=== PATIENT | male | born 1950 | race Caucasian/White ===

== ENCOUNTER 2017-04-06 02:07 | Inpatient (IN) | payer MEDICARE, OTHER ==
[2017-04-06] VITALS (7 sets, daily range): BP systolic 95–104; BP diastolic 61–70; PULSE 51–57; RESP 17–20; TEMP 97.8
[~2017-04-06] VITALS: Ht 167.6 cm; Wt 90.5 kg
[~2017-04-06 02:07] MED LIST: CEFT1VIA14 IV; CHLO25TA14 PO; CLOT10TR6 MM; DOXY-17 PO; NAPR220C2 PO; OMEP20CA16 PO; TYL500 PO
[2017-04-06] MEDS ORDERED: PIPER-TAZO 3.375 GM IV (PMX) 100 ML IVPB STA (03:17)
[2017-04-06] MEDS ORDERED: SODIUM CHLORIDE 0.9% 1L BAG IV* STA (03:17)
[2017-04-06 03:29] LABS: ADD SCAN DIFF NO
[2017-04-06 03:33] LABS: ABNORMAL IP MESSAGE 1; HEMATOCRIT 26.7 % (42.0-52.0); MEAN CORPUSCULAR HEMOGLOBIN 28.7 pg (29.0-33.0); MEAN CORPUSCULAR HGB CONC 33.7 g/dl (32.0-37.0); RED BLOOD COUNT 3.14 10^6/ul (4.70-6.10); RED CELL DISTRIBUTION WIDTH 14.3 % (11.5-14.5); WHITE BLOOD COUNT 2.7 10^3/ul (4.8-10.8)
[2017-04-06 03:47] LABS: INR 1.11; PROTIME 14.3 Sec (12.2-14.2); PT RATIO 1.1
[2017-04-06 03:48] LABS: PARTIAL THROMBOPLASTIN TIME 34.7 Sec (25.0-35.0)
[2017-04-06 03:53] LABS: ALANINE AMINOTRANSFERASE 113 IU/L (13-69); ALBUMIN 3.8 g/dl (3.3-4.9); ALBUMIN/GLOBULIN RATIO 0.95; ALKALINE PHOSPHATASE 163 IU/L (42-121); ANION GAP 18 (8-16); ASPARTATE AMINO TRANSFERASE 118 IU/L (15-46); BILIRUBIN,INDIRECT 0.2 mg/dl (0-1.1); BILIRUBIN,TOTAL 0.2 mg/dl (0.2-1.3); BLOOD UREA NITROGEN 12 mg/dl (7-20); CALCIUM 8.3 mg/dl (8.4-10.2); CARBON DIOXIDE 24 mmol/L (21-31); CHLORIDE 95 mmol/L (97-110); CREATININE 1.02 mg/dl (0.61-1.24); GLUCOSE 141 mg/dl (70-220); POTASSIUM 4.9 mmol/L (3.5-5.1); SODIUM 132 mmol/L (135-144); TOTAL PROTEIN 7.8 g/dl (6.1-8.1)
--- NOTE | 2017-04-06 03:54 | ERA ---
ER Documentation Chief Complaint Date/Time DATE: 04/06/17 TIME: 03:54 Chief Complaint fever diarrhea, weakness hx uti, blood in urine for 1 week HPI 66-year-old male with a history of alcohol induced liver disease presenting to the ER for fever for 1 day with associated diarrhea for 3 days and hallucinations per his . He has also had some dysuria and hematuria for the past week. He denies any chest pain, shortness of breath, cough, headaches , neck stiffness or pain. He has not had any vomiting, hematemesis, melena or hematochezia. His diarrhea is nonbloody, about 2-3 times a day. He denies any associated abdominal pain. He does endorse hemorrhoids that occasionally bleed very little blood. He denies having any large amounts of bloody stools ROS All systems reviewed and are negative except as per history of present illness. Medications Home Meds Active Scripts Doxycycline* (Vibramycin*) 100 Mg Capsule, 100 MG PO DAILY, #30 EA Start on 06/22/16 after completion of 14 days course of ceftriaxone 1g IV daily. Prov:BRIGITTE BYRD MD 06/07/16 Reported Medications Cholecalciferol (Vitamin D3) 400 Unit Tab.chew, 400 UNIT PO DAILY, TAB.CHEW 04/06/17 Cyanocobalamin* (Vitamin B12*) 500 Mcg Tab, 1000 MCG PO DAILY, TAB 04/06/17 Ferrous Sulfate* (Ferrous Sulfate*) 325 Mg Tabec, 325 MG PO BID, TAB 04/06/17 Diphenoxylate Hcl-Atropine* (Lomotil*) 5 Ml Soln, 5 ML GTB Q6H Y for DIARRHEA, ML 04/06/17 Diphenoxylate Hcl-Atropine* (Lomotil*) 5 Ml Soln, 5 ML GTB Q6H Y for DIARRHEA, ML 04/06/17 Mirtazapine* (Mirtazapine*) 15 Mg Tablet, 15 MG PO HS, TAB 04/06/17 Sulfamethoxazole/Trimethoprim* (Bactrim Ds* Tablet) 1 Each Tablet, 1 TAB PO BID , TAB 04/06/17 Famotidine* (Famotidine*) 20 Mg Tablet, 20 MG PO BID, #60 TAB 04/06/17 Clotrimazole* (Clotrimazole*) 10 Mg Percy, 10 MG MM 5 TIMES DAILY, TAB 06/04/16 Omeprazole* (Omeprazole*) 20 Mg Capsule.dr, 20 MG PO DAILY, #30 CAP 06/04/16 Discontinued Reported Medications Naproxen* (Aleve*) 220 Mg Capsule, 440 MG PO BID WITH MEALS Y for PAIN LEVEL 1-5 , #60 CAP 06/04/16 Acetaminophen* (Tylenol*) 500 Mg Tab, 500 MG PO Q4H Y for MILD PAIN LEVEL 1-3, TAB 06/04/16 Chlorpromazine Hcl* (Chlorpromazine Hcl*) 25 Mg Tablet, 25 MG PO QID, TAB 06/04/16 Discontinued Scripts Ceftriaxone Sodium (Ceftriaxone) 1 G/Vial Vial.port, 1 G IV DAILY for 14 Days Prov:BRIGITTE BYRD MD 06/07/16 Allergies Allergies: Coded Allergies: No Known Allergy (Unverified , 07/17/15) PMhx/Soc History of Surgery: No Anesthesia Reaction: No Hx Neurological Disorder: No Hx Respiratory Disorders: No Hx Cardiac Disorders: No Hx Psychiatric Problems: No Hx Miscellaneous Medical Probl: Yes (RICKS, near syncope,GERD, migraine, liver disease) Hx Alcohol Use: No (heavy drinker until 2012; quit) Hx Substance Use: No Hx Tobacco Use: No Smoking Status: Unknown if ever smoked FmHx Family History: No diabetes Physical Exam Vitals Vital Signs Date Time Temp Pulse Resp B/P Pulse Ox O2 Delivery O2 Flow Rate FiO2 04/06/17 04:14 100.2 74 16 72/49 99 Room Air 04/06/17 04:08 100 2.0 28 04/06/17 03:52 87 19 98/79 100 Room Air 04/06/17 02:17 101.9 104 20 185/114 98 Physical Exam Const: Sickly appearing, pale, no apparent distress Head: Atraumatic Eyes: PERRLA, EOMI. Pale conjunctiva ENT: Oropharynx clear, dry oral mucosa Neck: Full range of motion..~ No meningismus. Resp: Clear to auscultation bilaterally Cardio: Regular rate and rhythm, no murmurs. 2+ distal pulses Abd: Soft, non tender, non distended. Normal bowel sounds Skin: No petechiae or rashes Back: No midline or flank tenderness Ext: No cyanosis, or edema Neur: Awake and alert, no facial asymmetry, strength and sensations intact in all 4 extremities Psych: Normal Mood and Affect Result Diagram: 04/06/17 0320 04/06/17 0320 Results 24 hrs Laboratory Tests Test 04/06/17 03:17 04/06/17 03:20 04/06/17 04:01 Urine Color YELLOW Urine Clarity CLEAR Urine pH 7.0 Urine Specific [place] <=1.005 Urine Ketones NEGATIVE Urine Nitrite NEGATIVE Urine Bilirubin NEGATIVE Urine Urobilinogen 0.2 E.U./dL Urine Leukocyte Esterase NEGATIVE Urine Hemoglobin NEGATIVE Urine Glucose NEGATIVE% Urine Total Protein NEGATIVE White Blood Count 2.710^3/ul Red Blood Count 3.1410^6/ul Hemoglobin 9.0g/dl Hematocrit 26.7% Mean Corpuscular Volume 85.0fl Mean Corpuscular Hemoglobin 28.7pg Mean Corpuscular Hemoglobin Concent 33.7g/dl Red Cell Distribution Width 14.3% Platelet Count 1610^3/UL Mean Platelet Volume fl Neutrophils % 67.0% Band Neutrophils % 8.0% Lymphocytes % 5.0% Monocytes % 17.0% Eosinophils % 3.0% Neutrophils # 1.810^3/ul Lymphocytes # 0.110^3/ul Monocytes # 0.510^3/ul Eosinophils # 0.110^3/ul Differential Comment MANUAL DIFF Platelet Estimate PLT APPEAR DECREASED Prothrombin Time 14.3Sec Prothrombin Time Ratio 1.1 INR International Normalized Ratio 1.11 Activated Partial Thromboplast Time 34.7Sec Sodium Level 132mmol/L Potassium Level 4.9mmol/L Chloride Level 95mmol/L Carbon Dioxide Level 24mmol/L Anion Gap 18 Blood Urea Nitrogen 12mg/dl Creatinine 1.02mg/dl Glucose Level 141mg/dl Lactic Acid Level 2.8mmol/L Calcium Level 8.3mg/dl Total Bilirubin 0.2mg/dl Direct Bilirubin 0.00mg/dl Indirect Bilirubin 0.2mg/dl Aspartate Amino Transf (AST/SGOT) 118IU/L Alanine Aminotransferase (ALT/SGPT) 113IU/L Alkaline Phosphatase 163IU/L Troponin I < 0.012ng/ml Total Protein 7.8g/dl Albumin 3.8g/dl Globulin 4.00g/dl Albumin/Globulin Ratio 0.95 Lipase 70U/L Bedside Glucose 188mg/dL Current Medications Medications (Trade) Dose Ordered Sig/Raiza Route PRN Reason Start Time Stop Time Status Last Admin Dose Admin Sodium Chloride 3100 ml 3,100 ml BOLUS OVER 2 HOURS STAT IV* 04/06/17 03:17 04/06/17 03:21 DC 04/06/17 03:48 Piperacillin Sod/ Tazobactam Sod 100 ml @ 200 mls/hr ONCE STAT IVPB 04/06/17 03:17 04/06/17 03:46 DC 04/06/17 03:48 Sodium Chloride 1,000 ml @ 500 mls/hr Q2H ONCE IV 04/06/17 05:22 04/06/17 07:21 Norepinephrine (Levophed) 250 ml @ 7.5 mls/hr ONCE STAT IV 04/06/17 05:57 04/07/17 15:16 Procedures/MDM Labs: CBC shows pancytopenia with platelets 16 CMP shows transaminitis Lactate is elevated at 2.8 Troponin within normal limits UA normal Imaging: Chest x-ray shows no evidence of pneumonia or pulmonary congestion MDM: Patient is presenting with fever and tachycardia with unknown source of infection. His labs were notable for pancytopenia. Given his recent hematuria and bleeding hemorrhoids, 1 unit of platelets was ordered. His hemoglobin is stable at this time and does not require transfusion. He was given broad- spectrum antibiotics. He received 30 cc/kg of IV fluids with no significant improvement of his blood pressure. Another additional 500 cc was given with mild improvement of his blood pressure. Norepinephrine was ordered to use as needed for hypotension. Patient's infectious symptoms have not stabilized and the patient is at risk of rapid decompensation. The patient will be admitted for careful hydration, antibiotic therapy, and infectious source control. Severe Sepsis Assessment: Infectious Source: Unknown source End organ damage indicated by: Lactate > 2.0 mmol/L Hypotension( SBP < 90 or >40 mmHG drop or MAP < 65) Severe Sepsis Managment: Blood Cultures X 2 before broad spectrum antibiotics initiated within 3 hours of recognition. 30 ml/kg NS bolus Completed Initial Lactate: 2.8 Repeat Lactate pending Critical Care: Time: 40 minutes Treatments/Evaluations: Emergent fluid management, while maintaining close respiratory support. Immediate broad spectrum antibiotic therapy. Simultaneous assessment for possible sources in order to direct therapy. Consideration for invasive and chemical support to prevent respiratory or cardiac collapse. Septic Shock Assessment (1 hour post 30 ml/kg fluid bolus at 0600): Hypotension (SBP < 90 or 40 mmHg drop, MAP < 65): Yes Lactic acid > 4.0 pending Hypotensive Treatment (not required for isolated lactic acid elevation): Comfort Care: No Central LIne: not indicated Vasopressor started: norepinephrine I considered further perfusion assessment with CVP measurement, SCVO2, bedside ultrasound volume assessment, passive leg raise, trial of further fluid bolus. And proceded with a trial of further fluid bolus Accepting Care Team: Current data and ongoing care discussed. Time: Time of admission Primary Provider: Barrett Consulting: none Outstanding Data: cultures Departure Diagnosis: Primary Impression: Sepsis Qualified Code: A41.9 - Sepsis, due to unspecified organism Additional Impressions: Pancytopenia Transaminitis Condition: Critical EKJARED FRANCISCO MD Apr 06, 2017 03:54
[2017-04-06 04:05] LABS: TROPONIN-I < 0.012 ng/ml (0.00-0.12)
--- NOTE | 2017-04-06 04:07 | RADRPT ---
PROCEDURE: CHEST - 1 VIEW CLINICAL INDICATION: 66-year-old male with shortness of breath and sepsis. TECHNIQUE: A single frontal AP portable view of the chest was performed. The images were reviewed on a PACS workstation. COMPARISON: Chest x-ray June 08, 2016. FINDINGS: There is a shallow inspiration accentuating the heart size. Accounting for this, the cardiomediasti nal silhouette is within normal limits without significant interval change. There is mild bibasilar subsegmental atelectasis. There is no evidence for an infiltrate. There is no evidence for conges tive heart failure. There is no evidence for pneumothorax. The osseous structures are intact. IMPRESSION: Shallow inspiration with mild bibasilar subsegmental atelectasis. .Randall Escalera MD, Date Time Electronically viewed and signed by .Randall Escalera MD, on 04/06/2017 04:07 .Jarod/
[2017-04-06 04:09] LABS: EOSINOPHILS # 0.1 10^3/ul (0.0-0.5); LYMPHOCYTES # 0.1 10^3/ul (0.8-2.9); MONOCYTE # 0.5 10^3/ul (0.3-0.9); NEUTROPHIL # 1.8 10^3/ul (1.6-7.5); PLATELET ESTIMATE PLT APPEAR DECREASED
[2017-04-06] MEDS ORDERED: UDLOM GTB (04:11)
[2017-04-06] MEDS ORDERED: CHOL400T3 PO (04:11)
[2017-04-06] MEDS ORDERED: FAMO20TA18 PO (04:11)
[2017-04-06] MEDS ORDERED: CYAN500T46 PO (04:11)
[2017-04-06] MEDS ORDERED: MIRT15TA5 PO (04:11)
[2017-04-06] MEDS ORDERED: FER325 PO (04:11)
[2017-04-06] MEDS ORDERED: SULF1TAB31 PO (04:11)
[2017-04-06 04:12] LABS: PLATELET COUNT 16 10^3/UL (140-415)
[2017-04-06] MEDS ORDERED: SOD CHLORIDE 0.9% 1,000 ML IV ONE (05:22)
[2017-04-06 05:47] LABS: ADD UMIC NO; UR BILIRUBIN (Dip) NEGATIVE (NEGATIVE); UR BLOOD (Dip) NEGATIVE (NEGATIVE); UR CLARITY CLEAR (CLEAR); UR COLOR YELLOW (YELLOW); UR GLUCOSE (Dip) NEGATIVE (NEGATIVE); UR KETONES (Dip) NEGATIVE (NEGATIVE); UR LEUKOCYTE ESTERASE (Dip) NEGATIVE (NEGATIVE); UR NITRITE (Dip) NEGATIVE (NEGATIVE); UR TOTAL PROTEIN (Dip) NEGATIVE (NEGATIVE); UR UROBILINOGEN (Dip) 0.2 E.U./dL (0.1-1.0)
[2017-04-06] MEDS ORDERED: NORepinephrine 8MG/250 ML (PMX 250 ML IV STA (05:57)
--- NOTE | 2017-04-06 13:33 | HP ---
Date/Time of Note Date/Time of Note DATE: 04/06/17 TIME: 13:31 Assessment/Plan VTE Prophylaxis VTE Prophylaxis Intervention: SCD's Assessment/Plan Assessment/Plan 66 yo M with pmhx cirrhosis of unclear etiology presented with altered mental status, severe hypotension requiring pressor support. Pt's elevated HR on arrival to the ED and low WBCs meet SIRS criteria. Pt with shock as evidence by need of pressor support. Suspect septic etiology, though source unclear. Pt with previous admission for bacteremia. Pt without known indwelling lines/ devices #Shock, presumed septic in origin -cont empiric zosyn -urine and blood cultures in process -Abd US to eval for ascities, though no distension on my physical exam -cont pressor support #cirrhosis: etiology unclear -check hepatitis serologies and liver US as above #Elevatedanion gap: etio unclear, ?starvation, ?EtOH check ABG and EtOH level #thrombocytopenia: suspect 2/2 chronic liver disease sp platelet transfusion in the ED given no evidence of active bleeding, defer additional transfusion for platelets >10k #?B12 def: cont home b12 #FEN: general diet #h/o BERNARDO: Cont home iron #h/o depression: cont home Remeron ?h/o GERD: Cont home stomach acid modifying agent HPI/ROS Admit Date/Time Admit Date/Time Hx of Present Illness Pt hx obtained with aid of the language line 66 yo M with pmhx cirrhosis of unk etio (per patient) presents with 2 weeks of feeling unwell---periumbical pain, dysuria. Since yesterday has been having visual hallucinations. No documented h/o HE or SBP. Denies chest pain, sob. Temp mildy elevated in the ED. Pt started on abx and unable to maintain MAPs and thus levophed was started. ROS 10p ROS neg except as per HPI PMH/Family/Social Past Medical History PMHx: cirrhosis, unclear etio (?EtOH?), BERNARDO -denies previous SBP. 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 ?depression PSHx: abdominal surgery home meds: as per EMR All: NKDA Soc Hx: lives with Fam Hx: noncontributory Past Surgical History Past Surgical Hx: no surgical history Social History Smoking Status: Unknown if ever smoked Exam/Review of Systems Vital Signs Vitals Vital Signs Date Time Temp Pulse Resp B/P Pulse Ox O2 Delivery O2 Flow Rate FiO2 04/06/17 12:30 73 17 125/76 100 Nasal Cannula 2.0 04/06/17 11:30 97.9 04/06/17 04:08 28 Exam Exam nad, laying in bed EOMI MMM rrr no mrg lungs clear abd soft, no fluid wave, mild ttp over periumbilical region, no tenderness or guarding no le edema no rashes or jaundice no asterixis responds to questions appropriately in [employer] [facility] Result Diagram: 04/06/17 0320 04/06/17 0320 Procedures Procedures UA pristine, CXR with atelectasis blood and urine cultures in process +transaminitis; bilis ok pl 14 ALVARO RODRIGES MD Apr 06, 2017 13:33
[2017-04-06] MEDS ORDERED: CEFTRIAXONE 2 GM/50 ML (PMX) 50 ML IVPB ONE (14:00)
--- NOTE | 2017-04-06 14:01 | RADRPT ---
PROCEDURE: US Abdomen complete. CLINICAL INDICATION: Sepsis and liver failure. There is a question of ascites. TECHNIQUE: Multiple real-time longitudinal and transverse images were acquired of the patient's ab domen and retroperitoneum utilizing a curved array transducer. COMPARISON: None available. FINDINGS: There is normal size and echogenicity of the liver without a focal mass identified. Normal hepatoped al flow is seen within the main portal vein. There is no gallbladder wall thickening, cholelithiasis , or pericholecystic fluid. There is no intra or extrahepatic biliary dilatation. The common bile d uct measures 3.2 mm in maximal dimension. The visualized portions of the pancreas are unremarkable. The spleen is normal in size and echogenicity. No free fluid is identified. The right kidney measures 11.5 cm in length. The left kidney measures 11.3 cm in length. Both kidn eys demonstrate normal echogenicity. There is no hydronephrosis, nephrolithiasis, or renal mass. The visualized portions of the aorta and IVC are unremarkable. IMPRESSION: 1. Unremarkable abdominal ultrasound. A source for the patient's symptoms is not identified. 2. No evidence of ascites, as questioned. RPTAT: GG .Delio Webb MD, Date Time Electronically viewed and signed by .Delio Webb MD, MD on 04/06/2017 14:00 .P/
[2017-04-06] MEDS ORDERED: MAGNESIUM HYDROXIDE 30ML CUP PO PRN (14:30)
[2017-04-06] MEDS ORDERED: NA PHOSPHATE/BIPHOS 133 ML ENEMA PR PRN (14:30)
[2017-04-06] MEDS ORDERED: NORepinephrine 8MG/250 ML (PMX 250 ML IV SCH (14:30)
[2017-04-06] MEDS ORDERED: DOCUSATE SODIUM 100 MG CAP PO PRN (14:30)
[2017-04-06] MEDS ORDERED: BISACODYL (EC) 5 MG TAB PO PRN (14:30)
[2017-04-06] MEDS ORDERED: BISACODYL 10 MG SUPP PR PRN (14:30)
[2017-04-06 14:49] LABS: AADO2 Arterial 14.7 mmHg (7.0-24.0); Allen Test ACCEPTAB; Arterial Base Excess -1.4 mmol/L (-3.0-3); Arterial COHb 0.8 % (0.0-3.0); Arterial Fraction of Oxyhgb 95.4 % (93.0-99.0); Arterial HCO3 22.8 mmol/L (22.0-26.0); Arterial MetHb 0.4 % (0.0-1.5); Arterial Total Hemglobin 6.8 g/dl (12.0-18.0); MODE ROOM AIR
[2017-04-06] MEDS: PIPER-TAZO 3.375 GM IV (PMX) 100 ML IVPB SCH ×2 (15:19→22:58)
[2017-04-06] MEDS ORDERED: ACETAMINOPHEN 500 MG TAB PO STA (16:53)
[2017-04-06] MEDS: SOD CHLORIDE 0.9% 1,000 ML IV SCH (17:02)
[2017-04-06] MEDS: MIRTAZAPINE 15 MG TAB PO SCH (22:58)
[2017-04-06] MEDS: FAMOTIDINE 20 MG TAB PO SCH (22:59)
[2017-04-06] MEDS: FERROUS SULFATE (EC) 325 MG TAB PO SCH (22:59)
[2017-04-07] VITALS (23 sets, daily range): BP systolic 91–123; BP diastolic 54–84; PULSE 46–95; RESP 14–26; Ht 167.6 cm; Wt 90.5 kg
[2017-04-07 05:08] LABS: ADD SCAN DIFF NO
[2017-04-07 05:14] LABS: ABNORMAL IP MESSAGE 1; HEMATOCRIT 22.6 % (42.0-52.0); HEMOGLOBIN 7.5 g/dl (14.0-18.0); MEAN CORPUSCULAR HEMOGLOBIN 28.5 pg (29.0-33.0); MEAN CORPUSCULAR HGB CONC 33.2 g/dl (32.0-37.0); MEAN CORPUSCULAR VOLUME 85.9 fl (82.0-101.0); MEAN PLATELET VOLUME 11.9 fl (7.4-10.4); PLATELET COUNT 31 10^3/UL (140-415); RED BLOOD COUNT 2.63 10^6/ul (4.70-6.10); RED CELL DISTRIBUTION WIDTH 14.7 % (11.5-14.5); WHITE BLOOD COUNT 1.9 10^3/ul (4.8-10.8)
[2017-04-07 05:36] LABS: ALBUMIN 2.9 g/dl (3.3-4.9); ALBUMIN/GLOBULIN RATIO 0.78; BILIRUBIN,INDIRECT 0.1 mg/dl (0-1.1); BILIRUBIN,TOTAL 0.1 mg/dl (0.2-1.3); CALCIUM 7.8 mg/dl (8.4-10.2); CREATININE 0.71 mg/dl (0.61-1.24); POTASSIUM 3.9 mmol/L (3.5-5.1); TOTAL PROTEIN 6.6 g/dl (6.1-8.1)
[2017-04-07] MEDS: PIPER-TAZO 3.375 GM IV (PMX) 100 ML IVPB SCH ×3 (05:51→22:33)
[2017-04-07] MEDS: PANTOPRAZOLE (EC) 40 MG TAB PO SCH (05:51)
[2017-04-07 06:22] LABS: HEPATITIS B CORE ANTIBODY NEGATIVE (NEGATIVE)
--- NOTE | 2017-04-07 08:26 | PN ---
Date/Time of Note Date/Time of Note DATE: 04/07/17 TIME: 08:25 Assessment/Plan VTE Prophylaxis VTE Prophylaxis Intervention: SCD's Lines/Catheters IV [facility] Peripheral IV Urinary Cath still in place: No Assessment/Plan Assessment/Plan 66 yo M with pmhx cirrhosis of unclear etiology presented with altered mental status, severe hypotension requiring pressor support. Pt's elevated HR on arrival to the ED and low WBCs meet SIRS criteria. Pt with shock as evidence by need of pressor support. Suspect septic etiology, though source unclear. Pt with previous admission for bacteremia. Pt without known indwelling lines/ devices #Shock, presumed septic in origin -cont empiric zosyn -urine and blood cultures in process -Abd US to eval for ascities, though no distension on my physical exam off pressors now #cirrhosis: etiology unclear -check hepatitis serologies and liver US as above #Elevatedanion gap: RESOLVED #thrombocytopenia: suspect 2/2 chronic liver disease sp platelet transfusion in the ED given no evidence of active bleeding, defer additional transfusion for platelets >10k #?B12 def: cont home b12 #FEN: general diet #h/o BERNARDO: Cont home iron #h/o depression: cont home Remeron ?h/o GERD: Cont home stomach acid modifying agent dispo: transfer to floor as off pressors x 7 hours Subjective 24 Hr Interval Summary Free Text/Dictation Pt feeling much better this morning. More awake and alert. Says breakfast was very good. Has been off levophed since 1 am Exam/Review of Systems Vital Signs Vitals Vital Signs Date Time Temp Pulse Resp B/P Pulse Ox O2 Delivery O2 Flow Rate FiO2 04/07/17 07:30 98.6 79 14 91/63 99 Room Air 04/07/17 04:00 2.0 04/06/17 04:08 28 Intake and Output 04/06/17 04/06/17 04/07/17 15:00 23:00 07:00 Intake Total 205 ml 109.375 ml 651.875 ml Output Total 2200 ml 250 ml 650 ml Balance -1995 ml -140.625 ml 1.875 ml Exam nad, pleasant, sitting up in chair no mrg lungs clear abd soft no le edema Results Result Diagram: 04/07/17 0445 04/07/17 0500 Results 24 hrs Laboratory Tests Test 04/06/17 14:30 04/06/17 15:23 04/06/17 16:30 04/06/17 21:30 Blood Gas Specimen Source Blood arterial Arterial Blood Date Drawn 04/06/2017 2:38:55 PM Arterial Blood pH (Temp corrected) 7.427 Arterial Blood pCO2 (Temp correct) 35.4 Arterial Blood pO2 (Temp corrected) 92.6 Arterial Blood HCO3 22.8 Arterial Blood Base Excess -1.4 Arterial Blood Oxygen Saturation 96.6 Charlie Test ACCEPTAB Arterial Blood Gas Puncture Site Left Radial Arterial Blood Carboxyhemoglobin 0.8 Arterial Blood Methemoglobin 0.4 Blood Gas A-a O2 Differential 14.7 Oxyhemoglobin Percent 95.4 Total Hemoglobin 6.8 L Blood Gas Temperature 37.0 Blood Gas Modality ROOM AIR FiO2 21.0 Blood Gas Notified Whom M.D. Blood Gas Notified Time 04/06/2017 2:48:52 PM Bedside Glucose 102 Ethyl Alcohol Level < 10.0 Ammonia < 9 L Test 04/07/17 04:45 04/07/17 04:45 04/07/17 05:00 White Blood Count 1.9 #L Red Blood Count 2.63 L Hemoglobin 7.5 L Hematocrit 22.6 L Mean Corpuscular Volume 85.9 Mean Corpuscular Hemoglobin 28.5 L Mean Corpuscular Hemoglobin Concent 33.2 Red Cell Distribution Width 14.7 H Platelet Count 31 #L Mean Platelet Volume 11.9 #H Lab Scanned Report BLOOD TRANSFUSION Sodium Level 137 Potassium Level 3.9 Chloride Level 107 # Carbon Dioxide Level 23 Anion Gap 11 # Blood Urea Nitrogen 7 Creatinine 0.71 Glucose Level 99 # Calcium Level 7.8 L Total Bilirubin 0.1 L Direct Bilirubin 0.00 Indirect Bilirubin 0.1 Aspartate Amino Transf (AST/SGOT) 58 #H Alanine Aminotransferase (ALT/SGPT) 76 H Alkaline Phosphatase 116 Total Protein 6.6 # Albumin 2.9 L Globulin 3.70 H Albumin/Globulin Ratio 0.78 Hepatitis A Antibody Total POSITIVE H Hepatitis B Surface Antigen NEGATIVE Hepatitis B Surface Antibody NEGATIVE Hepatitis B Core Total Antibody NEGATIVE Hepatitis C Antibody REACTIVE H Medications Medications Current Medications Cyanocobalamin (Vitamin B12) 1,000 mcg DAILY PO ; Start 04/07/17 at 09:00 Famotidine (Pepcid) 20 mg BID PO Last administered on 04/06/17t 22:59; Admin Dose 20 MG; Start 04/06/17 at 21:00 Ferrous Sulfate (Ferrous Sulfate (Ec)) 325 mg BID PO Last administered on 22:59; Admin Dose 325 MG; Start 04/06/17 at 21:00 Mirtazapine (Remeron) 15 mg HS PO Last administered on 04/06/17 22:58; Admin Dose 15 MG; Start 04/06/17 at 21:00 Pantoprazole (Protonix Tab) 40 mg DAILY@06 PO Last administered on 04/07/17 05: 51; Admin Dose 40 MG; Start 04/07/17 at 06:00 Cholecalciferol 400 units 400 units DAILY PO ; Start 04/07/17 at 09:00 Sodium Chloride 1,000 ml @ 10 mls/hr Q24H IV Last administered on 04/06/17 17: 02; Admin Dose 10 MLS/HR; Start 04/06/17 at 14:02 Piperacillin Sod/ Tazobactam Sod (Zosyn 3.375gm/ 100 ml (Pmx)) 100 ml @ 200 mls /hr Q8H IVPB Last administered on 04/07/17 05:51; Admin Dose 200 MLS/HR; Start 04/06/17 at 14:30 Docusate Sodium (Colace) 100 mg Q12H PRN PO CONSTIPATION; Start 04/06/17 at 14: 30 Magnesium Hydroxide (Milk Of Mag) 30 ml DAILY PRN PO CONSTIPATION; Start at 14:30 Bisacodyl (Dulcolax) 5 mg DAILY PRN PO CONSTIPATION; Start 04/06/17 at 14:30 Bisacodyl (Dulcolax Supp) 10 mg DAILY PRN CA CONSTIPATION; Start 04/06/17 at 14: 30 Sodium Biphosphate/ Sodium Phosphate (Fleet Enema) 133 ml DAILY PRN CA CONSTIPATION; Start 04/06/17 at 14:30 Procedures Procedures cultures in process. ALVARO RODRIGES MD Apr 07, 2017 08:26
[2017-04-07] MEDS: FERROUS SULFATE (EC) 325 MG TAB PO SCH ×2 (08:31→21:39)
[2017-04-07] MEDS: CHOLECALCIFEROL 400 UNITS TAB PO SCH (08:31)
[2017-04-07] MEDS: CYANOCOBALAMIN 500 MCG TAB PO SCH (08:31)
[2017-04-07] MEDS: FAMOTIDINE 20 MG TAB PO SCH ×2 (08:31→21:39)
[2017-04-07] MEDS ORDERED: NON-FORMULARY/PATIENT OWN MED (Omeprazole* 20 MG) PO SCH (09:00)
[2017-04-07] MEDS ORDERED: CHOLECALCIFEROL 400 UNIT PO SCH (09:00)
[2017-04-07 10:15] LABS: ANISOCYTOSIS 1+; LYMPHOCYTES # 0.1 10^3/ul (0.8-2.9); MONOCYTE # 0.3 10^3/ul (0.3-0.9); NEUTROPHIL # 1.1 10^3/ul (1.6-7.5)
[2017-04-07 10:16] LABS: OVALOCYTES FEW; PLATELET ESTIMATE PLT APPEAR DECREASED; POIKILOCYTOSIS 1+
[2017-04-07] MEDS: SOD CHLORIDE 0.9% 1,000 ML IV SCH (15:47)
[2017-04-07] MEDS ORDERED: ACETAMINOPHEN 325 MG TAB PO PRN (16:30)
[2017-04-07] MEDS: ACETAMINOPHEN 325 MG TAB PO PRN (16:37)
[2017-04-07] MEDS: MIRTAZAPINE 15 MG TAB PO SCH (21:50)
[2017-04-08] VITALS (13 sets, daily range): BP systolic 82–117; BP diastolic 47–68; PULSE 50–83; RESP 15–20
[2017-04-08] MEDS: PIPER-TAZO 3.375 GM IV (PMX) 100 ML IVPB SCH ×3 (05:54→22:31)
[2017-04-08] MEDS: PANTOPRAZOLE (EC) 40 MG TAB PO SCH (05:54)
[2017-04-08 07:42] LABS: ADD SCAN DIFF NO
[2017-04-08 07:46] LABS: ABNORMAL IP MESSAGE 1; HEMATOCRIT 21.8 % (42.0-52.0); HEMOGLOBIN 7.4 g/dl (14.0-18.0); MEAN CORPUSCULAR HEMOGLOBIN 29.4 pg (29.0-33.0); MEAN CORPUSCULAR HGB CONC 33.9 g/dl (32.0-37.0); MEAN CORPUSCULAR VOLUME 86.5 fl (82.0-101.0); MEAN PLATELET VOLUME 10.5 fl (7.4-10.4); RED BLOOD COUNT 2.52 10^6/ul (4.70-6.10); RED CELL DISTRIBUTION WIDTH 14.4 % (11.5-14.5); WHITE BLOOD COUNT 1.8 10^3/ul (4.8-10.8)
[2017-04-08 07:51] LABS: PLATELET COUNT 18 10^3/UL (140-415)
[2017-04-08 07:58] LABS: ALBUMIN/GLOBULIN RATIO 0.83; BILIRUBIN,INDIRECT 0.2 mg/dl (0-1.1); BILIRUBIN,TOTAL 0.2 mg/dl (0.2-1.3); CALCIUM 7.8 mg/dl (8.4-10.2); CREATININE 0.83 mg/dl (0.61-1.24); POTASSIUM 4.1 mmol/L (3.5-5.1); TOTAL PROTEIN 6.6 g/dl (6.1-8.1)
[2017-04-08] MEDS: CHOLECALCIFEROL 400 UNITS TAB PO SCH (08:52)
[2017-04-08] MEDS: FAMOTIDINE 20 MG TAB PO SCH ×2 (08:53→20:58)
[2017-04-08] MEDS: FERROUS SULFATE (EC) 325 MG TAB PO SCH ×2 (08:53→20:58)
[2017-04-08] MEDS: CYANOCOBALAMIN 500 MCG TAB PO SCH (08:57)
[2017-04-08 09:23] LABS: LYMPHOCYTES # 0.1 10^3/ul (0.8-2.9); MONOCYTE # 0.3 10^3/ul (0.3-0.9); NEUTROPHIL # 1.4 10^3/ul (1.6-7.5)
[2017-04-08 09:25] LABS: OVALOCYTES FEW; PLATELET ESTIMATE PLT APPEAR DECREASED; POLYCHROMASIA FEW; SCHISTOCYTES OCCASIONAL; SPHEROCYTES FEW
--- NOTE | 2017-04-08 10:01 | PN ---
Date/Time of Note Date/Time of Note DATE: 04/08/17 TIME: 09:57 Assessment/Plan VTE Prophylaxis VTE Prophylaxis Intervention: contraindicated Lines/Catheters [facility]from [facility]): Peripheral IV Urinary Cath still in place: No Assessment/Plan Problems: (1) Cirrhosis of liver Status: Chronic Comment: He has cirrhosis which we are presuming is doing due to chronic active hepatitis C. Formalized evaluation of this can be done as an outpatient by his primary care physician with referral to senior property accountant ultrasound based liver elasticity examination. He does not have ascites so this is not the source of the possibility of sepsis. Qualifiers: Hepatic cirrhosis type: other cirrhosis Qualified Code: K74.69 - Other cirrhosis of liver (2) Hepatitis C antibody positive in blood Status: Acute Comment: New diagnosis the RIBA is pending (3) Sepsis Status: Acute Comment: Urine is negative chest x-ray is negative abdominal ultrasound is negative skin exam is negative. Patient clinically is responded nicely. We will continue antibiotics for 1 more day and observation to make sure that nothing becomes obviously apparent. I do not believe that there is a biliary source for this based on the presentation. Qualifiers: Sepsis type: sepsis due to unspecified organism Qualified Code: A41.9 - Sepsis, due to unspecified organism (4) Pancytopenia Status: Acute Comment: Due to cirrhosis Subjective 24 Hr Interval Summary Free Text/Dictation Patient reports from his perspective he is feeling better although he is insecure about the long-term Constitutional: no complaints (Denies any fevers chills or sweats) Eyes: no complaints Respiratory: no complaints (No cough no shortness of breath) Cardiovascular: no complaints (No chest pain no palpitations no orthopnea no PND) Gastrointestinal: no complaints (No nausea or vomiting no pain no distention) Genitourinary: no complaints Exam/Review of Systems Vital Signs Vitals Vital Signs Date Time Temp Pulse Resp B/P Pulse Ox O2 Delivery O2 Flow Rate FiO2 04/08/17 09:09 66 100/65 04/08/17 08:08 98.0 17 99 04/07/17 09:00 Room Air 04/07/17 04:00 2.0 04/06/17 04:08 28 Intake and Output 04/07/17 04/07/17 04/08/17 15:00 23:00 07:00 Intake Total 240 ml 780 ml Output Total 1000 ml Balance 240 ml -220 ml Exam Constitutional: alert, oriented Respiratory: clear to auscultation, normal air movement, other (Noted spider angiomata on the anterior chest wall) Cardiovascular: nl pulses, regular rate and rhythm Gastrointestinal: non-tender, other (There is no fluid wave or shifting dullness), soft, splenomegaly (Spleen is enlarged) Results Result Diagram: 04/08/17 0720 04/08/17 0720 Results 24 hrs Laboratory Tests Test 04/08/17 07:20 White Blood Count 1.8 L Red Blood Count 2.52 L Hemoglobin 7.4 L Hematocrit 21.8 L Mean Corpuscular Volume 86.5 Mean Corpuscular Hemoglobin 29.4 Mean Corpuscular Hemoglobin Concent 33.9 Red Cell Distribution Width 14.4 Platelet Count 18 #*L Mean Platelet Volume 10.5 H Neutrophils % 80.0 H Lymphocytes % 4.0 L Monocytes % 14.0 H Metamyelocytes % 2.0 H Neutrophils # 1.4 L Lymphocytes # 0.1 L Monocytes # 0.3 Metamyelocytes # 0.0 Platelet Estimate PLT APPEAR DECREASED Polychromasia FEW Spherocytes FEW Ovalocytes FEW Schistocytes OCCASIONAL Sodium Level 134 L Potassium Level 4.1 Chloride Level 103 Carbon Dioxide Level 25 Anion Gap 10 Blood Urea Nitrogen 7 Creatinine 0.83 Glucose Level 91 Calcium Level 7.8 L Total Bilirubin 0.2 Direct Bilirubin 0.00 Indirect Bilirubin 0.2 Aspartate Amino Transf (AST/SGOT) 41 Alanine Aminotransferase (ALT/SGPT) 67 Alkaline Phosphatase 125 H Total Protein 6.6 Albumin 3.0 L Globulin 3.60 H Albumin/Globulin Ratio 0.83 Medications Medications Current Medications Cyanocobalamin (Vitamin B12) 1,000 mcg DAILY PO Last administered on 04/08/17 08:57; Admin Dose 1,000 MCG; Start 04/07/17 at 09:00 Famotidine (Pepcid) 20 mg BID PO Last administered on 04/08/17 08:53; Admin Dose 20 MG; Start 04/06/17 at 21:00 Ferrous Sulfate (Ferrous Sulfate (Ec)) 325 mg BID PO Last administered on 08:53; Admin Dose 325 MG; Start 04/06/17 at 21:00 Mirtazapine (Remeron) 15 mg HS PO Last administered on 04/07/17 21:50; Admin Dose 15 MG; Start 04/06/17 at 21:00 Pantoprazole (Protonix Tab) 40 mg DAILY@06 PO Last administered on 04/08/17 05: 54; Admin Dose 40 MG; Start 04/07/17 at 06:00 Cholecalciferol 400 units 400 units DAILY PO Last administered on 04/08/17 08: 52; Admin Dose 400 UNITS; Start 04/07/17 at 09:00 Sodium Chloride 1,000 ml @ 10 mls/hr Q24H IV Last administered on 04/07/17 15: 47; Admin Dose 10 MLS/HR; Start 04/06/17 at 14:02 Piperacillin Sod/ Tazobactam Sod (Zosyn 3.375gm/ 100 ml (Pmx)) 100 ml @ 200 mls /hr Q8H IVPB Last administered on 04/08/17 05:54; Admin Dose 200 MLS/HR; Start 04/06/17 at 14:30 Docusate Sodium (Colace) 100 mg Q12H PRN PO CONSTIPATION; Start 04/06/17 at 14: 30 Magnesium Hydroxide (Milk Of Mag) 30 ml DAILY PRN PO CONSTIPATION; Start at 14:30 Bisacodyl (Dulcolax) 5 mg DAILY PRN PO CONSTIPATION; Start 04/06/17 at 14:30 Bisacodyl (Dulcolax Supp) 10 mg DAILY PRN [place] CONSTIPATION; Start 04/06/17 at 14: 30 Sodium Biphosphate/ Sodium Phosphate (Fleet Enema) 133 ml DAILY PRN [place] CONSTIPATION; Start 04/06/17 at 14:30 Acetaminophen (Tylenol Tab) 650 mg Q4H PRN PO PAIN AND OR ELEVATED TEMP Last administered on 04/07/17 16:37; Admin Dose 650 MG; Start 04/07/17 at 16:30 ELDON HINES MD Apr 08, 2017 10:01
[2017-04-08] MEDS ORDERED: CYANOCOBALAMIN 500 MCG TAB PO SCH (11:00)
[2017-04-08] MEDS ORDERED: LACTATED RINGER'S 500 ML IV ONE (11:30)
[2017-04-08] MEDS: THIAMINE 100 MG TAB PO SCH (11:54)
[2017-04-08] MEDS ORDERED: TESTOSTERONE CYPIONATE 200 MG/ML INJ IM ONE (12:00)
[2017-04-08] MEDS: SOD CHLORIDE 0.9% 1,000 ML IV SCH (14:02)
[2017-04-08] MEDS: ACETAMINOPHEN 325 MG TAB PO PRN (16:26)
[2017-04-08] MEDS ORDERED: LACTATED RINGER'S 250 ML IV ONE (17:00)
[2017-04-08] MEDS: MIRTAZAPINE 15 MG TAB PO SCH (20:58)
[2017-04-09] VITALS (11 sets, daily range): BP systolic 92–107; BP diastolic 52–67; PULSE 51–71; RESP 18–20
[2017-04-09] MEDS: PANTOPRAZOLE (EC) 40 MG TAB PO SCH (05:54)
[2017-04-09] MEDS: PIPER-TAZO 3.375 GM IV (PMX) 100 ML IVPB SCH ×2 (05:54→13:42)
[2017-04-09] MEDS: CYANOCOBALAMIN 500 MCG TAB PO SCH (08:37)
[2017-04-09] MEDS: FERROUS SULFATE (EC) 325 MG TAB PO SCH ×2 (08:38→21:19)
[2017-04-09] MEDS: THIAMINE 100 MG TAB PO SCH (08:38)
[2017-04-09] MEDS: CHOLECALCIFEROL 400 UNITS TAB PO SCH (08:38)
[2017-04-09] MEDS: FAMOTIDINE 20 MG TAB PO SCH ×2 (08:38→21:19)
[2017-04-09] MEDS: SOD CHLORIDE 0.9% 1,000 ML IV SCH (13:36)
--- NOTE | 2017-04-09 15:17 | PN ---
Date/Time of Note Date/Time of Note DATE: 04/09/17 TIME: 15:09 Assessment/Plan VTE Prophylaxis VTE Prophylaxis Intervention: SCD's Lines/Catheters IV Catheter Type (from Nrsg): Peripheral IV Urinary Cath still in place: No Assessment/Plan Assessment/Plan 1. Hypotension, due to dehydration, improved, stop antibiotics 2. Hepatitis C, follow up with LFTs 3. Pancytopenia, likely hepatitis C related, follow up with CBC Subjective 24 Hr Interval Summary Free Text/Dictation better appetite and better oral intake. no nausea or vomiting Exam/Review of Systems Vital Signs Vitals Vital Signs Date Time Temp Pulse Resp B/P Pulse Ox O2 Delivery O2 Flow Rate FiO2 04/09/17 12:44 61 04/09/17 11:46 99.3 18 104/65 95 04/07/17 09:00 Room Air 04/07/17 04:00 2.0 04/06/17 04:08 28 Intake and Output 04/08/17 04/08/17 04/09/17 15:00 23:00 07:00 Intake Total 840 ml 400 ml Balance 840 ml 400 ml Exam Constitutional: alert, oriented, well developed Psych: nl mood/affect, no complaints Head: atraumatic, normocephalic Eyes: EOMI, PERRL, nl conjunctiva, nl lids ENMT: nl external ears & nose, nl lips & teeth, nl nasal mucosa & septum Neck: non-tender, supple Respiratory: clear to auscultation, normal air movement, No congested cough, No crackles/rales, No diminished breath sounds, No intercostal retraction, No labored breathing, No other, No respirations, No tactile fremitus, No wheezing Cardiovascular: nl pulses, regular rate and rhythm, No S3, No S4, No bruits, No diastolic murmur, No edema, No gallop, No irregular rhythm, No jugular venous distention (JVD), No murmurs/extra sounds, No other, No rub, No systolic murmur Gastrointestinal: nl liver, spleen, non-tender, soft, No ascites, No bowel sounds, No distended, No firm, No hepatomegaly, No mass , No other, No rebound or guarding, No splenomegaly, No surgical scars, No tender Musculoskeletal: nl extremities to inspection Extremities: normal pulses, No calf tenderness, No clubbing, No cyanosis, No edema, No other, No palpable cord, No pitting pedal edema, No tenderness Neurological: REHABILITATION COORDINATOR II-XII intact, nl mental status, nl speech, nl strength Skin: nl turgor, rash or lesions Lymph: nl lymph nodes Results Result Diagram: 04/08/17 0720 04/08/17 0720 Medications Medications Current Medications Cyanocobalamin (Vitamin B12) 1,000 mcg DAILY PO Last administered on 04/08/17 08:57; Admin Dose 1,000 MCG; Start 04/07/17 at 09:00 Famotidine (Pepcid) 20 mg BID PO Last administered on 04/09/17 08:38; Admin Dose 20 MG; Start 04/06/17 at 21:00 Ferrous Sulfate (Ferrous Sulfate (Ec)) 325 mg BID PO Last administered on 08:38; Admin Dose 325 MG; Start 04/06/17 at 21:00 Mirtazapine (Remeron) 15 mg HS PO Last administered on 04/08/17 20:58; Admin Dose 15 MG; Start 04/06/17 at 21:00 Pantoprazole (Protonix Tab) 40 mg DAILY@06 PO Last administered on 04/09/17 05: 54; Admin Dose 40 MG; Start 04/07/17 at 06:00 Cholecalciferol 400 units 400 units DAILY PO Last administered on 04/09/17 08: 38; Admin Dose 400 UNITS; Start 04/07/17 at 09:00 Sodium Chloride 1,000 ml @ 10 mls/hr Q24H IV Last administered on 04/07/17 15: 47; Admin Dose 10 MLS/HR; Start 04/06/17 at 14:02 Piperacillin Sod/ Tazobactam Sod (Zosyn 3.375gm/ 100 ml (Pmx)) 100 ml @ 200 mls /hr Q8H IVPB Last administered on 04/09/17 13:42; Admin Dose 200 MLS/HR; Start 04/06/17 at 14:30 Docusate Sodium (Colace) 100 mg Q12H PRN PO CONSTIPATION; Start 04/06/17 at 14: 30 Magnesium Hydroxide (Milk Of Mag) 30 ml DAILY PRN PO CONSTIPATION; Start at 14:30 Bisacodyl (Dulcolax) 5 mg DAILY PRN PO CONSTIPATION; Start 04/06/17 at 14:30 Bisacodyl (Dulcolax Supp) 10 mg DAILY PRN [place] CONSTIPATION; Start 04/06/17 at 14: 30 Sodium Biphosphate/ Sodium Phosphate (Fleet Enema) 133 ml DAILY PRN [place] CONSTIPATION; Start 04/06/17 at 14:30 Acetaminophen (Tylenol Tab) 650 mg Q4H PRN PO PAIN AND OR ELEVATED TEMP Last administered on 04/08/17 16:26; Admin Dose 650 MG; Start 04/07/17 at 16:30 Thiamine HCl (Vitamin B1) 100 mg DAILY PO Last administered on 04/09/17 08:38; Admin Dose 100 MG; Start 04/08/17 at 11:00; Stop 04/11/17 at 10:59 RENO WATSON MD Apr 09, 2017 15:17
[2017-04-09 15:26] LABS: ADD SCAN DIFF NO
[2017-04-09 15:29] LABS: ABNORMAL IP MESSAGE 1; HEMATOCRIT 22.5 % (42.0-52.0); HEMOGLOBIN 7.8 g/dl (14.0-18.0); MEAN CORPUSCULAR HEMOGLOBIN 29.5 pg (29.0-33.0); MEAN CORPUSCULAR HGB CONC 34.7 g/dl (32.0-37.0); MEAN CORPUSCULAR VOLUME 85.2 fl (82.0-101.0); MEAN PLATELET VOLUME 12.3 fl (7.4-10.4); RED BLOOD COUNT 2.64 10^6/ul (4.70-6.10); RED CELL DISTRIBUTION WIDTH 14.6 % (11.5-14.5); WHITE BLOOD COUNT 2.1 10^3/ul (4.8-10.8)
[2017-04-09 15:54] LABS: PLATELET COUNT 16 10^3/UL (140-415)
[2017-04-09 16:00] LABS: CALCIUM 7.9 mg/dl (8.4-10.2); CREATININE 0.81 mg/dl (0.61-1.24); POTASSIUM 4.1 mmol/L (3.5-5.1)
[2017-04-09 20:19] LABS: EOSINOPHILS # 0.1 10^3/ul (0.0-0.5); LYMPHOCYTES # 0.3 10^3/ul (0.8-2.9); MONOCYTE # 0.5 10^3/ul (0.3-0.9); PLATELET ESTIMATE PLT APPEAR DECREASED
[2017-04-09] MEDS: MIRTAZAPINE 15 MG TAB PO SCH (21:19)
[2017-04-10 00:24] VITALS: BP 98/62; RESP 20
[2017-04-10 04:27] VITALS: BP_SYST 109; BP_SYST 111; BP_DIAS 70; RESP 20
[2017-04-10] MEDS: PANTOPRAZOLE (EC) 40 MG TAB PO SCH (05:44)
[2017-04-10 07:29] VITALS: BP 98/53; RESP 18
[2017-04-10 07:45] LABS: ADD SCAN DIFF NO
[2017-04-10 07:50] LABS: ABNORMAL IP MESSAGE 1; BASOPHILS % 0.4 % (0.0-2.0); EOSINOPHILS # 0.1 10^3/ul (0.0-0.5); EOSINOPHILS % 3.4 % (0.0-7.0); HEMATOCRIT 23.3 % (42.0-52.0); HEMOGLOBIN 8.1 g/dl (14.0-18.0); LYMPHOCYTES # 0.4 10^3/ul (0.8-2.9); LYMPHOCYTES % 18.5 % (15.0-51.0); MEAN CORPUSCULAR HEMOGLOBIN 29.5 pg (29.0-33.0); MEAN CORPUSCULAR HGB CONC 34.8 g/dl (32.0-37.0); MEAN CORPUSCULAR VOLUME 84.7 fl (82.0-101.0); MONOCYTE # 0.3 10^3/ul (0.3-0.9); MONOCYTES % 12.6 % (0.0-11.0); NEUTROPHIL # 1.5 10^3/ul (1.6-7.5); NEUTROPHILS % 63.4 % (39.0-77.0); RED BLOOD COUNT 2.75 10^6/ul (4.70-6.10); RED CELL DISTRIBUTION WIDTH 14.5 % (11.5-14.5); WHITE BLOOD COUNT 2.4 10^3/ul (4.8-10.8)
[2017-04-10 08:08] LABS: PLATELET COUNT 10 10^3/UL (140-415)
[2017-04-10] MEDS: FAMOTIDINE 20 MG TAB PO SCH ×2 (08:53→21:20)
[2017-04-10] MEDS: FERROUS SULFATE (EC) 325 MG TAB PO SCH ×2 (08:53→21:20)
[2017-04-10] MEDS: ACETAMINOPHEN 325 MG TAB PO PRN ×2 (08:53→21:21)
[2017-04-10] MEDS: THIAMINE 100 MG TAB PO SCH (08:53)
[2017-04-10] MEDS: CHOLECALCIFEROL 400 UNITS TAB PO SCH (08:53)
[2017-04-10 09:49] LABS: ALBUMIN 3.1 g/dl (3.3-4.9); ALBUMIN/GLOBULIN RATIO 0.75; BILIRUBIN,INDIRECT 0.1 mg/dl (0-1.1); BILIRUBIN,TOTAL 0.1 mg/dl (0.2-1.3); CALCIUM 8.1 mg/dl (8.4-10.2); CREATININE 0.8 mg/dl (0.61-1.24); POTASSIUM 4.1 mmol/L (3.5-5.1); TOTAL PROTEIN 7.2 g/dl (6.1-8.1)
[2017-04-10 11:38] VITALS: BP 110/58; RESP 18
--- NOTE | 2017-04-10 13:55 | PN ---
Date/Time of Note Date/Time of Note DATE: 04/10/17 TIME: 13:52 Assessment/Plan VTE Prophylaxis VTE Prophylaxis Intervention: SCD's Lines/Catheters IV Catheter Type (from Nrs): Peripheral IV Urinary Cath still in place: No Assessment/Plan Assessment/Plan 1. Pancytopenia, likely hepatitis C/viral infection related, one unit PLT 2016, hematology consultation 2. Hypotension, due to dehydration, stable 3. Hepatitis C, follow up with LFTs Subjective 24 Hr Interval Summary Free Text/Dictation weak. no bleeding Exam/Review of Systems Vital Signs Vitals Vital Signs Date Time Temp Pulse Resp B/P Pulse Ox O2 Delivery O2 Flow Rate FiO2 04/10/17 11:38 98.0 78 18 110/58 97 04/07/17 09:00 Room Air 04/07/17 04:00 2.0 Intake and Output 04/09/17 04/09/17 04/10/17 15:00 23:00 07:00 Intake Total 100 ml 550 ml 570 ml Output Total 900 ml 800 ml Balance 100 ml -350 ml -230 ml Exam Constitutional: alert, oriented, well developed Psych: nl mood/affect, no complaints Head: atraumatic, normocephalic Eyes: EOMI, PERRL, nl conjunctiva, nl lids ENMT: nl external ears & nose, nl lips & teeth, nl nasal mucosa & septum Neck: non-tender, supple Respiratory: clear to auscultation, normal air movement, No congested cough, No crackles/rales, No diminished breath sounds, No intercostal retraction, No labored breathing, No other, No respirations, No tactile fremitus, No wheezing Cardiovascular: nl pulses, regular rate and rhythm, No S3, No S4, No bruits, No diastolic murmur, No edema, No gallop, No irregular rhythm, No jugular venous distention (JVD), No murmurs/extra sounds, No other, No rub, No systolic murmur Gastrointestinal: nl liver, spleen, non-tender, soft, No ascites, No bowel sounds, No distended, No firm, No hepatomegaly, No mass , No other, No rebound or guarding, No splenomegaly, No surgical scars, No tender Musculoskeletal: nl extremities to inspection Extremities: normal pulses, No calf tenderness, No clubbing, No cyanosis, No edema, No other, No palpable cord, No pitting pedal edema, No tenderness Neurological: HUMAN RESOURCES DEPARTMENT SUPERVISOR II-XII intact, nl mental status, nl speech, nl strength Skin: nl turgor Lymph: nl lymph nodes Results Result Diagram: 04/10/17 0631 04/10/17 0631 Results 24 hrs Laboratory Tests Test 04/09/17 14:40 04/10/17 06:31 White Blood Count 2.1 L 2.4 L Red Blood Count 2.64 L 2.75 L Hemoglobin 7.8 L 8.1 L Hematocrit 22.5 L 23.3 L Mean Corpuscular Volume 85.2 84.7 Mean Corpuscular Hemoglobin 29.5 29.5 Mean Corpuscular Hemoglobin Concent 34.7 34.8 Red Cell Distribution Width 14.6 H 14.5 Platelet Count 16 *L 10 #*L Mean Platelet Volume 12.3 H Neutrophils % 46.0 63.4 Band Neutrophils % 12.0 H Lymphocytes % 13.0 L 18.5 Monocytes % 24.0 H 12.6 H Eosinophils % 5.0 3.4 Neutrophils # 1.0 L 1.5 L Lymphocytes # 0.3 L 0.4 L Monocytes # 0.5 0.3 Eosinophils # 0.1 0.1 Platelet Estimate PLT APPEAR DECREASED Sodium Level 131 L 130 L Potassium Level 4.1 4.1 Chloride Level 99 101 Carbon Dioxide Level 24 23 Anion Gap 12 10 Blood Urea Nitrogen 9 9 Creatinine 0.81 0.80 Glucose Level 87 80 Calcium Level 7.9 L 8.1 L Basophils % 0.4 Nucleated Red Blood Cells % 0.0 Basophils # 0.0 Nucleated Red Blood Cells # 0.0 Total Bilirubin 0.1 L Direct Bilirubin 0.00 Indirect Bilirubin 0.1 Aspartate Amino Transf (AST/SGOT) 53 H Alanine Aminotransferase (ALT/SGPT) 63 Alkaline Phosphatase 172 H Total Protein 7.2 Albumin 3.1 L Globulin 4.10 H Albumin/Globulin Ratio 0.75 Medications Medications Current Medications Famotidine (Pepcid) 20 mg BID PO Last administered on 04/10/17 08:53; Admin Dose 20 MG; Start 04/06/17 at 21:00 Ferrous Sulfate (Ferrous Sulfate (Ec)) 325 mg BID PO Last administered on 08:53; Admin Dose 325 MG; Start 04/06/17 at 21:00 Mirtazapine (Remeron) 15 mg HS PO Last administered on 04/09/17 21:19; Admin Dose 15 MG; Start 04/06/17 at 21:00 Pantoprazole (Protonix Tab) 40 mg DAILY@06 PO Last administered on 04/10/17 05: 44; Admin Dose 40 MG; Start 04/07/17 at 06:00 Cholecalciferol 400 units 400 units DAILY PO Last administered on 04/10/17 08: 53; Admin Dose 400 UNITS; Start 04/07/17 at 09:00 Sodium Chloride (NS) 1,000 ml @ 10 mls/hr Q24H IV Last administered on 15:47; Admin Dose 10 MLS/HR; Start 04/06/17 at 14:02 Docusate Sodium (Colace) 100 mg Q12H PRN PO CONSTIPATION; Start 04/06/17 at 14: 30 Magnesium Hydroxide (Milk Of Mag) 30 ml DAILY PRN PO CONSTIPATION; Start at 14:30 Bisacodyl (Dulcolax) 5 mg DAILY PRN PO CONSTIPATION; Start 04/06/17 at 14:30 Bisacodyl (Dulcolax Supp) 10 mg DAILY PRN [place] CONSTIPATION; Start 04/06/17 at 14: 30 Sodium Biphosphate/ Sodium Phosphate (Fleet Enema) 133 ml DAILY PRN [place] CONSTIPATION; Start 04/06/17 at 14:30 Acetaminophen (Tylenol Tab) 650 mg Q4H PRN PO PAIN AND OR ELEVATED TEMP Last administered on 04/10/17 08:53; Admin Dose 650 MG; Start 04/07/17 at 16:30 Thiamine HCl (Vitamin B1) 100 mg DAILY PO Last administered on 04/10/17 08:53; Admin Dose 100 MG; Start 04/08/17 at 11:00; Stop 04/11/17 at 10:59 RENO WATSON MD Apr 10, 2017 13:55
[2017-04-10] MEDS: SOD CHLORIDE 0.9% 1,000 ML IV SCH (14:02)
[2017-04-10] MEDS ORDERED: BARIUM SULF 2% 450 ML BTL (BERRY SMOOTHIE) PO ONE (15:00)
[2017-04-10 15:50] VITALS: BP 124/73; RESP 18
[2017-04-10 15:55] LABS: ADD SCAN DIFF NO
[2017-04-10 15:57] LABS: ABNORMAL IP MESSAGE 1; HEMATOCRIT 23.8 % (42.0-52.0); HEMOGLOBIN 8.2 g/dl (14.0-18.0); MEAN CORPUSCULAR HGB CONC 34.5 g/dl (32.0-37.0); MEAN CORPUSCULAR VOLUME 87.2 fl (82.0-101.0); MEAN PLATELET VOLUME 10.1 fl (7.4-10.4); RED BLOOD COUNT 2.73 10^6/ul (4.70-6.10); RED CELL DISTRIBUTION WIDTH 14.8 % (11.5-14.5); WHITE BLOOD COUNT 2.4 10^3/ul (4.8-10.8)
[2017-04-10 15:58] LABS: RETICULOCYTE COUNT % 2.7 % (0.5-1.5)
[2017-04-10 16:05] LABS: PLATELET COUNT 29 10^3/UL (140-415)
[2017-04-10 16:06] LABS: PLATELET COUNT 29 10^3/UL (140-415)
[2017-04-10 16:21] LABS: INR 1.06; PROTIME 13.8 Sec (12.2-14.2); PT RATIO 1.1
--- NOTE | 2017-04-10 16:23 | CONS ---
Date/Time of Note Date/Time of Note DATE: 04/10/17 TIME: 16:11 Assessment/Plan Assessment/Plan Chief Complaint/Hosp Course 66 yo male with likely cirrhosis secondary to EtoH and Hep C who presents with severe pancytopenia. Although it is likely that this is from underlying liver disease, the last abdominal ultrasound does not demonstrate cirrhosis. Furthermore, with cirrhosis the platelet count is usually greater than 20K. Given it is 10K today, we need to rule out an underlying bone marrow disorder, ITP or microangiopathic hemolytic process. -will review peripheral smear -plan for Bone Marrow Bx tomorrow -CT Abd/Pelvis with contrast ordered to further evaluate for cirrhosis -if there is evidence of ITP as well, will plan to start IVIG and steroids -will check DIC panel -r/o TTP. will check LDH Approximately 40 min were spent at patient's bedside and in coordination of his care Problems: (1) Pancytopenia Status: Acute (2) Hepatitis C antibody positive in blood Status: Acute (3) Cirrhosis of liver Status: Chronic Qualifiers: Qualified Code: K74.69 - Other cirrhosis of liver Consultation Date/Type/Reason Admit Date/Time 04/06/17 Date of Consultation: Apr 10, 2017 Type of Consultation: Hematology Reason for Consultation pancytopenia Referring Provider: RENO WATSON MD Hx of Present Illness 66-year-old male with a history of alcohol induced liver disease as well as Hep C who presented to the ER 4 days ago with fever, diarrhea and dysuria. On labs patient is noted to be profoundly thrombocytopenic with a platelet count of < 20. Despite 1 unit of platelets the platelet count continues to drop. There is currently no evidence of bleed. Although the patient per history has cirrhosis the abdominal ultrasound does not indicate cirrhosis. Also the platelet count is noted to be extremely lower than what would be expected for cirrhosis, hence the reason for this consult.It is unclear if patient is actively drinking. Constitutional: no complaints (Denies any fevers chills or sweats) Eyes: no complaints Respiratory: no complaints (No cough no shortness of breath) Cardiovascular: no complaints (No chest pain no palpitations no orthopnea no PND) Gastrointestinal: no complaints (No nausea or vomiting no pain no distention) Genitourinary: no complaints Musculoskeletal: no complaints Psychological: nl mood/affect, no complaints Past Medical History cirrhosis pancytopenia GERD Past Surgical History Past Surgical Hx: no surgical history Family History Significant Family History: no pertinent family hx Social History Alcohol Use: none Smoking Status: Former smoker Exam/Review of Systems Vital Signs Vitals Vital Signs Date Time Temp Pulse Resp B/P Pulse Ox O2 Delivery O2 Flow Rate FiO2 04/10/17 15:50 98.6 75 18 124/73 97 04/07/17 09:00 Room Air 04/07/17 04:00 2.0 Intake and Output 04/09/17 04/09/17 04/10/17 15:00 23:00 07:00 Intake Total 100 ml 550 ml 570 ml Output Total 900 ml 800 ml Balance 100 ml -350 ml -230 ml Exam Constitutional: alert, oriented Psych: depression, no complaints Head: normocephalic Eyes: nl conjunctiva ENMT: nl external ears & nose Neck: non-tender, supple Respiratory: normal air movement Cardiovascular: nl pulses, regular rate and rhythm Gastrointestinal: soft Musculoskeletal: nl extremities to inspection Results Result Diagram: 04/10/17 1550 04/10/17 0631 Results 24 hrs Laboratory Tests Test 04/10/17 06:31 04/10/17 15:50 White Blood Count 2.4 L 2.4 L Red Blood Count 2.75 L 2.73 L Hemoglobin 8.1 L 8.2 L Hematocrit 23.3 L 23.8 L Mean Corpuscular Volume 84.7 87.2 Mean Corpuscular Hemoglobin 29.5 30.0 Mean Corpuscular Hemoglobin Concent 34.8 34.5 Red Cell Distribution Width 14.5 14.8 H Platelet Count 10 #*L 29 *L Mean Platelet Volume 10.1 Neutrophils % 63.4 Lymphocytes % 18.5 Monocytes % 12.6 H Eosinophils % 3.4 Basophils % 0.4 Nucleated Red Blood Cells % 0.0 Neutrophils # 1.5 L Lymphocytes # 0.4 L Monocytes # 0.3 Eosinophils # 0.1 Basophils # 0.0 Nucleated Red Blood Cells # 0.0 Sodium Level 130 L Potassium Level 4.1 Chloride Level 101 Carbon Dioxide Level 23 Anion Gap 10 Blood Urea Nitrogen 9 Creatinine 0.80 Glucose Level 80 Calcium Level 8.1 L Total Bilirubin 0.1 L Direct Bilirubin 0.00 Indirect Bilirubin 0.1 Aspartate Amino Transf (AST/SGOT) 53 H Alanine Aminotransferase (ALT/SGPT) 63 Alkaline Phosphatase 172 H Total Protein 7.2 Albumin 3.1 L Globulin 4.10 H Albumin/Globulin Ratio 0.75 Absolute Reticulocyte Count 0.076 Percent Reticulocyte Count 2.7 H Prothrombin Time Pending Prothrombin Time Ratio Pending INR International Normalized Ratio Pending Activated Partial Thromboplast Time Pending Thrombin Time Pending Fibrinogen Pending Plasma Fibrin Degradation Products Pending D-Dimer Pending Medications Medications Current Medications Famotidine (Pepcid) 20 mg BID PO Last administered on 04/10/17 08:53; Admin Dose 20 MG; Start 04/06/17 at 21:00 Ferrous Sulfate (Ferrous Sulfate (Ec)) 325 mg BID PO Last administered on 08:53; Admin Dose 325 MG; Start 04/06/17 at 21:00 Mirtazapine (Remeron) 15 mg HS PO Last administered on 04/09/17 21:19; Admin Dose 15 MG; Start 04/06/17 at 21:00 Pantoprazole (Protonix Tab) 40 mg DAILY@06 PO Last administered on 04/10/17 05: 44; Admin Dose 40 MG; Start 04/07/17 at 06:00 Cholecalciferol 400 units 400 units DAILY PO Last administered on 04/10/17 08: 53; Admin Dose 400 UNITS; Start 04/07/17 at 09:00 Sodium Chloride (NS) 1,000 ml @ 10 mls/hr Q24H IV Last administered on 15:47; Admin Dose 10 MLS/HR; Start 04/06/17 at 14:02 Docusate Sodium (Colace) 100 mg Q12H PRN PO CONSTIPATION; Start 04/06/17 at 14: 30 Magnesium Hydroxide (Milk Of Mag) 30 ml DAILY PRN PO CONSTIPATION; Start at 14:30 Bisacodyl (Dulcolax) 5 mg DAILY PRN PO CONSTIPATION; Start 04/06/17 at 14:30 Bisacodyl (Dulcolax Supp) 10 mg DAILY PRN [place] CONSTIPATION; Start 04/06/17 at 14: 30 Sodium Biphosphate/ Sodium Phosphate (Fleet Enema) 133 ml DAILY PRN [place] CONSTIPATION; Start 04/06/17 at 14:30 Acetaminophen (Tylenol Tab) 650 mg Q4H PRN PO PAIN AND OR ELEVATED TEMP Last administered on 04/10/17 08:53; Admin Dose 650 MG; Start 04/07/17 at 16:30 Thiamine HCl (Vitamin B1) 100 mg DAILY PO Last administered on 04/10/17 08:53; Admin Dose 100 MG; Start 04/08/17 at 11:00; Stop 04/11/17 at 10:59 AILYN OZUNA M.D. Apr 10, 2017 16:23
[2017-04-10 16:25] LABS: HEPATITIS B DELTA ANTIBODY NEGATIVE
[2017-04-10 16:25] LABS: D-DIMER 2157.34 ng/ml (<460)
[2017-04-10 17:08] LABS: EOSINOPHILS # 0.1 10^3/ul (0.0-0.5); LYMPHOCYTES # 0.4 10^3/ul (0.8-2.9); MONOCYTE # 0.3 10^3/ul (0.3-0.9); NEUTROPHIL # 1.7 10^3/ul (1.6-7.5)
[2017-04-10 17:09] LABS: PLATELET ESTIMATE PLT APPEAR DECREASED
[2017-04-10 18:12] LABS: FIBRIN SPLIT PRODUCT <10 ug/ml (<10)
[2017-04-10 20:00] VITALS: BP 98/59; RESP 16
[2017-04-10] MEDS: MIRTAZAPINE 15 MG TAB PO SCH (21:20)
[2017-04-11 00:09] VITALS: BP 94/63; RESP 16
[2017-04-11 04:03] VITALS: BP 101/69; RESP 16
[2017-04-11] MEDS: PANTOPRAZOLE (EC) 40 MG TAB PO SCH (05:15)
[2017-04-11 07:36] VITALS: BP 126/73; RESP 17
[2017-04-11 08:05] LABS: CALCIUM 8.8 mg/dl (8.4-10.2); CREATININE 0.8 mg/dl (0.61-1.24); POTASSIUM 4.4 mmol/L (3.5-5.1)
[2017-04-11] MEDS: THIAMINE 100 MG TAB PO SCH (09:15)
[2017-04-11] MEDS: CHOLECALCIFEROL 400 UNITS TAB PO SCH (09:15)
[2017-04-11] MEDS: FAMOTIDINE 20 MG TAB PO SCH ×2 (09:15→21:24)
[2017-04-11] MEDS: FERROUS SULFATE (EC) 325 MG TAB PO SCH ×2 (09:15→21:24)
[2017-04-11 11:43] VITALS: BP 76/47; RESP 16
--- NOTE | 2017-04-11 13:57 | CONS ---
Date/Time of Note Date/Time of Note DATE: 04/11/17 TIME: 13:52 Assessment/Plan Assessment/Plan Chief Complaint/Hosp Course 66 yo male with likely cirrhosis secondary to EtoH and Hep C who presents with severe pancytopenia. Although it is likely that this is from underlying liver disease, the last abdominal ultrasound does not demonstrate cirrhosis. Furthermore, with cirrhosis the platelet count is usually greater than 20K. Normal Haptoglobin makes hemolytic process or TTP unlikely. DIC panel demonstrates normal fibrinogen making DIC unlikely. -will review peripheral smear -plan for Bone Marrow Bx today. will follow up -CT Abd/Pelvis with contrast ordered to further evaluate for cirrhosis -if there is evidence of ITP as well, will plan to start IVIG and steroids Approximately 40 min were spent at patient's bedside and in coordination of his care Problems: (1) Cirrhosis of liver Status: Chronic Qualifiers: Hepatic cirrhosis type: other cirrhosis Qualified Code: K74.69 - Other cirrhosis of liver (2) Hepatitis C antibody positive in blood Status: Acute Consultation Date/Type/Reason Admit Date/Time Apr 06, 2017 at 08:33 Initial Consult Date 04/10/17 Type of Consultation: Hematology Reason for Consultation pancytopenia Referring Provider: RENO WATSON MD 24 HR Interval Summary Free Text/Dictation no acute overnight events. no bleeding Exam/Review of Systems Vital Signs Vitals Vital Signs Date Time Temp Pulse Resp B/P Pulse Ox O2 Delivery O2 Flow Rate FiO2 04/11/17 11:43 99.1 90 16 76/47 96 04/07/17 09:00 Room Air Intake and Output 04/10/17 04/10/17 04/11/17 15:00 23:00 07:00 Intake Total 600 ml 400 ml Output Total 800 ml 2000 ml Balance -200 ml -1600 ml Exam Constitutional: alert, oriented Psych: no complaints Head: atraumatic, normocephalic Eyes: nl conjunctiva ENMT: nl external ears & nose, nl lips & teeth Neck: non-tender, supple Respiratory: clear to auscultation, normal air movement Cardiovascular: nl pulses, regular rate and rhythm Gastrointestinal: soft Musculoskeletal: nl extremities to inspection, nl gait and stance Extremities: normal pulses Results Result Diagram: 04/10/17 1550 04/11/17 0650 Results 24 hrs Laboratory Tests Test 04/10/17 15:50 04/11/17 05:13 04/11/17 06:50 White Blood Count 2.4 L Red Blood Count 2.73 L Hemoglobin 8.2 L Hematocrit 23.8 L Mean Corpuscular Volume 87.2 Mean Corpuscular Hemoglobin 30.0 Mean Corpuscular Hemoglobin Concent 34.5 Red Cell Distribution Width 14.8 H Platelet Count 29 *L Mean Platelet Volume 10.1 Neutrophils % 69.0 Lymphocytes % 17.0 Monocytes % 11.0 Eosinophils % 3.0 Neutrophils # 1.7 Lymphocytes # 0.4 L Monocytes # 0.3 Eosinophils # 0.1 Platelet Estimate PLT APPEAR DECREASED Absolute Reticulocyte Count 0.076 Percent Reticulocyte Count 2.7 H Prothrombin Time 13.8 Prothrombin Time Ratio 1.1 INR International Normalized Ratio 1.06 Activated Partial Thromboplast Time 37.0 H Thrombin Time 16.0 Fibrinogen 474.0 H Plasma Fibrin Degradation Products <10 D-Dimer 2157.34 H D-Dimer Comment Lactate Dehydrogenase 437 Lab Scanned Report BLOOD TRANSFUSION Sodium Level 139 Potassium Level 4.4 Chloride Level 104 Carbon Dioxide Level 27 Anion Gap 12 Blood Urea Nitrogen 10 Creatinine 0.80 Glucose Level 81 Calcium Level 8.8 Medications Medications Current Medications Famotidine (Pepcid) 20 mg BID PO Last administered on 04/11/17 09:15; Admin Dose 20 MG; Start 04/06/17 at 21:00 Ferrous Sulfate (Ferrous Sulfate (Ec)) 325 mg BID PO Last administered on 09:15; Admin Dose 325 MG; Start 04/06/17 at 21:00 Mirtazapine (Remeron) 15 mg HS PO Last administered on 04/10/17 21:20; Admin Dose 15 MG; Start 04/06/17 at 21:00 Pantoprazole (Protonix Tab) 40 mg DAILY@06 PO Last administered on 04/11/17 05: 15; Admin Dose 40 MG; Start 04/07/17 at 06:00 Cholecalciferol 400 units 400 units DAILY PO Last administered on 04/11/17 09: 15; Admin Dose 400 UNITS; Start 04/07/17 at 09:00 Sodium Chloride (NS) 1,000 ml @ 10 mls/hr Q24H IV Last administered on 15:47; Admin Dose 10 MLS/HR; Start 04/06/17 at 14:02 Docusate Sodium (Colace) 100 mg Q12H PRN PO CONSTIPATION; Start 04/06/17 at 14: 30 Magnesium Hydroxide (Milk Of Mag) 30 ml DAILY PRN PO CONSTIPATION; Start at 14:30 Bisacodyl (Dulcolax) 5 mg DAILY PRN PO CONSTIPATION; Start 04/06/17 at 14:30 Bisacodyl (Dulcolax Supp) 10 mg DAILY PRN [place] CONSTIPATION; Start 04/06/17 at 14: 30 Sodium Biphosphate/ Sodium Phosphate (Fleet Enema) 133 ml DAILY PRN [place] CONSTIPATION; Start 04/06/17 at 14:30 Acetaminophen (Tylenol Tab) 650 mg Q4H PRN PO PAIN AND OR ELEVATED TEMP Last administered on 04/10/17t 21:21; Admin Dose 650 MG; Start 04/07/17 at 16:30 AILYN OZUNA M.D. Apr 11, 2017 13:57
[2017-04-11 14:13] LABS: ADD SCAN DIFF NO
[2017-04-11 14:17] LABS: ABNORMAL IP MESSAGE 1; EOSINOPHILS # 0.1 10^3/ul (0.0-0.5); EOSINOPHILS % 2.8 % (0.0-7.0); HEMATOCRIT 21.3 % (42.0-52.0); HEMOGLOBIN 7.3 g/dl (14.0-18.0); LYMPHOCYTES # 0.4 10^3/ul (0.8-2.9); LYMPHOCYTES % 14.7 % (15.0-51.0); MEAN CORPUSCULAR HEMOGLOBIN 29.7 pg (29.0-33.0); MEAN CORPUSCULAR HGB CONC 34.3 g/dl (32.0-37.0); MEAN CORPUSCULAR VOLUME 86.6 fl (82.0-101.0); MEAN PLATELET VOLUME 11.5 fl (7.4-10.4); MONOCYTE # 0.4 10^3/ul (0.3-0.9); MONOCYTES % 13.9 % (0.0-11.0); NEUTROPHIL # 1.7 10^3/ul (1.6-7.5); NEUTROPHILS % 67.4 % (39.0-77.0); RED BLOOD COUNT 2.46 10^6/ul (4.70-6.10); RED CELL DISTRIBUTION WIDTH 14.8 % (11.5-14.5); WHITE BLOOD COUNT 2.5 10^3/ul (4.8-10.8)
[2017-04-11 14:23] LABS: PLATELET COUNT 23 10^3/UL (140-415)
[2017-04-11] MEDS: SOD CHLORIDE 0.9% 1,000 ML IV SCH (14:41)
[2017-04-11] MEDS ORDERED: IOHEXOL 300MG/ML 150 ML BTL ONE (15:38)
[2017-04-11] MEDS ORDERED: SOD CHLORIDE 0.9% 100 ML ONE (15:38)
[2017-04-11 15:43] VITALS: BP 105/70; RESP 16
--- NOTE | 2017-04-11 16:30 | RADRPT ---
PROCEDURE: CT abdomen and pelvis with contrast. CLINICAL INDICATION: History of cirrhosis with periumbilical pain, dysuria and hematuria TECHNIQUE: CT scan of the abdomen and pelvis with contrast was performed. Coronal and sagittal im ages were also reformatted. 100 cc Omnipaque-300 intravenous contrast was administered without comp lication. Total exam CTDIvol = 96.82 mGy and DLP = 580.14 mGy-cm. COMPARISON: Abdominal ultrasound 04/06/2017 FINDINGS: Visualized lower thorax: Incidental calcified granuloma in the right lower lobe, no lower lobe infil trates are seen. There is no evidence for pleural effusion. Liver, gallbladder, pancreas and spleen: Normal hepatic contour, attenuation in size, in particular there is no nodularity to correlate with the clinical history of cirrhosis. Normal enhancement of the portal venous system is demonstrated. There is no evidence for liver mass or ductal dilatation. The gallbladder is unremarkable. No common bile duct dilatation is evident. The pancreas is norm al. Mild splenomegaly of approximately 15.4 cm is present. There is no evidence of splenic infarct or mass. Adrenal glands and genitourinary system: The adrenal glands are normal bilaterally. The kidneys ar e normal in size, contour and attenuation with no evidence for masses, calculi or hydronephrosis. Sy mmetric enhancement of the renal parenchyma is present without findings to suggest pyelonephritis. T he ureters are unremarkable. The urinary bladder is slightly contracted but shows no abnormality. The prostate gland is within normal limits for size. The visualized scrotum demonstrates small bila teral hydroceles slightly greater on the left. There are small bilateral fat containing inguinal he rnias. Gastrointestinal system: Start is globally caliber without wall thickening or adjacent fat strandin g to suggest gastritis There is no evidence of obstruction, ileus or inflammation. The appendix an d surrounding fat are normal. A normal amount of fecal debris is present within the colon and there is no wall thickening to suggest colitis. Peritoneum, retroperitoneum, vessels and lymph nodes: The abdominal aorta is normal in caliber. Th ere is trace distal aortic and common iliac atherosclerotic calcification. Inferior vena cava is no rmal in caliber. In the small bowel mesenteric there are prominent lymph nodes, mesenteric adenopat hy ranging up to 1.4 cm in short axis is present with some stranding of the mesenteric fat, findings concerning for adenitis or possibly panniculitis without a mass lesion (Series 601 images 52-55). A small amount of the dependent ascites in the pelvis is present to the right of the rectum (series 3 image 1 and 52). There is no evidence of pneumoperitoneum. Osseous structures and musculoskeletal system: There is no evidence for acute osseous abnormality o r muscular pathology. A levoscoliosis of the lumbar spine with degenerative spondylosis and disk di sease at the lower levels is noted. No subcutaneous abnormalities are present. RPTAT:HJJR IMPRESSION: 1. Enlarged mesenteric lymph nodes with stranding of the mesenteric fat concerning for adenitis and / or panniculitis. Lymphoma is a differential diagnostic possibility and follow-up is recommended. 2. Trace amount of nonspecific dependent pelvic ascites. 3. Splenomegaly estimated at 15.4 cm. 4. Normal hepatic contour without findings of cirrhosis to correlate to with the provided history a nd no evidence of portal venous abnormality. 5. Unremarkable genitourinary system without findings to explain the the patient's provided history of dysuria and hematuria. Physician Duc Date Time Electronically viewed and signed by Physician Duc on 04/11/2017 16:29 JR/
--- NOTE | 2017-04-11 17:03 | PN ---
Date/Time of Note Date/Time of Note DATE: 04/11/17 TIME: 16:59 Assessment/Plan VTE Prophylaxis VTE Prophylaxis Intervention: other Lines/Catheters [facility] Peripheral IV Urinary Cath still in place: No Assessment/Plan Assessment/Plan 1. Pancytopenia, unclear etiology, awaiting for bone marrow biopsy, transfuse as needed 2. Hypotension, one unit PRBC today 3. Hepatitis C, follow up with LFTs 4. Mesenteric lymphadenopathy 5. Splenomegaly with normal hepatic CT scan, dual US r/o portal vein thrombosis Subjective 24 Hr Interval Summary Free Text/Dictation no active bleeding Exam/Review of Systems Vital Signs Vitals Vital Signs Date Time Temp Pulse Resp B/P Pulse Ox O2 Delivery O2 Flow Rate FiO2 04/11/17 15:43 98.3 58 16 105/70 98 04/07/17 09:00 Room Air Intake and Output 04/10/17 04/10/17 04/11/17 15:00 23:00 07:00 Intake Total 600 ml 400 ml Output Total 800 ml 2000 ml Balance -200 ml -1600 ml Exam Constitutional: alert, oriented, well developed Psych: nl mood/affect, no complaints Head: atraumatic, normocephalic Eyes: EOMI, PERRL, nl conjunctiva, nl lids ENMT: nl external ears & nose, nl lips & teeth, nl nasal mucosa & septum Neck: non-tender, supple Respiratory: clear to auscultation, normal air movement, No congested cough, No crackles/rales, No diminished breath sounds, No intercostal retraction, No labored breathing, No other, No respirations, No tactile fremitus, No wheezing Cardiovascular: nl pulses, regular rate and rhythm, No S3, No S4, No bruits, No diastolic murmur, No edema, No gallop, No irregular rhythm, No jugular venous distention (JVD), No murmurs/extra sounds, No other, No rub, No systolic murmur Gastrointestinal: nl liver, spleen, non-tender, soft, No ascites, No bowel sounds, No distended, No firm, No hepatomegaly, No mass , No other, No rebound or guarding, No splenomegaly, No surgical scars, No tender Musculoskeletal: nl extremities to inspection Neurological: CHUTE LOADER II-XII intact, nl mental status, nl speech, nl strength Skin: nl turgor Results Result Diagram: 04/11/17 1405 04/11/17 0650 Results 24 hrs Laboratory Tests Test 04/11/17 05:13 04/11/17 06:50 04/11/17 14:05 Lab Scanned Report BLOOD TRANSFUSION Sodium Level 139 Potassium Level 4.4 Chloride Level 104 Carbon Dioxide Level 27 Anion Gap 12 Blood Urea Nitrogen 10 Creatinine 0.80 Glucose Level 81 Calcium Level 8.8 White Blood Count 2.5 L Red Blood Count 2.46 L Hemoglobin 7.3 L Hematocrit 21.3 L Mean Corpuscular Volume 86.6 Mean Corpuscular Hemoglobin 29.7 Mean Corpuscular Hemoglobin Concent 34.3 Red Cell Distribution Width 14.8 H Platelet Count 23 #*L Mean Platelet Volume 11.5 H Neutrophils % 67.4 Lymphocytes % 14.7 L Monocytes % 13.9 H Eosinophils % 2.8 Basophils % 0.0 Nucleated Red Blood Cells % 0.0 Neutrophils # 1.7 Lymphocytes # 0.4 L Monocytes # 0.4 Eosinophils # 0.1 Basophils # 0.0 Nucleated Red Blood Cells # 0.0 Medications Medications Current Medications Famotidine (Pepcid) 20 mg BID PO Last administered on 04/11/17 09:15; Admin Dose 20 MG; Start 04/06/17 at 21:00 Ferrous Sulfate (Ferrous Sulfate (Ec)) 325 mg BID PO Last administered on 09:15; Admin Dose 325 MG; Start 04/06/17 at 21:00 Mirtazapine (Remeron) 15 mg HS PO Last administered on 04/10/17 21:20; Admin Dose 15 MG; Start 04/06/17 at 21:00 Pantoprazole (Protonix Tab) 40 mg DAILY@06 PO Last administered on 04/11/17 05: 15; Admin Dose 40 MG; Start 04/07/17 at 06:00 Cholecalciferol 400 units 400 units DAILY PO Last administered on 04/11/17 09: 15; Admin Dose 400 UNITS; Start 04/07/17 at 09:00 Sodium Chloride (NS) 1,000 ml @ 10 mls/hr Q24H IV Last administered on 14:41; Admin Dose 10 MLS/HR; Start 04/06/17 at 14:02 Docusate Sodium (Colace) 100 mg Q12H PRN PO CONSTIPATION; Start 04/06/17 at 14: 30 Magnesium Hydroxide (Milk Of Mag) 30 ml DAILY PRN PO CONSTIPATION; Start at 14:30 Bisacodyl (Dulcolax) 5 mg DAILY PRN PO CONSTIPATION; Start 04/06/17 at 14:30 Bisacodyl (Dulcolax Supp) 10 mg DAILY PRN [place] CONSTIPATION; Start 04/06/17 at 14: 30 Sodium Biphosphate/ Sodium Phosphate (Fleet Enema) 133 ml DAILY PRN [place] CONSTIPATION; Start 04/06/17 at 14:30 Acetaminophen (Tylenol Tab) 650 mg Q4H PRN PO PAIN AND OR ELEVATED TEMP Last administered on 04/10/17t 21:21; Admin Dose 650 MG; Start 04/07/17 at 16:30 RENO WATSON MD Apr 11, 2017 17:03
[2017-04-11] MEDS: ACETAMINOPHEN 325 MG TAB PO PRN (19:58)
[2017-04-11 20:36] VITALS: BP 97/58; RESP 16
[2017-04-11] MEDS: MIRTAZAPINE 15 MG TAB PO SCH (21:24)
[2017-04-12] VITALS (19 sets, daily range): BP systolic 89–117; BP diastolic 52–94; PULSE 60–80; RESP 15–20
[2017-04-12] MEDS: LEVOFLOXACIN 500MG/D5W (PMX) 100 ML IVPB SCH ×2 (03:58→22:35)
[2017-04-12 04:29] LABS: ALBUMIN 3.5 g/dl (3.3-4.9); ALBUMIN/GLOBULIN RATIO 0.92; BILIRUBIN,INDIRECT 0.2 mg/dl (0-1.1); BILIRUBIN,TOTAL 0.2 mg/dl (0.2-1.3); CALCIUM 7.9 mg/dl (8.4-10.2); CREATININE 0.76 mg/dl (0.61-1.24); POTASSIUM 4.2 mmol/L (3.5-5.1); TOTAL PROTEIN 7.3 g/dl (6.1-8.1)
[2017-04-12 04:56] LABS: ADD SCAN DIFF NO
[2017-04-12 05:39] LABS: ABNORMAL IP MESSAGE 1; HEMOGLOBIN 8.8 g/dl (14.0-18.0); MEAN CORPUSCULAR HEMOGLOBIN 28.5 pg (29.0-33.0); MEAN CORPUSCULAR HGB CONC 32.6 g/dl (32.0-37.0); MEAN CORPUSCULAR VOLUME 87.4 fl (82.0-101.0); RED BLOOD COUNT 3.09 10^6/ul (4.70-6.10); RED CELL DISTRIBUTION WIDTH 14.8 % (11.5-14.5); WHITE BLOOD COUNT 2.3 10^3/ul (4.8-10.8)
[2017-04-12 05:47] LABS: PLATELET COUNT 12 10^3/UL (140-415)
[2017-04-12] MEDS: PANTOPRAZOLE (EC) 40 MG TAB PO SCH (06:05)
[2017-04-12] MEDS: ACETAMINOPHEN 325 MG TAB PO PRN (06:05)
[2017-04-12] MEDS: CHOLECALCIFEROL 400 UNITS TAB PO SCH (08:21)
[2017-04-12] MEDS: FERROUS SULFATE (EC) 325 MG TAB PO SCH ×2 (08:21→20:53)
[2017-04-12] MEDS: FAMOTIDINE 20 MG TAB PO SCH ×2 (08:21→20:53)
[2017-04-12 10:07] LABS: ANISOCYTOSIS 1+; LYMPHOCYTES # 0.3 10^3/ul (0.8-2.9); MICROCYTOSIS 1+; MONOCYTE # 0.3 10^3/ul (0.3-0.9); NEUTROPHIL # 1.7 10^3/ul (1.6-7.5); POIKILOCYTOSIS 3+; POLYCHROMASIA 2+
[2017-04-12 10:08] LABS: PLATELET ESTIMATE PLT APPEAR DECREASED
[2017-04-12] MEDS ORDERED: LIDOCAINE 1% (MDV) 20 ML INJ ONE (10:20)
[2017-04-12] MEDS ORDERED: MIDAZOLAM 1 MG/ML 2 ML INJ ONE (10:20)
[2017-04-12] MEDS ORDERED: FENTAnyl 50 MCG/ML VIAL ONE (10:20)
--- NOTE | 2017-04-12 12:29 | RADRPT ---
PROCEDURE: CT GUIDED PERCUTANEOUS BONE MARROW BIOPSY CLINICAL INDICATION: Thrombocytopenia TECHNIQUE: Informed consent was obtained from the patient following careful explanation of the risks and benefi ts of the procedure. Versed and Fentanyl were administered by the nurse who monitored the patient. DLP not available CTDIvol not available One or more of the following post reduction techniques were used: - Automated exposure control. - Adjustment of the mA and/or Kv according to patient's size. - Use of iterative reconstruction technique The patient was placed prone on the CT table. Multiple axial CT images through the abdomen were acqu ired without contrast. The iliac bone was localized. A site in the patient's back was selected and m arked. The area was prepped and draped in the usual sterile fashion. 1% lidocaine was utilized. Und er CT guidance a 11 gauge co-axial core biopsy needle was advanced into the left iliac bone, paralle l to the SI joint.. A bone marrow aspirate was obtained. Subsequently the needle was withdrawn and r eadvanced into the bone and a core bone biopsy was obtained. There were no immediate complications. COMPARISON: none FINDINGS: As above RPTAT: AA IMPRESSION: Uncomplicated CT-guided bone marrow biopsy and aspiration. .Amado Starkey MD, MD Date Time Electronically viewed and signed by .Amado Starkey MD, on 04/12/2017 12:28 .S/
[2017-04-12] MEDS: SOD CHLORIDE 0.9% 1,000 ML IV SCH (14:02)
--- NOTE | 2017-04-12 14:49 | CONS ---
Date/Time of Note Date/Time of Note DATE: 04/12/17 TIME: 14:37 Assessment/Plan Assessment/Plan Chief Complaint/Hosp Course 66 yo male with likely cirrhosis secondary to EtoH and Hep C who presents with severe pancytopenia. Although it is likely that this is from underlying liver disease, the last abdominal ultrasound and CT scan do not demonstrate cirrhosis. Furthermore, with cirrhosis the platelet count is usually greater than 20K. Normal Haptoglobin makes hemolytic process or TTP unlikely. DIC panel demonstrates normal fibrinogen making DIC unlikely. Of note, Ct A/P was done which raises concern for lymphoma -given my concern for ITP , will given 1 dose of IVIG evaluate platelet response - Bone Marrow Bx done today. will follow up Approximately 40 min were spent at patient's bedside and in coordination of his care Problems: Consultation Date/Type/Reason Admit Date/Time Apr 06, 2017 at 08:33 Initial Consult Date 04/10/17 Type of Consultation: Hematology Reason for Consultation pancytopenia Referring Provider: RENO WATSON MD 24 HR Interval Summary Free Text/Dictation pt has not yet had the bone marrow bx. needs platelet transfusion Exam/Review of Systems Vital Signs Vitals Vital Signs Date Time Temp Pulse Resp B/P Pulse Ox O2 Delivery O2 Flow Rate FiO2 04/12/17 12:48 98.2 59 18 103/67 99 04/12/17 12:05 Room Air Intake and Output 04/11/17 04/11/17 04/12/17 15:00 23:00 07:00 Intake Total 830 ml Output Total 700 ml 1100 ml Balance -700 ml -270 ml Exam Constitutional: alert, frail, oriented Psych: no complaints Head: normocephalic Eyes: nl conjunctiva ENMT: nl external ears & nose Neck: non-tender, supple Respiratory: clear to auscultation Cardiovascular: nl pulses, regular rate and rhythm Gastrointestinal: soft Musculoskeletal: nl extremities to inspection, nl gait and stance Extremities: normal pulses Results Result Diagram: 04/12/17 0345 04/12/17 0345 Results 24 hrs Laboratory Tests Test 04/12/17 03:45 04/12/17 05:11 White Blood Count 2.3 L Red Blood Count 3.09 #L Hemoglobin 8.8 #L Hematocrit 27.0 #L Mean Corpuscular Volume 87.4 Mean Corpuscular Hemoglobin 28.5 L Mean Corpuscular Hemoglobin Concent 32.6 Red Cell Distribution Width 14.8 H Platelet Count 12 #*L Mean Platelet Volume Neutrophils % 73.0 Lymphocytes % 14.0 L Monocytes % 11.0 Eosinophils % 2.0 Neutrophils # 1.7 Lymphocytes # 0.3 L Monocytes # 0.3 Eosinophils # 0.0 Platelet Estimate PLT APPEAR DECREASED Polychromasia 2+ Poikilocytosis 3+ Anisocytosis 1+ Microcytosis 1+ Sodium Level 138 Potassium Level 4.2 Chloride Level 106 Carbon Dioxide Level 26 Anion Gap 10 Blood Urea Nitrogen 10 Creatinine 0.76 Glucose Level 87 Calcium Level 7.9 L Total Bilirubin 0.2 Direct Bilirubin 0.00 Indirect Bilirubin 0.2 Aspartate Amino Transf (AST/SGOT) 48 H Alanine Aminotransferase (ALT/SGPT) 58 Alkaline Phosphatase 166 H Total Protein 7.3 Albumin 3.5 Globulin 3.80 H Albumin/Globulin Ratio 0.92 Lab Scanned Report BLOOD TRANSFUSION Medications Medications Current Medications Famotidine (Pepcid) 20 mg BID PO Last administered on 04/11/17 21:24; Admin Dose 20 MG; Start 04/06/17 at 21:00 Ferrous Sulfate (Ferrous Sulfate (Ec)) 325 mg BID PO Last administered on 21:24; Admin Dose 325 MG; Start 04/06/17 at 21:00 Mirtazapine (Remeron) 15 mg HS PO Last administered on 04/11/17 21:24; Admin Dose 15 MG; Start 04/06/17 at 21:00 Pantoprazole (Protonix Tab) 40 mg DAILY@06 PO Last administered on 04/12/17 06: 05; Admin Dose 40 MG; Start 04/07/17 at 06:00 Cholecalciferol 400 units 400 units DAILY PO Last administered on 04/11/17 09: 15; Admin Dose 400 UNITS; Start 04/07/17 at 09:00 Sodium Chloride (NS) 1,000 ml @ 10 mls/hr Q24H IV Last administered on 14:41; Admin Dose 10 MLS/HR; Start 04/06/17 at 14:02 Docusate Sodium (Colace) 100 mg Q12H PRN PO CONSTIPATION; Start 04/06/17 at 14: 30 Magnesium Hydroxide (Milk Of Mag) 30 ml DAILY PRN PO CONSTIPATION; Start at 14:30 Bisacodyl (Dulcolax) 5 mg DAILY PRN PO CONSTIPATION; Start 04/06/17 at 14:30 Bisacodyl (Dulcolax Supp) 10 mg DAILY PRN [place] CONSTIPATION; Start 04/06/17 at 14: 30 Sodium Biphosphate/ Sodium Phosphate (Fleet Enema) 133 ml DAILY PRN [place] CONSTIPATION; Start 04/06/17 at 14:30 Acetaminophen 650 mg 650 mg Q4H PRN PO PAIN AND OR ELEVATED TEMP Last administered on 04/12/17 06:05; Admin Dose 650 MG; Start 04/07/17 at 16:30 Levofloxacin/ Dextrose (Levaquin 500mg/ D5W 100 ml (Pmx)) 100 ml @ 100 mls/hr Q24H IVPB Last administered on 04/12/17 03:58; Admin Dose 100 MLS/HR; Start 04/11/17 at 23:00 AILYN OZUNA M.D. Apr 12, 2017 14:47
--- NOTE | 2017-04-12 14:59 | PN ---
Date/Time of Note Date/Time of Note DATE: 04/12/17 TIME: 14:56 Assessment/Plan VTE Prophylaxis VTE Prophylaxis Intervention: other Lines/Catheters IV C[facility] Type [facility] Peripheral IV Urinary Cath still in place: No Assessment/Plan Assessment/Plan 1. Pancytopenia, unclear etiology, follow up with bone marrow biopsy result, transfuse as needed 2. Hypotension, improved after transfusion with 1 unt PRBC 04/11/2017 3. Hepatitis C, follow up with LFTs 4. Mesenteric lymphadenopathy 5. Splenomegaly Subjective 24 Hr Interval Summary Free Text/Dictation s/p bone marrow biopsy today. afebrile Exam/Review of Systems Vital Signs Vitals Vital Signs Date Time Temp Pulse Resp B/P Pulse Ox O2 Delivery O2 Flow Rate FiO2 04/12/17 12:48 98.2 59 18 103/67 99 04/12/17 12:05 Room Air Intake and Output 04/11/17 04/11/17 04/12/17 14:59 22:59 06:59 Intake Total 830 ml Output Total 700 ml 1100 ml Balance -700 ml -270 ml Exam Constitutional: alert, oriented Psych: nl mood/affect, no complaints Head: atraumatic, normocephalic Eyes: EOMI, PERRL, nl conjunctiva ENMT: mucosa pink and moist, nl external ears & nose, nl lips & teeth, nl nasal mucosa & septum Neck: non-tender, supple Respiratory: clear to auscultation, normal air movement, No congested cough, No crackles/rales, No diminished breath sounds, No intercostal retraction, No labored breathing, No other, No respirations, No tactile fremitus, No wheezing Cardiovascular: nl pulses, regular rate and rhythm, No S3, No S4, No bruits, No diastolic murmur, No edema, No gallop, No irregular rhythm, No jugular venous distention (JVD), No murmurs/extra sounds, No other, No rub, No systolic murmur Gastrointestinal: nl liver, spleen, non-tender, soft, No ascites, No bowel sounds, No distended, No firm, No hepatomegaly, No mass , No other, No rebound or guarding, No splenomegaly, No surgical scars, No tender Musculoskeletal: nl extremities to inspection Extremities: normal pulses, No calf tenderness, No clubbing, No cyanosis, No edema, No other, No palpable cord, No pitting pedal edema, No tenderness Neurological: AMUSEMENT RIDE INSPECTOR II-XII intact, nl mental status, nl speech, nl strength Skin: nl turgor Lymph: nl lymph nodes Results Result Diagram: 04/12/17 0345 04/12/17 0345 Results 24 hrs Laboratory Tests Test 04/12/17 03:45 04/12/17 05:11 White Blood Count 2.3 L Red Blood Count 3.09 #L Hemoglobin 8.8 #L Hematocrit 27.0 #L Mean Corpuscular Volume 87.4 Mean Corpuscular Hemoglobin 28.5 L Mean Corpuscular Hemoglobin Concent 32.6 Red Cell Distribution Width 14.8 H Platelet Count 12 #*L Mean Platelet Volume Neutrophils % 73.0 Lymphocytes % 14.0 L Monocytes % 11.0 Eosinophils % 2.0 Neutrophils # 1.7 Lymphocytes # 0.3 L Monocytes # 0.3 Eosinophils # 0.0 Platelet Estimate PLT APPEAR DECREASED Polychromasia 2+ Poikilocytosis 3+ Anisocytosis 1+ Microcytosis 1+ Sodium Level 138 Potassium Level 4.2 Chloride Level 106 Carbon Dioxide Level 26 Anion Gap 10 Blood Urea Nitrogen 10 Creatinine 0.76 Glucose Level 87 Calcium Level 7.9 L Total Bilirubin 0.2 Direct Bilirubin 0.00 Indirect Bilirubin 0.2 Aspartate Amino Transf (AST/SGOT) 48 H Alanine Aminotransferase (ALT/SGPT) 58 Alkaline Phosphatase 166 H Total Protein 7.3 Albumin 3.5 Globulin 3.80 H Albumin/Globulin Ratio 0.92 Lab Scanned Report BLOOD TRANSFUSION Medications Medications Current Medications Famotidine (Pepcid) 20 mg BID PO Last administered on 04/11/17 21:24; Admin Dose 20 MG; Start 04/06/17 at 21:00 Ferrous Sulfate (Ferrous Sulfate (Ec)) 325 mg BID PO Last administered on 21:24; Admin Dose 325 MG; Start 04/06/17 at 21:00 Mirtazapine (Remeron) 15 mg HS PO Last administered on 04/11/17 21:24; Admin Dose 15 MG; Start 04/06/17 at 21:00 Pantoprazole (Protonix Tab) 40 mg DAILY@06 PO Last administered on 04/12/17 06: 05; Admin Dose 40 MG; Start 04/07/17 at 06:00 Cholecalciferol 400 units 400 units DAILY PO Last administered on 04/11/17 09: 15; Admin Dose 400 UNITS; Start 04/07/17 at 09:00 Sodium Chloride (NS) 1,000 ml @ 10 mls/hr Q24H IV Last administered on 14:41; Admin Dose 10 MLS/HR; Start 04/06/17 at 14:02 Docusate Sodium (Colace) 100 mg Q12H PRN PO CONSTIPATION; Start 04/06/17 at 14: 30 Magnesium Hydroxide (Milk Of Mag) 30 ml DAILY PRN PO CONSTIPATION; Start at 14:30 Bisacodyl (Dulcolax) 5 mg DAILY PRN PO CONSTIPATION; Start 04/06/17 at 14:30 Bisacodyl (Dulcolax Supp) 10 mg DAILY PRN [place] CONSTIPATION; Start 04/06/17 at 14: 30 Sodium Biphosphate/ Sodium Phosphate (Fleet Enema) 133 ml DAILY PRN [place] CONSTIPATION; Start 04/06/17 at 14:30 Acetaminophen 650 mg 650 mg Q4H PRN PO PAIN AND OR ELEVATED TEMP Last administered on 04/12/17 06:05; Admin Dose 650 MG; Start 04/07/17 at 16:30 Levofloxacin/ Dextrose (Levaquin 500mg/ D5W 100 ml (Pmx)) 100 ml @ 100 mls/hr Q24H IVPB Last administered on 04/12/17 03:58; Admin Dose 100 MLS/HR; Start 04/11/17 at 23:00 Immune Globulin (Carimune Nf) 48 gm ONCE IV ; Start 04/12/17 at 15:00; Status RENO LOZANO MD Apr 12, 2017 14:59
[2017-04-12] MEDS ORDERED: IMMUNE GLOBULIN (HUMAN) 6 GM INJ IV SCH (15:00)
[2017-04-12] MEDS ORDERED: IMMUNE GLOBULIN IV SCH (18:00)
[2017-04-12] MEDS ORDERED: WATER STERILE FOR IV SCH (18:00)
[2017-04-12] MEDS: MIRTAZAPINE 15 MG TAB PO SCH (20:53)
[2017-04-13 04:00] VITALS: BP 93/55; RESP 15
[2017-04-13] MEDS: PANTOPRAZOLE (EC) 40 MG TAB PO SCH (06:16)
[2017-04-13 07:41] VITALS: BP 98/60; RESP 18
[2017-04-13 08:02] LABS: ADD SCAN DIFF NO; HEMATOCRIT 23.5 % (42.0-52.0); HEMOGLOBIN 7.9 g/dl (14.0-18.0); MEAN CORPUSCULAR HEMOGLOBIN 28.8 pg (29.0-33.0); MEAN CORPUSCULAR HGB CONC 33.6 g/dl (32.0-37.0); MEAN CORPUSCULAR VOLUME 85.8 fl (82.0-101.0); MEAN PLATELET VOLUME 12.3 fl (7.4-10.4); PLATELET COUNT 37 10^3/UL (140-415); RED BLOOD COUNT 2.74 10^6/ul (4.70-6.10); RED CELL DISTRIBUTION WIDTH 14.9 % (11.5-14.5); WHITE BLOOD COUNT 4.3 10^3/ul (4.8-10.8)
[2017-04-13 08:03] LABS: ABNORMAL IP MESSAGE 1
[2017-04-13 08:41] LABS: CALCIUM 8.3 mg/dl (8.4-10.2); CREATININE 0.78 mg/dl (0.61-1.24); POTASSIUM 3.9 mmol/L (3.5-5.1)
[2017-04-13] MEDS: CHOLECALCIFEROL 400 UNITS TAB PO SCH (09:01)
[2017-04-13] MEDS: FERROUS SULFATE (EC) 325 MG TAB PO SCH ×2 (09:01→21:00)
[2017-04-13] MEDS: FAMOTIDINE 20 MG TAB PO SCH ×2 (09:01→21:00)
[2017-04-13 10:20] LABS: LYMPHOCYTES # 0.7 10^3/ul (0.8-2.9); MONOCYTE # 0.3 10^3/ul (0.3-0.9); NEUTROPHIL # 3.1 10^3/ul (1.6-7.5); PLATELET ESTIMATE PLT APPEAR DECREASED
[2017-04-13 11:33] VITALS: BP 86/58; RESP 18
[2017-04-13] MEDS: SOD CHLORIDE 0.9% 1,000 ML IV SCH (13:33)
--- NOTE | 2017-04-13 14:10 | PN ---
Date/Time of Note Date/Time of Note DATE: 04/13/17 TIME: 14:08 Assessment/Plan VTE Prophylaxis VTE Prophylaxis Intervention: other Lines/Catheters [facility] Saline Lock Urinary Cath still in place: No Assessment/Plan Assessment/Plan 1. Pancytopenia, unclear etiology, follow up with bone marrow biopsy result, transfuse as needed 2. Hypotension, 1 unt PRBC 04/11/2017 3. Hepatitis C 4. Mesenteric lymphadenopathy 5. Splenomegaly Subjective 24 Hr Interval Summary Free Text/Dictation weak, poor appetite Exam/Review of Systems Vital Signs Vitals Vital Signs Date Time Temp Pulse Resp B/P Pulse Ox O2 Delivery O2 Flow Rate FiO2 04/13/17 11:33 98.1 72 18 86/58 97 04/12/17 12:20 Nasal Cannula 2 Intake and Output 04/12/17 04/12/17 04/13/17 15:00 23:00 07:00 Intake Total 1100 ml 900 ml Output Total 1000 ml Balance 100 ml 900 ml Exam Constitutional: alert, oriented, well developed Psych: nl mood/affect, no complaints Head: atraumatic, normocephalic Eyes: EOMI, PERRL, nl conjunctiva, nl lids ENMT: nl external ears & nose, nl lips & teeth, nl nasal mucosa & septum Neck: non-tender, supple Respiratory: clear to auscultation, normal air movement, No congested cough, No crackles/rales, No diminished breath sounds, No intercostal retraction, No labored breathing, No other, No respirations, No tactile fremitus, No wheezing Cardiovascular: nl pulses, regular rate and rhythm, No S3, No S4, No bruits, No diastolic murmur, No edema, No gallop, No irregular rhythm, No jugular venous distention (JVD), No murmurs/extra sounds, No other, No rub, No systolic murmur Gastrointestinal: nl liver, spleen, non-tender, soft, No ascites, No bowel sounds, No distended, No firm, No hepatomegaly, No mass , No other, No rebound or guarding, No splenomegaly, No surgical scars, No tender Musculoskeletal: nl extremities to inspection Extremities: normal pulses, No calf tenderness, No clubbing, No cyanosis, No edema, No other, No palpable cord, No pitting pedal edema, No tenderness Neurological: GATE CUTTER II-XII intact, nl mental status, nl speech, nl strength Skin: nl turgor Lymph: nl lymph nodes Results Result Diagram: 04/13/1771704/13/1718 Results 24 hrs Laboratory Tests Test 04/13/17 06:20 04/13/17 07:18 Lab Scanned Report BLOOD TRANSFUSION White Blood Count 4.3 #L Red Blood Count 2.74 L Hemoglobin 7.9 L Hematocrit 23.5 L Mean Corpuscular Volume 85.8 Mean Corpuscular Hemoglobin 28.8 L Mean Corpuscular Hemoglobin Concent 33.6 Red Cell Distribution Width 14.9 H Platelet Count 37 #L Mean Platelet Volume 12.3 H Neutrophils % 72.0 Band Neutrophils % 4.0 Lymphocytes % 16.0 Monocytes % 8.0 Neutrophils # 3.1 Lymphocytes # 0.7 L Monocytes # 0.3 Platelet Estimate PLT APPEAR DECREASED Sodium Level 131 L Potassium Level 3.9 Chloride Level 100 Carbon Dioxide Level 23 Anion Gap 12 Blood Urea Nitrogen 8 Creatinine 0.78 Glucose Level 82 Calcium Level 8.3 L Medications Medications Current Medications Famotidine (Pepcid) 20 mg BID PO Last administered on 04/13/17 09:01; Admin Dose 20 MG; Start 04/06/17 at 21:00 Ferrous Sulfate (Ferrous Sulfate (Ec)) 325 mg BID PO Last administered on 09:01; Admin Dose 325 MG; Start 04/06/17 at 21:00 Mirtazapine (Remeron) 15 mg HS PO Last administered on 04/12/17 20:53; Admin Dose 15 MG; Start 04/06/17 at 21:00 Pantoprazole (Protonix Tab) 40 mg DAILY@06 PO Last administered on 04/13/17 06: 16; Admin Dose 40 MG; Start 04/07/17 at 06:00 Cholecalciferol 400 units 400 units DAILY PO Last administered on 04/13/17 09: 01; Admin Dose 400 UNITS; Start 04/07/17 at 09:00 Sodium Chloride (NS) 1,000 ml @ 10 mls/hr Q24H IV Last administered on 13:33; Admin Dose 10 MLS/HR; Start 04/06/17 at 14:02 Docusate Sodium (Colace) 100 mg Q12H PRN PO CONSTIPATION; Start 04/06/17 at 14: 30 Magnesium Hydroxide (Milk Of Mag) 30 ml DAILY PRN PO CONSTIPATION; Start at 14:30 Bisacodyl (Dulcolax) 5 mg DAILY PRN PO CONSTIPATION; Start 04/06/17 at 14:30 Bisacodyl (Dulcolax Supp) 10 mg DAILY PRN [place] CONSTIPATION; Start 04/06/17 at 14: 30 Sodium Biphosphate/ Sodium Phosphate (Fleet Enema) 133 ml DAILY PRN [place] CONSTIPATION; Start 04/06/17 at 14:30 Acetaminophen 650 mg 650 mg Q4H PRN PO PAIN AND OR ELEVATED TEMP Last administered on 04/12/17 06:05; Admin Dose 650 MG; Start 04/07/17 at 16:30 Levofloxacin/ Dextrose (Levaquin 500mg/ D5W 100 ml (Pmx)) 100 ml @ 100 mls/hr Q24H IVPB Last administered on 04/12/17 22:35; Admin Dose 100 MLS/HR; Start 04/11/17 at 23:00 RENO WATSON MD Apr 13, 2017 14:09
[2017-04-13 15:32] VITALS: BP 103/60; RESP 18
--- NOTE | 2017-04-13 16:28 | CONS ---
Date/Time of Note Date/Time of Note DATE: 04/13/17 TIME: 16:21 Assessment/Plan Assessment/Plan Chief Complaint/Hosp Course 66 yo male with likely cirrhosis secondary to EtoH and Hep C who presents with severe pancytopenia. Although it is likely that this is from underlying liver disease, the last abdominal ultrasound and CT scan do not demonstrate cirrhosis. Furthermore, with cirrhosis the platelet count is usually greater than 20K. Normal Haptoglobin makes hemolytic process or TTP unlikely. DIC panel demonstrates normal fibrinogen making DIC unlikely. Of note, Ct A/P was done which raises concern for lymphoma. Bone Marrow bx done does not reveal evidence of underlying bone marrow pathology -f/u cytogenetics and MDS fish panel on bone marrow bx -will order LN bx of a mesenteric lymph node given the concern for lymphoma -given my concern for ITP especially with increase in platelet count will given 1 more dose of IVIG , will given 1 dose of IVIG evaluate platelet response Approximately 40 min were spent at patient's bedside and in coordination of his care Problems: Consultation Date/Type/Reason Admit Date/Time Apr 06, 2017 at 08:33 Initial Consult Date 04/10/17 Type of Consultation: Hematology Reason for Consultation pancytopenia Referring Provider: RENO WATSON MD 24 HR Interval Summary Free Text/Dictation pt had bone marrow bx done. IVIG was given with appropriate response in her platelets count Exam/Review of Systems Vital Signs Vitals Vital Signs Date Time Temp Pulse Resp B/P Pulse Ox O2 Delivery O2 Flow Rate FiO2 04/13/17 15:32 97.8 74 18 103/60 98 04/12/17 12:20 Nasal Cannula 2 Intake and Output 04/12/17 04/12/17 04/13/17 15:00 23:00 07:00 Intake Total 1100 ml 900 ml Output Total 1000 ml Balance 100 ml 900 ml Exam Constitutional: alert, oriented Psych: no complaints Head: normocephalic Eyes: nl conjunctiva ENMT: nl external ears & nose Neck: non-tender, supple Respiratory: clear to auscultation Cardiovascular: nl pulses, regular rate and rhythm Gastrointestinal: soft Musculoskeletal: nl extremities to inspection, nl gait and stance Results Result Diagram: 04/13/17 0718 04/13/17 0718 Results 24 hrs Laboratory Tests Test 04/13/17 06:20 04/13/17 07:18 Lab Scanned Report BLOOD TRANSFUSION White Blood Count 4.3 #L Red Blood Count 2.74 L Hemoglobin 7.9 L Hematocrit 23.5 L Mean Corpuscular Volume 85.8 Mean Corpuscular Hemoglobin 28.8 L Mean Corpuscular Hemoglobin Concent 33.6 Red Cell Distribution Width 14.9 H Platelet Count 37 #L Mean Platelet Volume 12.3 H Neutrophils % 72.0 Band Neutrophils % 4.0 Lymphocytes % 16.0 Monocytes % 8.0 Neutrophils # 3.1 Lymphocytes # 0.7 L Monocytes # 0.3 Platelet Estimate PLT APPEAR DECREASED Sodium Level 131 L Potassium Level 3.9 Chloride Level 100 Carbon Dioxide Level 23 Anion Gap 12 Blood Urea Nitrogen 8 Creatinine 0.78 Glucose Level 82 Calcium Level 8.3 L Medications Medications Current Medications Famotidine (Pepcid) 20 mg BID PO Last administered on 04/13/17 09:01; Admin Dose 20 MG; Start 04/06/17 at 21:00 Ferrous Sulfate (Ferrous Sulfate (Ec)) 325 mg BID PO Last administered on 09:01; Admin Dose 325 MG; Start 04/06/17 at 21:00 Mirtazapine (Remeron) 15 mg HS PO Last administered on 04/12/17 20:53; Admin Dose 15 MG; Start 04/06/17 at 21:00 Pantoprazole (Protonix Tab) 40 mg DAILY@06 PO Last administered on 04/13/17 06: 16; Admin Dose 40 MG; Start 04/07/17 at 06:00 Cholecalciferol 400 units 400 units DAILY PO Last administered on 04/13/17 09: 01; Admin Dose 400 UNITS; Start 04/07/17 at 09:00 Sodium Chloride (NS) 1,000 ml @ 10 mls/hr Q24H IV Last administered on 13:33; Admin Dose 10 MLS/HR; Start 04/06/17 at 14:02 Docusate Sodium (Colace) 100 mg Q12H PRN PO CONSTIPATION; Start 04/06/17 at 14: 30 Magnesium Hydroxide (Milk Of Mag) 30 ml DAILY PRN PO CONSTIPATION; Start at 14:30 Bisacodyl (Dulcolax) 5 mg DAILY PRN PO CONSTIPATION; Start 04/06/17 at 14:30 Bisacodyl (Dulcolax Supp) 10 mg DAILY PRN [place] CONSTIPATION; Start 04/06/17 at 14: 30 Sodium Biphosphate/ Sodium Phosphate (Fleet Enema) 133 ml DAILY PRN [place] CONSTIPATION; Start 04/06/17 at 14:30 Acetaminophen 650 mg 650 mg Q4H PRN PO PAIN AND OR ELEVATED TEMP Last administered on 04/12/17 06:05; Admin Dose 650 MG; Start 04/07/17 at 16:30 Levofloxacin/ Dextrose (Levaquin 500mg/ D5W 100 ml (Pmx)) 100 ml @ 100 mls/hr Q24H IVPB Last administered on 04/12/17 22:35; Admin Dose 100 MLS/HR; Start 04/11/17 at 23:00 AILYN OZUNA M.D. Apr 13, 2017 16:28
[2017-04-13] MEDS ORDERED: IMMUNE GLOBULIN (HUMAN) 6 GM INJ IV SCH (16:30)
[2017-04-13] MEDS ORDERED: IMMUNE GLOBULIN IV SCH (18:30)
[2017-04-13] MEDS ORDERED: WATER STERILE FOR IV SCH (18:30)
[2017-04-13 19:44] VITALS: BP 100/57; RESP 15
[2017-04-13] MEDS: MIRTAZAPINE 15 MG TAB PO SCH (21:01)
[2017-04-13] MEDS: LEVOFLOXACIN 500MG/D5W (PMX) 100 ML IVPB SCH (23:05)
[2017-04-13] MEDS: ACETAMINOPHEN 325 MG TAB PO PRN (23:48)
[2017-04-14] VITALS (13 sets, daily range): BP systolic 81–129; BP diastolic 47–67; PULSE 59–83; RESP 15–22
[2017-04-14] MEDS: PANTOPRAZOLE (EC) 40 MG TAB PO SCH (06:09)
[2017-04-14 08:31] LABS: ADD SCAN DIFF NO
[2017-04-14 08:36] LABS: ABNORMAL IP MESSAGE 1; BASOPHILS % 0.2 % (0.0-2.0); EOSINOPHILS # 0.1 10^3/ul (0.0-0.5); EOSINOPHILS % 0.8 % (0.0-7.0); HEMATOCRIT 29.4 % (42.0-52.0); HEMOGLOBIN 9.6 g/dl (14.0-18.0); LYMPHOCYTES # 0.6 10^3/ul (0.8-2.9); LYMPHOCYTES % 9.1 % (15.0-51.0); MEAN CORPUSCULAR HEMOGLOBIN 28.7 pg (29.0-33.0); MEAN CORPUSCULAR HGB CONC 32.7 g/dl (32.0-37.0); MEAN CORPUSCULAR VOLUME 87.8 fl (82.0-101.0); MEAN PLATELET VOLUME 11.7 fl (7.4-10.4); MONOCYTE # 0.3 10^3/ul (0.3-0.9); MONOCYTES % 4.6 % (0.0-11.0); NEUTROPHIL # 5.5 10^3/ul (1.6-7.5); NEUTROPHILS % 84.2 % (39.0-77.0); RED BLOOD COUNT 3.35 10^6/ul (4.70-6.10); WHITE BLOOD COUNT 6.6 10^3/ul (4.8-10.8)
[2017-04-14 08:57] LABS: PLATELET COUNT 41 10^3/UL (140-415)
[2017-04-14 09:00] LABS: ALBUMIN 4.1 g/dl (3.3-4.9); ALBUMIN/GLOBULIN RATIO 0.78; BILIRUBIN,INDIRECT 0.1 mg/dl (0-1.1); BILIRUBIN,TOTAL 0.1 mg/dl (0.2-1.3); CALCIUM 8.9 mg/dl (8.4-10.2); CREATININE 0.97 mg/dl (0.61-1.24); TOTAL PROTEIN 9.3 g/dl (6.1-8.1)
[2017-04-14] MEDS: FAMOTIDINE 20 MG TAB PO SCH ×2 (09:11→20:43)
[2017-04-14] MEDS: CHOLECALCIFEROL 400 UNITS TAB PO SCH (09:11)
[2017-04-14] MEDS: FERROUS SULFATE (EC) 325 MG TAB PO SCH ×2 (09:12→20:43)
--- NOTE | 2017-04-14 12:21 | PN ---
Date/Time of Note Date/Time of Note DATE: 04/14/17 TIME: 12:18 Assessment/Plan VTE Prophylaxis VTE Prophylaxis Intervention: other Lines/Catheters [facility]from [facility] Saline Lock Urinary Cath still in place: No Assessment/Plan Problems: (1) Enterococcus UTI Status: Acute Comment: He is on a quinolone antibiotic IV for this. (2) Hepatitis C antibody positive in blood Status: Acute Comment: Noted. Viral load is negative. In addition the formal evaluation of the liver demonstrates that this is not consistent with cirrhosis. I.e. he has splenomegaly with lymphadenopathy (3) Transaminitis Status: Acute Comment: Noted. He may actually end up needing to have an ultrasound-guided percutaneous liver biopsy if the other biopsies do not demonstrate an answer. I have a suspicion that were dealing with a lymphoproliferative process such as a non-shot non-Hodgkin's lymphoma (4) Pancytopenia Status: Acute Comment: As above. Dr. Shaver is seeing the patient. I am concerned for lymph lymphoproliferative process such as a non-Hodgkin's lymphoma which may be somewhat difficult to diagnose. However given the lymphadenopathy splenomegaly pancytopenia diaphoresis it is an optional diagnosis Subjective 24 Hr Interval Summary Free Text/Dictation Patient reports that he still feels weak. Constitutional: diaphoresis (Drenching sweat last night) Respiratory: no complaints Cardiovascular: no complaints Gastrointestinal: no complaints Genitourinary: no complaints Exam/Review of Systems Vital Signs Vitals Vital Signs Date Time Temp Pulse Resp B/P Pulse Ox O2 Delivery O2 Flow Rate FiO2 04/14/17 12:09 83 04/14/17 11:49 98.2 17 84/51 97 04/14/17 00:00 Room Air 04/12/17 12:20 2 Intake and Output 04/13/17 04/13/17 04/14/17 15:00 23:00 07:00 Intake Total 720 ml 100 ml Balance 720 ml 100 ml Exam Constitutional: alert, oriented Neck: non-tender, supple Respiratory: clear to auscultation, normal air movement Cardiovascular: nl pulses, regular rate and rhythm Results Result Diagram: 04/14/17 0742 04/14/17 0742 Results 24 hrs Laboratory Tests Test 04/14/17 07:42 White Blood Count 6.6 # Red Blood Count 3.35 #L Hemoglobin 9.6 #L Hematocrit 29.4 #L Mean Corpuscular Volume 87.8 Mean Corpuscular Hemoglobin 28.7 L Mean Corpuscular Hemoglobin Concent 32.7 Red Cell Distribution Width 15.0 H Platelet Count 41 L Mean Platelet Volume 11.7 H Neutrophils % 84.2 H Lymphocytes % 9.1 L Monocytes % 4.6 Eosinophils % 0.8 Basophils % 0.2 Nucleated Red Blood Cells % 0.0 Neutrophils # 5.5 Lymphocytes # 0.6 L Monocytes # 0.3 Eosinophils # 0.1 Basophils # 0.0 Nucleated Red Blood Cells # 0.0 Sodium Level 137 Potassium Level 4.0 Chloride Level 103 Carbon Dioxide Level 26 Anion Gap 12 Blood Urea Nitrogen 7 Creatinine 0.97 Glucose Level 112 Calcium Level 8.9 Total Bilirubin 0.1 L Direct Bilirubin 0.00 Indirect Bilirubin 0.1 Aspartate Amino Transf (AST/SGOT) 67 H Alanine Aminotransferase (ALT/SGPT) 60 Alkaline Phosphatase 274 H Total Protein 9.3 H Albumin 4.1 Globulin 5.20 H Albumin/Globulin Ratio 0.78 Medications Medications Current Medications Famotidine (Pepcid) 20 mg BID PO Last administered on 04/14/17 09:11; Admin Dose 20 MG; Start 04/06/17 at 21:00 Ferrous Sulfate (Ferrous Sulfate (Ec)) 325 mg BID PO Last administered on 09:12; Admin Dose 325 MG; Start 04/06/17 at 21:00 Mirtazapine (Remeron) 15 mg HS PO Last administered on 04/13/17 21:01; Admin Dose 15 MG; Start 04/06/17 at 21:00 Pantoprazole (Protonix Tab) 40 mg DAILY@06 PO Last administered on 04/14/17 06 :09; Admin Dose 40 MG; Start 04/07/17 at 06:00 Cholecalciferol 400 units 400 units DAILY PO Last administered on 04/14/17 09: 11; Admin Dose 400 UNITS; Start 04/07/17 at 09:00 Sodium Chloride (NS) 1,000 ml @ 10 mls/hr Q24H IV Last administered on 13:33; Admin Dose 10 MLS/HR; Start 04/06/17 at 14:02 Docusate Sodium (Colace) 100 mg Q12H PRN PO CONSTIPATION; Start 6/2/17 at 14: 30 Magnesium Hydroxide (Milk Of Mag) 30 ml DAILY PRN PO CONSTIPATION; Start at 14:30 Bisacodyl (Dulcolax) 5 mg DAILY PRN PO CONSTIPATION; Start 04/06/17 at 14:30 Bisacodyl (Dulcolax Supp) 10 mg DAILY PRN [place] CONSTIPATION; Start 04/06/17 at 14: 30 Sodium Biphosphate/ Sodium Phosphate (Fleet Enema) 133 ml DAILY PRN [place] CONSTIPATION; Start 04/06/17 at 14:30 Acetaminophen 650 mg 650 mg Q4H PRN PO PAIN AND OR ELEVATED TEMP Last administered on 04/13/17 23:48; Admin Dose 650 MG; Start 04/07/17 at 16:30 Levofloxacin/ Dextrose (Levaquin 500mg/ D5W 100 ml (Pmx)) 100 ml @ 100 mls/hr Q24H IVPB Last administered on 04/13/17 23:05; Admin Dose 100 MLS/HR; Start 04/11/17 at 23:00 ELDON HINES MD Apr 14, 2017 12:21
[2017-04-14] MEDS: SOD CHLORIDE 0.9% 1,000 ML IV SCH (13:29)
[2017-04-14] MEDS: FOLIC ACID 1 MG TAB PO SCH (13:33)
[2017-04-14] MEDS: CYANOCOBALAMIN 500 MCG TAB PO SCH (13:33)
[2017-04-14 20:20] LABS: IRON 39 ug/dl (35-150)
[2017-04-14 20:29] LABS: TOTAL IRON BINDING CAPACITY 205 ug/dl (241-421)
[2017-04-14] MEDS: MIRTAZAPINE 15 MG TAB PO SCH (20:43)
[2017-04-14] MEDS: LEVOFLOXACIN 500MG/D5W (PMX) 100 ML IVPB SCH (20:46)
[2017-04-15] VITALS (13 sets, daily range): BP systolic 79–111; BP diastolic 50–67; PULSE 63–84; RESP 17–20
--- NOTE | 2017-04-15 04:08 | CONS ---
DATE OF ADMISSION: 04/06/2017 DATE OF CONSULTATION: 04/14/2017 HEMATOLOGY CONSULTATION HISTORY OF PRESENT ILLNESS: Mr. Johnson is a 66-year-old gentleman with a history of hepati tis C. He states he quit drinking alcohol about 30 years ago. He was found to have anemia and thro mbocytopenia; hence, hematology consultation was requested. The patient did not have any evidence o f cirrhosis on CT of the abdomen and ultrasound of the abdomen. The patient had a bone marrow, and the results are pending. PHYSICAL EXAMINATION: GENERAL: Shows a moderately built male in no distress. He says he has no appetite and he is losing weight. ENT: Normal. NECK: Supple without any abnormal masses or pulsations. CHEST: Symmetrical. LUNGS: Clear. HEART: Sounds normal. ABDOMEN: Soft, slightly distended, possibly 1+ ascites. EXTERNAL GENITALIA: Normal. EXTREMITIES: Showed trace edema. CENTRAL NERVOUS SYSTEM: No focal defects. LYMPH NODES: No peripheral lymphadenopathy. LABORATORY DATA: His CBC shows hemoglobin 9.6 with MCV 87 and WBC 6600 with 84% neutrophils and a l ow platelet count of 41,000. His PT/INR is 1.1, and DIC panel is unremarkable. His chemistry panel is also unremarkable except for elevated ALT and AST and alkaline phosphatase, but his albumin is 4 .1 and globulin is 5.2, consistent with liver disease possibly. His B12 level is normal. IMPRESSION: 1. Normochromic anemia with severe thrombocytopenia. Rule out secondary to hepatitis C or liver di sease. Rule out folate deficiency. No evidence of hemolysis. 2. Poor appetite with weight loss. 3. Mesenteric adenopathy on CAT scan. PLAN AND DISCUSSION: This patient with hepatitis C has quit drinking about 30 years ago. He does n ot have evidence of cirrhosis on the CAT scan and the ultrasound. Still, his liver function tests a re elevated, and hepatitis C certainly can cause thrombocytopenia. Regarding his anemia, we will ge t full anemia panel. He had a bone marrow, and we will check the results. He also might benefit fr om treatment for hepatitis C. A lymph node biopsy is being planned. Dictated By: NAA LONGO MD PC/NTS Conf#: [id number] DID#: [id number]
[2017-04-15] MEDS: PANTOPRAZOLE (EC) 40 MG TAB PO SCH (06:17)
[2017-04-15 07:55] LABS: ADD SCAN DIFF NO
[2017-04-15 07:59] LABS: ABNORMAL IP MESSAGE 1; HEMATOCRIT 25.2 % (42.0-52.0); HEMOGLOBIN 8.3 g/dl (14.0-18.0); MEAN CORPUSCULAR HEMOGLOBIN 28.5 pg (29.0-33.0); MEAN CORPUSCULAR HGB CONC 32.9 g/dl (32.0-37.0); MEAN CORPUSCULAR VOLUME 86.6 fl (82.0-101.0); MEAN PLATELET VOLUME 10.9 fl (7.4-10.4); RED BLOOD COUNT 2.91 10^6/ul (4.70-6.10); RED CELL DISTRIBUTION WIDTH 15.3 % (11.5-14.5); WHITE BLOOD COUNT 5.4 10^3/ul (4.8-10.8)
[2017-04-15 08:10] LABS: PLATELET COUNT 22 10^3/UL (140-415)
[2017-04-15 08:22] LABS: IRON 40 ug/dl (35-150)
[2017-04-15] MEDS ORDERED: SOD CHLORIDE 0.9% 250 ML IV ONE ×2 (08:30→10:30)
[2017-04-15 08:32] LABS: TOTAL IRON BINDING CAPACITY 206 ug/dl (241-421)
[2017-04-15] MEDS: FAMOTIDINE 20 MG TAB PO SCH ×2 (09:24→20:09)
[2017-04-15] MEDS: FOLIC ACID 1 MG TAB PO SCH (09:24)
[2017-04-15] MEDS: CHOLECALCIFEROL 400 UNITS TAB PO SCH (09:24)
[2017-04-15] MEDS: FERROUS SULFATE (EC) 325 MG TAB PO SCH ×2 (09:24→20:09)
[2017-04-15] MEDS: CYANOCOBALAMIN 500 MCG TAB PO SCH (09:24)
[2017-04-15 09:48] LABS: EOSINOPHILS # 0.1 10^3/ul (0.0-0.5); LYMPHOCYTES # 0.5 10^3/ul (0.8-2.9); MONOCYTE # 0.2 10^3/ul (0.3-0.9); NEUTROPHIL # 4.6 10^3/ul (1.6-7.5); PLATELET ESTIMATE PLT APPEAR DECREASED
--- NOTE | 2017-04-15 09:54 | PN ---
Date/Time of Note Date/Time of Note DATE: 04/15/17 TIME: 09:50 Assessment/Plan VTE Prophylaxis VTE Prophylaxis Intervention: contraindicated Lines/Catheters IV [facility] Type (from [facility]): Saline Lock Urinary Cath still in place: No Assessment/Plan Problems: (1) Splenomegaly Status: Chronic Comment: As noted before this is suggestive the possibility of a hematologic issue. I do not believe that this represents sarcoidosis. I do not believe this is directly related to any liver or portal hypertension issue. I am unclear if were going to need to do a biopsy of the spleen i.e. a splenectomy to make the diagnosis (2) Pancytopenia Status: Acute Comment: His platelet counts are down again hematology will be seeing the patient. (3) Enterococcus UTI Status: Acute Comment: IV antibiotics 5 days to resolve this (4) Hepatitis C antibody positive in blood Status: Acute Comment: Noted (5) History of hepatitis A Status: Resolved Comment: History of hepatitis A; resolved (6) Sepsis Status: Acute Comment: This appears to be relatively resolved. He is hypotensive now and I suspect this is a dehydrational issue. Qualifiers: Sepsis type: sepsis due to unspecified organism Qualified Code: A41.9 - Sepsis, due to unspecified organism Subjective 24 Hr Interval Summary Free Text/Dictation Fitz ayoub sitting in a chair reports he is feeling tired. He did have diarrhea this morning which she described as green and not jet black and pasty Constitutional: no complaints Respiratory: no complaints Cardiovascular: no complaints Gastrointestinal: diarrhea Genitourinary: no complaints Exam/Review of Systems Vital Signs Vitals Vital Signs Date Time Temp Pulse Resp B/P Pulse Ox O2 Delivery O2 Flow Rate FiO2 04/15/17 08:15 63 04/15/17 08:06 98.7 17 79/53 98 04/14/17 00:00 Room Air 04/12/17 12:20 2 Intake and Output 04/14/17 04/14/17 04/15/17 15:00 23:00 07:00 Intake Total 420 ml 800 ml Balance 420 ml 800 ml Exam Constitutional: alert, oriented Psych: nl mood/affect, no complaints Neck: non-tender, supple Respiratory: clear to auscultation, normal air movement Cardiovascular: nl pulses, regular rate and rhythm Gastrointestinal: non-tender, soft Results Result Diagram: 04/15/17 0602 04/14/17 0742 Results 24 hrs Laboratory Tests Test 04/14/17 19:05 04/15/17 06:02 04/15/17 06:08 Iron Level 39 40 Total Iron Binding Capacity 205 L 206 L Percent Iron Saturation 19 L 19 L White Blood Count 5.4 Red Blood Count 2.91 L Hemoglobin 8.3 L Hematocrit 25.2 L Mean Corpuscular Volume 86.6 Mean Corpuscular Hemoglobin 28.5 L Mean Corpuscular Hemoglobin Concent 32.9 Red Cell Distribution Width 15.3 H Platelet Count 22 #*L Mean Platelet Volume 10.9 H Neutrophils % 86.0 H Lymphocytes % 9.0 L Monocytes % 3.0 Eosinophils % 2.0 Neutrophils # 4.6 Lymphocytes # 0.5 L Monocytes # 0.2 L Eosinophils # 0.1 Platelet Estimate PLT APPEAR DECREASED Folate 9.8 Ferritin 612.0 H Medications Medications Current Medications Famotidine (Pepcid) 20 mg BID PO Last administered on 04/15/17 09:24; Admin Dose 20 MG; Start 04/06/17 at 21:00 Ferrous Sulfate (Ferrous Sulfate (Ec)) 325 mg BID PO Last administered on 09:24; Admin Dose 325 MG; Start 04/06/17 at 21:00 Mirtazapine (Remeron) 15 mg HS PO Last administered on 04/14/17 20:43; Admin Dose 15 MG; Start 04/06/17 at 21:00 Pantoprazole (Protonix Tab) 40 mg DAILY@06 PO Last administered on 04/15/17 06 :17; Admin Dose 40 MG; Start 04/07/17 at 06:00 Cholecalciferol 400 units 400 units DAILY PO Last administered on 04/15/17 09: 24; Admin Dose 400 UNITS; Start 04/07/17 at 09:00 Sodium Chloride (NS) 1,000 ml @ 10 mls/hr Q24H IV Last administered on 13:33; Admin Dose 10 MLS/HR; Start 04/06/17 at 14:02 Docusate Sodium (Colace) 100 mg Q12H PRN PO CONSTIPATION; Start 04/06/17 at 14: 30 Magnesium Hydroxide (Milk Of Mag) 30 ml DAILY PRN PO CONSTIPATION; Start at 14:30 Bisacodyl (Dulcolax) 5 mg DAILY PRN PO CONSTIPATION; Start 04/06/17 at 14:30 Bisacodyl (Dulcolax Supp) 10 mg DAILY PRN [place] CONSTIPATION; Start 04/06/17 at 14: 30 Sodium Biphosphate/ Sodium Phosphate (Fleet Enema) 133 ml DAILY PRN [place] CONSTIPATION; Start 04/06/17 at 14:30 Acetaminophen 650 mg 650 mg Q4H PRN PO PAIN AND OR ELEVATED TEMP Last administered on 04/13/17 23:48; Admin Dose 650 MG; Start 04/07/17 at 16:30 Levofloxacin/ Dextrose (Levaquin 500mg/ D5W 100 ml (Pmx)) 100 ml @ 100 mls/hr Q24H IVPB Last administered on 04/14/17 20:46; Admin Dose 100 MLS/HR; Start at 23:00 Folic Acid (Folic Acid) 1 mg DAILY PO Last administered on 04/15/17 09:24; Admin Dose 1 MG; Start 04/14/17 at 12:30 Cyanocobalamin (Vitamin B12) 1,000 mcg DAILY PO Last administered on 04/15/17 09:24; Admin Dose 1,000 MCG; Start 04/14/17 at 13:00 ELDON HINES MD Apr 15, 2017 09:54
[2017-04-15] MEDS: AMPICILLIN 1 GM/NS (PMX) 50 ML IVPB SCH ×2 (11:52→17:20)
[2017-04-15] MEDS: SOD CHLORIDE 0.9% 1,000 ML IV SCH (14:02)
--- NOTE | 2017-04-15 19:20 | HKNOTE ---
DATE OF SERVICE: 04/15/2017 HEMATOLOGY VISIT NOTE HISTORY OF PRESENT ILLNESS: Mr. Johnson is a 66-year-old gentleman with a history of hepati tis C and possibly cirrhosis. The patient was found to have anemia and thrombocytopenia and hence h ematology consultation was requested. He states that he quit drinking about 30 years ago. It shoul d be noted that there was no evidence of cirrhosis of the liver on CT of the abdomen and ultrasound of the liver. The patient had a bone marrow because of the anemia and thrombocytopenia, without cipriano dence of cirrhosis, and the results are pending. Today, patient states that today morning he had keshav jess diarrhea. His appetite is still poor. PHYSICAL EXAMINATION: GENERAL: Shows a moderately built male in no distress. ENT: Normal. HEART: Normal. LUNGS: Normal. ABDOMEN: Soft, slightly distended. There is questionable ascites. EXTERNAL GENITALIA: Normal. EXTREMITIES: Showed trace edema. LYMPH NODES: No peripheral lymphadenopathy. CENTRAL NERVOUS SYSTEM: Showed no focal defects. LABORATORY DATA: His hemoglobin today is down to 8.3 and was 9.6 yesterday. WBC is 5400 and a plat elet count dropped to 22,000 from 41,000 yesterday. His PT/INR was 1.1 x2 before. His anemia panel is unremarkable. IMPRESSION: 1. Normochromic anemia with severe thrombocytopenia. Rule out secondary to hepatitis C or liver di sease. Rule out bone marrow pathology, like dysplasia or infiltrate. 2. Poor appetite and weight loss. 3. Mild questionable mesenteric adenopathy on CAT scan. PLAN: This patient, who quit drinking 30 years ago, has hepatitis C, but there is no evidence of ci rrhosis. His anemia panel is unremarkable. The reason for the severe thrombocytopenia and anemia i s not clear. His bone marrow results are pending. His platelet count today is 22,000. Node biopsy apparently is being planned. Before the biopsy, he needs a plateletpheresis. Dictated By: NAA LONGO MD PC/NTS Conf#: [id number] DID#: [id number] CC: ALVARO RODRIGES MD;*EndCC*
[2017-04-15] MEDS: MIRTAZAPINE 15 MG TAB PO SCH (20:09)
[2017-04-15] MEDS: LEVOFLOXACIN 500MG/D5W (PMX) 100 ML IVPB SCH (20:09)
[2017-04-16] VITALS (9 sets, daily range): BP systolic 68–103; BP diastolic 53–67; PULSE 62–75; RESP 18–20
[2017-04-16] MEDS: AMPICILLIN 1 GM/NS (PMX) 50 ML IVPB SCH ×4 (00:39→17:47)
[2017-04-16] MEDS: PANTOPRAZOLE (EC) 40 MG TAB PO SCH (05:58)
[2017-04-16 07:35] LABS: ADD SCAN DIFF NO
[2017-04-16 07:42] LABS: ABNORMAL IP MESSAGE 1; EOSINOPHILS # 0.1 10^3/ul (0.0-0.5); HEMATOCRIT 25.6 % (42.0-52.0); HEMOGLOBIN 8.5 g/dl (14.0-18.0); MEAN CORPUSCULAR HEMOGLOBIN 28.7 pg (29.0-33.0); MEAN CORPUSCULAR HGB CONC 33.2 g/dl (32.0-37.0); MEAN CORPUSCULAR VOLUME 86.5 fl (82.0-101.0); NEUTROPHIL # 3.4 10^3/ul (1.6-7.5); RED BLOOD COUNT 2.96 10^6/ul (4.70-6.10); RED CELL DISTRIBUTION WIDTH 15.3 % (11.5-14.5); WHITE BLOOD COUNT 4.1 10^3/ul (4.8-10.8)
[2017-04-16 07:53] LABS: PLATELET COUNT 13 10^3/UL (140-415)
[2017-04-16 08:02] LABS: ALBUMIN 3.5 g/dl (3.3-4.9); ALBUMIN/GLOBULIN RATIO 0.76; BILIRUBIN,INDIRECT 0.1 mg/dl (0-1.1); BILIRUBIN,TOTAL 0.1 mg/dl (0.2-1.3); CALCIUM 8.5 mg/dl (8.4-10.2); CREATININE 0.75 mg/dl (0.61-1.24); POTASSIUM 3.8 mmol/L (3.5-5.1); TOTAL PROTEIN 8.1 g/dl (6.1-8.1)
[2017-04-16] MEDS: CYANOCOBALAMIN 500 MCG TAB PO SCH (08:40)
[2017-04-16] MEDS: FERROUS SULFATE (EC) 325 MG TAB PO SCH ×2 (08:40→22:43)
[2017-04-16] MEDS: FOLIC ACID 1 MG TAB PO SCH (08:40)
[2017-04-16] MEDS: CHOLECALCIFEROL 400 UNITS TAB PO SCH (08:40)
[2017-04-16] MEDS: FAMOTIDINE 20 MG TAB PO SCH (08:40)
[2017-04-16 10:03] LABS: LYMPHOCYTES # 0.4 10^3/ul (0.8-2.9); MONOCYTE # 0.1 10^3/ul (0.3-0.9)
[2017-04-16 10:04] LABS: PLATELET ESTIMATE PLT APPEAR DECREASED
[2017-04-16] MEDS: SOD CHLORIDE 0.9% 1,000 ML IV SCH (14:02)
[2017-04-16] MEDS ORDERED: IMMUNE GLOBULIN (HUMAN) 6 GM INJ IV ONE (15:30)
[2017-04-16] MEDS: ACETAMINOPHEN 325 MG TAB PO PRN (15:44)
--- NOTE | 2017-04-16 16:04 | CONS ---
Date/Time of Note Date/Time of Note DATE: 04/16/17 TIME: 16:01 Assessment/Plan Assessment/Plan Chief Complaint/Hosp Course 66 yo male with likely cirrhosis secondary to EtoH and Hep C who presents with severe pancytopenia. Although it is likely that this is from underlying liver disease, the last abdominal ultrasound and CT scan do not demonstrate cirrhosis. Furthermore, with cirrhosis the platelet count is usually greater than 20K. Normal Haptoglobin makes hemolytic process or TTP unlikely. DIC panel demonstrates normal fibrinogen making DIC unlikely. Of note, Ct A/P was done which raises concern for lymphoma. Bone Marrow bx done does not reveal evidence of underlying bone marrow pathology. LN bx could not be performed given the proximity to major vessels and small size of the lymph nodes. 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 -f/u cytogenetics and MDS fish panel on bone marrow bx -will order LN bx of a mesenteric lymph node given the concern for lymphoma -given my concern for ITP especially with increase in platelet count will given 1 more dose of IVIG today -will continue to treat patients ITP as an out patient Approximately 40 min were spent at patient's bedside and in coordination of his care Problems: Consultation Date/Type/Reason Admit Date/Time Apr 06, 2017 at 08:33 Initial Consult Date 04/10/17 Type of Consultation: Hematology Reason for Consultation pancytopenia Referring Provider: RENO WATSON MD 24 HR Interval Summary Free Text/Dictation no acute overnight events Exam/Review of Systems Vital Signs Vitals Vital Signs Date Time Temp Pulse Resp B/P Pulse Ox O2 Delivery O2 Flow Rate FiO2 04/16/17 16:01 99.8 73 20 103/66 98 04/14/17 00:00 Room Air 04/12/17 12:20 2 Intake and Output 04/15/17 04/15/17 04/16/17 15:00 23:00 07:00 Intake Total 1000 ml 600 ml Output Total 850 ml Balance 150 ml 600 ml Exam Constitutional: alert, oriented Psych: no complaints Head: normocephalic Eyes: nl conjunctiva ENMT: nl external ears & nose, nl lips & teeth Neck: non-tender, supple Respiratory: clear to auscultation, normal air movement Cardiovascular: nl pulses, regular rate and rhythm Gastrointestinal: soft Musculoskeletal: nl extremities to inspection Results Result Diagram: 04/16/1770404/16/17 07 Results 24 hrs Laboratory Tests Test 04/16/17 07:05 White Blood Count 4.1 #L Red Blood Count 2.96 L Hemoglobin 8.5 L Hematocrit 25.6 L Mean Corpuscular Volume 86.5 Mean Corpuscular Hemoglobin 28.7 L Mean Corpuscular Hemoglobin Concent 33.2 Red Cell Distribution Width 15.3 H Platelet Count 13 #*L Mean Platelet Volume 11.0 H Neutrophils % 82.0 H Lymphocytes % 9.0 L Monocytes % 3.0 Eosinophils % 2.0 Basophils % 0.0 Nucleated Red Blood Cells % 0.0 Neutrophils # 3.4 Lymphocytes # 0.4 L Monocytes # 0.1 L Eosinophils # 0.1 Basophils # 0.0 Nucleated Red Blood Cells # 0.0 Platelet Estimate PLT APPEAR DECREASED Erythrocyte Sedimentation Rate 140 H Sodium Level 133 L Potassium Level 3.8 Chloride Level 103 Carbon Dioxide Level 21 Anion Gap 13 Blood Urea Nitrogen 10 Creatinine 0.75 Glucose Level 82 Calcium Level 8.5 Total Bilirubin 0.1 L Direct Bilirubin 0.00 Indirect Bilirubin 0.1 Aspartate Amino Transf (AST/SGOT) 40 Alanine Aminotransferase (ALT/SGPT) 48 Alkaline Phosphatase 180 H Total Protein 8.1 Albumin 3.5 Globulin 4.60 H Albumin/Globulin Ratio 0.76 Medications Medications Current Medications Famotidine (Pepcid) 20 mg BID PO Last administered on 04/16/17 08:40; Admin Dose 20 MG; Start 04/06/17 at 21:00 Ferrous Sulfate (Ferrous Sulfate (Ec)) 325 mg BID PO Last administered on 08:40; Admin Dose 325 MG; Start 04/06/17 at 21:00 Mirtazapine (Remeron) 15 mg HS PO Last administered on 04/15/17 20:09; Admin Dose 15 MG; Start 04/06/17 at 21:00 Pantoprazole (Protonix Tab) 40 mg DAILY@06 PO Last administered on 04/16/17 05 :58; Admin Dose 40 MG; Start 04/07/17 at 06:00 Cholecalciferol 400 units 400 units DAILY PO Last administered on 04/16/17 08: 40; Admin Dose 400 UNITS; Start 04/07/17 at 09:00 Sodium Chloride (NS) 1,000 ml @ 10 mls/hr Q24H IV Last administered on 6/9/ 17at 13:33; Admin Dose 10 MLS/HR; Start 04/06/17 at 14:02 Docusate Sodium (Colace) 100 mg Q12H PRN PO CONSTIPATION; Start 04/06/17 at 14: 30 Magnesium Hydroxide (Milk Of Mag) 30 ml DAILY PRN PO CONSTIPATION; Start at 14:30 Bisacodyl (Dulcolax) 5 mg DAILY PRN PO CONSTIPATION; Start 04/06/17 at 14:30 Bisacodyl (Dulcolax Supp) 10 mg DAILY PRN [place] CONSTIPATION; Start 04/06/17 at 14: 30 Sodium Biphosphate/ Sodium Phosphate (Fleet Enema) 133 ml DAILY PRN [place] CONSTIPATION; Start 04/06/17 at 14:30 Acetaminophen 650 mg 650 mg Q4H PRN PO PAIN AND OR ELEVATED TEMP Last administered on 04/16/17 15:44; Admin Dose 650 MG; Start 04/07/17 at 16:30 Levofloxacin/ Dextrose (Levaquin 500mg/ D5W 100 ml (Pmx)) 100 ml @ 100 mls/hr Q24H IVPB Last administered on 04/15/17 20:09; Admin Dose 100 MLS/HR; Start at 23:00 Folic Acid (Folic Acid) 1 mg DAILY PO Last administered on 04/16/17 08:40; Admin Dose 1 MG; Start 04/14/17 at 12:30 Cyanocobalamin 1000 mcg 1,000 mcg DAILY PO Last administered on 04/16/17 08:40 ; Admin Dose 1,000 MCG; Start 04/14/17 at 13:00 Ampicillin 50 ml @ 100 mls/hr Q6 IVPB Last administered on 04/16/17 12:37; Admin Dose 100 MLS/HR; Start 04/15/17 at 12:00; Stop 04/20/17 at 11:59 Immune Globulin/ Sterile Water (Carimune Nf/ Water Sterile For Inj) 800 ml @ 0 mls/hr ONCE IV ; Start 04/16/17 at 18:00; Stop 04/16/17 at 23:00 AILYN OZUNA M.D. Apr 16, 2017 16:04
--- NOTE | 2017-04-16 17:56 | PN ---
DATE: 04/10/2017 Time of evaluation: 1400. SUBJECTIVE DATA: Denies any pain. Complains of poor appetite and poor oral intake. OBJECTIVE DATA: VITAL SIGNS: Temperature 100.0, pulse is 74, respiratory rate 20, blood pressure 103/67, oxygen saturation 99% on room air. GENERAL: This is a 66-year-old male patient lying in bed in no apparent distress. HEENT: Head normocephalic and atraumatic. Eyes: Anicteric sclerae. Conjunctivae clear. ENT: Nasal septum is midline. Oral mucosa is dry. NECK: Supple. No JVD noticed. RESPIRATORY: Bilaterally clear to auscultation. No adventitious breath sounds. No use of accessory muscles of respiration. CARDIAC: Regular rate and rhythm. No murmurs. ABDOMEN: Soft, nontender and nondistended. Bowel sounds positive in all 4 quadrants. GENITOURINARY: Deferred. EXTREMITIES: No cyanosis, no clubbing, no edema. Peripheral pulses are palpable. NEUROLOGIC: The patient is awake, alert, and oriented. Cranial nerves are grossly intact. LABORATORY AND DIAGNOSTIC DATA: WBC 4.1, hemoglobin 8.5, hematocrit 25.6, platelet count 13. Sodium 133, potassium 3.8, chloride 103, carbon dioxide 20, anion gap 13, BUN 10, creatinine 0.75, glucose 82, calcium 8.5, AST 40, ALT 48, alkaline phosphatase 180. ASSESSMENT AND PLAN 1. Pancytopenia. Status post bone marrow biopsy. The patient most probably has underlying ITP as per Hematology. Continue to replace blood products. Status post IVIG. 2. Sepsis secondary to underlying urinary tract infection. No evidence of septic shock. Continue antibiotics. 3. Fluid, electrolytes, and nutrition. Regular diet. 4. Deep venous thrombosis prophylaxis. Chemical DVT prophylaxis contraindicated because of underlying thrombocytopenia. 5. Gastrointestinal prophylaxis. Proton pump inhibitors. PLAN: Transfuse 1 unit of platelets today. The patient continues to have febrile episodes. Continue antibiotics. Obtain dietary consult. If the patient remains afebrile for over 24 hours, the patient will be discharged home to be followed up with outpatient hematology. The case was discussed with Dr. David. Case was discussed with hematology. HAYDEE DAVID MD, AM/ORLY Conf#: [id number] DID#: [id number] [facility]
[2017-04-16] MEDS ORDERED: IMMUNE GLOBULIN IV SCH (18:00)
[2017-04-16] MEDS ORDERED: WATER STERILE FOR IV SCH (18:00)
[2017-04-16] MEDS ORDERED: DIPHENHYDRAMINE 50 MG CAP PO ONE (21:00)
[2017-04-16] MEDS: MIRTAZAPINE 15 MG TAB PO SCH (22:43)
[2017-04-16] MEDS: LEVOFLOXACIN 500MG/D5W (PMX) 100 ML IVPB SCH (22:43)
[2017-04-17] MEDS: ACETAMINOPHEN 325 MG TAB PO PRN (00:01)
[2017-04-17] MEDS: AMPICILLIN 1 GM/NS (PMX) 50 ML IVPB SCH ×3 (00:01→12:53)
[2017-04-17 05:13] LABS: ADD SCAN DIFF NO
[2017-04-17 05:25] LABS: ABNORMAL IP MESSAGE 1; EOSINOPHILS # 0.1 10^3/ul (0.0-0.5); EOSINOPHILS % 2.4 % (0.0-7.0); HEMATOCRIT 25.1 % (42.0-52.0); HEMOGLOBIN 8.1 g/dl (14.0-18.0); LYMPHOCYTES # 0.2 10^3/ul (0.8-2.9); MEAN CORPUSCULAR HGB CONC 32.3 g/dl (32.0-37.0); MEAN CORPUSCULAR VOLUME 86.9 fl (82.0-101.0); MEAN PLATELET VOLUME 12.8 fl (7.4-10.4); MONOCYTE # 0.2 10^3/ul (0.3-0.9); MONOCYTES % 5.9 % (0.0-11.0); NEUTROPHIL # 2.9 10^3/ul (1.6-7.5); NEUTROPHILS % 85.5 % (39.0-77.0); RED BLOOD COUNT 2.89 10^6/ul (4.70-6.10); RED CELL DISTRIBUTION WIDTH 15.2 % (11.5-14.5); WHITE BLOOD COUNT 3.4 10^3/ul (4.8-10.8)
[2017-04-17] MEDS: PANTOPRAZOLE (EC) 40 MG TAB PO SCH (05:26)
[2017-04-17 05:58] LABS: PHOSPHORUS 4.2 mg/dl (2.5-4.9)
[2017-04-17 05:59] LABS: CALCIUM 8.5 mg/dl (8.4-10.2); CREATININE 0.86 mg/dl (0.61-1.24); POTASSIUM 3.8 mmol/L (3.5-5.1)
[2017-04-17 06:03] LABS: PLATELET COUNT 13 10^3/UL (140-415)
[2017-04-17 07:35] VITALS: BP 109/76; RESP 16
--- NOTE | 2017-04-17 08:45 | PN ---
Date/Time of Note Date/Time of Note DATE: 04/17/17 TIME: 08:40 Assessment/Plan VTE Prophylaxis VTE Prophylaxis Intervention: ambulation, SCD's VTE Contraindication Reason: thrombocytopenia Lines/Catheters [facility] Urinary Cath still in place: No Assessment/Plan Assessment/Plan 1. S/p Septic shock possibly secondary to urinary tract infection (enterococcus ). 2. Chronic alcohol induced cirrhosis 3. Pancytopenia with severe thrombocytopenia: Thought to be associated with cirrhosis but hematology also concerned for underlying ITP * Patient is status post bone marrow biopsy and subsequent IVIG. He has also received multiple platelet transfusions. 4. Chronic depression: Stable 5. Mild iron deficiency 6. Transaminitis: improved suggestive of hepatitis. 7. Chronic alcoholism PLAN: Encourage ambulation, continue antibiotics. If the patient remains afebrile till 4 pm today, the patient will be discharged home to be followed up with outpatient hematology. Subjective 24 Hr Interval Summary Free Text/Dictation Lethargy especially with walking. Exam/Review of Systems Vital Signs Vitals Vital Signs Date Time Temp Pulse Resp B/P Pulse Ox O2 Delivery O2 Flow Rate FiO2 04/17/17 07:35 98.5 56 16 109/76 99 04/14/17 00:00 Room Air Intake and Output 04/16/17 04/16/17 04/17/17 15:00 23:00 07:00 Intake Total 50 ml 1500 ml Output Total 1800 ml Balance 50 ml -300 ml Exam GENERAL: This is a 66-year-old male patient lying in bed in no apparent distress. HEENT: Head normocephalic and atraumatic. Eyes: Anicteric sclerae. Conjunctivae clear. ENT: Nasal septum is midline. Oral mucosa is dry. NECK: Supple. No JVD noticed. RESPIRATORY: Bilaterally clear to auscultation. No adventitious breath sounds. No use of accessory muscles of respiration. CARDIAC: Regular rate and rhythm. No murmurs. ABDOMEN: Soft, nontender and nondistended. Bowel sounds positive in all 4 quadrants. GENITOURINARY: Deferred. EXTREMITIES: No cyanosis, no clubbing, no edema. Peripheral pulses are palpable. NEUROLOGIC: The patient is awake, alert, and oriented. Cranial nerves are grossly intact. Results Result Diagram: 04/17/17 0451 04/17/17 0451 Results 24 hrs Laboratory Tests Test 04/17/17 04:51 White Blood Count 3.4 L Red Blood Count 2.89 L Hemoglobin 8.1 L Hematocrit 25.1 L Mean Corpuscular Volume 86.9 Mean Corpuscular Hemoglobin 28.0 L Mean Corpuscular Hemoglobin Concent 32.3 Red Cell Distribution Width 15.2 H Platelet Count 13 *L Mean Platelet Volume 12.8 H Neutrophils % 85.5 H Lymphocytes % 5.0 L Monocytes % 5.9 Eosinophils % 2.4 Basophils % 0.0 Nucleated Red Blood Cells % 0.0 Neutrophils # 2.9 Lymphocytes # 0.2 L Monocytes # 0.2 L Eosinophils # 0.1 Basophils # 0.0 Nucleated Red Blood Cells # 0.0 Sodium Level 134 L Potassium Level 3.8 Chloride Level 103 Carbon Dioxide Level 24 Anion Gap 11 Blood Urea Nitrogen 11 Creatinine 0.86 Glucose Level 94 Calcium Level 8.5 Phosphorus Level 4.2 Magnesium Level 2.0 Medications Medications Current Medications Ferrous Sulfate (Ferrous Sulfate (Ec)) 325 mg BID PO Last administered on 22:43; Admin Dose 325 MG; Start 04/06/17 at 21:00 Mirtazapine (Remeron) 15 mg HS PO Last administered on 04/16/17 22:43; Admin Dose 15 MG; Start 04/06/17 at 21:00 Pantoprazole (Protonix Tab) 40 mg DAILY@06 PO Last administered on 04/17/17 05 :26; Admin Dose 40 MG; Start 04/07/17 at 06:00 Cholecalciferol 400 units 400 units DAILY PO Last administered on 04/16/17 08: 40; Admin Dose 400 UNITS; Start 04/07/17 at 09:00 Sodium Chloride (NS) 1,000 ml @ 10 mls/hr Q24H IV Last administered on 14:02; Admin Dose 10 MLS/HR; Start 04/06/17 at 14:02 Docusate Sodium (Colace) 100 mg Q12H PRN PO CONSTIPATION; Start 04/06/17 at 14: 30 Magnesium Hydroxide (Milk Of Mag) 30 ml DAILY PRN PO CONSTIPATION; Start at 14:30 Bisacodyl (Dulcolax) 5 mg DAILY PRN PO CONSTIPATION; Start 04/06/17 at 14:30 Bisacodyl (Dulcolax Supp) 10 mg DAILY PRN [place] CONSTIPATION; Start 04/06/17 at 14: 30 Sodium Biphosphate/ Sodium Phosphate (Fleet Enema) 133 ml DAILY PRN [place] CONSTIPATION; Start 04/06/17 at 14:30 Acetaminophen 650 mg 650 mg Q4H PRN PO PAIN AND OR ELEVATED TEMP Last administered on 04/17/17 00:01; Admin Dose 650 MG; Start 04/07/17 at 16:30 Levofloxacin/ Dextrose (Levaquin 500mg/ D5W 100 ml (Pmx)) 100 ml @ 100 mls/hr Q24H IVPB Last administered on 04/16/17 22:43; Admin Dose 100 MLS/HR; Start at 23:00 Folic Acid (Folic Acid) 1 mg DAILY PO Last administered on 04/16/17 08:40; Admin Dose 1 MG; Start 04/14/17 at 12:30 Cyanocobalamin 1000 mcg 1,000 mcg DAILY PO Last administered on 04/16/17 08:40 ; Admin Dose 1,000 MCG; Start 04/14/17 at 13:00 Ampicillin (Ampicillin 1 Gm/ NS (Pmx)) 50 ml @ 100 mls/hr Q6 IVPB Last administered on 04/17/17 05:26; Admin Dose 100 MLS/HR; Start 04/15/17 at 12:00 ; Stop 04/20/17 at 11:[facility], 2017 08[facility]45 Ampicillin (Ampicillin 1 Gm/ NS (Pmx)) 50 ml @ 100 mls/hr Q6 IVPB Last administered on 04/17/17 05:26; Admin Dose 100 MLS/HR; Start 04/15/17 at 12:00 ; Stop 04/20/17 at 11:[facility] Apr 17, 2017 08:45
[2017-04-17] MEDS: CHOLECALCIFEROL 400 UNITS TAB PO SCH (09:05)
[2017-04-17] MEDS: CYANOCOBALAMIN 500 MCG TAB PO SCH (09:05)
[2017-04-17] MEDS: FOLIC ACID 1 MG TAB PO SCH (09:06)
[2017-04-17] MEDS: FERROUS SULFATE (EC) 325 MG TAB PO SCH (09:06)
--- NOTE | 2017-04-17 11:28 | PDOCDIS ---
Discharge Instructions DIAGNOSIS Discharge Diagnosis: Idiopathic thrombocytopenic [place] CONDITION Patient Condition: Stable HOME CARE INSTRUCTIONS: Special Diet: [address] ADA ACTIVITY: Activity Restrictions: No Restrictions Slowly Increase Activity Rest between Activity REFERRALS Other Referrals Call Dr. Shaver's office for follow-up. She can help with your cancer or blood issues. Name, Degree: Dahlia Shaver MD Specialty: Oncology, Hematology Comments: Office Address: [id number] [place] [address] Office or [phone] (after hours) Office OTHER ORDERS: Other Orders: Followup with your primary doctor within the next 1-2 weeks. If you don't have one please let someone know, we can give you resources that may help you pick one. You may call Dr Parrish Hayden's office. he's accepting new patients Name, Degree: Parrish Hayden MD Specialty: Internal Medicine Comments: Office Address: [address] [place] [address] [address] [place] [address] Office Office You may also call your insurance company to assign one to you. * Review your medication list with your nurse before leaving and if you need new prescriptions please let your nurse know. * I may have made changes to your home medications or given you new prescriptions, please let your primary doctor know as well. * Stay compliant with your medications and report any side effects to your PCP or pharmacist. * Return to the ER if you have any concerns and cannot reach your doctors or call your insurance company, they usually have a nurse that can help you. DOMINIQUE DAVID Apr 17, 2017 11:28
--- NOTE | 2017-04-17 11:36 | DS ---
Date/Time of Note Date/Time of Note DATE: 04/17/17 TIME: 11:36 Discharge Summary Admission/Discharge Info Admit Date/Time Apr 06, 2017 at 08:33 Discharge Date/Time Final Diagnosis 1. Septic shock possibly secondary to urinary tract infection (enterococcus). 2. Chronic alcohol induced cirrhosis 3. Pancytopenia with severe thrombocytopenia: Thought to be associated with cirrhosis but hematology also concerned for underlying ITP * Patient is status post bone marrow biopsy and subsequent IVIG. He has also received multiple platelet transfusions. 4. Chronic depression: Stable 5. Mild iron deficiency 6. Transaminitis: improved suggestive of hepatitis. 7. Chronic alcoholism PLAN: Encourage ambulation, continue antibiotics. If the patient remains afebrile till 4 pm today, the patient will be discharged home to be followed up with outpatient hematology. Hx of Present Illness Pt hx obtained with aid of the language line 66 yo M with pmhx cirrhosis of unk etio (per patient) presents with 2 weeks of feeling unwell---periumbical pain, dysuria. Since yesterday has been having visual hallucinations. No documented h/o HE or SBP. Denies chest pain, sob. Temp mildy elevated in the ED. Pt started on abx and unable to maintain MAPs and thus levophed was started. Hospital Course 66 yo male with likely cirrhosis secondary to EtoH and Hep C who presents with severe pancytopenia. Although it is likely that this is from underlying liver disease, the last abdominal ultrasound and CT scan do not demonstrate cirrhosis. Furthermore, with cirrhosis the platelet count is usually greater than 20K. Normal Haptoglobin makes hemolytic process or TTP unlikely. DIC panel demonstrates normal fibrinogen making DIC unlikely. Of note, Ct A/P was done which raises concern for lymphoma. Bone Marrow bx done does not reveal evidence of underlying bone marrow pathology. LN bx could not be performed given the proximity to major vessels and small size of the lymph nodes. 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 -f/u cytogenetics and MDS fish panel on bone marrow bx -will order LN bx of a mesenteric lymph node given the concern for lymphoma -given my concern for ITP especially with increase in platelet count will given 1 more dose of IVIG today -will continue to treat patients ITP as an out patient Approximately 40 min were spent at patient's bedside and in coordination of his senior care Meds Reported Medications Cholecalciferol (Vitamin D3) 400 Unit Tab.chew, 400 UNIT PO DAILY, TAB.CHEW 04/06/17 Cyanocobalamin* (Vitamin B12*) 500 Mcg Tab, 1000 MCG PO DAILY, TAB 04/06/17 Ferrous Sulfate* (Ferrous Sulfate*) 325 Mg Tabec, 325 MG PO BID, TAB 04/06/17 Diphenoxylate Hcl-Atropine* (Lomotil*) 5 Ml Soln, 5 ML GTB Q6H Y for DIARRHEA, ML 04/06/17 Diphenoxylate Hcl-Atropine* (Lomotil*) 5 Ml Soln, 5 ML GTB Q6H Y for DIARRHEA, ML 04/06/17 Mirtazapine* (Mirtazapine*) 15 Mg Tablet, 15 MG PO HS, TAB 04/06/17 Sulfamethoxazole/Trimethoprim* (Bactrim Ds* Tablet) 1 Each Tablet, 1 TAB PO BID , TAB 04/06/17 Famotidine* (Famotidine*) 20 Mg Tablet, 20 MG PO BID, #60 TAB 04/06/17 Clotrimazole* (Clotrimazole*) 10 Mg Percy, 10 MG MM 5 TIMES DAILY, TAB 06/04/16 Omeprazole* (Omeprazole*) 20 Mg Capsule.dr, 20 MG PO DAILY, #30 CAP 06/04/16 Primary Care Provider Mahesh Carpenter Pending Labs Laboratory Tests Test 04/17/17 04:51 White Blood Count 3.410^3/ul (4.8-10.8) Red Blood Count 2.8910^6/ul (4.70-6.10) Hemoglobin 8.1g/dl (14.0-18.0) Hematocrit 25.1% (42.0-52.0) Mean Corpuscular Volume 86.9fl (82.0-101.0) Mean Corpuscular Hemoglobin 28.0pg (29.0-33.0) Mean Corpuscular Hemoglobin Concent 32.3g/dl (32.0-37.0) Red Cell Distribution Width 15.2% (11.5-14.5) Platelet Count 1310^3/UL (140-415) Mean Platelet Volume 12.8fl (7.4-10.4) Neutrophils % 85.5% (39.0-77.0) Lymphocytes % 5.0% (15.0-51.0) Monocytes % 5.9% (0.0-11.0) Eosinophils % 2.4% (0.0-7.0) Basophils % 0.0% (0.0-2.0) Nucleated Red Blood Cells % 0.0/100WBC (0.0-0.0) Neutrophils # 2.910^3/ul (1.6-7.5) Lymphocytes # 0.210^3/ul (0.8-2.9) Monocytes # 0.210^3/ul (0.3-0.9) Eosinophils # 0.110^3/ul (0.0-0.5) Basophils # 0.010^3/ul (0.0-0.1) Nucleated Red Blood Cells # 0.010^3/ul (0.0-0.0) Sodium Level 134mmol/L (135-144) Potassium Level 3.8mmol/L (3.5-5.1) Chloride Level 103mmol/L (97-110) Carbon Dioxide Level 24mmol/L (21-31) Anion Gap 11 (8-16) Blood Urea Nitrogen 11mg/dl (7-20) Creatinine 0.86mg/dl (0.61-1.24) Glucose Level 94mg/dl (70-220) Calcium Level 8.5mg/dl (8.4-10.2) Phosphorus Level 4.2mg/dl (2.5-4.9) Magnesium Level 2.0mg/dl (1.7-2.5) DOMINIQUE DAVID Apr 17, 2017 11:36
[2017-04-17] MEDS ORDERED: FOLI-49 PO (11:41)
[2017-04-17] MEDS ORDERED: MULTI PO (11:41)
[2017-04-17] MEDS: SOD CHLORIDE 0.9% 1,000 ML IV SCH (14:02)
[2017-04-17 19:32] LABS: TB-NIL 0.02 IU/mL
== END 2017-04-17 16:45 | disposition home or self-care (01) | DRG 871 ==
LOC: E/R 02:07 → ICU 08:33 → MS4 04-07 10:50 → MS1 04-16 19:05
PROVIDERS: ADMIT Internal Medicine; ATTEND Internal Medicine
PROC: 07DR3ZX Extraction of Iliac Bone Marrow, Percutaneous Approach, Diagnostic (ICD-10-PCS; principal; 2017-04-06)
DX: A41.9 Sepsis, unspecified organism (principal); R65.21 Severe sepsis with septic shock; D61.818 Other pancytopenia; R63.0 Anorexia; K70.30 Alcoholic cirrhosis of liver without ascites; E61.1 Iron deficiency; N39.0 Urinary tract infection, site not specified; F32.9 Major depressive disorder, single episode, unspecified; F10.20 Alcohol dependence, uncomplicated; E86.0 Dehydration; R59.0 Localized enlarged lymph nodes; R59.1 Generalized enlarged lymph nodes; B95.2 Enterococcus as the cause of diseases classified elsewhere; R63.4 Abnormal weight loss; B19.20 Unspecified viral hepatitis C without hepatic coma; R44.1 Visual hallucinations
CPT/HCPCS: 36430; 36600; 71010; 74177; 76700; 77012; 80048; 80053; 80306; 81003; 82140; 82607; 82728; 82746; 82803; 82962; 83010; 83540; 83605; 83615; 83690; 83735; 84100; 84484; 85025; 85045; 85049; 85362; 85378; 85384; 85610; 85651; 85670; 85730; 86480; 86592; 86644; 86692; 86704; 86706; 86708; 86709; 86803; 86850; 86900; 86901; 86920; 86945; 87040; 87081; 87086; 87340; 88305; 88313; 93005; J1071; J1566; J1956; J2250; J2543; J3010; J7030; J7040; J7120; P9016; P9035; Q9967

== ENCOUNTER 2017-05-30 15:48 | Inpatient (IN) | payer MEDICARE, OTHER ==
[~2017-05-30] VITALS: Ht 175.3 cm; Wt 88.4 kg
[~2017-05-30 15:48] MED LIST changes: -CEFT1VIA14 IV; -CHLO25TA14 PO; +CHOL400T3 PO; -CLOT10TR6 MM; +CYAN500T46 PO; -DOXY-17 PO; +FAMO20TA18 PO; +FER325 PO; +FOLI-49 PO; +MIRT15TA5 PO; +MULTI PO; -NAPR220C2 PO; -TYL500 PO; +UDLOM GTB
[2017-05-30] MEDS ORDERED: SODIUM CHLORIDE 0.9% 1L BAG IV* STA (21:29)
[2017-05-30] MEDS ORDERED: IBUPROFEN 600 MG TAB PO ONE (21:30)
[2017-05-30 21:31] VITALS: TEMP 100.9
[2017-05-30] MEDS ORDERED: FLUC100T39 PO (21:40)
[2017-05-30 21:54] LABS: ABNORMAL IP MESSAGE 1; HEMATOCRIT 23.6 % (42.0-52.0); HEMOGLOBIN 7.7 g/dl (14.0-18.0); MEAN CORPUSCULAR HEMOGLOBIN 27.4 pg (29.0-33.0); MEAN CORPUSCULAR HGB CONC 32.6 g/dl (32.0-37.0); MEAN PLATELET VOLUME 11.6 fl (7.4-10.4); PLATELET COUNT 56 10^3/UL (140-415); POSITIVE DIFF @See below; RED BLOOD COUNT 2.81 10^6/ul (4.70-6.10); RED CELL DISTRIBUTION WIDTH 15.3 % (11.5-14.5); WHITE BLOOD COUNT 7.2 10^3/ul (4.8-10.8)
[2017-05-30] MEDS ORDERED: CEFTRIAXONE 1 GM/50 ML (PMX) 50 ML IVPB ONE (22:00)
[2017-05-30] MEDS ORDERED: VANCOMYCIN 1 GM (PMX) 250 ML IVPB SCH (22:00)
[2017-05-30 22:07] LABS: INR 1.11; PROTIME 14.3 Sec (12.2-14.2); PT RATIO 1.1
[2017-05-30 22:09] LABS: PARTIAL THROMBOPLASTIN TIME 45.8 Sec (25.0-35.0)
[2017-05-30 22:12] LABS: AMMONIA < 9 umol/l (9-30)
[2017-05-30 22:15] LABS: LACTIC ACID 2.1 mmol/L (0.5-2.0)
[2017-05-30 22:16] LABS: ALANINE AMINOTRANSFERASE 53 IU/L (13-69); ALBUMIN 3.3 g/dl (3.3-4.9); ALBUMIN/GLOBULIN RATIO 0.63; ALKALINE PHOSPHATASE 264 IU/L (42-121); ANION GAP 19 (8-16); ASPARTATE AMINO TRANSFERASE 72 IU/L (15-46); BILIRUBIN,INDIRECT 0.1 mg/dl (0-1.1); BILIRUBIN,TOTAL 0.1 mg/dl (0.2-1.3); BLOOD UREA NITROGEN 11 mg/dl (7-20); CALCIUM 8.3 mg/dl (8.4-10.2); CARBON DIOXIDE 21 mmol/L (21-31); CHLORIDE 91 mmol/L (97-110); CREATININE 0.76 mg/dl (0.61-1.24); GLUCOSE 92 mg/dl (70-220); POTASSIUM 4.2 mmol/L (3.5-5.1); SODIUM 127 mmol/L (135-144); TOTAL PROTEIN 8.5 g/dl (6.1-8.1)
[2017-05-30 22:26] LABS: EOSINOPHILS # 0.1 10^3/ul (0.0-0.5); LYMPHOCYTES # 0.9 10^3/ul (0.8-2.9); MONOCYTE # 0.2 10^3/ul (0.3-0.9); NEUTROPHIL # 5.8 10^3/ul (1.6-7.5)
[2017-05-30 22:27] LABS: HYPOCHROMASIA OCCASIONAL (0-0)
[2017-05-30 22:28] LABS: PLATELET ESTIMATE DECREASED
[2017-05-30 22:30] LABS: TROPONIN-I < 0.012 ng/ml (0.00-0.12)
[2017-05-30 22:32] LABS: BASOPHILS % 0.1 % (0.0-2.0)
--- NOTE | 2017-05-30 22:43 | RADRPT ---
PROCEDURE: XR Chest. CLINICAL INDICATION: Sepsis TECHNIQUE: Single AP portable chest. COMPARISON: 06/08/2016 Chest x-ray FINDINGS: The cardiomediastinal silhouette is within normal limits of size. Atherosclerotic calcification of t he aorta. The lungs are clear without pleural effusion or focal consolidation. No pneumothorax. The osseous structures and soft tissues are unremarkable. IMPRESSION: 1. No evidence for active cardiopulmonary disease. RPTAT:AAJJ La Hernandez Physician Date Time Electronically viewed and signed by La Hernandez Physician on 05/30/2017 22:43 KATERINA/
[2017-05-30 23:01] LABS: ADD UMIC NO; UR ASCORBIC ACID NEGATIVE (NEGATIVE); UR BILIRUBIN (Dip) NEGATIVE (NEGATIVE); UR BLOOD (Dip) NEGATIVE (NEGATIVE); UR CLARITY CLEAR (CLEAR); UR COLOR YELLOW (YELLOW); UR GLUCOSE (Dip) NEGATIVE (NEGATIVE); UR KETONES (Dip) NEGATIVE (NEGATIVE); UR LEUKOCYTE ESTERASE (Dip) NEGATIVE Leu/ul (NEGATIVE); UR NITRITE (Dip) NEGATIVE (NEGATIVE); UR SPECIFIC GRAVITY (Dip) 1.014 (1.003-1.030); UR TOTAL PROTEIN (Dip) NEGATIVE (NEGATIVE); UR UROBILINOGEN (Dip) NEGATIVE (NEGATIVE)
--- NOTE | 2017-05-30 23:06 | RADRPT ---
PROCEDURE: CT Abdomen and Pelvis without contrast. CLINICAL INDICATION: Abdominal pain. TECHNIQUE: A CT scan of the abdomen and pelvis was performed without intravenous contrast. Clark l and sagittal reformatted images were generated. Images were reviewed on a high-resolution PACS wor kstation. CTDIvol: 13.25 mGy. DLP: 783.33 mGy-cm. One or more of the following dose reduction techniques were used: - Automated exposure control. - Adjustment of the mA and/or kV according to patient size. - Use of iterative reconstruction technique. COMPARISON: 04/11/2017 FINDINGS: The lung bases are clear. Evaluation of the abdominal and pelvic viscera is limited by the lack of oral and intravenous contra st. The liver is unremarkable. The gallbladder is normal in appearance. The common bile duct is not dila christian. The spleen is enlarged (15.8 cm). No pancreatic lesion is identified and there is no pancreati c ductal dilatation. The adrenal glands are unremarkable. The kidneys are normal in size. There is no perinephric fat stranding. No hydronephrosis is seen. No urinary stone is identified. The small and large bowel are normal in caliber. There is no bowel wall thickening. The appendix is normal. The urinary bladder is unremarkable. The pelvic organs are within normal limits. There are small bella ateral fat containing inguinal hernias. There is marked mesenteric lymphadenopathy and infiltration of the adjacent mesenteric fat, increase s the prior examination. Less severe retroperitoneal lymphadenopathy is also increased. There is no ascites. No pneumoperitoneum is seen. There are mild arterial calcifications. No suspicious osseous lesion is idenitified. There is grade 1 degenerative L4 anterolisthesis. IMPRESSION: 1. Mesenteric and retroperitoneal lymphadenopathy, increased since the prior examination. This is suspicious for a neoplastic process such as lymphoma. There is infiltration of the adjacent mesente candelaria fat, probably lymphedema. 2. Splenomegaly. 3. Small bilateral fat containing inguinal hernias. 4. Mild atherosclerotic arterial calcifications. RPTAT: HTAR .Conor Charlton MD, Date Time Electronically viewed and signed by .Conor Charlton MD, on 05/30/2017 23:06 .R/
--- NOTE | 2017-05-30 23:52 | ERA ---
ER Documentation Chief Complaint Date/Time DATE: 05/30/17 TIME: 23:52 Chief Complaint Weakness x 3 weeks HPI 66-year-old man brought in by family members for complaints of weakness 3 weeks. He has had tactile fevers as well. He has had no chest pain or shortness of breath, no blood per rectum or melena, no vomiting or diarrhea. ROS All systems reviewed and are negative except as per history of present illness. Medications Home Meds Active Scripts Multivitamins* (Theragran*) 1 Tab Tab, 1 TAB PO DAILY for 30 Days, TAB 2 Refills Prov:CALEB DAVIDChaitanya M. 04/17/17 Reported Medications Fluconazole* (Fluconazole*) 100 Mg Tablet, 100 MG PO DAILY for 7 Days, #7 TAB 05/30/17 Cholecalciferol (Vitamin D3) 400 Unit Tab.chew, 400 UNIT PO DAILY, TAB.CHEW 04/06/17 Cyanocobalamin* (Vitamin B12*) 500 Mcg Tab, 1000 MCG PO DAILY, TAB 04/06/17 Ferrous Sulfate* (Ferrous Sulfate*) 325 Mg Tabec, 325 MG PO BID, TAB 04/06/17 Discontinued Reported Medications Diphenoxylate Hcl-Atropine* (Lomotil*) 5 Ml Soln, 5 ML GTB Q6H Y for DIARRHEA, ML 04/06/17 Mirtazapine* (Mirtazapine*) 15 Mg Tablet, 15 MG PO HS, TAB 04/06/17 Famotidine* (Famotidine*) 20 Mg Tablet, 20 MG PO BID, #60 TAB 04/06/17 Omeprazole* (Omeprazole*) 20 Mg Capsule.dr, 20 MG PO DAILY, #30 CAP 06/04/16 Discontinued Scripts Folic Acid* (Folic Acid*) 1 Mg Tablet, 1 MG PO DAILY for 30 Days, TAB 3 Refills Prov:DOMINIQUE DAVID. 04/17/17 Allergies Allergies: Coded Allergies: No Known Allergy (Unverified , 05/30/17) PMhx/Soc Gastritis, hypertension History of Surgery: Yes ( hemorrhoidectomy) Anesthesia Reaction: No Hx Neurological Disorder: No Hx Respiratory Disorders: No Hx Cardiac Disorders: No Hx Psychiatric Problems: Yes (ANXIETY, SEEMS HALLUCINATING NOW) Hx Miscellaneous Medical Probl: No Hx Alcohol Use: Yes (STOPPED BEFORE 2 YEARS ) Hx Substance Use: No Hx Tobacco Use: Yes (STOPPED TWO YEARS BEFORE) Smoking Status: Former smoker Physical Exam Vitals Vital Signs Date Time Temp Pulse Resp B/P Pulse Ox O2 Delivery O2 Flow Rate FiO2 05/30/17 23:11 78 17 98/61 100 Room Air 05/30/17 21:31 100.9 73 17 111/68 97 Room Air 05/30/17 15:50 100.9 89 20 102/55 100 Physical Exam GENERAL: Well-developed, well-nourished, appears dehydrated, febrile HEENT: Dry mucous membranes, pale conjunctiva, no cervical spine tenderness or step-off deformities, no goiter, no jaundice or icterus, extraocular movements intact without pain. No submandibular induration, and no pharyngeal erythema NEURO: Alert and oriented 3, cranial nerves II through XII intact bilaterally, pupils equal round reactive to light, no focal deficits or facial asymmetry, sensation intact distally Strength 5/5 in upper and lower extremities bilaterally CARDIAC: Regular rate and rhythm, no murmurs rubs or gallops LUNGS: Clear bilaterally no wheezing crackles or stridor ABDOMEN: Soft nontender, no guarding, no rigidity, no rebound, no psoas sign no obturator sign. Ascites. SKIN: Warm and dry to touch, no abrasions, contusions, or hematomas, no lacerations, no ecchymosis, no target lesions, and without ulcers EXTREMITIES: No clubbing cyanosis or edema, calves are bilaterally symmetrical, no Homans sign, no popliteal cord sign. Distal pulses equal and bilateral PSYCH: Normal affect without agitation or irritability Result Diagram: 06/01/17 0033 05/31/17 0724 Results 24 hrs Laboratory Tests Test 05/30/17 21:40 05/30/17 21:41 05/30/17 22:05 05/30/17 23:00 Lactic Acid Level 2.1mmol/L 0.9mmol/L Ammonia < 9umol/l White Blood Count 7.210^3/ul Red Blood Count 2.8110^6/ul Hemoglobin 7.7g/dl Hematocrit 23.6% Mean Corpuscular Volume 84.0fl Mean Corpuscular Hemoglobin 27.4pg Mean Corpuscular Hemoglobin Concent 32.6g/dl Red Cell Distribution Width 15.3% Platelet Count 5610^3/UL Mean Platelet Volume 11.6fl Neutrophils % 81.0% Lymphocytes % 12.0% Monocytes % 3.0% Eosinophils % 1.0% Basophils % 0.1% Nucleated Red Blood Cells % 0.0/100WBC Neutrophils # 5.810^3/ul Band Neutrophils # 5.810^3/ul Lymphocytes # 0.910^3/ul Monocytes # 0.210^3/ul Eosinophils # 0.110^3/ul Basophils # 0.010^3/ul Nucleated Red Blood Cells # 0.010^3/ul Platelet Estimate DECREASED Polychromasia Hypochromasia OCCASIONAL Prothrombin Time 14.3Sec Prothrombin Time Ratio 1.1 INR International Normalized Ratio 1.11 Activated Partial Thromboplast Time 45.8Sec Sodium Level 127mmol/L Potassium Level 4.2mmol/L Chloride Level 91mmol/L Carbon Dioxide Level 21mmol/L Anion Gap 19 Blood Urea Nitrogen 11mg/dl Creatinine 0.76mg/dl Glucose Level 92mg/dl Calcium Level 8.3mg/dl Total Bilirubin 0.1mg/dl Direct Bilirubin 0.00mg/dl Indirect Bilirubin 0.1mg/dl Aspartate Amino Transf (AST/SGOT) 72IU/L Alanine Aminotransferase (ALT/SGPT) 53IU/L Alkaline Phosphatase 264IU/L Troponin I < 0.012ng/ml Total Protein 8.5g/dl Albumin 3.3g/dl Globulin 5.20g/dl Albumin/Globulin Ratio 0.63 Lipase 110U/L Urine Color YELLOW Urine Clarity CLEAR Urine pH 6.0 Urine Specific [employer] 1.014 Urine Ketones NEGATIVEmg/dL Urine Nitrite NEGATIVEmg/dL Urine Bilirubin NEGATIVEmg/dL Urine Urobilinogen NEGATIVEmg/dL Urine Leukocyte Esterase NEGATIVELeu/ul Urine Hemoglobin NEGATIVEmg/dL Urine Glucose NEGATIVEmg/dL Urine Total Protein NEGATIVEmg/dl Current Medications Medications (Trade) Dose Ordered Sig/Raiza Route PRN Reason Start Time Stop Time Status Last Admin Dose Admin Sodium Chloride (NS) 2,000 ml BOLUS OVER 2 HOURS STAT IV* 05/30/17 21:29 05/30/17 21:31 DC 05/30/17 22:01 Ibuprofen 600 mg 600 mg ONCE ONCE PO 05/30/17 21:30 05/30/17 21:32 DC 05/30/17 22:01 Ceftriaxone Sodium 50 ml @ 100 mls/hr ONCE ONCE IVPB 05/30/17 22:00 05/30/17 22:29 DC 05/30/17 22:00 Vancomycin HCl (Vancocin) 250 ml @ 125 mls/hr ONCE IVPB 05/30/17 22:00 05/30/17 23:59 DC 05/30/17 22:57 Procedures/MDM IV line was established patient was placed on athletic monitor rhythm strip revealed a sinus rhythm at about 60 bpm with upright P and T waves. Patient was febrile. Blood and urine cultures were ordered results are pending I will follow-up EKG performed, read by me: 71 bpm, normal sinus rhythm, normal axis, no acute ST segment changes, narrow QRS complex, with good R-wave progression in precordial leads. One AP view of the chest performed, read by me reveals no acute infiltrates, normal mediastinum, sharp costophrenic and cardiac borders, no air under the diaphragm. Otherwise unremarkable chest x-ray. I administered ibuprofen 600 mg p.o. for fever, ceftriaxone 1 g IV, vancomycin 1 g IV. Patient also received about 2 L normal saline intravenously although he will not receive the full 30 cc/kg because I suspect he has history of liver disease, cirrhosis, and prone to fluid retention and pulmonary edema. CBC revealed anemia with a hemoglobin of 7.7 and thrombocytopenia 56,000, electrolytes revealed hyponatremia, liver function tests normal, troponin negative, lactic acid elevated at 2.1. Urinalysis has been ordered results are pending I will follow-up. Patient's infectious symptoms have not stabilized and the patient is at risk of rapid decompensation. The patient will be admitted for careful hydration, antibiotic therapy, and infectious source control. Severe Sepsis Assessment: Infectious Source: Unknown End organ damage indicated by: [Lactate > 2.0 mmol/L Plt < 100 Severe Sepsis Managment: Blood Cultures X 2 before broad spectrum antibiotics initiated within 3 hours of recognition. 30 ml/kg NS bolus Completed Initial Lactate: Elevated at 2.1 Repeat Lactate decreased Critical Care: Time: 37 minutes, this was time separate from other billable procedures Treatments/Evaluations: Emergent fluid management, while maintaining close respiratory support. Immediate broad spectrum antibiotic therapy. Simultaneous assessment for possible sources in order to direct therapy. Consideration for invasive and chemical support to prevent respiratory or cardiac collapse. Septic Shock Assessment (1 hour post 30 ml/kg fluid bolus): Hypotension (SBP < 90 or 40 mmHg drop, MAP < 65): No Lactic acid > 4.0 No Perfusion Reassessment for Septic Shock: Temp 98.7, pulse 80, blood pressure 120/80, respiratory rate 16 breaths per minute Heart Exam: Tachycardic Lung Exam: No Crackles Capillary Refill: Less than 2 seconds Peripheral Pulses: Radially present Skin: [place] and dry Hypotensive Treatment (not required for isolated lactic acid elevation): Comfort Care: No Central LIne: Not indicated Vasopressor started: Not indicated I considered further perfusion assessment with CVP measurement, SCVO2, bedside ultrasound volume assessment, passive leg raise, trial of further fluid bolus. And preceded with gentle IV hydration and broad-spectrum antibiotics Accepting Care Team: Current data and ongoing care discussed. Time: Time of admission Primary Provider: Hospitalist Consulting: Infectious disease Outstanding Data: none Departure Diagnosis: Primary Impression: Sepsis Qualified Code: A41.9 - Sepsis, due to unspecified organism Additional Impressions: Anemia Qualified Code: D64.9 - Anemia, unspecified type Thrombocytopenia Acute hyponatremia Condition: BAILEE Maharaj MD May 30, 2017 23:52
[2017-05-31] VITALS (22 sets, daily range): BP systolic 82–115; BP diastolic 45–74; PULSE 54–95; RESP 16–19; Ht 175.3 cm; Wt 88.4 kg
[2017-05-31] MEDS ORDERED: ALBUMIN HUMAN 25% 100 ML IV ONE (00:30)
[2017-05-31] MEDS ORDERED: NACL 0.9% 3 ML SYG IV SCH (00:30)
[2017-05-31] MEDS ORDERED: VANCOMYCIN IV PER PHARMACY XX SCH (00:30)
[2017-05-31] MEDS ORDERED: DOCUSATE SODIUM 100 MG CAP PO PRN (00:30)
[2017-05-31] MEDS ORDERED: BISACODYL (EC) 5 MG TAB PO PRN (00:30)
[2017-05-31] MEDS: CEFOTAXIME 2 GM/50 ML (PMX) 50 ML IVPB SCH ×3 (05:20→22:17)
[2017-05-31] MEDS: VANCOMYCIN 1.25 GM in SOD CHLORIDE 0.9% 250 ML IVPB SCH ×2 (05:21→20:33)
[2017-05-31] MEDS: PANTOPRAZOLE 40 MG INJ IV SCH (05:22)
[2017-05-31] MEDS: ACETAMINOPHEN 325 MG TAB PO PRN ×2 (05:32→20:23)
--- NOTE | 2017-05-31 07:18 | HP ---
Date/Time of Note Date/Time of Note DATE: 05/31/17 TIME: 06:54 Assessment/Plan VTE Prophylaxis VTE Prophylaxis Intervention: SCD's Lines/Catheters IV [facility]ter [facility]from [facility] Saline Lock Urinary Cath still in place: No Assessment/Plan Chief Complaint/Hosp Course This is a 66-year-old male being admitted to the telemetry floor for: #1 Sepsis: Patient did present with a temperature 100.9 as well as tachypnea of 20. He also has diarrhea. Viral versus bacterial etiology of the diarrhea. Chest x-ray was within normal values and UA was within normal values as well. At the current time patient did receive empiric antibiotics in the ED. There was an initial suspicion of possible SBP with possible history of cirrhosis and so the patient was started on cefotaxime. However based on patient's chart review there has been no documented evidence of cirrhosis at this point. His abdomen is nontender to palpation at this time. I will still continue cefotaxime at this time as well as vancomycin. And in the setting of his diarrhea I will also start him on Flagyl. Will send out stool cultures and stool studies, ova and parasites, and blood cultures and urine cultures. #2 diarrhea: Apparently his diarrhea has been going on for 3 weeks. Will check stool studies, C. difficile, ova parasites, Giardia and stool culture. Right now he is on Flagyl as well as Vanco and cefotaxime. Will consult infectious disease for further treatment strategy. #3 Abdominal lymphadenopathy: CT scan shows: Mesenteric and retroperitoneal lymphadenopathy, increased since the prior examination. This is suspicious for a neoplastic process such as lymphoma. There is infiltration of the adjacent mesenteric fat, probably lymphedema. Patient previously had a bone marrow biopsy performed which as per the pathology report on 05/02/17 did not show any evidence of lymphoproliferative disorder or acute leukemia. Will consult hematology/oncology for further assistance regarding this process. #4 Normocytic anemia: Current hemoglobin is 7.7 we will continue to follow this. Will hold off any transfusions at this time. The etiology of this is still unknown at this time which possibly could be due to underlying cirrhosis however again there has been no definitive diagnosis of cirrhosis and no evidence based on imaging at this point. Will consult hematology. 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 He did receive IVIG during his previous admission. We will continue to follow this. #6 hepatitis C: Though there is no radiological evidence of cirrhosis, I do feel at this time since he is positive for hep C will order ultrasound-guided biopsy of the liver to further assess his liver morphology. Will consult GI as indicated. #7 questionable alcohol history: At the current time will order blood alcohol level and urine drug screen. Patient denies any recent alcohol use. Will put patient on Ativan as needed for any signs of withdrawal. Of note patient's ammonia level is within normal values. #8 hyponatremia: Patient does not appear to be fluid overloaded at this time this likely could be setting of diarrhea and acute dehydration. Will provide IV fluid resuscitation with normal saline. Continue to monitor sodium levels. #9 dehydration: Likely secondary to diarrhea. Mucous membranes dry. Continue IV fluid hydration at this time continue to follow. #10 DVT and GI prophylaxis: SCDs, Protonix Further treatment strategy will be implemented as per the clinical course Problems: HPI/ROS Admit Date/Time Admit Date/Time May 30, 2017 at 23:56 Hx of Present Illness Chief complaint: Fever, generalized weakness, diarrhea This is a 66-year-old male who is coming in today for fever and generalized weakness and diarrhea. Patient is a very poor historian. Patient states that he had fevers at home as well as generalized weakness for the last few days. He also states that he has had diarrhea for the past 3 weeks with 5 episodes of loose stool daily. He denies any blood in his diarrhea. Patient denies any previous medical history. During his last admission there was suspicion for cirrhosis as well as possible lymphoma. Based on review of the patient's chart pathology report on May 02 did not show any evidence of a lymphoproliferative disorder or acute leukemia please see report for further information. Based on his imaging studies done today as well as prior there does not appear to be any evidence of liver cirrhosis though a biopsy has not been performed. Patient is hep C positive. Of note, he was also apparently diagnosed with ITP. During my examination patient was also noted to be having generalized shakes, however patient denied that he was cold and he states that he has been dealing with the shakes for a few years. Allergies: NKDA Medications: See LEA FLORES Const: As per HPI Eyes : No pain discharge or redness or change in visual acuity ENT: No pain, sore throat, congestion, congestion, dysphagia or discharge Respiratory: No shortness of breath, cough, sputum, wheezing, or pleuritic pain Cardiovascular: No chest pain, palpitation, PND, or edema GI : As per HPI Genitourinary: No dysuria, hematuria, flank pain , discharge or CVA tenderness Musculoskeletal: No joint pain, back pain, neck pain, restricted range of motion in neck or joints Skin: No rash, bruising or hives Neuro: No headache, dizziness, syncope, seizure, focal weakness Endocrine: No polyuria, polydipsia, temperature intolerance Psych: No hallucination, depression, anxiety or suicidal ideation PMH/Family/Social Past Medical History ITP, questionable history of cirrhosis, possible underlying lymphoproliferative disorder though recent pathology studies were not conclusive for the Past Surgical History Needle bone marrow biopsy during previous admission Family History Significant Family History: no pertinent family hx Social History Alcohol Use: other (Patient states that he has been sober and has not drank in a while but unable to give a accurate timeline) Smoking Status: Never smoker Drug Use: none Exam/Review of Systems Vital Signs Vitals Vital Signs Date Time Temp Pulse Resp B/P Pulse Ox O2 Delivery O2 Flow Rate FiO2 05/31/17 04:31 55 05/31/17 01:05 98.0 18 113/68 96 Room Air Intake and Output 05/30/17 05/30/17 05/31/17 15:00 23:00 07:00 Intake Total 540 ml Balance 540 ml Exam Exam General: Patient is lying in bed he does appear to be have generalizing shakes/ shivering though he denies that he is cold. HEENT: Atraumatic, normocephalic. The pupils are equal, round and reactive. Extraocular motor are intact, mucous membranes dry. Neck: Supple with full range of motion. No rigidity or meningismus Chest: Nontender Lungs: Clear to auscultation bilaterally no crackles rales or wheezing Heart: Normal S1-S2, Regular rhythm and rate. Abdomen: Soft, mildly distended, nontender, no overt fluid wave appreciated. Extremities: Normal to inspection, no edema no cyanosis Neurologic: Alert and oriented 3, speech is normal, cranial nerves II through XII intact, motor and sensory are intact, Additional Comments PROCEDURE: CT Abdomen and Pelvis without contrast. CLINICAL INDICATION: Abdominal pain. TECHNIQUE: A CT scan of the abdomen and pelvis was performed without intravenous contrast. Coronal and sagittal reformatted images were generated. Images were reviewed on a high-resolution PACS workstation. CTDIvol: 13.25 mGy. DLP: 783.33 mGy-cm. One or more of the following dose reduction techniques were used: - Automated exposure control. - Adjustment of the mA and/or kV according to patient size. - Use of iterative reconstruction technique. COMPARISON: 04/11/2017 FINDINGS: The lung bases are clear. Evaluation of the abdominal and pelvic viscera is limited by the lack of oral and intravenous contrast. The liver is unremarkable. The gallbladder is normal in appearance. The common bile duct is not dilated. The spleen is enlarged (15.8 cm). No pancreatic lesion is identified and there is no pancreatic ductal dilatation. The adrenal glands are unremarkable. The kidneys are normal in size. There is no perinephric fat stranding. No hydronephrosis is seen. No urinary stone is identified. The small and large bowel are normal in caliber. There is no bowel wall thickening. The appendix is normal. The urinary bladder is unremarkable. The pelvic organs are within normal limits. There are small bilateral fat containing inguinal hernias. There is marked mesenteric lymphadenopathy and infiltration of the adjacent mesenteric fat, increases the prior examination. Less severe retroperitoneal lymphadenopathy is also increased. There is no ascites. No pneumoperitoneum is seen. There are mild arterial calcifications. No suspicious osseous lesion is idenitified. There is grade 1 degenerative L4 anterolisthesis. IMPRESSION: 1. Mesenteric and retroperitoneal lymphadenopathy, increased since the prior examination. This is suspicious for a neoplastic process such as lymphoma. There is infiltration of the adjacent mesenteric fat, probably lymphedema. 2. Splenomegaly. 3. Small bilateral fat containing inguinal hernias. 4. Mild atherosclerotic arterial calcifications. RPTAT: HTAR .Conor Charlton MD, MD Date Time Electronically viewed and signed by .Conor Charlton MD, on 05/30/2017 23:06 Labs Result Diagram: 05/30/17214005/30/172140 Medications Medications Current Medications Cefotaxime Sodium/ Dextrose (Claforan 2gm/50 ml (Pmx)) 50 ml @ 100 mls/hr Q8 IVPB Last administered on 05/31/17 05:20; Admin Dose 100 MLS/HR; Start at 06:00 Ondansetron HCl (Zofran Inj) 4 mg Q6H PRN IV NAUSEA AND/OR VOMITING; Start at 00:30 Acetaminophen (Tylenol Tab) 650 mg Q6H PRN PO PAIN LEVEL 1-3 OR FEVER Last administered on 05/31/17 05:32; Admin Dose 650 MG; Start 05/31/17 at 00:30 Morphine Sulfate (morphine) 2 mg Q4H PRN IV PAIN LEVEL 7-10; Start 05/31/17 at 00:30 Docusate Sodium (Colace) 100 mg Q12H PRN PO CONSTIPATION; Start 05/31/17 at 00: 30 Bisacodyl (Dulcolax) 5 mg DAILY PRN PO CONSTIPATION; Start 05/31/17 at 00:30 Pantoprazole 40 mg 40 mg DAILY@06 IV Last administered on 05/31/17 05:22; Admin Dose 40 MG; Start 05/31/17 at 06:00 Vancomycin HCl/ Sodium Chloride (Vancocin/NS) 250 ml @ 83.333 mls/ hr Q12H IVPB Last administered on 05/31/17 05:21; Admin Dose 83.333 MLS/HR; Start at 07:00 ERIKA COLON May 31, 2017 07:05
[2017-05-31] MEDS ORDERED: LORAZEPAM 2 MG INJ IV PRN (07:30)
[2017-05-31 08:02] LABS: ABNORMAL IP MESSAGE 1; MEAN CORPUSCULAR HEMOGLOBIN 26.9 pg (29.0-33.0); MEAN PLATELET VOLUME 12.3 fl (7.4-10.4); POSITIVE DIFF @See below; RED BLOOD COUNT 2.38 10^6/ul (4.70-6.10); RED CELL DISTRIBUTION WIDTH 15.6 % (11.5-14.5); WHITE BLOOD COUNT 9.9 10^3/ul (4.8-10.8)
[2017-05-31 08:06] LABS: HEMOGLOBIN 6.4 g/dl (14.0-18.0); PLATELET COUNT 24 10^3/UL (140-415)
[2017-05-31] MEDS: metroNIDAZOLE 500 MG/NS (PMX) 100 ML IVPB SCH ×3 (08:45→18:00)
[2017-05-31 08:46] LABS: ALBUMIN 2.5 g/dl (3.3-4.9); ALBUMIN/GLOBULIN RATIO 0.58; CALCIUM 7.7 mg/dl (8.4-10.2); CREATININE 0.72 mg/dl (0.61-1.24); POTASSIUM 3.7 mmol/L (3.5-5.1); TOTAL PROTEIN 6.8 g/dl (6.1-8.1)
[2017-05-31 09:58] LABS: ANISOCYTOSIS 2+ (0-0); MICROCYTOSIS 2+ (0-0); MONOCYTES % (M) 1 % (0-11); OVALOCYTES 1+ (0-0); PLATELET ESTIMATE SIG DECREASED; POIKILOCYTOSIS 2+ (0-0); POLYCHROMASIA 3+ (0-0)
--- NOTE | 2017-05-31 10:00 | PN ---
Date/Time of Note Date/Time of Note DATE: 05/31/17 TIME: 09:54 Assessment/Plan VTE Prophylaxis VTE Prophylaxis Intervention: SCD's Lines/Catheters IV Catheter Type (from [facility]): Saline Lock Urinary Cath still in place: No Assessment/Plan Chief Complaint/Hosp Course Assessment and plan: 66-year-old male being admitted to the telemetry floor for: #1 Sepsis: Patient did present with a temperature 100.9 as well as tachypnea of 20. He also has diarrhea. Viral versus bacterial etiology of the diarrhea. Chest x-ray was within normal values and UA was within normal values as well. At the current time patient did receive empiric antibiotics in the ED. There was an initial suspicion of possible SBP with possible history of cirrhosis and so the patient was started on cefotaxime. His abdomen is nontender to palpation at this time. - continue cefotaxime at this time as well as vancomycin. - in the setting of his diarrhea continue Flagyl, but follow-up C. difficile , stool cultures and stool studies, ova and parasites, and blood cultures and urine cultures. #2 diarrhea: Apparently his diarrhea has been going on for 3 weeks. Right now he is on Flagyl as well as Vanco and cefotaxime. - f/u stool studies, C. difficile, ova parasites, Giardia and stool culture. - Will consult infectious disease for further treatment strategy. #3 Abdominal lymphadenopathy: CT scan shows: Mesenteric and retroperitoneal lymphadenopathy, increased since the prior examination. This is suspicious for a neoplastic process such as lymphoma. There is infiltration of the adjacent mesenteric fat, probably lymphedema. Patient previously had a bone marrow biopsy performed which as per the pathology report on 05/02/17 did not show any evidence of lymphoproliferative disorder or acute leukemia. - Will consult hematology/oncology for further assistance regarding this process, as well as his low platelets and pancytopenia, he was treated in the past for ITP. #4 Normocytic anemia: Patient presented with hemoglobin of 7.7, this morning it is 6.4. No signs of any bleeding. Prior history of ITP. Was treated by Heme/Oncin April 2017 for this. -Follow-up repeat CBC. If hemoglobin and platelets are still low, may need to consider transfusions for those. #5 ITP: Platelets this morning are 24,000. No signs of any bleeding. he did receive IVIG during his previous admission in April 2017. - consider IVIG given patient's prior and recent history of ITP. Again, will consult hematology regarding this as well. #6 hepatitis C-apparently he is positive for hep C will order ultrasound-guided biopsy of the liver to further assess his liver morphology. Will consult GI as indicated. #7 questionable alcohol history: At the current time will order blood alcohol level and urine drug screen. Patient denies any recent alcohol use. Will put patient on Ativan as needed for any signs of withdrawal. Of note patient's ammonia level is within normal values. #8 hyponatremia: Patient does not appear to be fluid overloaded at this time this likely could be setting of diarrhea and acute dehydration. Will provide IV fluid resuscitation with normal saline. Continue to monitor sodium levels. #9 dehydration: Likely secondary to diarrhea. Mucous membranes dry. Continue IV fluid hydration at this time continue to follow. #10 DVT and GI prophylaxis: SCDs, Protonix Further treatment strategy will be implemented as per the clinical course Problems: Subjective 24 Hr Interval Summary Free Text/Dictation No acute events overnight, although patient with lower blood levels this morning. Exam/Review of Systems Vital Signs Vitals Vital Signs Date Time Temp Pulse Resp B/P Pulse Ox O2 Delivery O2 Flow Rate FiO2 05/31/17 08:12 87 05/31/17 08:11 98.2 19 93/52 100 05/31/17 01:05 Room Air Intake and Output 05/30/17 05/30/17 05/31/17 15:00 23:00 07:00 Intake Total 540 ml Balance 540 ml Exam General: Patient is lying in bed, presently no acute distress, pale skin HEENT: Atraumatic, normocephalic. The pupils are equal, round and reactive. Extraocular motor are intact, mucous membranes dry. Neck: Supple with full range of motion. No rigidity or meningismus Chest: Nontender Lungs: Clear to auscultation bilaterally no crackles rales or wheezing Heart: Normal S1-S2, Regular rhythm and rate. Abdomen: Soft, mildly distended, nontender, no overt fluid wave appreciated. Extremities: Normal to inspection, no edema no cyanosis Neurologic: Alert and oriented 3, speech is normal, cranial nerves II through XII intact, motor and sensory are intact, Results Result Diagram: 05/31/17 0724 05/31/17 0724 Results 24 hrs Laboratory Tests Test 05/30/17 21:40 05/30/17 21:41 05/30/17 22:05 05/30/17 23:00 Lactic Acid Level 2.1 H 0.9 Ammonia < 9 L White Blood Count 7.2 # Red Blood Count 2.81 L Hemoglobin 7.7 L Hematocrit 23.6 L Mean Corpuscular Volume 84.0 Mean Corpuscular Hemoglobin 27.4 L Mean Corpuscular Hemoglobin Concent 32.6 Red Cell Distribution Width 15.3 H Platelet Count 56 #L Mean Platelet Volume 11.6 H Neutrophils % 81.0 H Lymphocytes % 12.0 L Monocytes % 3.0 Eosinophils % 1.0 Basophils % 0.1 Nucleated Red Blood Cells % 0.0 Neutrophils # 5.8 Band Neutrophils # 5.8 H Lymphocytes # 0.9 Monocytes # 0.2 L Eosinophils # 0.1 Basophils # 0.0 Nucleated Red Blood Cells # 0.0 Platelet Estimate DECREASED Polychromasia Hypochromasia OCCASIONAL Prothrombin Time 14.3 H Prothrombin Time Ratio 1.1 INR International Normalized Ratio 1.11 Activated Partial Thromboplast Time 45.8 H Sodium Level 127 L Potassium Level 4.2 Chloride Level 91 L Carbon Dioxide Level 21 Anion Gap 19 H Blood Urea Nitrogen 11 Creatinine 0.76 Glucose Level 92 Calcium Level 8.3 L Total Bilirubin 0.1 L Direct Bilirubin 0.00 Indirect Bilirubin 0.1 Aspartate Amino Transf (AST/SGOT) 72 H Alanine Aminotransferase (ALT/SGPT) 53 Alkaline Phosphatase 264 H Troponin I < 0.012 Total Protein 8.5 H Albumin 3.3 Globulin 5.20 H Albumin/Globulin Ratio 0.63 Lipase 110 Urine Color YELLOW Urine Clarity CLEAR Urine pH 6.0 Urine Specific [place] 1.014 Urine Ketones NEGATIVE Urine Nitrite NEGATIVE Urine Bilirubin NEGATIVE Urine Urobilinogen NEGATIVE Urine Leukocyte Esterase NEGATIVE Urine Hemoglobin NEGATIVE Urine Glucose NEGATIVE Urine Total Protein NEGATIVE Test 05/31/17 01:55 05/31/17 07:24 05/31/17 09:32 Lactic Acid Level 0.8 White Blood Count 9.9 # Pending Red Blood Count 2.38 L Pending Hemoglobin 6.4 *L Pending Hematocrit 20.0 L Pending Mean Corpuscular Volume 84.0 Pending Mean Corpuscular Hemoglobin 26.9 L Pending Mean Corpuscular Hemoglobin Concent 32.0 Pending Red Cell Distribution Width 15.6 H Pending Platelet Count 24 #*L Pending Mean Platelet Volume 12.3 H Pending Neutrophils % Lymphocytes % Monocytes % Eosinophils % Basophils % Nucleated Red Blood Cells % 0.0 Neutrophils # Lymphocytes # Monocytes # Eosinophils # Basophils # Nucleated Red Blood Cells # Sodium Level 132 L Potassium Level 3.7 Chloride Level 100 Carbon Dioxide Level 22 Anion Gap 14 Blood Urea Nitrogen 12 Creatinine 0.72 Glucose Level 89 Calcium Level 7.7 L Magnesium Level 1.6 L Total Bilirubin 0.0 L Direct Bilirubin 0.00 Indirect Bilirubin 0.0 Aspartate Amino Transf (AST/SGOT) 47 H Alanine Aminotransferase (ALT/SGPT) 41 Alkaline Phosphatase 193 H Total Protein 6.8 # Albumin 2.5 L Globulin 4.30 H Albumin/Globulin Ratio 0.58 Ethyl Alcohol Level < 10.0 Medications Medications Current Medications Cefotaxime Sodium/ Dextrose (Claforan 2gm/50 ml (Pmx)) 50 ml @ 100 mls/hr Q8 IVPB Last administered on 05/31/17 05:20; Admin Dose 100 MLS/HR; Start at 06:00 Ondansetron HCl (Zofran Inj) 4 mg Q6H PRN IV NAUSEA AND/OR VOMITING; Start at 00:30 Acetaminophen (Tylenol Tab) 650 mg Q6H PRN PO PAIN LEVEL 1-3 OR FEVER Last administered on 05/31/17 05:32; Admin Dose 650 MG; Start 05/31/17 at 00:30 Morphine Sulfate (morphine) 2 mg Q4H PRN IV PAIN LEVEL 7-10; Start 05/31/17 at 00:30 Docusate Sodium (Colace) 100 mg Q12H PRN PO CONSTIPATION; Start 05/31/17 at 00: 30 Bisacodyl (Dulcolax) 5 mg DAILY PRN PO CONSTIPATION; Start 05/31/17 at 00:30 Pantoprazole 40 mg 40 mg DAILY@06 IV Last administered on 05/31/17 05:22; Admin Dose 40 MG; Start 05/31/17 at 06:00 Vancomycin HCl 1.25 gm/Sodium Chloride 250 ml @ 83.333 mls/ hr Q12H IVPB Last administered on 05/31/17 05:21; Admin Dose 83.333 MLS/HR; Start 05/31/17 at 07: 00 Metronidazole (Flagyl 500 Mg (Pmx)) 100 ml @ 100 mls/hr Q6 IVPB Last administered on 05/31/17t 08:45; Admin Dose 100 MLS/HR; Start 05/31/17 at 07:00 Lorazepam 1 mg 1 mg Q6H PRN IV AGITATION/ANXIETY; Start 05/31/17 at 07:30 Magnesium Sulfate/ Dextrose (Magnesium Sulfate 1 Gm/D5W) 100 ml @ 100 mls/hr ONCE IVPB ; Start 05/31/17 at 11:00; Stop 05/31/17 at 11:59 ALISON GUO May 31, 2017 10:00
[2017-05-31 10:03] LABS: ABNORMAL IP MESSAGE 1; BASOPHILS % 0.1 % (0.0-2.0); EOSINOPHILS % 0.3 % (0.0-7.0); HEMATOCRIT 18.4 % (42.0-52.0); LYMPHOCYTES # 0.6 10^3/ul (0.8-2.9); LYMPHOCYTES % 5.5 % (15.0-51.0); MEAN CORPUSCULAR HEMOGLOBIN 27.5 pg (29.0-33.0); MEAN CORPUSCULAR HGB CONC 32.6 g/dl (32.0-37.0); MEAN CORPUSCULAR VOLUME 84.4 fl (82.0-101.0); MEAN PLATELET VOLUME 13.9 fl (7.4-10.4); MONOCYTE # 0.3 10^3/ul (0.3-0.9); MONOCYTES % 3.1 % (0.0-11.0); NEUTROPHIL # 9.2 10^3/ul (1.6-7.5); PLATELET COUNT 31 10^3/UL (140-415); POSITIVE DIFF @See below; RED BLOOD COUNT 2.18 10^6/ul (4.70-6.10); RED CELL DISTRIBUTION WIDTH 15.5 % (11.5-14.5); WHITE BLOOD COUNT 10.2 10^3/ul (4.8-10.8)
[2017-05-31 10:04] LABS: NEUTROPHILS % 90.2 % (39.0-77.0)
[2017-05-31] MEDS ORDERED: SOD CHLORIDE 0.9% 250 ML IV* ONE (10:17)
[2017-05-31] MEDS ORDERED: MAGNESIUM SULFATE 1 GM/D5W 100 ML IVPB SCH (11:00)
--- NOTE | 2017-05-31 14:51 | CONS ---
Date/Time of Note Date/Time of Note DATE: 05/31/17 TIME: 14:34 Assessment/Plan Assessment/Plan Chief Complaint/Hosp Course 66 yo male with Hep C who presents with severe pancytopenia. Recent CT scan do not demonstrate cirrhosis but do demonstrate splenomegaly which is likely contributing to pancytopenia. Recent bone marrow bx does not demonstrate an intrinsic bone marrow problem and demonstrates adequate megakaryocytes. This supports peripheral destruction of platelets. # Thrombocytopenia- secondary to ITP vs other lymphoproliferative DO contributing to splenomegaly -will give platelet transfusion and check CBC right after transfusion ends -if platelets do rise, will plan for bx of retroperitoneal Lymph nodes -if ITP is suggested can start Nplate vs promacta as an out patient if platelets are consistently below 20K #Retroperitoneal LAD - will order CT guided lymph node bx given the increase in LAD since last admission # Diarrhea -f/u stool studies -continue antibiotics Approximately 40 min were spent at patient's bedside and in coordination of his care Problems: (1) Pancytopenia Status: Acute (2) Hepatitis C antibody positive in blood Status: Acute (3) Cirrhosis of liver Status: Chronic Qualifiers: Qualified Code: K74.69 - Other cirrhosis of liver Consultation Date/Type/Reason Admit Date/Time 04/06/17 Date of Consultation: Apr 10, 2017 Type of Consultation: Hematology Reason for Consultation pancytopenia Referring Provider: RENO WATSON MD Hx of Present Illness#1 Sepsis: Patient did present with a temperature 100.9 as well as tachypnea of 20. He also has diarrhea. Viral versus bacterial etiology of the diarrhea. Chest x-ray was within normal values and UA was within normal values as well. At the current time patient did receive empiric antibiotics in the ED. There was an initial suspicion of possible SBP with possible history of cirrhosis and so the patient was started on cefotaxime. His abdomen is nontender to palpation at this time. - continue cefotaxime at this time as well as vancomycin. - in the setting of his diarrhea continue Flagyl, but follow-up C. difficile , stool cultures and stool studies, ova and parasites, and blood cultures and urine cultures. #2 diarrhea: Apparently his diarrhea has been going on for 3 weeks. Right now he is on Flagyl as well as Vanco and cefotaxime. - f/u stool studies, C. difficile, ova parasites, Giardia and stool culture. - Will consult infectious disease for further treatment strategy. #3 Abdominal lymphadenopathy: CT scan shows: Mesenteric and retroperitoneal lymphadenopathy, increased since the prior examination. This is suspicious for a neoplastic process such as lymphoma. There is infiltration of the adjacent mesenteric fat, probably lymphedema. Patient previously had a bone marrow biopsy performed which as per the pathology report on 05/02/17 did not show any evidence of lymphoproliferative disorder or acute leukemia. - Will consult hematology/oncology for further assistance regarding this process, as well as his low platelets and pancytopenia, he was treated in the past for ITP. #4 Normocytic anemia: Patient presented with hemoglobin of 7.7, this morning it is 6.4. No signs of any bleeding. Prior history of ITP. Was treated by Heme/Oncin April 2017 for this. -Follow-up repeat CBC. If hemoglobin and platelets are still low, may need to consider transfusions for those. #5 ITP: Platelets this morning are 24,000. No signs of any bleeding. he did receive IVIG during his previous admission in April 2017. - consider IVIG given patient's prior and recent history of ITP. Again, will consult hematology regarding this as well. #6 hepatitis C-apparently he is positive for hep C will order ultrasound-guided biopsy of the liver to further assess his liver morphology. Will consult GI as indicated. #7 questionable alcohol history: At the current time will order blood alcohol level and urine drug screen. Patient denies any recent alcohol use. Will put patient on Ativan as needed for any signs of withdrawal. Of note patient's ammonia level is within normal values. #8 hyponatremia: Patient does not appear to be fluid overloaded at this time this likely could be setting of diarrhea and acute dehydration. Will provide IV fluid resuscitation with normal saline. Continue to monitor sodium levels. #9 dehydration: Likely secondary to diarrhea. Mucous membranes dry. Continue IV fluid hydration at this time continue to follow. Problems: (1) Splenomegaly Status: Chronic (2) Sepsis Status: Acute (3) Hepatitis C antibody positive in blood Status: Acute (4) Cirrhosis of liver Status: Chronic Qualifiers: Consultation Date/Type/Reason Admit Date/Time May 30, 2017 at 23:56 Date of Consultation: May 31, 2017 Type of Consultation: hematology Reason for Consultation pancytopenia Referring Provider: ALISON GUO of Present Illness 66-year-old male with a history of alcohol induced liver disease as well as Hep C who presents with generalized weakness,found with severe pancytopenia. Pt was recently admitted for similar sx when a Bone Marrow bx was done which did not reveal evidence of acute leukemia or bone marrow dysplasia. Pt has a questionable history of ITP and has been given IVIG in the past. CT scans do reveal splenomegaly but no over evidence of cirrhosis. Also seen in retroperitoneal lymphadenopathy. Past Medical History cirrhosis pancytopenia GERD Hepatitis C Social History Alcohol Use: other (Patient states that he has been sober and has not drank in a while but unable to give a accurate timeline) Smoking Status: Never smoker Drug Use: none Exam/Review of Systems Vital Signs Vitals Vital Signs Date Time Temp Pulse Resp B/P Pulse Ox O2 Delivery O2 Flow Rate FiO2 05/31/17 13:48 95/63 05/31/17 13:35 97.3 61 16 95 Room Air Intake and Output 05/30/17 05/30/17 05/31/17 14:59 22:59 06:59 Intake Total 540 ml Balance 540 ml Exam Constitutional: alert, oriented Psych: no complaints Head: atraumatic, normocephalic Eyes: nl conjunctiva ENMT: nl external ears & nose Neck: non-tender, supple Respiratory: clear to auscultation Cardiovascular: nl pulses, regular rate and rhythm Gastrointestinal: distended, hepatomegaly, soft Musculoskeletal: nl extremities to inspection, nl gait and stance Results Result Diagram: 05/31/17 0932 05/31/17 0724 Results 24 hrs Laboratory Tests Test 05/30/17 21:40 05/30/17 21:41 05/30/17 22:05 05/30/17 23:00 Lactic Acid Level 2.1 H 0.9 Ammonia < 9 L White Blood Count 7.2 # Red Blood Count 2.81 L Hemoglobin 7.7 L Hematocrit 23.6 L Mean Corpuscular Volume 84.0 Mean Corpuscular Hemoglobin 27.4 L Mean Corpuscular Hemoglobin Concent 32.6 Red Cell Distribution Width 15.3 H Platelet Count 56 #L Mean Platelet Volume 11.6 H Neutrophils % 81.0 H Lymphocytes % 12.0 L Monocytes % 3.0 Eosinophils % 1.0 Basophils % 0.1 Nucleated Red Blood Cells % 0.0 Neutrophils # 5.8 Band Neutrophils # 5.8 H Lymphocytes # 0.9 Monocytes # 0.2 L Eosinophils # 0.1 Basophils # 0.0 Nucleated Red Blood Cells # 0.0 Platelet Estimate DECREASED Polychromasia Hypochromasia OCCASIONAL Prothrombin Time 14.3 H Prothrombin Time Ratio 1.1 INR International Normalized Ratio 1.11 Activated Partial Thromboplast Time 45.8 H Sodium Level 127 L Potassium Level 4.2 Chloride Level 91 L Carbon Dioxide Level 21 Anion Gap 19 H Blood Urea Nitrogen 11 Creatinine 0.76 Glucose Level 92 Calcium Level 8.3 L Total Bilirubin 0.1 L Direct Bilirubin 0.00 Indirect Bilirubin 0.1 Aspartate Amino Transf (AST/SGOT) 72 H Alanine Aminotransferase (ALT/SGPT) 53 Alkaline Phosphatase 264 H Troponin I < 0.012 Total Protein 8.5 H Albumin 3.3 Globulin 5.20 H Albumin/Globulin Ratio 0.63 Lipase 110 Urine Color YELLOW Urine Clarity CLEAR Urine pH 6.0 Urine Specific [place] 1.014 Urine Ketones NEGATIVE Urine Nitrite NEGATIVE Urine Bilirubin NEGATIVE Urine Urobilinogen NEGATIVE Urine Leukocyte Esterase NEGATIVE Urine Hemoglobin NEGATIVE Urine Glucose NEGATIVE Urine Total Protein NEGATIVE Test 05/31/17 01:55 05/31/17 07:00 05/31/17 07:24 05/31/17 09:32 Lactic Acid Level 0.8 Stool Occult Blood NEGATIVE White Blood Count 9.9 # 10.2 Red Blood Count 2.38 L 2.18 L Hemoglobin 6.4 *L 6.0 *L Hematocrit 20.0 L 18.4 L Mean Corpuscular Volume 84.0 84.4 Mean Corpuscular Hemoglobin 26.9 L 27.5 L Mean Corpuscular Hemoglobin Concent 32.0 32.6 Red Cell Distribution Width 15.6 H 15.5 H Platelet Count 24 #*L 31 #L Mean Platelet Volume 12.3 H 13.9 H Neutrophils % 90.2 H Segmented Neutrophils % (Manual) 74 Band Neutrophils % (Manual) 23 H Lymphocytes % 5.5 L Lymphocytes % (Manual) 2 L Monocytes % 3.1 Monocytes % (Manual) 1 Eosinophils % 0.3 Basophils % 0.1 Nucleated Red Blood Cells % 0.0 0.0 Neutrophils # 9.2 H Neutrophils # (Manual) 7.5 Band Neutrophils # 2.2 H Absolute Lymphocytes (Manual) 0.1 L Lymphocytes # 0.6 L Monocytes # 0.3 Absolute Monocytes (Manual) 0.0 L Eosinophils # 0.0 Basophils # 0.0 Nucleated Red Blood Cells # 0.0 Smudge Cells % 8 H Platelet Estimate SIG DECREASED Polychromasia 3+ Poikilocytosis 2+ Anisocytosis 2+ Microcytosis 2+ Ovalocytes 1+ Sodium Level 132 L Potassium Level 3.7 Chloride Level 100 Carbon Dioxide Level 22 Anion Gap 14 Blood Urea Nitrogen 12 Creatinine 0.72 Glucose Level 89 Calcium Level 7.7 L Magnesium Level 1.6 L Total Bilirubin 0.0 L Direct Bilirubin 0.00 Indirect Bilirubin 0.0 Aspartate Amino Transf (AST/SGOT) 47 H Alanine Aminotransferase (ALT/SGPT) 41 Alkaline Phosphatase 193 H Total Protein 6.8 # Albumin 2.5 L Globulin 4.30 H Albumin/Globulin Ratio 0.58 Ethyl Alcohol Level < 10.0 Medications Medications Current Medications Cefotaxime Sodium/ Dextrose (Claforan 2gm/50 ml (Pmx)) 50 ml @ 100 mls/hr Q8 IVPB Last administered on 05/31/17 05:20; Admin Dose 100 MLS/HR; Start at 06:00 Ondansetron HCl (Zofran Inj) 4 mg Q6H PRN IV NAUSEA AND/OR VOMITING; Start at 00:30 Acetaminophen (Tylenol Tab) 650 mg Q6H PRN PO PAIN LEVEL 1-3 OR FEVER Last administered on 05/31/17 05:32; Admin Dose 650 MG; Start 05/31/17 at 00:30 Morphine Sulfate (morphine) 2 mg Q4H PRN IV PAIN LEVEL 7-10; Start 05/31/17 at 00:30 Docusate Sodium (Colace) 100 mg Q12H PRN PO CONSTIPATION; Start 05/31/17 at 00: 30 Bisacodyl (Dulcolax) 5 mg DAILY PRN PO CONSTIPATION; Start 05/31/17 at 00:30 Pantoprazole 40 mg 40 mg DAILY@06 IV Last administered on 05/31/17 05:22; Admin Dose 40 MG; Start 05/31/17 at 06:00 Vancomycin HCl 1.25 gm/Sodium Chloride 250 ml @ 83.333 mls/ hr Q12H IVPB Last administered on 05/31/17 05:21; Admin Dose 83.333 MLS/HR; Start 05/31/17 at 07: 00 Metronidazole (Flagyl 500 Mg (Pmx)) 100 ml @ 100 mls/hr Q6 IVPB Last administered on 05/31/17t 12:23; Admin Dose 100 MLS/HR; Start 05/31/17 at 07:00 Lorazepam (Ativan) 1 mg Q6H PRN IV AGITATION/ANXIETY; Start 05/31/17 at 07:30 AILYN OZUNA M.D. May 31, 2017 14:50
[2017-05-31 16:28] LABS: ABNORMAL IP MESSAGE 1; HEMATOCRIT 22.8 % (42.0-52.0); HEMOGLOBIN 7.5 g/dl (14.0-18.0); MEAN CORPUSCULAR HEMOGLOBIN 27.6 pg (29.0-33.0); MEAN CORPUSCULAR HGB CONC 32.9 g/dl (32.0-37.0); MEAN CORPUSCULAR VOLUME 83.8 fl (82.0-101.0); POSITIVE DIFF @See below; RED BLOOD COUNT 2.72 10^6/ul (4.70-6.10); RED CELL DISTRIBUTION WIDTH 15.2 % (11.5-14.5); WHITE BLOOD COUNT 6.2 10^3/ul (4.8-10.8)
[2017-05-31 16:50] LABS: IRON 23 ug/dl (35-150)
[2017-05-31 16:59] LABS: TOTAL IRON BINDING CAPACITY 177 ug/dl (241-421)
[2017-05-31 17:40] LABS: PLATELET COUNT 22 10^3/UL (140-415)
[2017-05-31 17:43] LABS: MONOCYTES % (M) 2 % (0-11)
--- NOTE | 2017-05-31 19:20 | CONS ---
Date/Time of Note Date/Time of Note DATE: 05/31/17 TIME: 18:39 Assessment/Plan Assessment/Plan Chief Complaint/Hosp Course ID SHORT NOTE -> Full note dictation to follow per Dr. Peace 66-year-old male admit with sepsis, tachypnea of 20, diarrhea. pancytopenia, abnormal CT as below: * 05/30/[address] ABD/Pelvis showed: 1. Mesenteric and retroperitoneal lymphadenopathy, increased since the prior examination. This is suspicious for a neoplastic process such as lymphoma. There is infiltration of the adjacent mesenteric fat, probably lymphedema. 2. Splenomegaly. 3. Small bilateral fat containing inguinal hernias. 4. Mild atherosclerotic arterial calcifications. ID ASSESSMENT 1. SIRS vs sepsis w/fevers 100.7, mild tachypnea 20, diarrhea, dehydration on admit: * Blood, Urine, Stool cultures pending; CXR 05/30/17 No evidence for active cardiopulmonary disease. 2. 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 Mesenteric + retroperitoneal lymphadenopathy => DDx Lymphoma ? 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 Questionable hx of liver cirrhosis 2/ (+)ETOH + (+)Hepatitis C -> not confirmed on CT, (+)Splenomegaly 5. Elevated ALT and Alk Phos 6. (+)Hepatitis C Viral infection 7. Hx of ETOH 8. s/p 04/2017 Enterococcal UTI w/dysuria and hematuria. 9. Depression 10. GERD. 11. Hx of Migraine headaches + Severe occipital headaches * 06/05/16 MRI Brain non-contrast: Small 4 mm subependymal nodule within the right lateral ventricle anteriorly, that may represent a benign hamartoma. Other possibilities include a meningioma. An MRI of the brain with contrast is recommended for further evaluation. 12. Carotid artery disease: Less than 50% stenosis bilaterally in the internal carotid arteries [address] 2016 Mild lower cervical spondylosis is evident without significant central canal stenosis or neural foraminal narrowing. 14. Hx of prior admissions x 2 for multiple recurrent skin abscesses-> folliculitis, infected axillary glands 15. Hx of MARCIO septicemia 2/2 UTI + Infected abscesses prior admission. 16. Bilateal fat inguinal hernias 17. Hemorrhoids CURRENT ABX: Vanco IV + Cefotaxime + Flagyl IV ID RECOMMENDATIONS 1. Continue current broad spectrum IV ABX -> Infectious Disease work up in process => Awaiting stool cultures, UA C&S, swab nares for MRSA * Thank you -- further recommendations pending review w/Dr. Peace after micro resulted. . Problems: Consultation Date/Type/Reason Admit Date/Time May 30, 2017 at 23:56 Initial Consult Date 05/31/17 Type of Consultation: ID Referring Provider: ALISON GUO Exam/Review of Systems Vital Signs Vitals Vital Signs Date Time Temp Pulse Resp B/P Pulse Ox O2 Delivery O2 Flow Rate FiO2 05/31/17 16:30 97.8 69 17 111/69 100 Room Air Intake and Output 05/30/17 05/30/17 05/31/17 15:00 23:00 07:00 Intake Total 540 ml Balance 540 ml Exam Constitutional: alert, oriented, well developed Psych: no complaints Head: atraumatic, normocephalic Eyes: EOMI, nl conjunctiva ENMT: mucosa pink and moist, nl external ears & nose Neck: non-tender, supple Respiratory: clear to auscultation, normal air movement Cardiovascular: regular rate and rhythm Gastrointestinal: bowel sounds, other (Diarrhea ) Genitourinary - Male: other (Deferred) Musculoskeletal: nl extremities to inspection Extremities: other Neurological: [employer] II-X[employer] intact Skin: No diaphoresis, No rash or lesions Results Result Diagram: 05/31/17 1601 05/31/17 0724 Results 24 hrs Laboratory Tests Test 05/30/17 21:40 05/30/17 21:41 05/30/17 22:05 05/30/17 23:00 Lactic Acid Level 2.1 H 0.9 Ammonia < 9 L White Blood Count 7.2 # Red Blood Count 2.81 L Hemoglobin 7.7 L Hematocrit 23.6 L Mean Corpuscular Volume 84.0 Mean Corpuscular Hemoglobin 27.4 L Mean Corpuscular Hemoglobin Concent 32.6 Red Cell Distribution Width 15.3 H Platelet Count 56 #L Mean Platelet Volume 11.6 H Neutrophils % 81.0 H Lymphocytes % 12.0 L Monocytes % 3.0 Eosinophils % 1.0 Basophils % 0.1 Nucleated Red Blood Cells % 0.0 Neutrophils # 5.8 Band Neutrophils # 5.8 H Lymphocytes # 0.9 Monocytes # 0.2 L Eosinophils # 0.1 Basophils # 0.0 Nucleated Red Blood Cells # 0.0 Platelet Estimate DECREASED Polychromasia Hypochromasia OCCASIONAL Prothrombin Time 14.3 H Prothrombin Time Ratio 1.1 INR International Normalized Ratio 1.11 Activated Partial Thromboplast Time 45.8 H Sodium Level 127 L Potassium Level 4.2 Chloride Level 91 L Carbon Dioxide Level 21 Anion Gap 19 H Blood Urea Nitrogen 11 Creatinine 0.76 Glucose Level 92 Calcium Level 8.3 L Total Bilirubin 0.1 L Direct Bilirubin 0.00 Indirect Bilirubin 0.1 Aspartate Amino Transf (AST/SGOT) 72 H Alanine Aminotransferase (ALT/SGPT) 53 Alkaline Phosphatase 264 H Troponin I < 0.012 Total Protein 8.5 H Albumin 3.3 Globulin 5.20 H Albumin/Globulin Ratio 0.63 Lipase 110 Urine Color YELLOW Urine Clarity CLEAR Urine pH 6.0 Urine Specific Orange 1.014 Urine Ketones NEGATIVE Urine Nitrite NEGATIVE Urine Bilirubin NEGATIVE Urine Urobilinogen NEGATIVE Urine Leukocyte Esterase NEGATIVE Urine Hemoglobin NEGATIVE Urine Glucose NEGATIVE Urine Total Protein NEGATIVE Test 05/31/17 01:55 05/31/17 07:00 05/31/17 07:24 05/31/17 09:32 Lactic Acid Level 0.8 Stool Occult Blood NEGATIVE White Blood Count 9.9 # 10.2 Red Blood Count 2.38 L 2.18 L Hemoglobin 6.4 *L 6.0 *L Hematocrit 20.0 L 18.4 L Mean Corpuscular Volume 84.0 84.4 Mean Corpuscular Hemoglobin 26.9 L 27.5 L Mean Corpuscular Hemoglobin Concent 32.0 32.6 Red Cell Distribution Width 15.6 H 15.5 H Platelet Count 24 #*L 31 #L Mean Platelet Volume 12.3 H 13.9 H Neutrophils % 90.2 H Segmented Neutrophils % (Manual) 74 Band Neutrophils % (Manual) 23 H Lymphocytes % 5.5 L Lymphocytes % (Manual) 2 L Monocytes % 3.1 Monocytes % (Manual) 1 Eosinophils % 0.3 Basophils % 0.1 Nucleated Red Blood Cells % 0.0 0.0 Neutrophils # 9.2 H Neutrophils # (Manual) 7.5 Band Neutrophils # 2.2 H Absolute Lymphocytes (Manual) 0.1 L Lymphocytes # 0.6 L Monocytes # 0.3 Absolute Monocytes (Manual) 0.0 L Eosinophils # 0.0 Basophils # 0.0 Nucleated Red Blood Cells # 0.0 Smudge Cells % 8 H Platelet Estimate SIG DECREASED Polychromasia 3+ Poikilocytosis 2+ Anisocytosis 2+ Microcytosis 2+ Ovalocytes 1+ Sodium Level 132 L Potassium Level 3.7 Chloride Level 100 Carbon Dioxide Level 22 Anion Gap 14 Blood Urea Nitrogen 12 Creatinine 0.72 Glucose Level 89 Calcium Level 7.7 L Magnesium Level 1.6 L Total Bilirubin 0.0 L Direct Bilirubin 0.00 Indirect Bilirubin 0.0 Aspartate Amino Transf (AST/SGOT) 47 H Alanine Aminotransferase (ALT/SGPT) 41 Alkaline Phosphatase 193 H Total Protein 6.8 # Albumin 2.5 L Globulin 4.30 H Albumin/Globulin Ratio 0.58 Ethyl Alcohol Level < 10.0 Test 05/31/17 16:01 White Blood Count 6.2 # Red Blood Count 2.72 #L Hemoglobin 7.5 #L Hematocrit 22.8 #L Mean Corpuscular Volume 83.8 Mean Corpuscular Hemoglobin 27.6 L Mean Corpuscular Hemoglobin Concent 32.9 Red Cell Distribution Width 15.2 H Platelet Count 22 #*L Mean Platelet Volume Neutrophils % 82.0 H Segmented Neutrophils % (Manual) 82 H Band Neutrophils % (Manual) 12 H Lymphocytes % 3.0 L Lymphocytes % (Manual) 3 L Monocytes % 2.0 Monocytes % (Manual) 2 Myelocytes % (Manual) 1.0 H Nucleated Red Blood Cells % 0.0 Neutrophils # Neutrophils # (Manual) 5.1 Band Neutrophils # 0.7 H Absolute Lymphocytes (Manual) 0.1 L Lymphocytes # Monocytes # Absolute Monocytes (Manual) 0.1 L Myelocytes # 0.1 H Iron Level 23 L Total Iron Binding Capacity 177 L Percent Iron Saturation 13 L Ferritin 321.0 H Medications Medications Current Medications Cefotaxime Sodium/ Dextrose (Claforan 2gm/50 ml (Pmx)) 50 ml @ 100 mls/hr Q8 IVPB Last administered on 05/31/17 05:20; Admin Dose 100 MLS/HR; Start at 06:00 Ondansetron HCl (Zofran Inj) 4 mg Q6H PRN IV NAUSEA AND/OR VOMITING; Start at 00:30 Acetaminophen (Tylenol Tab) 650 mg Q6H PRN PO PAIN LEVEL 1-3 OR FEVER Last administered on 05/31/17 05:32; Admin Dose 650 MG; Start 05/31/17 at 00:30 Morphine Sulfate (morphine) 2 mg Q4H PRN IV PAIN LEVEL 7-10; Start 05/31/17 at 00:30 Docusate Sodium (Colace) 100 mg Q12H PRN PO CONSTIPATION; Start 05/31/17 at 00: 30 Bisacodyl (Dulcolax) 5 mg DAILY PRN PO CONSTIPATION; Start 05/31/17 at 00:30 Pantoprazole 40 mg 40 mg DAILY@06 IV Last administered on 05/31/17 05:22; Admin Dose 40 MG; Start 05/31/17 at 06:00 Vancomycin HCl 1.25 gm/Sodium Chloride 250 ml @ 83.333 mls/ hr Q12H IVPB Last administered on 05/31/17 05:21; Admin Dose 83.333 MLS/HR; Start 05/31/17 at 07: 00 Metronidazole (Flagyl 500 Mg (Pmx)) 100 ml @ 100 mls/hr Q6 IVPB Last administered on 05/31/17 12:23; Admin Dose 100 MLS/HR; Start 05/31/17 at 07:00 Lorazepam (Ativan) 1 mg Q6H PRN IV AGITATION/ANXIETY; Start 05/31/17 at 07:30 ANUP NGUYEN NP May 31, 2017 18:49
[2017-06-01] VITALS (12 sets, daily range): BP systolic 95–119; BP diastolic 51–70; PULSE 58–88; RESP 15–20
[2017-06-01] MEDS: metroNIDAZOLE 500 MG/NS (PMX) 100 ML IVPB SCH ×4 (00:21→18:23)
[2017-06-01 01:02] LABS: ABNORMAL IP MESSAGE 1; EOSINOPHILS % 0.5 % (0.0-7.0); HEMATOCRIT 19.7 % (42.0-52.0); LYMPHOCYTES # 0.5 10^3/ul (0.8-2.9); LYMPHOCYTES % 5.8 % (15.0-51.0); MEAN CORPUSCULAR HEMOGLOBIN 27.4 pg (29.0-33.0); MEAN CORPUSCULAR HGB CONC 32.5 g/dl (32.0-37.0); MEAN CORPUSCULAR VOLUME 84.2 fl (82.0-101.0); MEAN PLATELET VOLUME 11.5 fl (7.4-10.4); MONOCYTE # 0.4 10^3/ul (0.3-0.9); MONOCYTES % 4.3 % (0.0-11.0); NEUTROPHIL # 7.3 10^3/ul (1.6-7.5); NEUTROPHILS % 88.7 % (39.0-77.0); PLATELET COUNT 57 10^3/UL (140-415); POSITIVE DIFF @See below; RED BLOOD COUNT 2.34 10^6/ul (4.70-6.10); RED CELL DISTRIBUTION WIDTH 15.3 % (11.5-14.5); WHITE BLOOD COUNT 8.2 10^3/ul (4.8-10.8)
[2017-06-01 01:36] LABS: HEMOGLOBIN 6.4 g/dl (14.0-18.0)
[2017-06-01] MEDS: CEFOTAXIME 2 GM/50 ML (PMX) 50 ML IVPB SCH ×3 (05:03→22:56)
[2017-06-01] MEDS: PANTOPRAZOLE 40 MG INJ IV SCH (05:03)
[2017-06-01 06:52] LABS: ABNORMAL IP MESSAGE 1; BASOPHILS % 0.1 % (0.0-2.0); EOSINOPHILS # 0.1 10^3/ul (0.0-0.5); EOSINOPHILS % 1.2 % (0.0-7.0); HEMATOCRIT 23.3 % (42.0-52.0); HEMOGLOBIN 7.5 g/dl (14.0-18.0); LYMPHOCYTES # 0.6 10^3/ul (0.8-2.9); LYMPHOCYTES % 8.3 % (15.0-51.0); MEAN CORPUSCULAR HEMOGLOBIN 27.4 pg (29.0-33.0); MEAN CORPUSCULAR HGB CONC 32.2 g/dl (32.0-37.0); MEAN PLATELET VOLUME 12.1 fl (7.4-10.4); MONOCYTE # 0.2 10^3/ul (0.3-0.9); MONOCYTES % 3.5 % (0.0-11.0); NEUTROPHIL # 5.9 10^3/ul (1.6-7.5); PLATELET COUNT 57 10^3/UL (140-415); POSITIVE DIFF @See below; RED BLOOD COUNT 2.74 10^6/ul (4.70-6.10); RED CELL DISTRIBUTION WIDTH 15.4 % (11.5-14.5); WHITE BLOOD COUNT 6.9 10^3/ul (4.8-10.8)
[2017-06-01 07:52] LABS: MAGNESIUM 1.8 mg/dl (1.7-2.5); PHOSPHORUS 3.8 mg/dl (2.5-4.9)
[2017-06-01] MEDS: VANCOMYCIN 1.25 GM in SOD CHLORIDE 0.9% 250 ML IVPB SCH ×2 (08:02→19:48)
[2017-06-01 08:24] LABS: CALCIUM 7.9 mg/dl (8.4-10.2); CREATININE 0.73 mg/dl (0.61-1.24); POTASSIUM 3.8 mmol/L (3.5-5.1)
[2017-06-01] MEDS: morphine 2 MG INJ IV PRN (09:24)
[2017-06-01 10:05] LABS: POST-TRANSFUSION BILIRUBIN 0.1 mg/dl
--- NOTE | 2017-06-01 14:35 | CONS ---
Date/Time of Note Date/Time of Note DATE: 06/01/17 TIME: 14:33 Assessment/Plan Assessment/Plan Chief Complaint/Hosp Course 66 yo male with Hep C who presents with severe pancytopenia. Recent CT scan does not demonstrate cirrhosis but does demonstrate splenomegaly which is likely contributing to pancytopenia. Recent bone marrow bx does not demonstrate an intrinsic bone marrow problem and demonstrates adequate megakaryocytes. This supports peripheral destruction of platelets. # Thrombocytopenia- secondary to ITP vs other lymphoproliferative Disorder contributing to splenomegaly. patient did respond well to platelet transfusion -will give another unit of platelets at this time - will plan for bx of retroperitoneal Lymph nodes. this has been ordered -if ITP is suggested can start Nplate vs promacta as an out patient if platelets are consistently below 20K #Retroperitoneal LAD - will order CT guided lymph node bx given the increase in LAD since last admission # Diarrhea -f/u stool studies -continue antibiotics Problems: (1) Splenomegaly Status: Chronic (2) Thrombocytopenia Status: Acute (3) Hepatitis C antibody positive in blood Status: Acute (4) Cirrhosis of liver Status: Chronic Qualifiers: Hepatic cirrhosis type: alcoholic cirrhosis Consultation Date/Type/Reason Admit Date/Time May 30, 2017 at 23:56 Initial Consult Date 05/31/17 Type of Consultation: Hematology Reason for Consultation lymphadenopathy Referring Provider: ALISON GUO 24 HR Interval Summary Free Text/Dictation no acute overnight events Exam/Review of Systems Vital Signs Vitals Vital Signs Date Time Temp Pulse Resp B/P Pulse Ox O2 Delivery O2 Flow Rate FiO2 06/01/17 12:25 64 06/01/17 11:12 98.7 19 95/53 99 05/31/17 22:00 Room Air Intake and Output 05/31/17 05/31/17 06/01/17 15:00 23:00 07:00 Intake Total 200 ml 1370 ml 540 ml Balance 200 ml 1370 ml 540 ml Exam Constitutional: alert, oriented Psych: no complaints Head: atraumatic, normocephalic Eyes: nl conjunctiva ENMT: nl external ears & nose Neck: non-tender, supple Respiratory: clear to auscultation, normal air movement Cardiovascular: regular rate and rhythm Gastrointestinal: soft Musculoskeletal: nl extremities to inspection, nl gait and stance Extremities: normal pulses Results Result Diagram: 06/01/17 0615 06/01/17 0615 Results 24 hrs Laboratory Tests Test 05/31/17 16:01 06/01/17 00:33 06/01/17 06:15 06/01/17 06:27 White Blood Count 6.2 # 8.2 # 6.9 Red Blood Count 2.72 #L 2.34 L 2.74 L Hemoglobin 7.5 #L 6.4 *L 7.5 L Hematocrit 22.8 #L 19.7 L 23.3 L Mean Corpuscular Volume 83.8 84.2 85.0 Mean Corpuscular Hemoglobin 27.6 L 27.4 L 27.4 L Mean Corpuscular Hemoglobin Concent 32.9 32.5 32.2 Red Cell Distribution Width 15.2 H 15.3 H 15.4 H Platelet Count 22 #*L 57 #L 57 L Mean Platelet Volume 11.5 H 12.1 H Neutrophils % 82.0 H 88.7 H 86.0 H Segmented Neutrophils % (Manual) 82 H Band Neutrophils % (Manual) 12 H Lymphocytes % 3.0 L 5.8 L 8.3 L Lymphocytes % (Manual) 3 L Monocytes % 2.0 4.3 3.5 Monocytes % (Manual) 2 Myelocytes % (Manual) 1.0 H Nucleated Red Blood Cells % 0.0 0.0 0.0 Neutrophils # 7.3 5.9 Neutrophils # (Manual) 5.1 Band Neutrophils # 0.7 H Absolute Lymphocytes (Manual) 0.1 L Lymphocytes # 0.5 L 0.6 L Monocytes # 0.4 0.2 L Absolute Monocytes (Manual) 0.1 L Myelocytes # 0.1 H Iron Level 23 L Total Iron Binding Capacity 177 L Percent Iron Saturation 13 L Ferritin 321.0 H Eosinophils % 0.5 1.2 Basophils % 0.0 0.1 Eosinophils # 0.0 0.1 Basophils # 0.0 0.0 Nucleated Red Blood Cells # 0.0 0.0 Sodium Level 136 Potassium Level 3.8 Chloride Level 101 Carbon Dioxide Level 22 Anion Gap 17 H Blood Urea Nitrogen 10 Creatinine 0.73 Glucose Level 85 Calcium Level 7.9 L Phosphorus Level 3.8 Magnesium Level 1.8 Lab Scanned Report BLOOD TRANSFUSION Medications Medications Current Medications Cefotaxime Sodium/ Dextrose (Claforan 2gm/50 ml (Pmx)) 50 ml @ 100 mls/hr Q8 IVPB Last administered on 06/01/17 14:07; Admin Dose 100 MLS/HR; Start at 06:00 Ondansetron HCl (Zofran Inj) 4 mg Q6H PRN IV NAUSEA AND/OR VOMITING; Start at 00:30 Acetaminophen (Tylenol Tab) 650 mg Q6H PRN PO PAIN LEVEL 1-3 OR FEVER Last administered on 05/31/17 20:23; Admin Dose 650 MG; Start 05/31/17 at 00:30 Morphine Sulfate (morphine) 2 mg Q4H PRN IV PAIN LEVEL 7-10 Last administered on 06/01/17 09:24; Admin Dose 2 MG; Start 05/31/17 at 00:30 Docusate Sodium (Colace) 100 mg Q12H PRN PO CONSTIPATION; Start 05/31/17 at 00: 30 Bisacodyl (Dulcolax) 5 mg DAILY PRN PO CONSTIPATION; Start 05/31/17 at 00:30 Pantoprazole 40 mg 40 mg DAILY@06 IV Last administered on 06/01/17 05:03; Admin Dose 40 MG; Start 05/31/17 at 06:00 Vancomycin HCl 1.25 gm/Sodium Chloride 250 ml @ 83.333 mls/ hr Q12H IVPB Last administered on 06/01/17 08:02; Admin Dose 83.333 MLS/HR; Start 05/31/17 at 07: 00 Metronidazole (Flagyl 500 Mg (Pmx)) 100 ml @ 100 mls/hr Q6 IVPB Last administered on 06/01/17 12:34; Admin Dose 100 MLS/HR; Start 05/31/17 at 07:00 Lorazepam (Ativan) 1 mg Q6H PRN IV AGITATION/ANXIETY; Start 05/31/17 at 07:30 Miscellaneous Information VANCO TROUGH @ 1,800 ON... ONCE ONCE XX ; Start at 18:00; Stop 06/01/17 at 18:01 Ferric Sodium Gluconate Complex/ Sodium Chloride (Ferrlecit/NS) 110 ml @ 110 mls/hr Q24H IVPB ; Start 06/01/17 at 15:00; Stop 06/05/17 at 15:59 AILYN OZUNA M.D. Jun 01, 2017 14:35
[2017-06-01] MEDS: SOD FERRIC GLUC COMPLX 125 MG in SOD CHLORIDE 0.9% 100 ML IVPB SCH (16:55)
--- NOTE | 2017-06-01 18:00 | CONS ---
Date/Time of Note Date/Time of Note DATE: 06/01/17 TIME: 17:50 Assessment/Plan Assessment/Plan Chief Complaint/Hosp Course ID PROGRESS NOTE 24H INTERVAL SUMMARY * Resting with eyes closed, VSS, no fevers, NAD * MICRO: BCx (+)Staph 1/2 bottles; Urine (+)Enterococcus; C.Diff (-) HOSPITAL COURSE * 66-year-old male admit with sepsis, tachypnea of 20, diarrhea. pancytopenia, abnormal CT as below: * 05/30/[address] ABD/Pelvis showed: 1. Mesenteric and retroperitoneal lymphadenopathy, increased since the prior examination. This is suspicious for a neoplastic process such as lymphoma. There is infiltration of the adjacent mesenteric fat, probably lymphedema. 2. Splenomegaly. 3. Small bilateral fat containing inguinal hernias. 4. Mild atherosclerotic arterial calcifications. ID ASSESSMENT 1. Sepsis w/fevers 100.7, mild tachypnea 20, diarrhea, dehydration on admit: * CXR 05/30/17 No evidence for active cardiopulmonary disease. * 05/30/17 BCX(+)1/2 bottles which may or may not be a contaminant : Organism 1 STAPHYLOCOCCUS SPECIES 2. Recurrent UTI 05/30/17: URINE CULTURE Preliminary Organism 1 ENTEROCOCCUS SPECIES COLONY COUNT >100,000 CFU/ml * s/p 04/2017 Enterococcal UTI w/dysuria and hematuria. 3. Urinary retention ?BPH vs other ? 4. 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 Mesenteric + retroperitoneal lymphadenopathy => DDx Lymphoma ? 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 Questionable hx of liver cirrhosis 2/2 (+)ETOH + (+)Hepatitis C -> not confirmed on CT, (+)Splenomegaly 7. Elevated ALT and Alk Phos 8. GERD 9. Hemorrhoids 10. Depression 11. Hx of Migraine headaches + Severe occipital headaches * 06/05/16 MRI Brain non-contrast: Small 4 mm subependymal nodule within the right lateral ventricle anteriorly, that may represent a benign hamartoma. Other possibilities include a meningioma. An MRI of the brain with contrast is recommended for further evaluation. 12. Carotid artery disease: Less than 50% stenosis bilaterally in the internal carotid arteries [address] 2016 Mild lower cervical spondylosis is evident without significant central canal stenosis or neural foraminal narrowing. 14. Hx of prior admissions x 2 for multiple recurrent skin abscesses-> folliculitis, infected axillary glands 15. Hx of MARCIO septicemia 2/2 UTI + Infected abscesses prior admission. 16. Bilateal fat inguinal hernias MRSA Nares screen -> ordered (-) C.Diff screen CURRENT ABX: Vanco IV + Cefotaxime + Flagyl IV ID RECOMMENDATIONS 1. Continue current broad spectrum IV ABX -> Infectious Disease work up in process => Awaiting final micro * Thank you -- further recommendations pending review w/Dr. Peace after micro resulted. . Problems: Consultation Date/Type/Reason Admit Date/Time May 30, 2017 at 23:56 Initial Consult Date 05/31/17 Type of Consultation: ID Referring Provider: ALISON GUO Exam/Review of Systems Vital Signs Vitals Vital Signs Date Time Temp Pulse Resp B/P Pulse Ox O2 Delivery O2 Flow Rate FiO2 06/01/17 17:10 63 06/01/17 15:18 98.2 18 98/59 100 05/31/17 22:00 Room Air Intake and Output 05/31/17 05/31/17 06/01/17 14:59 22:59 06:59 Intake Total 200 ml 1370 ml 540 ml Balance 200 ml 1370 ml 540 ml Results Result Diagram: 06/01/1715 06/01/17 0615 Results 24 hrs Laboratory Tests Test 06/01/17 00:33 06/01/17 06:15 06/01/17 06:27 White Blood Count 8.2 # 6.9 Red Blood Count 2.34 L 2.74 L Hemoglobin 6.4 *L 7.5 L Hematocrit 19.7 L 23.3 L Mean Corpuscular Volume 84.2 85.0 Mean Corpuscular Hemoglobin 27.4 L 27.4 L Mean Corpuscular Hemoglobin Concent 32.5 32.2 Red Cell Distribution Width 15.3 H 15.4 H Platelet Count 57 #L 57 L Mean Platelet Volume 11.5 H 12.1 H Neutrophils % 88.7 H 86.0 H Lymphocytes % 5.8 L 8.3 L Monocytes % 4.3 3.5 Eosinophils % 0.5 1.2 Basophils % 0.0 0.1 Nucleated Red Blood Cells % 0.0 0.0 Neutrophils # 7.3 5.9 Lymphocytes # 0.5 L 0.6 L Monocytes # 0.4 0.2 L Eosinophils # 0.0 0.1 Basophils # 0.0 0.0 Nucleated Red Blood Cells # 0.0 0.0 Sodium Level 136 Potassium Level 3.8 Chloride Level 101 Carbon Dioxide Level 22 Anion Gap 17 H Blood Urea Nitrogen 10 Creatinine 0.73 Glucose Level 85 Calcium Level 7.9 L Phosphorus Level 3.8 Magnesium Level 1.8 Lab Scanned Report BLOOD TRANSFUSION Medications Medications Current Medications Cefotaxime Sodium/ Dextrose (Claforan 2gm/50 ml (Pmx)) 50 ml @ 100 mls/hr Q8 IVPB Last administered on 06/01/17 14:07; Admin Dose 100 MLS/HR; Start at 06:00 Ondansetron HCl (Zofran Inj) 4 mg Q6H PRN IV NAUSEA AND/OR VOMITING; Start at 00:30 Acetaminophen (Tylenol Tab) 650 mg Q6H PRN PO PAIN LEVEL 1-3 OR FEVER Last administered on 05/31/17 20:23; Admin Dose 650 MG; Start 05/31/17 at 00:30 Morphine Sulfate (morphine) 2 mg Q4H PRN IV PAIN LEVEL 7-10 Last administered on 06/01/17 09:24; Admin Dose 2 MG; Start 05/31/17 at 00:30 Docusate Sodium (Colace) 100 mg Q12H PRN PO CONSTIPATION; Start 05/31/17 at 00: 30 Bisacodyl (Dulcolax) 5 mg DAILY PRN PO CONSTIPATION; Start 05/31/17 at 00:30 Pantoprazole 40 mg 40 mg DAILY@06 IV Last administered on 06/01/17 05:03; Admin Dose 40 MG; Start 05/31/17 at 06:00 Vancomycin HCl 1.25 gm/Sodium Chloride 250 ml @ 83.333 mls/ hr Q12H IVPB Last administered on 06/01/17 08:02; Admin Dose 83.333 MLS/HR; Start 05/31/17 at 07: 00 Metronidazole (Flagyl 500 Mg (Pmx)) 100 ml @ 100 mls/hr Q6 IVPB Last administered on 06/01/17 12:34; Admin Dose 100 MLS/HR; Start 05/31/17 at 07:00 Lorazepam (Ativan) 1 mg Q6H PRN IV AGITATION/ANXIETY; Start 05/31/17 at 07:30 Miscellaneous Information VANCO TROUGH @ 1,800 ON... ONCE ONCE XX ; Start at 18:00; Stop 06/01/17 at 18:01 Ferric Sodium Gluconate Complex/ Sodium Chloride (Ferrlecit/NS) 110 ml @ 110 mls/hr Q24H IVPB Last administered on 06/01/17t 16:55; Admin Dose 110 MLS/HR; Start 06/01/17 at 15:00; Stop 06/05/17 at 15:59 ANUP NGUYEN [employer] Jun 01, 2017 18:00
[2017-06-01] MEDS: ONDANSETRON 4 MG INJ IV PRN (20:55)
--- NOTE | 2017-06-01 23:08 | PN ---
Date/Time of Note Date/Time of Note DATE: 06/01/17 TIME: 22:51 Assessment/Plan Lines/Catheters IV [facility]ter Type (from [facility]): Saline Lock Urinary Cath still in place: No Assessment/Plan Assessment/Plan 1 s/p Sepsis: 2/2 UTI - urine cx positive for staph species - also bactremic - cont bax - ID following, appreciate input 2. 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 Oncology is on board, appreciate recs 3. Anemia: 2/2 chronic disease and iron def - iron replacement therapy 4. 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 - s/p IVIG last month - f/u hematology recs 5. Hx of Alcoholic: abstinence advised 6. Hx of Hep C: pt need outpt follow-up for treatment Subjective 24 Hr Interval Summary Free Text/Dictation no acute events overnight Exam/Review of Systems Vital Signs Vitals Vital Signs Date Time Temp Pulse Resp B/P Pulse Ox O2 Delivery O2 Flow Rate FiO2 06/01/17 21:04 69 06/01/17 20:00 99.4 15 95/51 98 05/31/17 22:00 Room Air Intake and Output 05/31/17 05/31/17 06/01/17 15:00 23:00 07:00 Intake Total 200 ml 1370 ml 540 ml Balance 200 ml 1370 ml 540 ml Exam Constitutional: alert, oriented, well developed Head: atraumatic, normocephalic Eyes: EOMI, PERRL Respiratory: clear to auscultation, normal air movement Cardiovascular: regular rate and rhythm Gastrointestinal: soft Results Result Diagram: 06/01/17 0615 06/01/17 0615 Results 24 hrs Laboratory Tests Test 06/01/17 00:33 06/01/17 06:15 06/01/17 06:27 06/01/17 17:51 White Blood Count 8.2 # 6.9 Red Blood Count 2.34 L 2.74 L Hemoglobin 6.4 *L 7.5 L Hematocrit 19.7 L 23.3 L Mean Corpuscular Volume 84.2 85.0 Mean Corpuscular Hemoglobin 27.4 L 27.4 L Mean Corpuscular Hemoglobin Concent 32.5 32.2 Red Cell Distribution Width 15.3 H 15.4 H Platelet Count 57 #L 57 L Mean Platelet Volume 11.5 H 12.1 H Neutrophils % 88.7 H 86.0 H Lymphocytes % 5.8 L 8.3 L Monocytes % 4.3 3.5 Eosinophils % 0.5 1.2 Basophils % 0.0 0.1 Nucleated Red Blood Cells % 0.0 0.0 Neutrophils # 7.3 5.9 Lymphocytes # 0.5 L 0.6 L Monocytes # 0.4 0.2 L Eosinophils # 0.0 0.1 Basophils # 0.0 0.0 Nucleated Red Blood Cells # 0.0 0.0 Sodium Level 136 Potassium Level 3.8 Chloride Level 101 Carbon Dioxide Level 22 Anion Gap 17 H Blood Urea Nitrogen 10 Creatinine 0.73 Glucose Level 85 Calcium Level 7.9 L Phosphorus Level 3.8 Magnesium Level 1.8 Lab Scanned Report BLOOD TRANSFUSION Vancomycin Level Trough 11.2 Medications Medications Current Medications Cefotaxime Sodium/ Dextrose (Claforan 2gm/50 ml (Pmx)) 50 ml @ 100 mls/hr Q8 IVPB Last administered on 06/01/17 14:07; Admin Dose 100 MLS/HR; Start at 06:00 Ondansetron HCl (Zofran Inj) 4 mg Q6H PRN IV NAUSEA AND/OR VOMITING Last administered on 06/01/17 20:55; Admin Dose 4 MG; Start 05/31/17 at 00:30 Acetaminophen (Tylenol Tab) 650 mg Q6H PRN PO PAIN LEVEL 1-3 OR FEVER Last administered on 05/31/17 20:23; Admin Dose 650 MG; Start 05/31/17 at 00:30 Morphine Sulfate (morphine) 2 mg Q4H PRN IV PAIN LEVEL 7-10 Last administered on 06/01/17 09:24; Admin Dose 2 MG; Start 05/31/17 at 00:30 Docusate Sodium (Colace) 100 mg Q12H PRN PO CONSTIPATION; Start 05/31/17 at 00: 30 Bisacodyl (Dulcolax) 5 mg DAILY PRN PO CONSTIPATION; Start 05/31/17 at 00:30 Pantoprazole 40 mg 40 mg DAILY@06 IV Last administered on 06/01/17 05:03; Admin Dose 40 MG; Start 05/31/17 at 06:00 Vancomycin HCl 1.25 gm/Sodium Chloride 250 ml @ 83.333 mls/ hr Q12H IVPB Last administered on 06/01/17 19:48; Admin Dose 83.333 MLS/HR; Start 05/31/17 at 07: 00 Metronidazole (Flagyl 500 Mg (Pmx)) 100 ml @ 100 mls/hr Q6 IVPB Last administered on 06/01/17 18:23; Admin Dose 100 MLS/HR; Start 05/31/17 at 07:00 Lorazepam 1 mg 1 mg Q6H PRN IV AGITATION/ANXIETY; Start 05/31/17 at 07:30 Ferric Sodium Gluconate Complex/ Sodium Chloride (Ferrlecit/NS) 110 ml @ 110 mls/hr Q24H IVPB Last administered on 06/01/17 16:55; Admin Dose 110 MLS/HR; Start 06/01/17 at 15:00; Stop 06/05/17 at 15:59 BRIGITTE BYRD MD Jun 01, 2017 23:02
[2017-06-02] VITALS (12 sets, daily range): BP systolic 95–103; BP diastolic 53–62; PULSE 59–77; RESP 15–19
[2017-06-02] MEDS: metroNIDAZOLE 500 MG/NS (PMX) 100 ML IVPB SCH ×4 (00:38→18:25)
[2017-06-02] MEDS: CEFOTAXIME 2 GM/50 ML (PMX) 50 ML IVPB SCH ×3 (05:21→22:49)
[2017-06-02] MEDS: PANTOPRAZOLE 40 MG INJ IV SCH (05:21)
[2017-06-02] MEDS: VANCOMYCIN 1.25 GM in SOD CHLORIDE 0.9% 250 ML IVPB SCH ×2 (07:09→19:29)
[2017-06-02 07:15] LABS: ABNORMAL IP MESSAGE 1; BASOPHILS % 0.1 % (0.0-2.0); EOSINOPHILS % 0.5 % (0.0-7.0); HEMATOCRIT 20.8 % (42.0-52.0); LYMPHOCYTES # 0.6 10^3/ul (0.8-2.9); LYMPHOCYTES % 8.1 % (15.0-51.0); MEAN CORPUSCULAR HEMOGLOBIN 27.3 pg (29.0-33.0); MEAN CORPUSCULAR HGB CONC 32.7 g/dl (32.0-37.0); MEAN CORPUSCULAR VOLUME 83.5 fl (82.0-101.0); MEAN PLATELET VOLUME 11.4 fl (7.4-10.4); MONOCYTE # 0.3 10^3/ul (0.3-0.9); MONOCYTES % 3.9 % (0.0-11.0); NEUTROPHIL # 6.4 10^3/ul (1.6-7.5); NEUTROPHILS % 86.3 % (39.0-77.0); PLATELET COUNT 80 10^3/UL (140-415); POSITIVE DIFF @See below; RED BLOOD COUNT 2.49 10^6/ul (4.70-6.10); RED CELL DISTRIBUTION WIDTH 15.4 % (11.5-14.5); WHITE BLOOD COUNT 7.4 10^3/ul (4.8-10.8)
[2017-06-02 07:28] LABS: HEMOGLOBIN 6.8 g/dl (14.0-18.0)
[2017-06-02 07:36] LABS: CALCIUM 7.3 mg/dl (8.4-10.2); CREATININE 0.72 mg/dl (0.61-1.24); POTASSIUM 3.1 mmol/L (3.5-5.1)
[2017-06-02] MEDS: LOPERAMIDE 2 MG CAP PO PRN (10:03)
--- NOTE | 2017-06-02 10:58 | PN ---
Date/Time of Note Date/Time of Note DATE: 06/02/17 TIME: 10:55 Assessment/Plan VTE Prophylaxis VTE Prophylaxis Intervention: SCD's Lines/Catheters IV [facility]from [facility] Saline Lock Urinary Cath still in place: No Assessment/Plan Assessment/Plan 1 s/p Sepsis: 2/2 UTI - urine cx positive for staph species - also bactremic - cont bax - ID following, appreciate input 2. 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 Oncology is on board, appreciate recs 3. Anemia: 2/2 chronic disease and iron def - iron replacement therapy - will transfuse 2 units of PRBCs today 4. 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 - s/p IVIG last month - f/u hematology recs 5. Hx of Alcoholic: abstinence advised 6. Hx of Hep C: pt need outpt follow-up for treatment 7. Hypokalemia: replete Subjective 24 Hr Interval Summary Free Text/Dictation overall feeling well, except occasional abd pain Exam/Review of Systems Vital Signs Vitals Vital Signs Date Time Temp Pulse Resp B/P Pulse Ox O2 Delivery O2 Flow Rate FiO2 06/02/17 08:19 77 06/02/17 07:35 98.0 18 97/53 99 05/31/17 22:00 Room Air Intake and Output 06/01/17 06/01/17 06/02/17 15:00 23:00 07:00 Intake Total 1110 ml 470 ml Output Total 650 ml Balance 1110 ml -180 ml Exam Constitutional: alert, oriented, well developed Head: atraumatic, normocephalic Eyes: EOMI, PERRL Respiratory: clear to auscultation, normal air movement Cardiovascular: regular rate and rhythm Gastrointestinal: soft Results Result Diagram: 06/02/17 0600 06/02/17 0600 Results 24 hrs Laboratory Tests Test 06/01/17 17:51 06/02/17 06:00 Vancomycin Level Trough 11.2 White Blood Count 7.4 Red Blood Count 2.49 L Hemoglobin 6.8 *L Hematocrit 20.8 L Mean Corpuscular Volume 83.5 Mean Corpuscular Hemoglobin 27.3 L Mean Corpuscular Hemoglobin Concent 32.7 Red Cell Distribution Width 15.4 H Platelet Count 80 #L Mean Platelet Volume 11.4 H Neutrophils % 86.3 H Lymphocytes % 8.1 L Monocytes % 3.9 Eosinophils % 0.5 Basophils % 0.1 Nucleated Red Blood Cells % 0.0 Neutrophils # 6.4 Lymphocytes # 0.6 L Monocytes # 0.3 Eosinophils # 0.0 Basophils # 0.0 Nucleated Red Blood Cells # 0.0 Sodium Level 131 L Potassium Level 3.1 L Chloride Level 99 Carbon Dioxide Level 22 Anion Gap 13 Blood Urea Nitrogen 7 Creatinine 0.72 Glucose Level 79 Calcium Level 7.3 L Medications Medications Current Medications Cefotaxime Sodium/ Dextrose (Claforan 2gm/50 ml (Pmx)) 50 ml @ 100 mls/hr Q8 IVPB Last administered on 06/02/17 05:21; Admin Dose 100 MLS/HR; Start at 06:00 Ondansetron HCl (Zofran Inj) 4 mg Q6H PRN IV NAUSEA AND/OR VOMITING Last administered on 06/01/17 20:55; Admin Dose 4 MG; Start 05/31/17 at 00:30 Acetaminophen (Tylenol Tab) 650 mg Q6H PRN PO PAIN LEVEL 1-3 OR FEVER Last administered on 05/31/17 20:23; Admin Dose 650 MG; Start 05/31/17 at 00:30 Morphine Sulfate (morphine) 2 mg Q4H PRN IV PAIN LEVEL 7-10 Last administered on 06/01/17 09:24; Admin Dose 2 MG; Start 05/31/17 at 00:30 Docusate Sodium (Colace) 100 mg Q12H PRN PO CONSTIPATION; Start 05/31/17 at 00: 30 Bisacodyl (Dulcolax) 5 mg DAILY PRN PO CONSTIPATION; Start 05/31/17 at 00:30 Pantoprazole 40 mg 40 mg DAILY@06 IV Last administered on 06/02/17 05:21; Admin Dose 40 MG; Start 05/31/17 at 06:00 Vancomycin HCl 1.25 gm/Sodium Chloride 250 ml @ 83.333 mls/ hr Q12H IVPB Last administered on 06/02/17 07:09; Admin Dose 83.333 MLS/HR; Start 05/31/17 at 07: 00 Metronidazole (Flagyl 500 Mg (Pmx)) 100 ml @ 100 mls/hr Q6 IVPB Last administered on 06/02/17 06:04; Admin Dose 100 MLS/HR; Start 05/31/17 at 07:00 Lorazepam 1 mg 1 mg Q6H PRN IV AGITATION/ANXIETY; Start 05/31/17 at 07:30 Ferric Sodium Gluconate Complex/ Sodium Chloride (Ferrlecit/NS) 110 ml @ 110 mls/hr Q24H IVPB Last administered on 06/01/17t 16:55; Admin Dose 110 MLS/HR; Start 06/01/17 at 15:00; Stop 06/05/17 at 15:59 BRIGITTE BYRD MD Jun 02, 2017 10:58
[2017-06-02] MEDS ORDERED: POTASSIUM CHLORIDE 30 MEQ in DEXTROSE 5% 250 ML IVPB ONE (12:00)
[2017-06-02] MEDS: ACETAMINOPHEN 325 MG TAB PO PRN (15:07)
[2017-06-02] MEDS: SOD FERRIC GLUC COMPLX 125 MG in SOD CHLORIDE 0.9% 100 ML IVPB SCH (15:56)
--- NOTE | 2017-06-02 16:00 | CONS ---
Date/Time of Note Date/Time of Note DATE: 06/02/17 TIME: 15:54 Assessment/Plan Assessment/Plan Chief Complaint/Hosp Course ID PROGRESS NOTE 24H INTERVAL SUMMARY * 66 yo M, lethargy persisting, generalized weakness, VSS, no fevers, NAD * 7.4 WBC, 80 PLT, 6.8 HGB => PRBC Tx in process * MICRO: BCx (+)Staph 1/2 bottles; Urine (+)Enterococcus; C.Diff (-); stool ova/ para (-) HOSPITAL COURSE * 66-year-old male admit with sepsis, tachypnea of 20, diarrhea. pancytopenia, abnormal CT as below: * 05/30/[address] ABD/Pelvis showed: 1. Mesenteric and retroperitoneal lymphadenopathy, increased since the prior examination. This is suspicious for a neoplastic process such as lymphoma. There is infiltration of the adjacent mesenteric fat, probably lymphedema. 2. Splenomegaly. 3. Small bilateral fat containing inguinal hernias. 4. Mild atherosclerotic arterial calcifications. ID ASSESSMENT 1. Sepsis w/fevers 100.7, mild tachypnea 20, diarrhea, dehydration on admit due to recurrent UTI => RESOLVING * CXR 05/30/17 No evidence for active cardiopulmonary disease. * 05/30/17 BCX(+)1/2 bottles which may or may not be a contaminant : Organism 1 STAPHYLOCOCCUS SPECIES 2. Recurrent UTI 05/30/17: URINE CULTURE Preliminary Organism 1 ENTEROCOCCUS SPECIES COLONY COUNT >100,000 CFU/ml * s/p 04/2017 Enterococcal UTI w/dysuria and hematuria. 3. Urinary retention ?BPH vs other ? 4. 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 Mesenteric + retroperitoneal lymphadenopathy => DDx Lymphoma ? 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 Questionable hx of liver cirrhosis 2/2 (+)ETOH + (+)Hepatitis C -> not confirmed on CT, (+)Splenomegaly 7. Elevated ALT and Alk Phos 8. GERD 9. Hemorrhoids 10. Depression 11. Hx of Migraine headaches + Severe occipital headaches * 06/05/16 MRI Brain non-contrast: Small 4 mm subependymal nodule within the right lateral ventricle anteriorly, that may represent a benign hamartoma. Other possibilities include a meningioma. An MRI of the brain with contrast is recommended for further evaluation. 12. Carotid artery disease: Less than 50% stenosis bilaterally in the internal carotid arteries [address] 2016 Mild lower cervical spondylosis is evident without significant central canal stenosis or neural foraminal narrowing. 14. Hx of prior admissions x 2 for multiple recurrent skin abscesses-> folliculitis, infected axillary glands 15. Hx of MARCIO septicemia 2/2 UTI + Infected abscesses prior admission. 16. Bilateal fat inguinal hernias MRSA Nares screen -> ordered (-) C.Diff screen CURRENT ABX: Vanco IV + Cefotaxime + Flagyl IV ID RECOMMENDATIONS 1. Continue current broad spectrum IV ABX * Thank you -- further recommendations pending review w/Dr. Peace after micro resulted. . Problems: Consultation Date/Type/Reason Admit Date/Time May 30, 2017 at 23:56 Initial Consult Date 05/31/17 Type of Consultation: ID Referring Provider: ALISON GUO Exam/Review of Systems Vital Signs Vitals Vital Signs Date Time Temp Pulse Resp B/P Pulse Ox O2 Delivery O2 Flow Rate FiO2 06/02/17 15:41 98.0 74 19 97/56 98 05/31/17 22:00 Room Air Intake and Output 06/01/17 06/01/17 06/02/17 15:00 23:00 07:00 Intake Total 1110 ml 470 ml Output Total 650 ml Balance 1110 ml -180 ml Results Result Diagram: 06/02/17 0600 06/02/17 0600 Results 24 hrs Laboratory Tests Test 06/01/17 17:51 06/02/17 06:00 Vancomycin Level Trough 11.2 White Blood Count 7.4 Red Blood Count 2.49 L Hemoglobin 6.8 *L Hematocrit 20.8 L Mean Corpuscular Volume 83.5 Mean Corpuscular Hemoglobin 27.3 L Mean Corpuscular Hemoglobin Concent 32.7 Red Cell Distribution Width 15.4 H Platelet Count 80 #L Mean Platelet Volume 11.4 H Neutrophils % 86.3 H Lymphocytes % 8.1 L Monocytes % 3.9 Eosinophils % 0.5 Basophils % 0.1 Nucleated Red Blood Cells % 0.0 Neutrophils # 6.4 Lymphocytes # 0.6 L Monocytes # 0.3 Eosinophils # 0.0 Basophils # 0.0 Nucleated Red Blood Cells # 0.0 Sodium Level 131 L Potassium Level 3.1 L Chloride Level 99 Carbon Dioxide Level 22 Anion Gap 13 Blood Urea Nitrogen 7 Creatinine 0.72 Glucose Level 79 Calcium Level 7.3 L Medications Medications Current Medications Cefotaxime Sodium/ Dextrose (Claforan 2gm/50 ml (Pmx)) 50 ml @ 100 mls/hr Q8 IVPB Last administered on 06/02/17 14:07; Admin Dose 100 MLS/HR; Start at 06:00 Ondansetron HCl (Zofran Inj) 4 mg Q6H PRN IV NAUSEA AND/OR VOMITING Last administered on 06/01/17 20:55; Admin Dose 4 MG; Start 05/31/17 at 00:30 Acetaminophen (Tylenol Tab) 650 mg Q6H PRN PO PAIN LEVEL 1-3 OR FEVER Last administered on 06/02/17 15:07; Admin Dose 650 MG; Start 05/31/17 at 00:30 Morphine Sulfate (morphine) 2 mg Q4H PRN IV PAIN LEVEL 7-10 Last administered on 06/01/17 09:24; Admin Dose 2 MG; Start 05/31/17 at 00:30 Docusate Sodium (Colace) 100 mg Q12H PRN PO CONSTIPATION; Start 05/31/17 at 00: 30 Bisacodyl (Dulcolax) 5 mg DAILY PRN PO CONSTIPATION; Start 05/31/17 at 00:30 Pantoprazole 40 mg 40 mg DAILY@06 IV Last administered on 06/02/17 05:21; Admin Dose 40 MG; Start 05/31/17 at 06:00 Vancomycin HCl 1.25 gm/Sodium Chloride 250 ml @ 83.333 mls/ hr Q12H IVPB Last administered on 06/02/17 07:09; Admin Dose 83.333 MLS/HR; Start 05/31/17 at 07: 00 Metronidazole (Flagyl 500 Mg (Pmx)) 100 ml @ 100 mls/hr Q6 IVPB Last administered on 06/02/17 11:55; Admin Dose 100 MLS/HR; Start 05/31/17 at 07:00 Lorazepam 1 mg 1 mg Q6H PRN IV AGITATION/ANXIETY; Start 05/31/17 at 07:30 Ferric Sodium Gluconate Complex/ Sodium Chloride (Ferrlecit/NS) 110 ml @ 110 mls/hr Q24H IVPB Last administered on 06/01/17t 16:55; Admin Dose 110 MLS/HR; Start 06/01/17 at 15:00; Stop 06/05/17 at 15:59 ANUP NGUYEN NP Jun 02, 2017 16:00
--- NOTE | 2017-06-02 17:02 | CONS ---
Date/Time of Note Date/Time of Note DATE: 06/02/17 TIME: 17:01 Consultation Date/Type/Reason Admit Date/Time May 30, 2017 at 23:56 Date of Consultation: May 31, 2017 Type of Consultation: ID Reason for Consultation Antibiotic management Psychological: no complaints Social History Alcohol Use: other (Patient states that he has been sober and has not drank in a while but unable to give a accurate timeline) Smoking Status: Never smoker Drug Use: none Exam/Review of Systems Vital Signs Vitals Vital Signs Date Time Temp Pulse Resp B/P Pulse Ox O2 Delivery O2 Flow Rate FiO2 06/02/17 16:16 67 06/02/17 15:41 98.0 19 97/56 98 05/31/17 22:00 Room Air Intake and Output 06/01/17 06/01/17 06/02/17 15:00 23:00 07:00 Intake Total 1110 ml 470 ml Output Total 650 ml Balance 1110 ml -180 ml Results Result Diagram: 06/02/17 0600 06/02/17 0600 Results 24 hrs Laboratory Tests Test 06/01/17 17:51 06/02/17 06:00 Vancomycin Level Trough 11.2 White Blood Count 7.4 Red Blood Count 2.49 L Hemoglobin 6.8 *L Hematocrit 20.8 L Mean Corpuscular Volume 83.5 Mean Corpuscular Hemoglobin 27.3 L Mean Corpuscular Hemoglobin Concent 32.7 Red Cell Distribution Width 15.4 H Platelet Count 80 #L Mean Platelet Volume 11.4 H Neutrophils % 86.3 H Lymphocytes % 8.1 L Monocytes % 3.9 Eosinophils % 0.5 Basophils % 0.1 Nucleated Red Blood Cells % 0.0 Neutrophils # 6.4 Lymphocytes # 0.6 L Monocytes # 0.3 Eosinophils # 0.0 Basophils # 0.0 Nucleated Red Blood Cells # 0.0 Sodium Level 131 L Potassium Level 3.1 L Chloride Level 99 Carbon Dioxide Level 22 Anion Gap 13 Blood Urea Nitrogen 7 Creatinine 0.72 Glucose Level 79 Calcium Level 7.3 L Medications Medications Current Medications Cefotaxime Sodium/ Dextrose (Claforan 2gm/50 ml (Pmx)) 50 ml @ 100 mls/hr Q8 IVPB Last administered on 06/02/17t 14:07; Admin Dose 100 MLS/HR; Start at 06:00 Ondansetron HCl (Zofran Inj) 4 mg Q6H PRN IV NAUSEA AND/OR VOMITING Last administered on 06/01/17 20:55; Admin Dose 4 MG; Start 05/31/17 at 00:30 Acetaminophen (Tylenol Tab) 650 mg Q6H PRN PO PAIN LEVEL 1-3 OR FEVER Last administered on 06/02/17 15:07; Admin Dose 650 MG; Start 05/31/17 at 00:30 Morphine Sulfate (morphine) 2 mg Q4H PRN IV PAIN LEVEL 7-10 Last administered on 06/01/17 09:24; Admin Dose 2 MG; Start 05/31/17 at 00:30 Docusate Sodium (Colace) 100 mg Q12H PRN PO CONSTIPATION; Start 05/31/17 at 00: 30 Bisacodyl (Dulcolax) 5 mg DAILY PRN PO CONSTIPATION; Start 05/31/17 at 00:30 Pantoprazole 40 mg 40 mg DAILY@06 IV Last administered on 06/02/17 05:21; Admin Dose 40 MG; Start 05/31/17 at 06:00 Vancomycin HCl 1.25 gm/Sodium Chloride 250 ml @ 83.333 mls/ hr Q12H IVPB Last administered on 06/02/17 07:09; Admin Dose 83.333 MLS/HR; Start 05/31/17 at 07: 00 Metronidazole (Flagyl 500 Mg (Pmx)) 100 ml @ 100 mls/hr Q6 IVPB Last administered on 06/02/17 11:55; Admin Dose 100 MLS/HR; Start 05/31/17 at 07:00 Lorazepam 1 mg 1 mg Q6H PRN IV AGITATION/ANXIETY; Start 05/31/17 at 07:30 Ferric Sodium Gluconate Complex/ Sodium Chloride (Ferrlecit/NS) 110 ml @ 110 mls/hr Q24H IVPB Last administered on 06/02/17 15:56; Admin Dose 110 MLS/HR; Start 06/01/17 at 15:00; Stop 06/05/17 at 15:59 BOB BATEMAN MD Jun 02, 2017 17:02
[2017-06-02] MEDS: morphine 2 MG INJ IV PRN (19:40)
[2017-06-03] VITALS (10 sets, daily range): BP systolic 98–118; BP diastolic 60–70; PULSE 58–80; RESP 15–20
[2017-06-03] MEDS: metroNIDAZOLE 500 MG/NS (PMX) 100 ML IVPB SCH ×5 (00:10→23:47)
[2017-06-03] MEDS ORDERED: VITAMIN A & D 5 GM OINT PACKET TOP ONE (01:24)
[2017-06-03] MEDS: CEFOTAXIME 2 GM/50 ML (PMX) 50 ML IVPB SCH ×3 (05:34→21:09)
[2017-06-03] MEDS: PANTOPRAZOLE 40 MG INJ IV SCH (05:34)
[2017-06-03 06:08] LABS: ABNORMAL IP MESSAGE 1; BASOPHILS % 0.1 % (0.0-2.0); EOSINOPHILS % 0.3 % (0.0-7.0); HEMATOCRIT 29.2 % (42.0-52.0); HEMOGLOBIN 9.3 g/dl (14.0-18.0); LYMPHOCYTES # 0.7 10^3/ul (0.8-2.9); LYMPHOCYTES % 8.9 % (15.0-51.0); MEAN CORPUSCULAR HEMOGLOBIN 26.6 pg (29.0-33.0); MEAN CORPUSCULAR HGB CONC 31.8 g/dl (32.0-37.0); MEAN CORPUSCULAR VOLUME 83.4 fl (82.0-101.0); MEAN PLATELET VOLUME 10.9 fl (7.4-10.4); MONOCYTE # 0.3 10^3/ul (0.3-0.9); MONOCYTES % 3.8 % (0.0-11.0); NEUTROPHIL # 6.3 10^3/ul (1.6-7.5); NEUTROPHILS % 85.9 % (39.0-77.0); PLATELET COUNT 76 10^3/UL (140-415); POSITIVE DIFF @See below; RED CELL DISTRIBUTION WIDTH 16.3 % (11.5-14.5); WHITE BLOOD COUNT 7.3 10^3/ul (4.8-10.8)
[2017-06-03 07:08] LABS: CALCIUM 7.4 mg/dl (8.4-10.2); CREATININE 0.67 mg/dl (0.61-1.24); POTASSIUM 3.2 mmol/L (3.5-5.1)
[2017-06-03] MEDS: VANCOMYCIN 1.25 GM in SOD CHLORIDE 0.9% 250 ML IVPB SCH ×2 (07:19→18:31)
[2017-06-03] MEDS: ONDANSETRON 4 MG INJ IV PRN (08:44)
[2017-06-03] MEDS: LOPERAMIDE 2 MG CAP PO PRN (08:44)
[2017-06-03] MEDS: morphine 2 MG INJ IV PRN ×2 (09:42→18:37)
[2017-06-03] MEDS ORDERED: POTASSIUM CHLORIDE 250 ML IVPB ONE (12:00)
--- NOTE | 2017-06-03 12:18 | CONS ---
Date/Time of Note Date/Time of Note DATE: 06/03/17 TIME: 12:14 Assessment/Plan Assessment/Plan Chief Complaint/Hosp Course Assessment/Plan Chief Complaint/Hosp Course ID PROGRESS NOTE 24H INTERVAL SUMMARY * Alert. Awake. Complains of Vomiting and Nausea this morning. * MICRO: BCx (+)Staph 1/2 bottles; Urine (+)Enterococcus; C.Diff (-); stool ova/ para (-) HOSPITAL COURSE * 66-year-old male admit with sepsis, tachypnea of 20, diarrhea. pancytopenia, abnormal CT as below: * 05/30/[address] ABD/Pelvis showed: 1. Mesenteric and retroperitoneal lymphadenopathy, increased since the prior examination. This is suspicious for a neoplastic process such as lymphoma. There is infiltration of the adjacent mesenteric fat, probably lymphedema. 2. Splenomegaly. 3. Small bilateral fat containing inguinal hernias. 4. Mild atherosclerotic arterial calcifications. ID ASSESSMENT 1. Sepsis w/fevers 100.7, mild tachypnea 20, diarrhea, dehydration on admit due to recurrent UTI => RESOLVING * CXR 05/30/17 No evidence for active cardiopulmonary disease. * 05/30/17 BCX(+)1/2 bottles which may or may not be a contaminant : Organism 1 STAPHYLOCOCCUS SPECIES 2. Recurrent UTI 05/30/17: URINE CULTURE Preliminary Organism 1 ENTEROCOCCUS SPECIES COLONY COUNT >100,000 CFU/ml * s/p 04/2017 Enterococcal UTI w/dysuria and hematuria. 3. Urinary retention ?BPH vs other ? 4. 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 Mesenteric + retroperitoneal lymphadenopathy => DDx Lymphoma ? 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 Questionable hx of liver cirrhosis 2/2 (+)ETOH + (+)Hepatitis C -> not confirmed on CT, (+)Splenomegaly 7. Elevated ALT and Alk Phos 8. GERD 9. Hemorrhoids 10. Depression 11. Hx of Migraine headaches + Severe occipital headaches * 06/05/16 MRI Brain non-contrast: Small 4 mm subependymal nodule within the right lateral ventricle anteriorly, that may represent a benign hamartoma. Other possibilities include a meningioma. An MRI of the brain with contrast is recommended for further evaluation. 12. Carotid artery disease: Less than 50% stenosis bilaterally in the internal carotid arteries [address] 2016 Mild lower cervical spondylosis is evident without significant central canal stenosis or neural foraminal narrowing. 14. Hx of prior admissions x 2 for multiple recurrent skin abscesses-> folliculitis, infected axillary glands 15. Hx of MARCIO septicemia 2/2 UTI + Infected abscesses prior admission. 16. Bilateal fat inguinal hernias MRSA Nares screen -> ordered (-) C.Diff screen CURRENT ABX: Vanco IV + Cefotaxime + Flagyl IV ID RECOMMENDATIONS 1. Continue current broad spectrum IV ABX * Thank you -- further recommendations pending review w/Dr. Peace after micro resulted. 2. Continue Medications. Monitor Labs. Problems: Consultation Date/Type/Reason Admit Date/Time May 30, 2017 at 23:56 Initial Consult Date 05/31/17 Type of Consultation: ID Referring Provider: ALISON GUO Exam/Review of Systems Vital Signs Vitals Vital Signs Date Time Temp Pulse Resp B/P Pulse Ox O2 Delivery O2 Flow Rate FiO2 06/03/17 11:42 98.0 55 16 98/61 98 05/31/17 22:00 Room Air Intake and Output 06/02/17 06/02/17 06/03/17 15:00 23:00 07:00 Intake Total 800 ml 1300 ml Output Total 1200 ml Balance 800 ml 100 ml Results Result Diagram: 06/03/17 0538 06/03/17 0538 Results 24 hrs Laboratory Tests Test 06/03/17 05:38 06/03/17 05:43 06/03/17 12:12 White Blood Count 7.3 Red Blood Count 3.50 #L Hemoglobin 9.3 #L Hematocrit 29.2 #L Mean Corpuscular Volume 83.4 Mean Corpuscular Hemoglobin 26.6 L Mean Corpuscular Hemoglobin Concent 31.8 L Red Cell Distribution Width 16.3 H Platelet Count 76 L Mean Platelet Volume 10.9 H Neutrophils % 85.9 H Lymphocytes % 8.9 L Monocytes % 3.8 Eosinophils % 0.3 Basophils % 0.1 Nucleated Red Blood Cells % 0.0 Neutrophils # 6.3 Lymphocytes # 0.7 L Monocytes # 0.3 Eosinophils # 0.0 Basophils # 0.0 Nucleated Red Blood Cells # 0.0 Sodium Level 133 L Potassium Level 3.2 L Chloride Level 99 Carbon Dioxide Level 22 Anion Gap 15 Blood Urea Nitrogen 6 L Creatinine 0.67 Glucose Level 98 Calcium Level 7.4 L Lab Scanned Report BLOOD TRANSFUSION REFERENCE LAB Medications Medications Current Medications Cefotaxime Sodium/ Dextrose (Claforan 2gm/50 ml (Pmx)) 50 ml @ 100 mls/hr Q8 IVPB Last administered on 06/03/17 05:34; Admin Dose 100 MLS/HR; Start at 06:00 Ondansetron HCl (Zofran Inj) 4 mg Q6H PRN IV NAUSEA AND/OR VOMITING Last administered on 06/03/17 08:44; Admin Dose 4 MG; Start 05/31/17 at 00:30 Acetaminophen (Tylenol Tab) 650 mg Q6H PRN PO PAIN LEVEL 1-3 OR FEVER Last administered on 06/02/17 15:07; Admin Dose 650 MG; Start 05/31/17 at 00:30 Morphine Sulfate (morphine) 2 mg Q4H PRN IV PAIN LEVEL 7-10 Last administered on 06/03/17 09:42; Admin Dose 2 MG; Start 05/31/17 at 00:30 Docusate Sodium (Colace) 100 mg Q12H PRN PO CONSTIPATION; Start 05/31/17 at 00: 30 Bisacodyl (Dulcolax) 5 mg DAILY PRN PO CONSTIPATION; Start 05/31/17 at 00:30 Pantoprazole 40 mg 40 mg DAILY@06 IV Last administered on 06/03/17 05:34; Admin Dose 40 MG; Start 05/31/17 at 06:00 Vancomycin HCl 1.25 gm/Sodium Chloride 250 ml @ 83.333 mls/ hr Q12H IVPB Last administered on 06/03/17 07:19; Admin Dose 83.333 MLS/HR; Start 05/31/17 at 07: 00 Metronidazole (Flagyl 500 Mg (Pmx)) 100 ml @ 100 mls/hr Q6 IVPB Last administered on 06/03/17 11:29; Admin Dose 100 MLS/HR; Start 05/31/17 at 07:00 Lorazepam 1 mg 1 mg Q6H PRN IV AGITATION/ANXIETY; Start 05/31/17 at 07:30 Ferric Sodium Gluconate Complex 125 mg/Sodium Chloride 110 ml @ 110 mls/hr Q24H IVPB Last administered on 7/29/17at 15:56; Admin Dose 110 MLS/HR; Start at 15:00; Stop 06/05/17 at 15:59 Potassium Chloride (KCl 40 MEQ/250 ML NS) 250 ml @ 62.5 mls/hr ONCE ONCE IVPB ; Start 06/03/17 at 12:00; Stop 06/03/17 at 15:59 GEMA GERMAN NP Jun 03, 2017 12:18
[2017-06-03] MEDS: SOD FERRIC GLUC COMPLX 125 MG in SOD CHLORIDE 0.9% 100 ML IVPB SCH (14:49)
--- NOTE | 2017-06-03 19:52 | PN ---
Date/Time of Note Date/Time of Note DATE: 06/03/17 TIME: 19:52 Assessment/Plan VTE Prophylaxis VTE Prophylaxis Intervention: SCD's Lines/Catheters IV [facility]from [facility] Saline Lock Urinary Cath still in place: No Assessment/Plan Assessment/Plan 1 s/p Sepsis: 2/2 UTI - urine cx positive for staph species - also bactremic - cont bax - ID following, appreciate input 2. 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 Oncology is on board, appreciate recs 3. Anemia: 2/2 chronic disease and iron def - iron replacement therapy - s/p 2 units of PRBCs yesterday 4. 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 - s/p IVIG last month - f/u hematology recs 5. Hx of Alcoholic: abstinence advised 6. Hx of Hep C: pt need outpt follow-up for treatment 7. Hypokalemia: resolved 8. Hyponatremia: monitor for now. will check am lab Subjective 24 Hr Interval Summary Free Text/Dictation c/o abd pain and NBNB vomiting x 1 Exam/Review of Systems Vital Signs Vitals Vital Signs Date Time Temp Pulse Resp B/P Pulse Ox O2 Delivery O2 Flow Rate FiO2 06/03/17 16:11 59 06/03/17 15:39 98.4 19 118/70 97 05/31/17 22:00 Room Air Intake and Output 06/02/17 06/02/17 06/03/17 15:00 23:00 07:00 Intake Total 800 ml 1300 ml Output Total 1200 ml Balance 800 ml 100 ml Exam Constitutional: alert, oriented, well developed Head: atraumatic, normocephalic Eyes: EOMI, PERRL Respiratory: clear to auscultation, normal air movement Cardiovascular: regular rate and rhythm Gastrointestinal: soft Results Result Diagram: 06/03/17 0538 06/03/17 0538 Results 24 hrs Laboratory Tests Test 06/03/17 05:38 06/03/17 05:43 06/03/17 12:12 White Blood Count 7.3 Red Blood Count 3.50 #L Hemoglobin 9.3 #L Hematocrit 29.2 #L Mean Corpuscular Volume 83.4 Mean Corpuscular Hemoglobin 26.6 L Mean Corpuscular Hemoglobin Concent 31.8 L Red Cell Distribution Width 16.3 H Platelet Count 76 L Mean Platelet Volume 10.9 H Neutrophils % 85.9 H Lymphocytes % 8.9 L Monocytes % 3.8 Eosinophils % 0.3 Basophils % 0.1 Nucleated Red Blood Cells % 0.0 Neutrophils # 6.3 Lymphocytes # 0.7 L Monocytes # 0.3 Eosinophils # 0.0 Basophils # 0.0 Nucleated Red Blood Cells # 0.0 Sodium Level 133 L Potassium Level 3.2 L Chloride Level 99 Carbon Dioxide Level 22 Anion Gap 15 Blood Urea Nitrogen 6 L Creatinine 0.67 Glucose Level 98 Calcium Level 7.4 L Lab Scanned Report BLOOD TRANSFUSION REFERENCE LAB Medications Medications Current Medications Cefotaxime Sodium/ Dextrose (Claforan 2gm/50 ml (Pmx)) 50 ml @ 100 mls/hr Q8 IVPB Last administered on 06/03/17 13:51; Admin Dose 100 MLS/HR; Start at 06:00 Ondansetron HCl (Zofran Inj) 4 mg Q6H PRN IV NAUSEA AND/OR VOMITING Last administered on 06/03/17 08:44; Admin Dose 4 MG; Start 05/31/17 at 00:30 Acetaminophen (Tylenol Tab) 650 mg Q6H PRN PO PAIN LEVEL 1-3 OR FEVER Last administered on 06/02/17 15:07; Admin Dose 650 MG; Start 05/31/17 at 00:30 Morphine Sulfate (morphine) 2 mg Q4H PRN IV PAIN LEVEL 7-10 Last administered on 06/03/17 18:37; Admin Dose 2 MG; Start 05/31/17 at 00:30 Docusate Sodium (Colace) 100 mg Q12H PRN PO CONSTIPATION; Start 05/31/17 at 00: 30 Bisacodyl (Dulcolax) 5 mg DAILY PRN PO CONSTIPATION; Start 05/31/17 at 00:30 Pantoprazole 40 mg 40 mg DAILY@06 IV Last administered on 06/03/17 05:34; Admin Dose 40 MG; Start 05/31/17 at 06:00 Vancomycin HCl 1.25 gm/Sodium Chloride 250 ml @ 83.333 mls/ hr Q12H IVPB Last administered on 06/03/17 18:31; Admin Dose 83.333 MLS/HR; Start 05/31/17 at 07: 00 Metronidazole (Flagyl 500 Mg (Pmx)) 100 ml @ 100 mls/hr Q6 IVPB Last administered on 06/03/17 17:24; Admin Dose 100 MLS/HR; Start 05/31/17 at 07:00 Lorazepam 1 mg 1 mg Q6H PRN IV AGITATION/ANXIETY; Start 05/31/17 at 07:30 Ferric Sodium Gluconate Complex/ Sodium Chloride (Ferrlecit/NS) 110 ml @ 110 mls/hr Q24H IVPB Last administered on 06/03/17 14:49; Admin Dose 110 MLS/HR; Start 06/01/17 at 15:00; Stop 06/05/17 at 15:59 BRIGITTE BYRD MD Jun 03, 2017 19:52
[2017-06-04] VITALS (11 sets, daily range): BP systolic 108–125; BP diastolic 56–72; PULSE 55–80; RESP 18–20
[2017-06-04] MEDS: PANTOPRAZOLE 40 MG INJ IV SCH (05:35)
[2017-06-04] MEDS: CEFOTAXIME 2 GM/50 ML (PMX) 50 ML IVPB SCH ×3 (05:35→22:21)
[2017-06-04] MEDS: metroNIDAZOLE 500 MG/NS (PMX) 100 ML IVPB SCH ×3 (06:11→17:21)
[2017-06-04 06:23] LABS: ABNORMAL IP MESSAGE 1; BASOPHILS % 0.1 % (0.0-2.0); EOSINOPHILS % 0.6 % (0.0-7.0); HEMATOCRIT 26.8 % (42.0-52.0); HEMOGLOBIN 9.1 g/dl (14.0-18.0); LYMPHOCYTES # 0.6 10^3/ul (0.8-2.9); LYMPHOCYTES % 8.8 % (15.0-51.0); MEAN CORPUSCULAR VOLUME 82.5 fl (82.0-101.0); MEAN PLATELET VOLUME 10.4 fl (7.4-10.4); MONOCYTE # 0.4 10^3/ul (0.3-0.9); MONOCYTES % 5.3 % (0.0-11.0); NEUTROPHIL # 5.9 10^3/ul (1.6-7.5); NEUTROPHILS % 84.6 % (39.0-77.0); PLATELET COUNT 74 10^3/UL (140-415); POSITIVE DIFF @See below; RED BLOOD COUNT 3.25 10^6/ul (4.70-6.10); RED CELL DISTRIBUTION WIDTH 16.1 % (11.5-14.5)
[2017-06-04 07:13] LABS: CALCIUM 7.5 mg/dl (8.4-10.2); CREATININE 0.64 mg/dl (0.61-1.24); POTASSIUM 3.5 mmol/L (3.5-5.1)
[2017-06-04] MEDS: VANCOMYCIN 1.25 GM in SOD CHLORIDE 0.9% 250 ML IVPB SCH ×2 (07:41→21:11)
--- NOTE | 2017-06-04 09:56 | CONS ---
DATE OF ADMISSION: 05/30/2017 DATE OF CONSULTATION: 05/31/2017 REASON FOR CONSULTATION: Antibiotic management. HISTORY OF PRESENT ILLNESS: Jesús Johnson is a 66-year-old, male who was admitted with sepsis, tachypnea, diarrhea, and pancytopenia. The patient was admitted with fever and generalized weakness as well as diarrhea. He is a poor historian. Had fevers at home as well as generalized weakness for the last few days. He also had diarrhea for the past 3 weeks with 5 episodes of loose stools daily. Denies any blood in his diarrhea. During his last admission there was suspicion for cirrhosis as well as possible lymphoma. PAST MEDICAL HISTORY: Positive for ITP, questionable history of cirrhosis, possible underlying lymphoproliferative disorder, though recent pathology studies were not conclusive. A CT scan of the abdomen and pelvis was done. PAST SURGICAL HISTORY: As outlined. FAMILY HISTORY: Noncontributory. SOCIAL HISTORY: He does not smoke, drink, or abuse drugs. ALLERGIES: NONE TO PENICILLIN, SULFA, OR FOODS. MEDICATION: Per chart. REVIEW OF SYSTEMS: Is as per HPI. PHYSICAL EXAMINATION: The patient is a well-developed, well- nourished male, alert, responsive, in no acute distress. VITAL SIGNS: Stable. He is afebrile. SKIN: Without generalized rash. HEENT: Within normal limits. NECK: Supple. Lymph nodes nonpalpable. CHEST: Decreased breath sounds at the bases. HEART: Without murmur or gallop. ABDOMEN: Soft. Nontender, without organomegaly, splenomegaly, or masses. EXTREMITIES: Without cyanosis, clubbing, or edema. RECTOGENITAL: Deferred. NEUROLOGICAL: No focal neurological abnormality. ANCILLARY LABORATORY DATA: White count , H and H 7.5/22.8, platelet count 22,000. BUN/creatinine 12/ 0.72. Glucose is 89. IMPRESSION: 1. Patient has severe acute respiratory syndrome (SARS) with a temperature 100.7 with tachypnea. 2. He is pancytopenic, possibly secondary to idiopathic thrombocytopenic purpura (ITP). 3. He has retroperitoneal lymphadenopathy and questionable history of cirrhosis. 4. Positive hepatitis C. 5. Positive alcoholism. 6. Positive splenomegaly. 7. Elevated ALT and alkaline phosphatase. 8. Positive hepatitis C viral infection. PLAN: At the present time he is on vancomycin, cefotaxime, and Flagyl for broad-spectrum antibiotic therapy. We are awaiting stool cultures, UA, and C and S. We swabbed in areas for MRSA. Urine is growing out enterococcus species and blood culture is staph species. Patient is on vancomycin as noted. I will dictate our findings to the hospitalists and to the consultants, such as . Dictated By: Trent Peace MD JD/nilson/la /Document#: [id number]
[2017-06-04] MEDS: morphine 2 MG INJ IV PRN (11:51)
--- NOTE | 2017-06-04 15:00 | CONS ---
Date/Time of Note Date/Time of Note DATE: 06/04/17 TIME: 14:52 Assessment/Plan Assessment/Plan Chief Complaint/Hosp Course ID PROGRESS NOTE TOTAL ABX DAY #5 => Vanco IV + Cefotaxime + Flagyl IV 24H INTERVAL SUMMARY * Clinically status quo - remains lethargic, no fevers, VSS, * MICRO: BCx (+)Staph 1/2 bottles; Urine (+)Enterococcus; C.Diff (-); stool ova/ para (-) HOSPITAL COURSE * 66-year-old male admit with sepsis, tachypnea of 20, diarrhea. pancytopenia, abnormal CT as below: * 05/30/[address] ABD/Pelvis showed: 1. Mesenteric and retroperitoneal lymphadenopathy, increased since the prior examination. This is suspicious for a neoplastic process such as lymphoma. There is infiltration of the adjacent mesenteric fat, probably lymphedema. 2. Splenomegaly. 3. Small bilateral fat containing inguinal hernias. 4. Mild atherosclerotic arterial calcifications. ID ASSESSMENT 1. Sepsis w/fevers 100.7, mild tachypnea 20 (DDX SARS), diarrhea, dehydration on admit due to recurrent UTI => RESOLVING * CXR 05/30/17 No evidence for active cardiopulmonary disease. * 05/30/17 BCX(+)1/2 bottles which may or may not be a contaminant : Organism 1 STAPHYLOCOCCUS SPECIES 2. Recurrent UTI 05/30/17: URINE CULTURE Final Organism 1 ENTEROCOCCUS SPECIES COLONY COUNT >100,000 CFU/ml ENT SPS M.I.C. RX --------- --- AMPICILLIN <=2 S CIPROFLOXACIN <=0.5 S LEVOFLOXACIN 1 S PENICILLIN-G 4 S VANCOMYCIN 1 S * s/p 04/2017 Enterococcal UTI w/dysuria and hematuria. 3. Urinary retention ?BPH vs other ? 4. 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 Mesenteric + retroperitoneal lymphadenopathy => DDx Lymphoma ? 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 Questionable hx of liver cirrhosis 2/2 (+)ETOH + (+)Hepatitis C -> not confirmed on CT, (+)Splenomegaly * Possible underlying lymphoproliferative disorder, though recent pathology studies were not conclusive. 7. Elevated ALT and Alk Phos 8. GERD 9. Hemorrhoids 10. Depression 11. Hx of Migraine headaches + Severe occipital headaches * 06/05/16 MRI Brain non-contrast: Small 4 mm subependymal nodule within the right lateral ventricle anteriorly, that may represent a benign hamartoma. Other possibilities include a meningioma. An MRI of the brain with contrast is recommended for further evaluation. 12. Carotid artery disease: Less than 50% stenosis bilaterally in the internal carotid arteries [address] 2016 Mild lower cervical spondylosis is evident without significant central canal stenosis or neural foraminal narrowing. 14. Hx of prior admissions x 2 for multiple recurrent skin abscesses-> folliculitis, infected axillary glands 15. Hx of MARCIO septicemia 2/2 UTI + Infected abscesses prior admission. 16. Bilateal fat inguinal hernias (-) MRSA Nares (-) C.Diff screen CURRENT ABX: TOTAL ABX DAY #5 => Vanco IV + Cefotaxime + Flagyl IV ID RECOMMENDATIONS 1. Continue current broad spectrum IV ABX for concern recurrent Enterococcal UTI , recurrent CoNS bacteremia => anticipate 10 day course * Claforan onboard for concern possibility of SBP vs asp pneumonitis in setting acute weakness 2. PER NOTES: Mesenteric and Retroperitoneal LAD: increased since last imaged * - Awaiting biopsy. Oncology is on board, appreciate recs . Problems: Consultation Date/Type/Reason Admit Date/Time May 30, 2017 at 23:56 Initial Consult Date 05/31/17 Type of Consultation: ID Referring Provider: ALISON GUO Exam/Review of Systems Vital Signs Vitals Vital Signs Date Time Temp Pulse Resp B/P Pulse Ox O2 Delivery O2 Flow Rate FiO2 06/04/17 12:15 66 06/04/17 11:22 98.0 18 125/68 99 05/31/17 22:00 Room Air Intake and Output 06/03/17 06/03/17 06/04/17 15:00 23:00 07:00 Intake Total 1300 ml 150 ml Output Total 600 ml Balance 700 ml 150 ml Results Result Diagram: 06/04/17 0553 06/04/17 0553 Results 24 hrs Laboratory Tests Test 06/04/17 05:53 White Blood Count 7.0 Red Blood Count 3.25 L Hemoglobin 9.1 L Hematocrit 26.8 L Mean Corpuscular Volume 82.5 Mean Corpuscular Hemoglobin 28.0 L Mean Corpuscular Hemoglobin Concent 34.0 Red Cell Distribution Width 16.1 H Platelet Count 74 L Mean Platelet Volume 10.4 Neutrophils % 84.6 H Lymphocytes % 8.8 L Monocytes % 5.3 Eosinophils % 0.6 Basophils % 0.1 Nucleated Red Blood Cells % 0.0 Neutrophils # 5.9 Lymphocytes # 0.6 L Monocytes # 0.4 Eosinophils # 0.0 Basophils # 0.0 Nucleated Red Blood Cells # 0.0 Sodium Level 131 L Potassium Level 3.5 Chloride Level 100 Carbon Dioxide Level 20 L Anion Gap 15 Blood Urea Nitrogen 5 L Creatinine 0.64 Glucose Level 82 Calcium Level 7.5 L Medications Medications Current Medications Cefotaxime Sodium/ Dextrose (Claforan 2gm/50 ml (Pmx)) 50 ml @ 100 mls/hr Q8 IVPB Last administered on 06/04/17 13:37; Admin Dose 100 MLS/HR; Start at 06:00 Ondansetron HCl (Zofran Inj) 4 mg Q6H PRN IV NAUSEA AND/OR VOMITING Last administered on 06/03/17 08:44; Admin Dose 4 MG; Start 05/31/17 at 00:30 Acetaminophen (Tylenol Tab) 650 mg Q6H PRN PO PAIN LEVEL 1-3 OR FEVER Last administered on 06/02/17 15:07; Admin Dose 650 MG; Start 05/31/17 at 00:30 Docusate Sodium (Colace) 100 mg Q12H PRN PO CONSTIPATION; Start 05/31/17 at 00: 30 Bisacodyl (Dulcolax) 5 mg DAILY PRN PO CONSTIPATION; Start 05/31/17 at 00:30 Pantoprazole 40 mg 40 mg DAILY@06 IV Last administered on 06/04/17 05:35; Admin Dose 40 MG; Start 05/31/17 at 06:00 Vancomycin HCl 1.25 gm/Sodium Chloride 250 ml @ 83.333 mls/ hr Q12H IVPB Last administered on 06/04/17 07:41; Admin Dose 83.333 MLS/HR; Start 05/31/17 at 07: 00 Metronidazole (Flagyl 500 Mg (Pmx)) 100 ml @ 100 mls/hr Q6 IVPB Last administered on 06/04/17 11:56; Admin Dose 100 MLS/HR; Start 05/31/17 at 07:00 Lorazepam 1 mg 1 mg Q6H PRN IV AGITATION/ANXIETY; Start 05/31/17 at 07:30 Ferric Sodium Gluconate Complex/ Sodium Chloride (Ferrlecit/NS) 110 ml @ 110 mls/hr Q24H IVPB Last administered on 06/03/17t 14:49; Admin Dose 110 MLS/HR; Start 06/01/17 at 15:00; Stop 06/05/17 at 15:59 Miscellaneous Information (*Rx Drug Level Order Reminder*) VANCOMYCIN TROUGH AT 1800 ONCE ONCE XX ; Start 06/04/17 at 18:00; Stop 06/04/17 at 18:01 Morphine Sulfate (morphine) 2 mg Q4H PRN IV PAIN LEVEL 7-10; Start 06/04/17 at 15:00 ANUP NGUYEN KIOSK SALES REPRESENTATIVE Jun 04, 2017 15:00
--- NOTE | 2017-06-04 15:15 | CONS ---
Date/Time of Note Date/Time of Note DATE: 06/04/17 TIME: 15:10 Assessment/Plan Assessment/Plan Chief Complaint/Hosp Course 66 yo male with Hep C who presents with severe pancytopenia. Recent CT scan does not demonstrate cirrhosis but does demonstrate splenomegaly which is likely contributing to pancytopenia. Recent bone marrow bx does not demonstrate an intrinsic bone marrow problem and demonstrates adequate megakaryocytes. This supports peripheral destruction of platelets. # Thrombocytopenia- secondary to ITP vs other lymphoproliferative Disorder contributing to splenomegaly. patient did respond well to platelet transfusion -pt's platelets continue to rise on their own. last platelet transfusion given June 01 -if ITP is suggested can start Nplate vs promacta as an out patient if platelets are consistently below 20K #Retroperitoneal LAD - spoke with radiology who states bx cannot be done at this time -will need to follow Ct Scans an an out patient as well as labs. If LAD grown we can attempt to rebiopsy down the line # Diarrhea -stool studies including stool Ob are negative -continue antibiotics # Splenomegaly -secondary to ITP and questionable liver cirrhosis -will monitor for now Problems: Consultation Date/Type/Reason Admit Date/Time May 30, 2017 at 23:56 Initial Consult Date 05/31/17 Type of Consultation: oncology/ hematology Reason for Consultation lymphadenopathy Referring Provider: ALISON GUO 24 HR Interval Summary Free Text/Dictation no bleeding overnight. no abdominal pain. tolerating iron and antibiotics Exam/Review of Systems Vital Signs Vitals Vital Signs Date Time Temp Pulse Resp B/P Pulse Ox O2 Delivery O2 Flow Rate FiO2 06/04/17 12:15 66 06/04/17 11:22 98.0 18 125/68 99 05/31/17 22:00 Room Air Intake and Output 06/03/17 06/03/17 06/04/17 15:00 23:00 07:00 Intake Total 1300 ml 150 ml Output Total 600 ml Balance 700 ml 150 ml Exam Constitutional: alert, oriented Psych: nl mood/affect, no complaints Head: normocephalic Eyes: nl conjunctiva ENMT: nl external ears & nose, nl lips & teeth Neck: non-tender, supple Respiratory: clear to auscultation, normal air movement Gastrointestinal: distended Musculoskeletal: nl extremities to inspection Results Result Diagram: 06/04/17 0553 06/04/17 0553 Results 24 hrs Laboratory Tests Test 06/04/17 05:53 White Blood Count 7.0 Red Blood Count 3.25 L Hemoglobin 9.1 L Hematocrit 26.8 L Mean Corpuscular Volume 82.5 Mean Corpuscular Hemoglobin 28.0 L Mean Corpuscular Hemoglobin Concent 34.0 Red Cell Distribution Width 16.1 H Platelet Count 74 L Mean Platelet Volume 10.4 Neutrophils % 84.6 H Lymphocytes % 8.8 L Monocytes % 5.3 Eosinophils % 0.6 Basophils % 0.1 Nucleated Red Blood Cells % 0.0 Neutrophils # 5.9 Lymphocytes # 0.6 L Monocytes # 0.4 Eosinophils # 0.0 Basophils # 0.0 Nucleated Red Blood Cells # 0.0 Sodium Level 131 L Potassium Level 3.5 Chloride Level 100 Carbon Dioxide Level 20 L Anion Gap 15 Blood Urea Nitrogen 5 L Creatinine 0.64 Glucose Level 82 Calcium Level 7.5 L Medications Medications Current Medications Cefotaxime Sodium/ Dextrose (Claforan 2gm/50 ml (Pmx)) 50 ml @ 100 mls/hr Q8 IVPB Last administered on 06/04/17 13:37; Admin Dose 100 MLS/HR; Start at 06:00 Ondansetron HCl (Zofran Inj) 4 mg Q6H PRN IV NAUSEA AND/OR VOMITING Last administered on 06/03/17 08:44; Admin Dose 4 MG; Start 05/31/17 at 00:30 Acetaminophen (Tylenol Tab) 650 mg Q6H PRN PO PAIN LEVEL 1-3 OR FEVER Last administered on 06/02/17 15:07; Admin Dose 650 MG; Start 05/31/17 at 00:30 Docusate Sodium (Colace) 100 mg Q12H PRN PO CONSTIPATION; Start 05/31/17 at 00: 30 Bisacodyl (Dulcolax) 5 mg DAILY PRN PO CONSTIPATION; Start 05/31/17 at 00:30 Pantoprazole 40 mg 40 mg DAILY@06 IV Last administered on 06/04/17 05:35; Admin Dose 40 MG; Start 05/31/17 at 06:00 Vancomycin HCl 1.25 gm/Sodium Chloride 250 ml @ 83.333 mls/ hr Q12H IVPB Last administered on 06/04/17 07:41; Admin Dose 83.333 MLS/HR; Start 05/31/17 at 07: 00 Metronidazole (Flagyl 500 Mg (Pmx)) 100 ml @ 100 mls/hr Q6 IVPB Last administered on 06/04/17 11:56; Admin Dose 100 MLS/HR; Start 05/31/17 at 07:00 Lorazepam 1 mg 1 mg Q6H PRN IV AGITATION/ANXIETY; Start 05/31/17 at 07:30 Ferric Sodium Gluconate Complex/ Sodium Chloride (Ferrlecit/NS) 110 ml @ 110 mls/hr Q24H IVPB Last administered on 06/03/17 14:49; Admin Dose 110 MLS/HR; Start 06/01/17 at 15:00; Stop 06/05/17 at 15:59 Miscellaneous Information (*Rx Drug Level Order Reminder*) VANCOMYCIN TROUGH AT 1800 ONCE ONCE XX ; Start 06/04/17 at 18:00; Stop 06/04/17 at 18:01 Morphine Sulfate (morphine) 2 mg Q4H PRN IV PAIN LEVEL 7-10; Start 06/04/17 at 15:00 AILYN OZUNA M.D. Jun 04, 2017 15:15
[2017-06-04] MEDS: SOD FERRIC GLUC COMPLX 125 MG in SOD CHLORIDE 0.9% 100 ML IVPB SCH (15:54)
--- NOTE | 2017-06-04 17:11 | PN ---
Date/Time of Note Date/Time of Note DATE: 06/04/17 TIME: 17:04 Assessment/Plan VTE Prophylaxis VTE Prophylaxis Intervention: SCD's Lines/Catheters IV [facility] Urinary Cath still in place: No Assessment/Plan Chief Complaint/Hosp Course 1 s/p Sepsis: 2/2 UTI - urine cx positive for staph species - also bacteremic, but likely contaminant - cont abx - ID following, appreciate input, wants 10 days IV abx due to recurrent infection and general debility. 2. Mesenteric and Retroperitoneal LAD: increased since last imaged -too small to biopsy per radiology. heme/onc states can follow up outpatient. 3. Anemia: 2/2 chronic disease and iron def - iron replacement therapy - 2 units of PRBCs given during admission. 4. 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 - s/p IVIG last month - f/u hematology recs 5. Hx of Alcoholic: abstinence advised 6. Hx of Hep C: pt need outpt follow-up for treatment 7. Hypokalemia: resolved 8. Hyponatremia: monitor for now. mild. Problems: Subjective 24 Hr Interval Summary Free Text/Dictation patient lying sideways. complaining of generalized debility Exam/Review of Systems Vital Signs Vitals Vital Signs Date Time Temp Pulse Resp B/P Pulse Ox O2 Delivery O2 Flow Rate FiO2 06/04/17 16:09 61 06/04/17 16:01 99.0 18 118/72 98 05/31/17 22:00 Room Air Intake and Output 06/03/17 06/03/17 06/04/17 15:00 23:00 07:00 Intake Total 1300 ml 150 ml Output Total 600 ml Balance 700 ml 150 ml Exam Constitutional: alert, oriented, well developed Head: atraumatic, normocephalic Eyes: EOMI, PERRL Respiratory: clear to auscultation, normal air movement Cardiovascular: regular rate and rhythm Gastrointestinal: soft, bowel sounds heard. Results Result Diagram: 06/04/17 0553 06/04/17 0553 Results 24 hrs Laboratory Tests Test 06/04/17 05:53 White Blood Count 7.0 Red Blood Count 3.25 L Hemoglobin 9.1 L Hematocrit 26.8 L Mean Corpuscular Volume 82.5 Mean Corpuscular Hemoglobin 28.0 L Mean Corpuscular Hemoglobin Concent 34.0 Red Cell Distribution Width 16.1 H Platelet Count 74 L Mean Platelet Volume 10.4 Neutrophils % 84.6 H Lymphocytes % 8.8 L Monocytes % 5.3 Eosinophils % 0.6 Basophils % 0.1 Nucleated Red Blood Cells % 0.0 Neutrophils # 5.9 Lymphocytes # 0.6 L Monocytes # 0.4 Eosinophils # 0.0 Basophils # 0.0 Nucleated Red Blood Cells # 0.0 Sodium Level 131 L Potassium Level 3.5 Chloride Level 100 Carbon Dioxide Level 20 L Anion Gap 15 Blood Urea Nitrogen 5 L Creatinine 0.64 Glucose Level 82 Calcium Level 7.5 L Medications Medications Current Medications Cefotaxime Sodium/ Dextrose (Claforan 2gm/50 ml (Pmx)) 50 ml @ 100 mls/hr Q8 IVPB Last administered on 06/04/17 13:37; Admin Dose 100 MLS/HR; Start at 06:00 Ondansetron HCl (Zofran Inj) 4 mg Q6H PRN IV NAUSEA AND/OR VOMITING Last administered on 06/03/17 08:44; Admin Dose 4 MG; Start 05/31/17 at 00:30 Acetaminophen (Tylenol Tab) 650 mg Q6H PRN PO PAIN LEVEL 1-3 OR FEVER Last administered on 06/02/17 15:07; Admin Dose 650 MG; Start 05/31/17 at 00:30 Docusate Sodium (Colace) 100 mg Q12H PRN PO CONSTIPATION; Start 05/31/17 at 00: 30 Bisacodyl (Dulcolax) 5 mg DAILY PRN PO CONSTIPATION; Start 05/31/17 at 00:30 Pantoprazole 40 mg 40 mg DAILY@06 IV Last administered on 06/04/17 05:35; Admin Dose 40 MG; Start 05/31/17 at 06:00 Vancomycin HCl 1.25 gm/Sodium Chloride 250 ml @ 83.333 mls/ hr Q12H IVPB Last administered on 06/04/17 07:41; Admin Dose 83.333 MLS/HR; Start 05/31/17 at 07: 00 Metronidazole (Flagyl 500 Mg (Pmx)) 100 ml @ 100 mls/hr Q6 IVPB Last administered on 06/04/17 11:56; Admin Dose 100 MLS/HR; Start 05/31/17 at 07:00 Lorazepam 1 mg 1 mg Q6H PRN IV AGITATION/ANXIETY; Start 05/31/17 at 07:30 Ferric Sodium Gluconate Complex/ Sodium Chloride (Ferrlecit/NS) 110 ml @ 110 mls/hr Q24H IVPB Last administered on 06/04/17t 15:54; Admin Dose 110 MLS/HR; Start 06/01/17 at 15:00; Stop 06/05/17 at 15:59 Miscellaneous Information (*Rx Drug Level Order Reminder*) VANCOMYCIN TROUGH AT 1800 ONCE ONCE XX ; Start 06/04/17 at 18:00; Stop 06/04/17 at 18:01 Morphine Sulfate (morphine) 2 mg Q4H PRN IV PAIN LEVEL 7-10; Start 06/04/17 at 15:00 BAILEE HADDAD Jun 04, 2017 17:11
[2017-06-04] MEDS: morphine 4 MG/ML VIAL IV PRN ×2 (17:58→22:20)
[2017-06-04] MEDS: LOPERAMIDE 2 MG CAP PO PRN (23:07)
[2017-06-05] VITALS (12 sets, daily range): BP systolic 96–118; BP diastolic 59–73; PULSE 61–75; RESP 18–20
[2017-06-05] MEDS: metroNIDAZOLE 500 MG/NS (PMX) 100 ML IVPB SCH ×4 (00:24→18:33)
[2017-06-05] MEDS: ONDANSETRON 4 MG INJ IV PRN (03:41)
[2017-06-05] MEDS: morphine 4 MG/ML VIAL IV PRN ×3 (03:43→21:02)
[2017-06-05] MEDS: CEFOTAXIME 2 GM/50 ML (PMX) 50 ML IVPB SCH ×2 (05:23→13:08)
[2017-06-05] MEDS: PANTOPRAZOLE 40 MG INJ IV SCH (05:23)
[2017-06-05 06:56] LABS: ABNORMAL IP MESSAGE 1; BASOPHILS % 0.2 % (0.0-2.0); EOSINOPHILS % 0.5 % (0.0-7.0); HEMATOCRIT 26.5 % (42.0-52.0); HEMOGLOBIN 8.6 g/dl (14.0-18.0); LYMPHOCYTES # 0.5 10^3/ul (0.8-2.9); LYMPHOCYTES % 8.6 % (15.0-51.0); MEAN CORPUSCULAR HEMOGLOBIN 26.8 pg (29.0-33.0); MEAN CORPUSCULAR HGB CONC 32.5 g/dl (32.0-37.0); MEAN CORPUSCULAR VOLUME 82.6 fl (82.0-101.0); MEAN PLATELET VOLUME 10.4 fl (7.4-10.4); MONOCYTE # 0.2 10^3/ul (0.3-0.9); MONOCYTES % 3.8 % (0.0-11.0); NEUTROPHIL # 5.2 10^3/ul (1.6-7.5); NEUTROPHILS % 85.9 % (39.0-77.0); PLATELET COUNT 73 10^3/UL (140-415); POSITIVE DIFF @See below; RED BLOOD COUNT 3.21 10^6/ul (4.70-6.10); RED CELL DISTRIBUTION WIDTH 16.2 % (11.5-14.5)
[2017-06-05] MEDS: VANCOMYCIN 1.25 GM in SOD CHLORIDE 0.9% 250 ML IVPB SCH ×2 (07:18→19:07)
[2017-06-05 07:28] LABS: CALCIUM 7.3 mg/dl (8.4-10.2); CREATININE 0.65 mg/dl (0.61-1.24); MAGNESIUM 1.4 mg/dl (1.7-2.5); PHOSPHORUS 2.9 mg/dl (2.5-4.9); POTASSIUM 3.4 mmol/L (3.5-5.1)
[2017-06-05] MEDS ORDERED: POTASSIUM CHLORIDE 20 MEQ POWDER FOR ORAL SOLN PO ONE (09:30)
[2017-06-05] MEDS ORDERED: MAGNESIUM OXIDE 400 MG TAB PO ONE (09:30)
--- NOTE | 2017-06-05 14:58 | PN ---
Date/Time of Note Date/Time of Note DATE: 06/05/17 TIME: 14:56 Assessment/Plan VTE Prophylaxis VTE Prophylaxis Intervention: ambulation Lines/Catheters [facility] Urinary Cath still in place: No Assessment/Plan Chief Complaint/Hosp Course 1 s/p Sepsis: 2/2 UTI - urine cx positive for staph species - also bacteremic, but likely contaminant - cont abx - ID following, appreciate input, wants 10 days total IV abx due to recurrent infection and general debility. 2. Mesenteric and Retroperitoneal LAD: increased since last imaged -too small to biopsy per radiology. heme/onc states can follow up outpatient. 3. Anemia: 2/2 chronic disease and iron def - iron replacement therapy - 2 units of PRBCs given during admission. 4. 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 - s/p IVIG last month - f/u hematology recs 5. Hx of Alcoholic: abstinence advised 6. Hx of Hep C: pt need outpt follow-up for treatment 7. Hypokalemia: resolved 8. Hyponatremia: monitor for now. mild. DISPO: PT done today, HHPT vs SNF/rehab once abx are done. Problems: Subjective 24 Hr Interval Summary Free Text/Dictation patient appears to want to only lay in bed, however, can be encouraged to ambulate with walker. Exam/Review of Systems Vital Signs Vitals Vital Signs Date Time Temp Pulse Resp B/P Pulse Ox O2 Delivery O2 Flow Rate FiO2 06/05/17 12:34 69 06/05/17 11:25 98.5 18 104/66 98 Intake and Output 06/04/17 06/04/17 06/05/17 14:59 22:59 06:59 Intake Total 350 ml 700 ml 804 ml Output Total 550 ml Balance 350 ml 700 ml 254 ml Exam Constitutional: alert, oriented, only wants to lay in bed. Head: atraumatic, normocephalic Eyes: EOMI, PERRL Respiratory: clear to auscultation, normal air movement Cardiovascular: regular rate and rhythm Gastrointestinal: soft, bowel sounds heard. Results Result Diagram: 06/05/17 0635 06/05/17 0634 Results 24 hrs Laboratory Tests Test 06/04/17 18:29 06/05/17 06:34 06/05/17 06:35 Vancomycin Level Trough 13.5 Sodium Level 130 L Potassium Level 3.4 L Chloride Level 98 Carbon Dioxide Level 23 Anion Gap 12 Blood Urea Nitrogen 5 L Creatinine 0.65 Glucose Level 86 Calcium Level 7.3 L Phosphorus Level 2.9 Magnesium Level 1.4 L White Blood Count 6.0 Red Blood Count 3.21 L Hemoglobin 8.6 L Hematocrit 26.5 L Mean Corpuscular Volume 82.6 Mean Corpuscular Hemoglobin 26.8 L Mean Corpuscular Hemoglobin Concent 32.5 Red Cell Distribution Width 16.2 H Platelet Count 73 L Mean Platelet Volume 10.4 Neutrophils % 85.9 H Lymphocytes % 8.6 L Monocytes % 3.8 Eosinophils % 0.5 Basophils % 0.2 Nucleated Red Blood Cells % 0.0 Neutrophils # 5.2 Lymphocytes # 0.5 L Monocytes # 0.2 L Eosinophils # 0.0 Basophils # 0.0 Nucleated Red Blood Cells # 0.0 Medications Medications Current Medications Cefotaxime Sodium/ Dextrose (Claforan 2gm/50 ml (Pmx)) 50 ml @ 100 mls/hr Q8 IVPB Last administered on 06/05/17 13:08; Admin Dose 100 MLS/HR; Start at 06:00 Ondansetron HCl (Zofran Inj) 4 mg Q6H PRN IV NAUSEA AND/OR VOMITING Last administered on 06/05/17 03:41; Admin Dose 4 MG; Start 05/31/17 at 00:30 Acetaminophen (Tylenol Tab) 650 mg Q6H PRN PO PAIN LEVEL 1-3 OR FEVER Last administered on 06/02/17 15:07; Admin Dose 650 MG; Start 05/31/17 at 00:30 Docusate Sodium (Colace) 100 mg Q12H PRN PO CONSTIPATION; Start 05/31/17 at 00: 30 Bisacodyl (Dulcolax) 5 mg DAILY PRN PO CONSTIPATION; Start 05/31/17 at 00:30 Pantoprazole 40 mg 40 mg DAILY@06 IV Last administered on 06/05/17 05:23; Admin Dose 40 MG; Start 05/31/17 at 06:00 Vancomycin HCl 1.25 gm/Sodium Chloride 250 ml @ 83.333 mls/ hr Q12H IVPB Last administered on 06/05/17 07:18; Admin Dose 83.333 MLS/HR; Start 05/31/17 at 07: 00 Metronidazole (Flagyl 500 Mg (Pmx)) 100 ml @ 100 mls/hr Q6 IVPB Last administered on 06/05/17 11:44; Admin Dose 100 MLS/HR; Start 05/31/17 at 07:00 Lorazepam 1 mg 1 mg Q6H PRN IV AGITATION/ANXIETY; Start 05/31/17 at 07:30 Ferric Sodium Gluconate Complex/ Sodium Chloride (Ferrlecit/NS) 110 ml @ 110 mls/hr Q24H IVPB Last administered on 06/04/17 15:54; Admin Dose 110 MLS/HR; Start 06/01/17 at 15:00; Stop 06/05/17 at 15:59 Morphine Sulfate (morphine) 2 mg Q4H PRN IV PAIN LEVEL 7-10 Last administered on 06/05/17 12:00; Admin Dose 2 MG; Start 06/04/17 at 15:00 BAILEE HADDAD Jun 05, 2017 14:58
[2017-06-05] MEDS: SOD FERRIC GLUC COMPLX 125 MG in SOD CHLORIDE 0.9% 100 ML IVPB SCH (16:11)
--- NOTE | 2017-06-05 19:59 | CONS ---
Date/Time of Note Date/Time of Note DATE: 06/05/17 TIME: 19:51 Assessment/Plan Assessment/Plan Chief Complaint/Hosp Course ID PROGRESS NOTE TOTAL ABX DAY #6 => Vanco IV + Cefotaxime + Flagyl IV 24H INTERVAL SUMMARY * Clinically status quo - remains lethargic, no fevers, VSS, * MICRO: BCx (+)Staph 1/2 bottles; Urine (+)Enterococcus; C.Diff (-); stool ova/ para (-) HOSPITAL COURSE * 66-year-old male admit with sepsis, tachypnea of 20, diarrhea. pancytopenia, abnormal CT as below: * 05/30/[address] ABD/Pelvis showed: 1. Mesenteric and retroperitoneal lymphadenopathy, increased since the prior examination. This is suspicious for a neoplastic process such as lymphoma. There is infiltration of the adjacent mesenteric fat, probably lymphedema. 2. Splenomegaly. 3. Small bilateral fat containing inguinal hernias. 4. Mild atherosclerotic arterial calcifications. ID ASSESSMENT 1. Sepsis w/fevers 100.7, mild tachypnea 20 (DDX SARS), diarrhea, dehydration on admit due to recurrent UTI => RESOLVING * CXR 05/30/17 No evidence for active cardiopulmonary disease. * 05/30/17 BCX(+)1/2 bottles which may or may not be a contaminant : Organism 1 STAPHYLOCOCCUS SPECIES 2. Recurrent UTI 05/30/17: URINE CULTURE Final Organism 1 ENTEROCOCCUS SPECIES COLONY COUNT >100,000 CFU/ml ENT SPS M.I.C. RX --------- --- AMPICILLIN <=2 S CIPROFLOXACIN <=0.5 S LEVOFLOXACIN 1 S PENICILLIN-G 4 S VANCOMYCIN 1 S * s/p 04/2017 Enterococcal UTI w/dysuria and hematuria. 3. Urinary retention ?BPH vs other ? 4. 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 Mesenteric + retroperitoneal lymphadenopathy => DDx Lymphoma ? 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 Questionable hx of liver cirrhosis 2/2 (+)ETOH + (+)Hepatitis C -> not confirmed on CT, (+)Splenomegaly * Possible underlying lymphoproliferative disorder, though recent pathology studies were not conclusive. 7. Elevated ALT and Alk Phos 8. GERD 9. Hemorrhoids 10. Depression 11. Hx of Migraine headaches + Severe occipital headaches * 06/05/16 MRI Brain non-contrast: Small 4 mm subependymal nodule within the right lateral ventricle anteriorly, that may represent a benign hamartoma. Other possibilities include a meningioma. An MRI of the brain with contrast is recommended for further evaluation. 12. Carotid artery disease: Less than 50% stenosis bilaterally in the internal carotid arteries [address] 2016 Mild lower cervical spondylosis is evident without significant central canal stenosis or neural foraminal narrowing. 14. Hx of prior admissions x 2 for multiple recurrent skin abscesses-> folliculitis, infected axillary glands 15. Hx of MARCIO septicemia 2/2 UTI + Infected abscesses prior admission. 16. Bilateal fat inguinal hernias (-) MRSA Nares (-) C.Diff screen CURRENT ABX: Augmentin 875mg po BID x3 days-> start 06/06/17 AM TOTAL ABX DAY #6 => Vanco IV + Cefotaxime + Flagyl IV => dc 06/05/17 PM ID RECOMMENDATIONS 1. Patient's clinical status has improved -> He was up working with PT and DC planning in place 2. From notes, CT guided biopsy of LAD will not be done on inpatient status; will be scheduled future date. 3. When cleared for DC: * -> Patient may DC on Augmentin 875mg po BID x3 days = Start 06/06/17 am . . Problems: Consultation Date/Type/Reason Admit Date/Time May 30, 2017 at 23:56 Initial Consult Date 05/31/17 Type of Consultation: ID Referring Provider: ALISON GUO Exam/Review of Systems Vital Signs Vitals Vital Signs Date Time Temp Pulse Resp B/P Pulse Ox O2 Delivery O2 Flow Rate FiO2 06/05/17 16:50 67 06/05/17 15:24 98.0 18 96/61 99 Intake and Output 06/04/17 06/04/17 06/05/17 15:00 23:00 07:00 Intake Total 350 ml 750 ml 754 ml Output Total 550 ml Balance 350 ml 750 ml 204 ml Results Result Diagram: 06/05/17 0635 06/05/17 0634 Results 24 hrs Laboratory Tests Test 06/05/17 06:34 06/05/17 06:35 Sodium Level 130 L Potassium Level 3.4 L Chloride Level 98 Carbon Dioxide Level 23 Anion Gap 12 Blood Urea Nitrogen 5 L Creatinine 0.65 Glucose Level 86 Calcium Level 7.3 L Phosphorus Level 2.9 Magnesium Level 1.4 L White Blood Count 6.0 Red Blood Count 3.21 L Hemoglobin 8.6 L Hematocrit 26.5 L Mean Corpuscular Volume 82.6 Mean Corpuscular Hemoglobin 26.8 L Mean Corpuscular Hemoglobin Concent 32.5 Red Cell Distribution Width 16.2 H Platelet Count 73 L Mean Platelet Volume 10.4 Neutrophils % 85.9 H Lymphocytes % 8.6 L Monocytes % 3.8 Eosinophils % 0.5 Basophils % 0.2 Nucleated Red Blood Cells % 0.0 Neutrophils # 5.2 Lymphocytes # 0.5 L Monocytes # 0.2 L Eosinophils # 0.0 Basophils # 0.0 Nucleated Red Blood Cells # 0.0 Medications Medications Current Medications Cefotaxime Sodium/ Dextrose (Claforan 2gm/50 ml (Pmx)) 50 ml @ 100 mls/hr Q8 IVPB Last administered on 06/05/17 13:08; Admin Dose 100 MLS/HR; Start at 06:00 Ondansetron HCl (Zofran Inj) 4 mg Q6H PRN IV NAUSEA AND/OR VOMITING Last administered on 06/05/17 03:41; Admin Dose 4 MG; Start 05/31/17 at 00:30 Acetaminophen (Tylenol Tab) 650 mg Q6H PRN PO PAIN LEVEL 1-3 OR FEVER Last administered on 06/02/17 15:07; Admin Dose 650 MG; Start 05/31/17 at 00:30 Docusate Sodium (Colace) 100 mg Q12H PRN PO CONSTIPATION; Start 05/31/17 at 00: 30 Bisacodyl (Dulcolax) 5 mg DAILY PRN PO CONSTIPATION; Start 05/31/17 at 00:30 Pantoprazole 40 mg 40 mg DAILY@06 IV Last administered on 06/05/17 05:23; Admin Dose 40 MG; Start 05/31/17 at 06:00 Vancomycin HCl 1.25 gm/Sodium Chloride 250 ml @ 83.333 mls/ hr Q12H IVPB Last administered on 06/05/17 19:07; Admin Dose 83.333 MLS/HR; Start 05/31/17 at 07: 00 Metronidazole (Flagyl 500 Mg (Pmx)) 100 ml @ 100 mls/hr Q6 IVPB Last administered on 06/05/17 18:33; Admin Dose 100 MLS/HR; Start 05/31/17 at 07:00 Lorazepam (Ativan) 1 mg Q6H PRN IV AGITATION/ANXIETY; Start 05/31/17 at 07:30 Morphine Sulfate (morphine) 2 mg Q4H PRN IV PAIN LEVEL 7-10 Last administered on 06/05/17 12:00; Admin Dose 2 MG; Start 06/04/17 at 15:00 ANUP NGUYEN NP Jun 05, 2017 19:59
[2017-06-05] MEDS: LOPERAMIDE 2 MG CAP PO PRN ×2 (21:00→23:48)
[2017-06-06] VITALS (9 sets, daily range): BP systolic 99–141; BP diastolic 64–86; PULSE 61–75; RESP 18–20
[2017-06-06] MEDS: PANTOPRAZOLE 40 MG INJ IV SCH (06:25)
[2017-06-06 08:04] LABS: CALCIUM 7.4 mg/dl (8.4-10.2); CREATININE 0.58 mg/dl (0.61-1.24); MAGNESIUM 1.6 mg/dl (1.7-2.5); PHOSPHORUS 2.9 mg/dl (2.5-4.9); POTASSIUM 3.5 mmol/L (3.5-5.1)
[2017-06-06] MEDS ORDERED: AMOXICILLIN/CLAV 875 MG TAB PO SCH (09:00)
[2017-06-06] MEDS: LOPERAMIDE 2 MG CAP PO PRN (11:36)
--- NOTE | 2017-06-06 12:54 | PDOCDIS ---
Discharge Instructions CONDITION Patient Condition: Stable HOME CARE INSTRUCTIONS: Special Diet: Regular FOLLOW UP/APPOINTMENTS Follow-up Plan Patient is to follow up with Dr. Dahlia Shaver (heme/onc) with 2-[address] Peace (ID) within 2-4 weeks. Patient needs to follow up with his primary care provider regarding multiple issues including anemia and electrolyte issues. BAILEE HADDAD Jun 06, 2017 12:54
[2017-06-06] MEDS ORDERED: AMOX1TAB10 PO (12:55)
--- NOTE | 2017-06-06 12:59 | DS ---
Date/Time of Note Date/Time of Note DATE: 06/06/17 TIME: 12:59 Discharge Summary Admission/Discharge Info Admit Date/Time May 30, 2017 at 23:56 Discharge Date/Time Patient Condition: Stable Hx of Present Illness Chief complaint: Fever, generalized weakness, diarrhea This is a 66-year-old male who is coming in today for fever and generalized weakness and diarrhea. Patient is a very poor historian. Patient states that he had fevers at home as well as generalized weakness for the last few days. He also states that he has had diarrhea for the past 3 weeks with 5 episodes of loose stool daily. He denies any blood in his diarrhea. Patient denies any previous medical history. During his last admission there was suspicion for cirrhosis as well as possible lymphoma. Based on review of the patient's chart pathology report on May 02 did not show any evidence of a lymphoproliferative disorder or acute leukemia please see report for further information. Based on his imaging studies done today as well as prior there does not appear to be any evidence of liver cirrhosis though a biopsy has not been performed. Patient is hep C positive. Of note, he was also apparently diagnosed with ITP. During my examination patient was also noted to be having generalized shakes, however patient denied that he was cold and he states that he has been dealing with the shakes for a few years. Allergies: NKDA Medications: See MAR Hospital Course Sepsis, resolved Mesenteric and retroperitoneal lymphadenopathy, stable Anemia ITP History of alcoholism History of hepatitis C Hypokalemia, resolved Hyponatremia, mild, likely chronic UTI Splenomegaly Diarrhea, resolved Number cytopenia, chronic Patient is a 66-year-old male who originally came in for fever and generalized weakness associated with diarrhea. Patient was found to have recurrent UTI and infectious disease was consulted. Originally infectious disease wanted 10 days of IV antibiotics however decided that he could finish out his antibiotics with oral antibiotics. Patient also has a questionable history of hepatitis C, ITP, and abdominal lymphadenopathy and hematology was consulted who originally wanted to perform a retroperitoneal lymph node biopsy however the lymph nodes were too small at this time and patient was informed that the lymph nodes could be biopsied down the line in the outpatient setting. Patient also received platelet transfusion, however hematology once again stated to follow-up in the outpatient setting. Infectious disease originally placed patient on vancomycin, cefotaxime, and Flagyl however eventually transitioned to Augmentin for the remaining 3 days of a 10 day course. Patient will be discharged with 3 days of Augmentin. At the time of discharge patient' s vitals are within normal limits for the patient and it was clearly explained to the patient to follow-up with his primary care provider regarding his multiple medical issues which include electrolyte derangement, thrombus cytopenia, and anemia. Patient understands and will be sent home with home PT. Home Meds Active Scripts Amoxicillin/Potassium Clav (Amox-Clav 875-125 mg Tablet) 875-125 mg Tab, 875 MG PO BID for 3 Days, #6 TAB Prov:BAILEE HADDAD 06/06/17 Multivitamins* (Theragran*) 1 Tab Tab, 1 TAB PO DAILY for 30 Days, TAB 2 Refills Prov:DOMINIQUE DAVID 04/17/17 Reported Medications Cholecalciferol (Vitamin D3) 400 Unit Tab.chew, 400 UNIT PO DAILY, TAB.CHEW 04/06/17 Cyanocobalamin* (Vitamin B12*) 500 Mcg Tab, 1000 MCG PO DAILY, TAB 04/06/17 Ferrous Sulfate* (Ferrous Sulfate*) 325 Mg Tabec, 325 MG PO BID, TAB 04/06/17 Discontinued Reported Medications Fluconazole* (Fluconazole*) 100 Mg Tablet, 100 MG PO DAILY for 7 Days, #7 TAB 05/30/17 Diphenoxylate Hcl-Atropine* (Lomotil*) 5 Ml Soln, 5 ML GTB Q6H Y for DIARRHEA, ML 04/06/17 Mirtazapine* (Mirtazapine*) 15 Mg Tablet, 15 MG PO HS, TAB 04/06/17 Famotidine* (Famotidine*) 20 Mg Tablet, 20 MG PO BID, #60 TAB 04/06/17 Omeprazole* (Omeprazole*) 20 Mg Capsule.dr, 20 MG PO DAILY, #30 CAP 06/04/16 Discontinued Scripts Folic Acid* (Folic Acid*) 1 Mg Tablet, 1 MG PO DAILY for 30 Days, TAB 3 Refills Prov:DOMINIQUE DAVID 04/17/17 Primary Care Provider Mahesh Carpenter Time spent on discharge: > 30 minutes Pending Labs Laboratory Tests Test 06/06/17 07:10 White Blood Count 6.610^3/ul (4.8-10.8) Red Blood Count 3.1510^6/ul (4.70-6.10) Hemoglobin 8.8g/dl (14.0-18.0) Hematocrit 25.8% (42.0-52.0) Mean Corpuscular Volume 81.9fl (82.0-101.0) Mean Corpuscular Hemoglobin 27.9pg (29.0-33.0) Mean Corpuscular Hemoglobin Concent 34.1g/dl (32.0-37.0) Red Cell Distribution Width 16.3% (11.5-14.5) Platelet Count 6910^3/UL (140-415) Mean Platelet Volume 10.4fl (7.4-10.4) Neutrophils % 86.9% (39.0-77.0) Lymphocytes % 8.5% (15.0-51.0) Monocytes % 3.3% (0.0-11.0) Eosinophils % 0.5% (0.0-7.0) Basophils % 0.2% (0.0-2.0) Nucleated Red Blood Cells % 0.0/100WBC (0.0-0.0) Neutrophils # 5.710^3/ul (1.6-7.5) Lymphocytes # 0.610^3/ul (0.8-2.9) Monocytes # 0.210^3/ul (0.3-0.9) Eosinophils # 0.010^3/ul (0.0-0.5) Basophils # 0.010^3/ul (0.0-0.1) Nucleated Red Blood Cells # 0.010^3/ul (0.0-0.0) Sodium Level 129mmol/L (135-144) Potassium Level 3.5mmol/L (3.5-5.1) Chloride Level 95mmol/L (97-110) Carbon Dioxide Level 24mmol/L (21-31) Anion Gap 14 (8-16) Blood Urea Nitrogen 5mg/dl (7-20) Creatinine 0.58mg/dl (0.61-1.24) Glucose Level 85mg/dl (70-220) Calcium Level 7.4mg/dl (8.4-10.2) Phosphorus Level 2.9mg/dl (2.5-4.9) Magnesium Level 1.6mg/dl (1.7-2.5) BAILEE HADDAD Jun 06, 2017 12:59
== END 2017-06-06 15:09 | disposition home or self-care (01) | DRG 872 ==
LOC: E/R 15:48 → TEL 23:56
PROVIDERS: ADMIT Family Medicine; ATTEND Family Medicine
PROC: 30233H1 Transfusion of Nonautologous Whole Blood into Peripheral Vein, Percutaneous Approach (ICD-10-PCS; principal; 2017-05-31)
PROC: 6A550Z2 Pheresis of Platelets, Single (ICD-10-PCS; 2017-06-01)
DX: A41.9 Sepsis, unspecified organism (principal); D61.818 Other pancytopenia; D69.3 Immune thrombocytopenic purpura; E87.1 Hypo-osmolality and hyponatremia; R16.1 Splenomegaly, not elsewhere classified; N39.0 Urinary tract infection, site not specified; R19.7 Diarrhea, unspecified; E86.0 Dehydration; R59.0 Localized enlarged lymph nodes; R76.8 Other specified abnormal immunological findings in serum; K21.9 Gastro-esophageal reflux disease without esophagitis; D63.8 Anemia in other chronic diseases classified elsewhere; D50.9 Iron deficiency anemia, unspecified; E87.6 Hypokalemia; B19.20 Unspecified viral hepatitis C without hepatic coma; F10.20 Alcohol dependence, uncomplicated
CPT/HCPCS: 36415; 36430; 71010; 74176; 80048; 80053; 80202; 80306; 81003; 82140; 82270; 82668; 82728; 83540; 83605; 83690; 83735; 84100; 84484; 85025; 85610; 85730; 86078; 86644; 86674; 86850; 86900; 86901; 86920; 86945; 87040; 87045; 87075; 87081; 87086; 87177; 93005; 96374; 96375; 97110; 97116; 97163; 97530; C9113; J0696; J0698; J2270; J2405; J2916; J3370; J3475; J3480; J7030; J7040; J7050; J7070; P9016; P9035; P9047; P9612

== ENCOUNTER 2017-06-21 22:50 | Inpatient (IN) | payer MEDICARE, OTHER ==
[~2017-06-21] VITALS: Ht 170.2 cm; Wt 77.0 kg
[~2017-06-21 22:50] MED LIST changes: +AMOX1TAB10 PO; -FAMO20TA18 PO; -FOLI-49 PO; -MIRT15TA5 PO; -OMEP20CA16 PO; -UDLOM GTB
[2017-06-21 23:00] VITALS: BP 136/76; RESP 16
[2017-06-21 23:25] VITALS: PULSE 103
[2017-06-21 23:30] VITALS: BP 88/68; RESP 16
[2017-06-21 23:50] VITALS: Ht 170.2 cm; Wt 77.0 kg
[2017-06-22] VITALS (13 sets, daily range): BP systolic 77–106; BP diastolic 62–68; PULSE 76–118; RESP 16–18
[2017-06-22] MEDS ORDERED: SOD CHLORIDE 0.9% 1,000 ML IV ONE (01:00)
[2017-06-22] MEDS: CIPROFLOXACIN 400MG/D5W 200 ML IVPB SCH ×3 (03:10→20:40)
[2017-06-22] MEDS: metroNIDAZOLE 500 MG/NS (PMX) 100 ML IVPB SCH ×4 (03:10→22:11)
[2017-06-22] MEDS: SOD CHLORIDE 0.9% 1,000 ML IV SCH ×3 (04:01→23:30)
[2017-06-22 06:52] LABS: ABNORMAL IP MESSAGE 1; BASOPHILS % 0.1 % (0.0-2.0); HEMATOCRIT 27.4 % (42.0-52.0); LYMPHOCYTES # 0.5 10^3/ul (0.8-2.9); LYMPHOCYTES % 3.4 % (15.0-51.0); MEAN CORPUSCULAR HEMOGLOBIN 27.1 pg (29.0-33.0); MEAN CORPUSCULAR HGB CONC 32.8 g/dl (32.0-37.0); MEAN CORPUSCULAR VOLUME 82.5 fl (82.0-101.0); MEAN PLATELET VOLUME 9.9 fl (7.4-10.4); MONOCYTE # 0.3 10^3/ul (0.3-0.9); NEUTROPHILS % 93.3 % (39.0-77.0); PLATELET COUNT 122 10^3/UL (140-415); POSITIVE DIFF @See below; RED BLOOD COUNT 3.32 10^6/ul (4.70-6.10); RED CELL DISTRIBUTION WIDTH 17.1 % (11.5-14.5); WHITE BLOOD COUNT 13.7 10^3/ul (4.8-10.8)
[2017-06-22 07:11] LABS: IRON 28 ug/dl (35-150)
[2017-06-22 07:19] LABS: ALBUMIN 2.8 g/dl (3.3-4.9); ALBUMIN/GLOBULIN RATIO 0.58; BILIRUBIN,INDIRECT 0.1 mg/dl (0-1.1); BILIRUBIN,TOTAL 0.1 mg/dl (0.2-1.3); CALCIUM 7.9 mg/dl (8.4-10.2); CREATININE 0.74 mg/dl (0.61-1.24); MAGNESIUM 2.1 mg/dl (1.7-2.5); PHOSPHORUS 5.2 mg/dl (2.5-4.9); POTASSIUM 4.3 mmol/L (3.5-5.1); TOTAL PROTEIN 7.6 g/dl (6.1-8.1)
[2017-06-22 07:21] LABS: TOTAL IRON BINDING CAPACITY 188 ug/dl (241-421)
[2017-06-22] MEDS ORDERED: SOD CHLORIDE 0.9% 1,000 ML IV STA (08:35)
--- NOTE | 2017-06-22 08:54 | HP ---
Date/Time of Note Date/Time of Note DATE: 06/22/17 TIME: 08:40 Assessment/Plan VTE Prophylaxis VTE Prophylaxis Intervention: SCD's Assessment/Plan Assessment/Plan 1. Diarrhea, likely from Enterocolitis -He will be placed on Cipro and Flagyl -Will send stool studies including for C. difficile -ID consult 2. Sepsis, secondary to above -Antibiotic and IV fluid. Follow-up culture results 3. Thrombocytopenia, possible history of ITP -Monitor platelet and transfuse as needed 4. Anemia, likely secondary to chronic disease -FOBT during recent hospitalization was negative -Monitor H&H and transfuse as needed 5. History of hep C -This is chronic HPI/ROS Admit Date/Time Admit Date/Time Jun 21, 2017 at 22:50 Hx of Present Illness This is a 66-year-old male with a history of hep C, alcohol abuse, gastritis, anemia, thrombocytopenia (? ITP), probable cirrhosis who initially presented to [place] complaining of diarrhea and abdominal pain. Patient was transferred to [facility] for insurance reason. Patient, at times is confused so history is not entirely reliable even though he provided adequate enough information. He said he has been having watery diarrhea on a daily basis for at least 5 weeks. Abdominal pain is diffuse but minimal. Denied fever/chills, chest pain. CT abdomen/pelvis at [facility] showed enterocolitis. . PMH/Family/Social Social History Smoking Status: Current every day smoker Exam/Review of Systems Vital Signs Vitals Vital Signs Date Time Temp Pulse Resp B/P Pulse Ox O2 Delivery O2 Flow Rate FiO2 06/22/17 08:30 118 06/22/17 07:11 98.8 18 77/62 97 Intake and Output 06/21/17 06/21/17 06/22/17 15:00 23:00 07:00 Intake Total 200 ml Output Total 200 ml Balance 0 ml Exam Constitutional: other (Appears somewhat weak. Not fully oriented.) Head: atraumatic, normocephalic Eyes: EOMI, PERRL Respiratory: clear to auscultation, normal air movement Cardiovascular: other (Tachycardic with regular rhythm) Gastrointestinal: other (Some tenderness noted to deep palpation with no guarding, rebound tenderness or rigidity), soft Extremities: normal pulses Labs Result Diagram: 06/22/17 0610 06/22/17 0610 Medications Medications Current Medications Ciprofloxacin/ Dextrose 200 ml @ 200 mls/hr Q12 IVPB Last administered on 06/22 03:10; Admin Dose 200 MLS/HR; Start 06/22/17 at 01:00 Metronidazole (Flagyl 500 Mg (Pmx)) 100 ml @ 100 mls/hr Q8 IVPB Last administered on 06/22/17 06:12; Admin Dose 100 MLS/HR; Start 06/22/17 at 01:00 Morphine Sulfate (morphine) 3 mg Q4H PRN IV PAIN; Start 06/22/17 at 03:30 Ondansetron HCl (Zofran Inj) 4 mg Q6H PRN IV NAUSEA AND/OR VOMITING; Start at 03:30 Famotidine 20 mg 20 mg BID PO ; Start 06/22/17 at 09:00 Sodium Chloride (NS) 1,000 ml @ 100 mls/hr Q10H IV Last administered on 04:01; Admin Dose 100 MLS/HR; Start 06/22/17 at 03:30 Tamsulosin HCl (Flomax) 0.4 mg HS PO ; Start 06/22/17 at 21:00 BRIGITTE BYRD MD Jun 22, 2017 08:52
[2017-06-22] MEDS: FAMOTIDINE 20 MG TAB PO SCH ×2 (09:00→20:39)
[2017-06-22] MEDS: MIDODRINE 5 MG TAB PO SCH ×3 (09:01→16:51)
[2017-06-22] MEDS: LOPERAMIDE 2 MG CAP PO PRN (12:18)
--- NOTE | 2017-06-22 12:54 | CONS ---
Date/Time of Note Date/Time of Note DATE: 06/22/17 TIME: 12:53 Consultation Date/Type/Reason Admit Date/Time Jun 21, 2017 at 22:50 Date of Consultation: Jun 22, 2017 Type of Consultation: ID Reason for Consultation Antibiotic management Social History Smoking Status: Current every day smoker Exam/Review of Systems Vital Signs Vitals Vital Signs Date Time Temp Pulse Resp B/P Pulse Ox O2 Delivery O2 Flow Rate FiO2 06/22/17 12:13 86 06/22/17 11:16 98.0 18 99/63 1 Intake and Output 06/21/17 06/21/17 06/22/17 15:00 23:00 07:00 Intake Total 200 ml Output Total 200 ml Balance 0 ml Results Result Diagram: 06/22/17 0610 06/22/17 0610 Results 24 hrs Laboratory Tests Test 06/22/17 06:10 White Blood Count 13.7 #H Red Blood Count 3.32 L Hemoglobin 9.0 L Hematocrit 27.4 L Mean Corpuscular Volume 82.5 Mean Corpuscular Hemoglobin 27.1 L Mean Corpuscular Hemoglobin Concent 32.8 Red Cell Distribution Width 17.1 H Platelet Count 122 #L Mean Platelet Volume 9.9 Neutrophils % 93.3 H Lymphocytes % 3.4 L Monocytes % 2.0 Eosinophils % 0.0 Basophils % 0.1 Nucleated Red Blood Cells % 0.0 Neutrophils # (Manual) 13 H Lymphocytes # 0.5 L Monocytes # 0.3 Eosinophils # 0.0 Basophils # 0.0 Nucleated Red Blood Cells # 0.0 Sodium Level 130 L Potassium Level 4.3 Chloride Level 93 L Carbon Dioxide Level 22 Anion Gap 19 H Blood Urea Nitrogen 13 Creatinine 0.74 Glucose Level 80 Calcium Level 7.9 L Phosphorus Level 5.2 H Magnesium Level 2.1 Iron Level 28 L Total Iron Binding Capacity 188 L Percent Iron Saturation 15 L Total Bilirubin 0.1 L Direct Bilirubin 0.00 Indirect Bilirubin 0.1 Aspartate Amino Transf (AST/SGOT) 78 H Alanine Aminotransferase (ALT/SGPT) 53 Alkaline Phosphatase 284 H Total Protein 7.6 Albumin 2.8 L Globulin 4.80 H Albumin/Globulin Ratio 0.58 Medications Medications Current Medications Ciprofloxacin/ Dextrose 200 ml @ 200 mls/hr Q12 IVPB Last administered on 06/22t 09:01; Admin Dose 200 MLS/HR; Start 06/22/17 at 01:00 Metronidazole (Flagyl 500 Mg (Pmx)) 100 ml @ 100 mls/hr Q8 IVPB Last administered on 06/22/17 06:12; Admin Dose 100 MLS/HR; Start 06/22/17 at 01:00 Morphine Sulfate (morphine) 3 mg Q4H PRN IV PAIN; Start 06/22/17 at 03:30 Ondansetron HCl (Zofran Inj) 4 mg Q6H PRN IV NAUSEA AND/OR VOMITING; Start at 03:30 Famotidine 20 mg 20 mg BID PO Last administered on 06/22/17 09:00; Admin Dose 20 MG; Start 06/22/17 at 09:00 Sodium Chloride (NS) 1,000 ml @ 100 mls/hr Q10H IV Last administered on 12:19; Admin Dose 100 MLS/HR; Start 06/22/17 at 03:30 Tamsulosin HCl (Flomax) 0.4 mg HS PO ; Start 06/22/17 at 21:00 Loperamide HCl (Imodium Cap) 2 mg Q4H PRN PO DIARRHEA Last administered on 06/22 12:18; Admin Dose 2 MG; Start 06/22/17 at 09:00 Midodrine (Proamatine) 10 mg TID@,,17 PO Last administered on 06/22/17 12: 18; Admin Dose 10 MG; Start 06/22/17 at 09:00 BOB BATEMAN MD Jun 22, 2017 12:54
[2017-06-22] MEDS ORDERED: FER325 PO (13:43)
[2017-06-22] MEDS ORDERED: NYST1000 PO (15:08)
[2017-06-22] MEDS ORDERED: LACT20SO2 PO (15:08)
[2017-06-22] MEDS ORDERED: SUCR1TAB27 PO (15:08)
[2017-06-22] MEDS ORDERED: PANT40TA4 PO (15:08)
--- NOTE | 2017-06-22 18:49 | CONS ---
DATE OF ADMISSION: 06/21/2017 DATE OF CONSULTATION: 06/22/2017 REASON FOR CONSULTATION: Antibiotic management. HISTORY OF PRESENT ILLNESS: Jesús Johnson is a 66-year-old male with numerous problems who comes in with diarrhea and is being seen for antibiotic management. PAST PROBLEMS INCLUDE: 1. History of hepatitis c. 2. Alcohol abuse. 3. Gastritis. 4. Anemia. 5. Thrombocytopenia. 6. Probable cirrhosis of the liver. 7. He presented to [place] with complaints of diarrhea and abdominal pain. He is at times confused. He has been having watery diarrhea on daily basis for at least five weeks. Abdominal pain is diffuse but minimal. He denies fever or chills. CT scan of the abdomen and pelvis at [place] showed enterocolitis. On admission, his white count was 13.7, H and H of 9 and 27.4, platelet count 122,000. BUN and creatinine is 13 and 0.74. Random glucose was 80. PAST MEDICAL HISTORY: Operations as outlined. FAMILY HISTORY: Noncontributory. SOCIAL HISTORY: He is a current every day smoker. He does not drink or abuse drugs presently but was a heavy alcohol abuser. He does not use drugs as far as we know. ALLERGIES: NONE TO PENICILLIN, SULFA, OR FOODS. MEDICATION: Per chart. REVIEW OF SYSTEMS: As per HPI. PHYSICAL EXAMINATION: GENERAL: Patient is a well-developed, well-nourished male who is alert, responsive, in no acute distress. VITAL SIGNS: Stable. He is afebrile. SKIN: Without generalized rash. HEENT: Within normal limits. NECK: Supple. Lymph nodes nonpalpable. CHEST: Decreased breath sounds at the bases. HEART: Without murmur or gallop. ABDOMEN: Soft. Nontender, without organomegaly, splenomegaly or masses. EXTREMITIES: Without cyanosis, clubbing, or edema. RECTAL: Deferred. NEUROLOGICAL: No focal neurological abnormalities. DISCUSSION: The patient was initially started on Cipro and Flagyl for the possibility for enterocolitis. His white count today is 13.7. A C. difficile was ordered and is pending as is an HIV test. We will await the results of the HIV test. I will dictate my findings to the hospitalists. Dictated By: Trent Peace MD JD/nilson/thania /Document#: [id number]
[2017-06-22] MEDS: TAMSULOSIN (SR) 0.4 MG CAP PO SCH (20:39)
[2017-06-23] VITALS (12 sets, daily range): BP systolic 87–105; BP diastolic 54–69; PULSE 86–100; RESP 16–20
[2017-06-23] MEDS: LOPERAMIDE 2 MG CAP PO PRN ×2 (03:43→13:42)
[2017-06-23] MEDS: metroNIDAZOLE 500 MG/NS (PMX) 100 ML IVPB SCH ×3 (05:13→20:46)
[2017-06-23] MEDS: SOD CHLORIDE 0.9% 1,000 ML IV SCH ×2 (09:35→19:30)
[2017-06-23] MEDS: CIPROFLOXACIN 400MG/D5W 200 ML IVPB SCH ×2 (09:37→20:46)
[2017-06-23] MEDS: FAMOTIDINE 20 MG TAB PO SCH ×2 (09:41→20:46)
[2017-06-23] MEDS: MIDODRINE 5 MG TAB PO SCH ×3 (09:41→17:00)
--- NOTE | 2017-06-23 11:28 | PN ---
Date/Time of Note Date/Time of Note DATE: 06/23/17 TIME: 11:18 Assessment/Plan VTE Prophylaxis VTE Prophylaxis Intervention: SCD's Lines/Catheters IV [facility] Peripheral IV Assessment/Plan Chief Complaint/Hosp Course 1. Debility and diarrhea in a patient with newly diagnosed HIV -ID consult appreciated -Continue Cipro and Flagyl -C. difficile is negative, follow-up on stool culture -Patient has had debility for many months now is becoming weaker 2. Sepsis, secondary to above -Antibiotic and IV fluid. Follow-up culture results 3. HIV positive-newly diagnosed -Check CD4 levels -ID consult 4. History of mesenteric and retroperitoneal lymphadenopathy -During the last hospitalization lymph nodes were deemed too small for biopsy, patient can have outpatient follow-up 5. History of hep C -This is chronic 6. 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 Anemia, likely secondary to chronic disease -FOBT during recent hospitalization was negative -Monitor H&H and transfuse as needed Prophylaxis: SCDs Problems: Subjective 24 Hr Interval Summary Gastrointestinal: diarrhea Exam/Review of Systems Vital Signs Vitals Vital Signs Date Time Temp Pulse Resp B/P Pulse Ox O2 Delivery O2 Flow Rate FiO2 06/23/17 11:14 98.0 93 17 95/62 99 Intake and Output 06/22/17 06/22/17 06/23/17 15:00 23:00 07:00 Intake Total 3320 ml Output Total 400 ml Balance 2920 ml Exam Constitutional: alert Respiratory: clear to auscultation Cardiovascular: regular rate and rhythm Gastrointestinal: soft, No distended Musculoskeletal: nl extremities to inspection Results Result Diagram: 06/22/17 0610 06/22/17 0610 Medications Medications Current Medications Ciprofloxacin/ Dextrose 200 ml @ 200 mls/hr Q12 IVPB Last administered on 06/23 09:37; Admin Dose 200 MLS/HR; Start 06/22/17 at 01:00 Metronidazole (Flagyl 500 Mg (Pmx)) 100 ml @ 100 mls/hr Q8 IVPB Last administered on 06/23/17 05:13; Admin Dose 100 MLS/HR; Start 06/22/17 at 01:00 Morphine Sulfate (morphine) 3 mg Q4H PRN IV PAIN; Start 06/22/17 at 03:30 Ondansetron HCl (Zofran Inj) 4 mg Q6H PRN IV NAUSEA AND/OR VOMITING; Start at 03:30 Famotidine 20 mg 20 mg BID PO Last administered on 06/23/17 09:41; Admin Dose 20 MG; Start 06/22/17 at 09:00 Sodium Chloride (NS) 1,000 ml @ 100 mls/hr Q10H IV Last administered on 09:35; Admin Dose 100 MLS/HR; Start 06/22/17 at 03:30 Tamsulosin HCl (Flomax) 0.4 mg HS PO Last administered on 06/22/17 20:39; Admin Dose 0.4 MG; Start 06/22/17 at 21:00 Loperamide HCl (Imodium Cap) 2 mg Q4H PRN PO DIARRHEA Last administered on 06/23 03:43; Admin Dose 2 MG; Start 06/22/17 at 09:00 Midodrine (Proamatine) 10 mg TID@,,17 PO Last administered on 06/23/17 09: 41; Admin Dose 10 MG; Start 06/22/17 at 09:00 RAZ BERNAL Jun 23, 2017 11:28
[2017-06-23] MEDS: ONDANSETRON 4 MG INJ IV PRN (13:42)
[2017-06-23] MEDS: morphine 4 MG/ML VIAL IV PRN (18:10)
[2017-06-23] MEDS: TAMSULOSIN (SR) 0.4 MG CAP PO SCH (20:46)
--- NOTE | 2017-06-23 23:20 | PN ---
DATE: 06/23/2017 SUBJECTIVE: No acute changes overnight. The patient is awake, complained of projectile vomiting after eating breakfast. He is in no distress. Family at bedside. OBJECTIVE DATA: VITAL SIGNS: Temperature 98.4, pulse 88, respirations 16, blood pressure 99/69, and saturation 99 on room air. LABORATORY AND DIAGNOSTIC DATA: The patient had serologies sent for HIV, which came back reactive. MICROBIOLOGY: Stool for C diff negative. ANTIMICROBIALS: The patient is on Cipro and Flagyl. PHYSICAL EXAMINATION: GENERAL: This is a well-developed, fragile, elderly man who is alert, in no distress. HEENT: Head atraumatic, normocephalic. Sclerae anicteric. Buccal mucosa dry. NECK: Supple. CHEST: Rise symmetrical. Breath sounds clear. HEART: S1, S2. ABDOMEN: Soft, bowel sounds present. EXTREMITIES: Without cyanosis. ASSESSMENT: 1. Nausea, vomiting and diarrhea, rule out enteritis, rule out obstruction vs other. 2. History of mesenteric and retroperitoneal lymphadenopathy on previous CT of the abdomen on 05/30/2017. 3. Human immunodeficiency virus (HIV) positive, newly diagnosed. 4. History of enterococcal urinary tract infection (UTI). 5. History of hepatitis C virus. 6. Alcohol abuse. PLAN: 1. The patient is clinically stable. 2. We are going to order KUB first 3. We are going to order CD4 count if it has not been done. 4. Consider Hematology Oncology evaluation. Of note, the patient is being seen by Dr. Dahlia Shaver on previous admission, status post bone marrow biopsy on 04/11/2017 with a biopsy revealed essentially no evidence of metastatic malignancy. 5. Findings were discussed with the patient and with his permission, with the who was advised to be checked for HIV as well. 6. We will await for final workup. 7. Consider Gastroenterology evaluation as well if symptoms persist. 8. Will repeat CT scan if symptoms persist Dictated By: Alexander Zarate NP /nilson/faith /Document#: [id number] LI
[2017-06-24] VITALS (12 sets, daily range): BP systolic 88–102; BP diastolic 51–65; PULSE 76–88; RESP 20
[2017-06-24] MEDS: LOPERAMIDE 2 MG CAP PO PRN (01:05)
--- NOTE | 2017-06-24 02:36 | RADRPT ---
PROCEDURE: Abdomen x-ray CLINICAL INDICATION: Possible bowel obstruction. Mesenteric and retroperitoneal adenopathy. Spleno megaly. TECHNIQUE: 3 frontal views of the abdomen. COMPARISON: CT abdomen and pelvis dated 05/30/2017. FINDINGS: Air-filled loops of small bowel seen in the mid upper abdomen and in the right lower quadrant measur ing up to 31 mm. These findings are new over the interval. Findings suggest ileus versus early obst ruction. Recommend close radiographic follow up. No abnormal small bowel is identified in the left for central abdomen. Air is seen in the cecum and transverse colon as well as in the sigmoid colon and rectum. Lung bases are clear. No unusual calcifications are identified over the abdomen. IMPRESSION: 1. Air-filled loops of small bowel measure 31 mm and are mildly dilated, suggesting ileus versus ea rly obstruction. 2. Recommend close radiographic follow up. 3. CT examination may be of further use. RPTAT: [facility] Physician Toñito Date Time Electronically viewed and signed by Physician Toñito on 06/24/2017 02:36 RS/
[2017-06-24] MEDS: SOD CHLORIDE 0.9% 1,000 ML IV SCH ×2 (04:50→15:30)
[2017-06-24] MEDS: metroNIDAZOLE 500 MG/NS (PMX) 100 ML IVPB SCH ×3 (04:50→21:44)
[2017-06-24] MEDS: CIPROFLOXACIN 400MG/D5W 200 ML IVPB SCH ×2 (08:26→20:00)
[2017-06-24] MEDS: MIDODRINE 5 MG TAB PO SCH ×3 (08:26→17:29)
[2017-06-24] MEDS: FAMOTIDINE 20 MG TAB PO SCH ×2 (08:26→20:01)
--- NOTE | 2017-06-24 14:30 | CONS ---
Date/Time of Note Date/Time of Note DATE: 06/24/17 TIME: 14:27 Assessment/Plan Assessment/Plan Chief Complaint/Hosp Course SUBJECTIVE: No acute changes overnight. Alert, no n/v/d, tolerates PO, family at bedside, no fevers MICROBIOLOGY: Stool for C diff negative. ANTIMICROBIALS: The patient is on Cipro and Flagyl. PHYSICAL EXAMINATION: GENERAL: This is a well-developed, fragile, elderly man who is alert, in no distress. HEENT: Head atraumatic, normocephalic. Sclerae anicteric. Buccal mucosa dry. NECK: Supple. CHEST: Rise symmetrical. Breath sounds clear. HEART: S1, S2. ABDOMEN: Soft, bowel sounds present. EXTREMITIES: Without cyanosis. ASSESSMENT: 1. Nausea, vomiting and diarrhea, poss ileus==> improved 2. History of mesenteric and retroperitoneal lymphadenopathy on previous CT of the abdomen on 05/30/2017. 3. Human immunodeficiency virus (HIV) positive, newly diagnosed. 4. History of enterococcal urinary tract infection (UTI). 5. History of hepatitis C virus. 6. Alcohol abuse. PLAN: Improving, continue abx, await for CD4 count, repeat KUB in am ?GI jamesal DW pt/staff 1 Problems: Consultation Date/Type/Reason Admit Date/Time Jun 21, 2017 at 22:50 Initial Consult Date 06/22/17 Type of Consultation: ID Exam/Review of Systems Vital Signs Vitals Vital Signs Date Time Temp Pulse Resp B/P Pulse Ox O2 Delivery O2 Flow Rate FiO2 06/24/17 13:30 88 06/24/17 11:46 98.3 20 96/58 99 Intake and Output 06/23/17 06/23/17 06/24/17 15:00 23:00 07:00 Intake Total 820 ml 1120 ml Output Total 250 ml 400 ml Balance 570 ml 720 ml Results Result Diagram: 06/22/17 0610 06/22/17 0610 Medications Medications Current Medications Ciprofloxacin/ Dextrose 200 ml @ 200 mls/hr Q12 IVPB Last administered on 06/24 08:26; Admin Dose 200 MLS/HR; Start 06/22/17 at 01:00 Metronidazole (Flagyl 500 Mg (Pmx)) 100 ml @ 100 mls/hr Q8 IVPB Last administered on 06/24/17 12:24; Admin Dose 100 MLS/HR; Start 06/22/17 at 01:00 Morphine Sulfate (morphine) 3 mg Q4H PRN IV PAIN Last administered on 18:10; Admin Dose 3 MG; Start 06/22/17 at 03:30 Ondansetron HCl (Zofran Inj) 4 mg Q6H PRN IV NAUSEA AND/OR VOMITING Last administered on 06/23/17 13:42; Admin Dose 4 MG; Start 06/22/17 at 03:30 Famotidine 20 mg 20 mg BID PO Last administered on 06/24/17 08:26; Admin Dose 20 MG; Start 06/22/17 at 09:00 Sodium Chloride (NS) 1,000 ml @ 100 mls/hr Q10H IV Last administered on 09:35; Admin Dose 100 MLS/HR; Start 06/22/17 at 03:30 Tamsulosin HCl (Flomax) 0.4 mg HS PO Last administered on 06/23/17 20:46; Admin Dose 0.4 MG; Start 06/22/17 at 21:00 Loperamide HCl (Imodium Cap) 2 mg Q4H PRN PO DIARRHEA Last administered on 06/24 01:05; Admin Dose 2 MG; Start 06/22/17 at 09:00 Midodrine (Proamatine) 10 mg TID@,,17 PO Last administered on 06/24/17 12: 24; Admin Dose 10 MG; Start 06/22/17 at 09:00 ALEJANDRO MCNEIL NP Jun 24, 2017 14:30
--- NOTE | 2017-06-24 16:31 | CONS ---
Date/Time of Note Date/Time of Note DATE: 06/24/17 TIME: 16:14 Assessment/Plan Assessment/Plan Chief Complaint/Hosp Course 66 yo male with new diagnosis of HIV. Pt has Hep C as well as pancytopenia but no Hep C who presents with severe pancytopenia. Recent CT scan do not demonstrate cirrhosis but do demonstrate splenomegaly which is likely contributing to pancytopenia. Recent bone marrow bx does not demonstrate an intrinsic bone marrow problem and demonstrates adequate megakaryocytes. This supports peripheral destruction of platelets. #New diagnosis of HIV -I believe the HIV is the likely cause of his pancytopenia and lymphadenopathy -appreciate ID consult #Retroperitoneal LAD - CT guided bx not able to be done given the small size of the lymph nodes. I spoke with radiology at the last visit -given his untreated HIV, this may well be an underlying lymphoma. I do not think he has a high grade lymphoma given his LDH is within normal limits -my recommendation is to start treating the HIV, rescan in 2 -3 months. If Lymph adenopathy worsens we can biopsy at that time and re-evaluate for underlying malignancy #Pancytopenia -likely secondary to HIV -once patient starts HARRT his pancytopenia should improve # Thrombocytopenia- secondary to underlying HIV -platelets current at 122 -no need for transfusion at this point # Diarrhea -likely secondary to opportunistic infection -appreciate ID recs Approximately 40 min were spent at patient's bedside and in coordination of his care Problems: (1) Lymphadenopathy, retroperitoneal (2) HIV (human immunodeficiency virus infection) Status: Acute (3) Splenomegaly Status: Chronic (4) Cirrhosis of liver Status: Chronic Qualifiers: Qualified Code: K74.69 - Other cirrhosis of liver (5) Hepatitis C antibody positive in blood Status: Acute Consultation Date/Type/Reason Admit Date/Time Jun 21, 2017 at 22:50 Date of Consultation: Jun 24, 2017 Type of Consultation: Oncology Reason for Consultation retroperitoneal Lymphadenopathy concerning for lymphoma/ pancytopenia Referring Provider: RAZ BERNAL Hx of Present Illness 66-year-old male with a history of alcohol induced liver disease as well as Hep C who presents with generalized weakness,found with severe pancytopenia. Pt was recently admitted for similar sx when a Bone Marrow bx was done which did not reveal evidence of acute leukemia or bone marrow dysplasia. CT Scan also shows retroperitoneal lymphadenopathy that was too small to bx. Pt was recently seen in our office for follow up. An HIV panel was done and was positive. He now presents with diarrhea and abdominal pain. Constitutional: diaphoresis, poor po Eyes: no complaints ENT: no complaints Cardiovascular: lightheadedness Gastrointestinal: decreased appetite, diarrhea, nausea Genitourinary: no complaints Musculoskeletal: bone/joint pain Skin: no complaints Past Medical History cirrhosis pancytopenia GERD Hepatitis C new diagnosis of HIV Family History Significant Family History: no pertinent family hx Social History Alcohol Use: sober Smoking Status: Current every day smoker Exam/Review of Systems Vital Signs Vitals Vital Signs Date Time Temp Pulse Resp B/P Pulse Ox O2 Delivery O2 Flow Rate FiO2 06/24/17 16:00 99.0 80 20 88/51 99 Intake and Output 06/23/17 06/23/17 06/24/17 15:00 23:00 07:00 Intake Total 820 ml 1120 ml Output Total 250 ml 400 ml Balance 570 ml 720 ml Exam Constitutional: alert, distress, frail Psych: anxiety, depression Head: normocephalic Eyes: nl conjunctiva ENMT: nl external ears & nose Neck: non-tender, supple Respiratory: clear to auscultation Cardiovascular: regular rate and rhythm Gastrointestinal: distended Musculoskeletal: joint tenderness Results Result Diagram: 06/22/17 0610 06/22/17 0610 Medications Medications Current Medications Ciprofloxacin/ Dextrose 200 ml @ 200 mls/hr Q12 IVPB Last administered on 06/24 08:26; Admin Dose 200 MLS/HR; Start 06/22/17 at 01:00 Metronidazole (Flagyl 500 Mg (Pmx)) 100 ml @ 100 mls/hr Q8 IVPB Last administered on 06/24/17 12:24; Admin Dose 100 MLS/HR; Start 06/22/17 at 01:00 Morphine Sulfate (morphine) 3 mg Q4H PRN IV PAIN Last administered on 18:10; Admin Dose 3 MG; Start 06/22/17 at 03:30 Ondansetron HCl (Zofran Inj) 4 mg Q6H PRN IV NAUSEA AND/OR VOMITING Last administered on 06/23/17 13:42; Admin Dose 4 MG; Start 06/22/17 at 03:30 Famotidine 20 mg 20 mg BID PO Last administered on 06/24/17 08:26; Admin Dose 20 MG; Start 06/22/17 at 09:00 Sodium Chloride (NS) 1,000 ml @ 100 mls/hr Q10H IV Last administered on 09:35; Admin Dose 100 MLS/HR; Start 06/22/17 at 03:30 Tamsulosin HCl (Flomax) 0.4 mg HS PO Last administered on 06/23/17 20:46; Admin Dose 0.4 MG; Start 06/22/17 at 21:00 Loperamide HCl (Imodium Cap) 2 mg Q4H PRN PO DIARRHEA Last administered on 06/24 01:05; Admin Dose 2 MG; Start 06/22/17 at 09:00 Midodrine (Proamatine) 10 mg TID@,,17 PO Last administered on 06/24/17 12: 24; Admin Dose 10 MG; Start 06/22/17 at 09:00 AILYN OZUNA M.D. Jun 24, 2017 16:29
--- NOTE | 2017-06-24 19:09 | PN ---
Date/Time of Note Date/Time of Note DATE: 06/24/17 TIME: 19:07 Assessment/Plan VTE Prophylaxis VTE Prophylaxis Intervention: SCD's Lines/Catheters IV C[facility] Type [facility] Peripheral IV Assessment/Plan Chief Complaint/Hosp Course 1. Debility and diarrhea in a patient with newly diagnosed HIV -ID consult appreciated -Continue Cipro and Flagyl -C. difficile is negative, follow-up on stool culture -Patient has had debility for many months now is becoming weaker -Abdominal x-ray shows possible ileus versus early obstruction but patient is having bowel movements 2. Sepsis, secondary to above -Antibiotic and IV fluid. Follow-up culture results 3. HIV positive-newly diagnosed -Check CD4 levels -ID consult 4. History of mesenteric and retroperitoneal lymphadenopathy -During the last hospitalization lymph nodes were deemed too small for biopsy, patient can have outpatient follow-up 5. History of hep C -This is chronic 6. 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 Anemia, likely secondary to chronic disease -FOBT during recent hospitalization was negative -Monitor H&H and transfuse as needed Prophylaxis: SCDs Problems: Subjective 24 Hr Interval Summary Gastrointestinal: diarrhea Exam/Review of Systems Vital Signs Vitals Vital Signs Date Time Temp Pulse Resp B/P Pulse Ox O2 Delivery O2 Flow Rate FiO2 06/24/17 16:49 76 06/24/17 16:00 99.0 20 88/51 99 Intake and Output 06/23/17 06/23/17 06/24/17 15:00 23:00 07:00 Intake Total 820 ml 1120 ml Output Total 250 ml 400 ml Balance 570 ml 720 ml Exam Constitutional: alert Respiratory: clear to auscultation Cardiovascular: regular rate and rhythm Gastrointestinal: soft, No distended Musculoskeletal: nl extremities to inspection Results Result Diagram: 06/22/17 0610 06/22/17 0610 Medications Medications Current Medications Ciprofloxacin/ Dextrose 200 ml @ 200 mls/hr Q12 IVPB Last administered on 06/24 08:26; Admin Dose 200 MLS/HR; Start 06/22/17 at 01:00 Metronidazole (Flagyl 500 Mg (Pmx)) 100 ml @ 100 mls/hr Q8 IVPB Last administered on 06/24/17 12:24; Admin Dose 100 MLS/HR; Start 06/22/17 at 01:00 Morphine Sulfate (morphine) 3 mg Q4H PRN IV PAIN Last administered on 18:10; Admin Dose 3 MG; Start 06/22/17 at 03:30 Ondansetron HCl (Zofran Inj) 4 mg Q6H PRN IV NAUSEA AND/OR VOMITING Last administered on 06/23/17 13:42; Admin Dose 4 MG; Start 06/22/17 at 03:30 Famotidine 20 mg 20 mg BID PO Last administered on 06/24/17 08:26; Admin Dose 20 MG; Start 06/22/17 at 09:00 Sodium Chloride (NS) 1,000 ml @ 100 mls/hr Q10H IV Last administered on 09:35; Admin Dose 100 MLS/HR; Start 06/22/17 at 03:30 Tamsulosin HCl (Flomax) 0.4 mg HS PO Last administered on 06/23/17 20:46; Admin Dose 0.4 MG; Start 06/22/17 at 21:00 Loperamide HCl (Imodium Cap) 2 mg Q4H PRN PO DIARRHEA Last administered on 06/24 01:05; Admin Dose 2 MG; Start 06/22/17 at 09:00 Midodrine (Proamatine) 10 mg TID@,,17 PO Last administered on 06/24/17 17: 29; Admin Dose 10 MG; Start 06/22/17 at 09:00 RAZ BERNAL Jun 24, 2017 19:08
[2017-06-24] MEDS: TAMSULOSIN (SR) 0.4 MG CAP PO SCH (21:00)
[2017-06-25] VITALS (12 sets, daily range): BP systolic 84–116; BP diastolic 52–74; PULSE 72–98; RESP 20
[2017-06-25] MEDS: SOD CHLORIDE 0.9% 1,000 ML IV SCH ×3 (01:34→21:30)
[2017-06-25] MEDS: metroNIDAZOLE 500 MG/NS (PMX) 100 ML IVPB SCH ×3 (05:30→22:40)
[2017-06-25] MEDS: ONDANSETRON 4 MG INJ IV PRN (10:30)
[2017-06-25] MEDS: CIPROFLOXACIN 400MG/D5W 200 ML IVPB SCH ×2 (10:40→21:31)
[2017-06-25] MEDS: FAMOTIDINE 20 MG TAB PO SCH ×2 (11:23→21:31)
[2017-06-25] MEDS: MIDODRINE 5 MG TAB PO SCH ×3 (11:24→17:36)
[2017-06-25 12:53] LABS: LYMPHOCYTE - % CD4 (HELPER) 0 % (30-61); LYMPHOCYTE - %CD8 (SUPPRESSOR) 78 % (12-42); LYMPHOCYTE - ABSOLUTE CD4 <20 cells/uL (490-1740); LYMPHOCYTE - ABSOLUTE CD8 351 cells/uL (180-1170); LYMPHOCYTE - CD4/CD8 RATIO 0.01 (0.86-5.00)
[2017-06-25 15:24] LABS: ABNORMAL IP MESSAGE 1; BASOPHILS % 0.1 % (0.0-2.0); HEMATOCRIT 24.8 % (42.0-52.0); LYMPHOCYTES # 0.5 10^3/ul (0.8-2.9); LYMPHOCYTES % 4.2 % (15.0-51.0); MEAN CORPUSCULAR HEMOGLOBIN 26.3 pg (29.0-33.0); MEAN CORPUSCULAR HGB CONC 32.3 g/dl (32.0-37.0); MEAN CORPUSCULAR VOLUME 81.6 fl (82.0-101.0); MEAN PLATELET VOLUME 9.4 fl (7.4-10.4); MONOCYTE # 0.2 10^3/ul (0.3-0.9); MONOCYTES % 1.8 % (0.0-11.0); PLATELET COUNT 121 10^3/UL (140-415); POSITIVE DIFF @See below; RED BLOOD COUNT 3.04 10^6/ul (4.70-6.10); RED CELL DISTRIBUTION WIDTH 17.2 % (11.5-14.5); WHITE BLOOD COUNT 11.4 10^3/ul (4.8-10.8)
[2017-06-25 15:40] LABS: CREATININE 0.64 mg/dl (0.61-1.24); POTASSIUM 3.6 mmol/L (3.5-5.1)
--- NOTE | 2017-06-25 15:48 | CONS ---
Date/Time of Note Date/Time of Note DATE: 06/25/17 TIME: 15:48 Assessment/Plan Assessment/Plan Chief Complaint/Hosp Course Alert, feels much better, looks comfortable T-max 100.2 T-current 98 pulse 99 respirations 20 blood pressure 91/59 saturation 98 on room air WBC 11.4 H&H 8 and 24.8 platelets 121 neutrophils 93 BUN 9 creatinine 0.64 CD4 count less than 20 Antimicrobials: Cipro Flagyl Physical examination: This is a well-developed fragile elderly man who is awake in no distress. Head atraumatic normocephalic sclerae nonicteric vehicle mucosa dry neck is supple trachea midline chest rise symmetrical breath sounds clear diminished bases. Heart S1-S2 abdomen soft bowel sounds present extremities without cyanosis Assessment: 1. AIDS 2. Resolving nausea vomiting and diarrhea 3. Pancytopenia and thrombocytopenia likely secondary to #1, hematology follows 4. Hepatitis C virus 5. History of EtOH abuse Plan: We are going to start patient on prophylactic medications with oral Bactrim, Diflucan, acyclovir, weekly Zithromax, start him on anti-retroviral medication, continue Cipro and Flagyl for now, follow hematology recommendations , follow repeat KUB Problems: Consultation Date/Type/Reason Admit Date/Time Jun 21, 2017 at 22:50 Initial Consult Date 06/22/17 Type of Consultation: id Referring Provider: RAZ BERNAL Exam/Review of Systems Vital Signs Vitals Vital Signs Date Time Temp Pulse Resp B/P Pulse Ox O2 Delivery O2 Flow Rate FiO2 06/25/17 12:05 93 06/25/17 11:52 98.0 20 91/59 98 Intake and Output 06/24/17 06/24/17 06/25/17 15:00 23:00 07:00 Intake Total 1120 ml 220 ml Output Total 500 ml 450 ml Balance 620 ml -230 ml Results Result Diagram: 06/25/17 1508 06/25/17 1501 Results 24 hrs Laboratory Tests Test 06/25/17 15:01 06/25/17 15:08 Sodium Level 122 L Potassium Level 3.6 Chloride Level 94 L Carbon Dioxide Level 20 L Anion Gap 12 Blood Urea Nitrogen 9 Creatinine 0.64 Glucose Level 100 Calcium Level 7.0 L White Blood Count 11.4 H Red Blood Count 3.04 L Hemoglobin 8.0 L Hematocrit 24.8 L Mean Corpuscular Volume 81.6 L Mean Corpuscular Hemoglobin 26.3 L Mean Corpuscular Hemoglobin Concent 32.3 Red Cell Distribution Width 17.2 H Platelet Count 121 L Mean Platelet Volume 9.4 Neutrophils % 93.0 H Lymphocytes % 4.2 L Monocytes % 1.8 Eosinophils % 0.0 Basophils % 0.1 Nucleated Red Blood Cells % 0.0 Neutrophils # (Manual) 11 H Lymphocytes # 0.5 L Monocytes # 0.2 L Eosinophils # 0.0 Basophils # 0.0 Nucleated Red Blood Cells # 0.0 Medications Medications Current Medications Ciprofloxacin/ Dextrose 200 ml @ 200 mls/hr Q12 IVPB Last administered on 06/25 10:40; Admin Dose 200 MLS/HR; Start 06/22/17 at 01:00 Metronidazole (Flagyl 500 Mg (Pmx)) 100 ml @ 100 mls/hr Q8 IVPB Last administered on 06/25/17 15:27; Admin Dose 100 MLS/HR; Start 06/22/17 at 01:00 Morphine Sulfate (morphine) 3 mg Q4H PRN IV PAIN Last administered on 18:10; Admin Dose 3 MG; Start 06/22/17 at 03:30 Ondansetron HCl (Zofran Inj) 4 mg Q6H PRN IV NAUSEA AND/OR VOMITING Last administered on 06/25/17 10:30; Admin Dose 4 MG; Start 06/22/17 at 03:30 Famotidine 20 mg 20 mg BID PO Last administered on 06/25/17 11:23; Admin Dose 20 MG; Start 06/22/17 at 09:00 Sodium Chloride (NS) 1,000 ml @ 100 mls/hr Q10H IV Last administered on 15:27; Admin Dose 100 MLS/HR; Start 06/22/17 at 03:30 Tamsulosin HCl (Flomax) 0.4 mg HS PO Last administered on 06/23/17 20:46; Admin Dose 0.4 MG; Start 06/22/17 at 21:00 Loperamide HCl (Imodium Cap) 2 mg Q4H PRN PO DIARRHEA Last administered on 06/24 01:05; Admin Dose 2 MG; Start 06/22/17 at 09:00 Midodrine (Proamatine) 10 mg TID@09,,17 PO Last administered on 06/25/17t 15: 28; Admin Dose 10 MG; Start 06/22/17 at 09:00 ALEJANDRO MCNEIL NP Jun 25, 2017 15:48
--- NOTE | 2017-06-25 16:18 | RADRPT ---
PROCEDURE: XR Abdomen. CLINICAL INDICATION: Abdomen pain. TECHNIQUE: AP supine abdomen x-ray. COMPARISON: 06/23/2017. FINDINGS: There is gas throughout nondilated small bowel and colon consistent with ileus, improved. There is no evidence of obstruction. There are no abnormal calcifications overlying the urinary tracts. There are mild degenerative changes of the spine. IMPRESSION: 1. Improved ileus. 2. Mild degenerative changes of the spine. RPTAT: QQ .Janes Quevedo MD, MD Date Time Electronically viewed and signed by .Janes Quevedo MD, MD on 06/25/2017 16:18 .R/
[2017-06-25] MEDS: TRIMETHOPRIM/SULFAMETHOX (DS) TAB PO SCH (17:34)
[2017-06-25] MEDS: FLUCONAZOLE 200 MG TAB PO SCH (17:35)
[2017-06-25] MEDS: EMTRICITABINE/TENOFOVIR TAB PO SCH (18:04)
[2017-06-25] MEDS: AZITHROMYCIN 600 MG TAB PO SCH (18:04)
--- NOTE | 2017-06-25 18:35 | PN ---
Date/Time of Note Date/Time of Note DATE: 06/25/17 TIME: 18:34 Assessment/Plan VTE Prophylaxis VTE Prophylaxis Intervention: LMWH Lines/Catheters [facility] ([facility] Peripheral IV Urinary Cath still in place: No Reason Cath still needed: urinary retention Assessment/Plan Chief Complaint/Hosp Course 1. Debility and diarrhea in a patient with newly diagnosed HIV -ID consult appreciated -Continue Cipro and Flagyl -C. difficile is negative, follow-up on stool culture -Patient has had debility for many months now is becoming weaker -Abdominal x-ray shows possible ileus versus early obstruction but patient is having bowel movements 2. Sepsis, secondary to above -Antibiotic and IV fluid. Follow-up culture results 3. HIV positive-newly diagnosed -Check CD4 levels -ID consult 4. History of mesenteric and retroperitoneal lymphadenopathy -During the last hospitalization lymph nodes were deemed too small for biopsy, patient can have outpatient follow-up 5. History of hep C -This is chronic 6. 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 Anemia, likely secondary to chronic disease -FOBT during recent hospitalization was negative -Monitor H&H and transfuse as needed Prophylaxis: SCDs Problems: Subjective 24 Hr Interval Summary Free Text/Dictation No chagne to clinical stauts Seems diarrhea has resolved Staring ppx per iD Exam/Review of Systems Vital Signs Vitals Vital Signs Date Time Temp Pulse Resp B/P Pulse Ox O2 Delivery O2 Flow Rate FiO2 06/25/17 16:15 99.0 86 20 107/67 100 Intake and Output 06/24/17 06/24/17 06/25/17 14:59 22:59 06:59 Intake Total 1120 ml 220 ml Output Total 500 ml 450 ml Balance 620 ml -230 ml Results Result Diagram: 06/25/17 1508 06/25/17 1501 Results 24 hrs Laboratory Tests Test 06/25/17 15:01 06/25/17 15:08 Sodium Level 122 L Potassium Level 3.6 Chloride Level 94 L Carbon Dioxide Level 20 L Anion Gap 12 Blood Urea Nitrogen 9 Creatinine 0.64 Glucose Level 100 Calcium Level 7.0 L White Blood Count 11.4 H Red Blood Count 3.04 L Hemoglobin 8.0 L Hematocrit 24.8 L Mean Corpuscular Volume 81.6 L Mean Corpuscular Hemoglobin 26.3 L Mean Corpuscular Hemoglobin Concent 32.3 Red Cell Distribution Width 17.2 H Platelet Count 121 L Mean Platelet Volume 9.4 Neutrophils % 93.0 H Lymphocytes % 4.2 L Monocytes % 1.8 Eosinophils % 0.0 Basophils % 0.1 Nucleated Red Blood Cells % 0.0 Neutrophils # (Manual) 11 H Lymphocytes # 0.5 L Monocytes # 0.2 L Eosinophils # 0.0 Basophils # 0.0 Nucleated Red Blood Cells # 0.0 Medications Medications Current Medications Ciprofloxacin/ Dextrose 200 ml @ 200 mls/hr Q12 IVPB Last administered on 06/25 10:40; Admin Dose 200 MLS/HR; Start 06/22/17 at 01:00 Metronidazole (Flagyl 500 Mg (Pmx)) 100 ml @ 100 mls/hr Q8 IVPB Last administered on 06/25/17 15:27; Admin Dose 100 MLS/HR; Start 06/22/17 at 01:00 Morphine Sulfate (morphine) 3 mg Q4H PRN IV PAIN Last administered on 18:10; Admin Dose 3 MG; Start 06/22/17 at 03:30 Ondansetron HCl (Zofran Inj) 4 mg Q6H PRN IV NAUSEA AND/OR VOMITING Last administered on 06/25/17 10:30; Admin Dose 4 MG; Start 06/22/17 at 03:30 Famotidine 20 mg 20 mg BID PO Last administered on 06/25/17 11:23; Admin Dose 20 MG; Start 06/22/17 at 09:00 Sodium Chloride (NS) 1,000 ml @ 100 mls/hr Q10H IV Last administered on 15:27; Admin Dose 100 MLS/HR; Start 06/22/17 at 03:30 Tamsulosin HCl (Flomax) 0.4 mg HS PO Last administered on 06/23/17 20:46; Admin Dose 0.4 MG; Start 06/22/17 at 21:00 Loperamide HCl (Imodium Cap) 2 mg Q4H PRN PO DIARRHEA Last administered on 06/24 01:05; Admin Dose 2 MG; Start 06/22/17 at 09:00 Midodrine (Proamatine) 10 mg TID@,,17 PO Last administered on 06/25/17 17: 36; Admin Dose 10 MG; Start 06/22/17 at 09:00 Trimethoprim/ Sulfamethoxazole (Bactrim (Ds)) 1 tab DAILY PO Last administered on 06/25/17 17:34; Admin Dose 1 TAB; Start 06/25/17 at 16:00 Fluconazole (Diflucan) 200 mg DAILY PO Last administered on 06/25/17 17:35; Admin Dose 200 MG; Start 06/25/17 at 16:00 Acyclovir (Zovirax) 400 mg BID PO ; Start 06/25/17 at 21:00 Azithromycin (Zithromax) 1,200 mg Q7D PO Last administered on 06/25/17 18:04; Admin Dose 1,200 MG; Start 06/25/17 at 17:00 Emtricitabine/ Tenofovir (Truvada) 1 tab DAILY PO Last administered on 18:04; Admin Dose 1 TAB; Start 06/25/17 at 17:00 Efavirenz (Sustiva) 600 mg HS PO ; Start 06/25/17 at 21:00 ANDREINA MOBLEY MD Jun 25, 2017 18:35
[2017-06-25] MEDS: EFAVIRENZ 600 MG TAB PO SCH (21:31)
[2017-06-25] MEDS: TAMSULOSIN (SR) 0.4 MG CAP PO SCH (21:31)
[2017-06-25] MEDS: ACYCLOVIR 400 MG TAB PO SCH (21:31)
[2017-06-25] MEDS: LOPERAMIDE 2 MG CAP PO PRN (22:41)
[2017-06-26] VITALS (11 sets, daily range): BP systolic 95–108; BP diastolic 51–71; PULSE 88–116; RESP 16–20
[2017-06-26] MEDS: LOPERAMIDE 2 MG CAP PO PRN ×2 (03:58→21:27)
[2017-06-26] MEDS: metroNIDAZOLE 500 MG/NS (PMX) 100 ML IVPB SCH ×3 (05:55→22:29)
[2017-06-26] MEDS: SOD CHLORIDE 0.9% 1,000 ML IV SCH (05:56)
[2017-06-26 06:20] LABS: ABNORMAL IP MESSAGE 1; BASOPHILS % 0.1 % (0.0-2.0); HEMATOCRIT 25.9 % (42.0-52.0); HEMOGLOBIN 8.7 g/dl (14.0-18.0); LYMPHOCYTES # 0.5 10^3/ul (0.8-2.9); LYMPHOCYTES % 3.8 % (15.0-51.0); MEAN CORPUSCULAR HEMOGLOBIN 27.4 pg (29.0-33.0); MEAN CORPUSCULAR HGB CONC 33.6 g/dl (32.0-37.0); MEAN CORPUSCULAR VOLUME 81.7 fl (82.0-101.0); MEAN PLATELET VOLUME 9.8 fl (7.4-10.4); MONOCYTE # 0.2 10^3/ul (0.3-0.9); MONOCYTES % 1.5 % (0.0-11.0); NEUTROPHILS % 93.6 % (39.0-77.0); PLATELET COUNT 122 10^3/UL (140-415); POSITIVE DIFF @See below; RED BLOOD COUNT 3.17 10^6/ul (4.70-6.10); RED CELL DISTRIBUTION WIDTH 17.1 % (11.5-14.5); WHITE BLOOD COUNT 12.4 10^3/ul (4.8-10.8)
[2017-06-26 06:55] LABS: ALBUMIN/GLOBULIN RATIO 0.52; CALCIUM 7.1 mg/dl (8.4-10.2); CREATININE 0.65 mg/dl (0.61-1.24); POTASSIUM 3.4 mmol/L (3.5-5.1); TOTAL PROTEIN 5.8 g/dl (6.1-8.1)
[2017-06-26 07:25] LABS: THYROID STIMULATING HORMONE 3.21 MIU/L (0.465-4.680)
[2017-06-26] MEDS: FAMOTIDINE 20 MG TAB PO SCH ×2 (09:24→21:14)
[2017-06-26] MEDS: EMTRICITABINE/TENOFOVIR TAB PO SCH (09:24)
[2017-06-26] MEDS: FLUCONAZOLE 200 MG TAB PO SCH (09:24)
[2017-06-26] MEDS: ACYCLOVIR 400 MG TAB PO SCH ×2 (09:24→21:15)
[2017-06-26] MEDS: TRIMETHOPRIM/SULFAMETHOX (DS) TAB PO SCH (09:24)
[2017-06-26] MEDS: CIPROFLOXACIN 400MG/D5W 200 ML IVPB SCH ×2 (09:25→21:14)
[2017-06-26] MEDS: MIDODRINE 5 MG TAB PO SCH ×3 (09:25→21:13)
[2017-06-26] MEDS: morphine 4 MG/ML VIAL IV PRN ×2 (13:31→18:10)
[2017-06-26] MEDS: ONDANSETRON 4 MG INJ IV PRN (18:17)
--- NOTE | 2017-06-26 19:40 | PN ---
Date/Time of Note Date/Time of Note DATE: 06/26/17 TIME: 19:31 Assessment/Plan VTE Prophylaxis VTE Prophylaxis Intervention: LMWH Lines/Catheters IV Catheter Type (from Nrs): Peripheral IV Urinary Cath still in place: No Assessment/Plan Chief Complaint/Hosp Course 66 yo male with HCV, HIV/AIDS diagonsed this admission, chronic lymphadenopathy of his abdomen of unclear significance who was admitted for nausea/vomiting, poor PO intake, failure to thrive, malnutrition Debility and diarrhea in a patient with newly diagnosed HIV/AIDS -ID consult appreciated -Continue Cipro and Flagyl for colitis as seen on oustide CT, though seem to not work -C. difficile is negative, stool culture negative Hyponatremia, hypokalemia: - Likely from tea and toast diet - Consider adrenal insufficiency, cortisol level in AM Severe protein-calorie malnutrition - Enourage PO intake HIV/AIDS - Started on ARVs and ppx Oropharyngeal candidiasis: - Fluconazole - Nystatin s/s History of mesenteric and retroperitoneal lymphadenopathy -During the last hospitalization lymph nodes were deemed too small for biopsy - Repeat CT Chronic hepatitis C 6. 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 Anemia, likely secondary to chronic disease -FOBT during recent hospitalization was negative -Monitor H&H and transfuse as needed Prophylaxis: SCDs Problems: Subjective 24 Hr Interval Summary Free Text/Dictation Still having intermittent diarrhea, watery and nausea Poor appetite Discussed at length his diagnosis of HIV/AIDS. Seems this was first he heard of it. Asked me to tell his Lily who was waiting outside, which i did. Encouraged to have herself tested Rest of family he prefers to be unaware at this time Exam/Review of Systems Vital Signs Vitals Vital Signs Date Time Temp Pulse Resp B/P Pulse Ox O2 Delivery O2 Flow Rate FiO2 06/26/17 16:13 88 06/26/17 15:14 97.7 16 102/51 96 Intake and Output 06/25/17 06/25/17 06/26/17 15:00 23:00 07:00 Intake Total 200 ml 500 ml Output Total 1200 ml Balance -1000 ml 500 ml Exam Cachectic, chronically ill appearance Dischevelled Temporal wasting Tongue with yellowish plaques RRR Clear lungs Abdomen soft, mildly tender in epigastrium, no rebound or guarding No edema Results Result Diagram: 06/26/17 0559 06/26/17 0559 Results 24 hrs Laboratory Tests Test 06/26/17 04:00 06/26/17 05:59 Urine Osmolality 450 Urine Random Sodium 84 White Blood Count 12.4 H Red Blood Count 3.17 L Hemoglobin 8.7 L Hematocrit 25.9 L Mean Corpuscular Volume 81.7 L Mean Corpuscular Hemoglobin 27.4 L Mean Corpuscular Hemoglobin Concent 33.6 Red Cell Distribution Width 17.1 H Platelet Count 122 L Mean Platelet Volume 9.8 Neutrophils % 93.6 H Lymphocytes % 3.8 L Monocytes % 1.5 Eosinophils % 0.0 Basophils % 0.1 Nucleated Red Blood Cells % 0.0 Neutrophils # (Manual) 12 H Lymphocytes # 0.5 L Monocytes # 0.2 L Eosinophils # 0.0 Basophils # 0.0 Nucleated Red Blood Cells # 0.0 Sodium Level 125 L Potassium Level 3.4 L Chloride Level 94 L Carbon Dioxide Level 21 Anion Gap 13 Blood Urea Nitrogen 10 Creatinine 0.65 Glucose Level 88 Calcium Level 7.1 L Total Bilirubin 0.0 L Direct Bilirubin 0.00 Indirect Bilirubin 0.0 Aspartate Amino Transf (AST/SGOT) 57 H Alanine Aminotransferase (ALT/SGPT) 40 Alkaline Phosphatase 199 H Total Protein 5.8 L Albumin 2.0 L Globulin 3.80 H Albumin/Globulin Ratio 0.52 Thyroid Stimulating Hormone (TSH) 3.210 Medications Medications Current Medications Ciprofloxacin/ Dextrose 200 ml @ 200 mls/hr Q12 IVPB Last administered on 06/26 09:25; Admin Dose 200 MLS/HR; Start 06/22/17 at 01:00 Metronidazole (Flagyl 500 Mg (Pmx)) 100 ml @ 100 mls/hr Q8 IVPB Last administered on 06/26/17 13:47; Admin Dose 100 MLS/HR; Start 06/22/17 at 01:00 Morphine Sulfate (morphine) 3 mg Q4H PRN IV PAIN Last administered on 18:10; Admin Dose 3 MG; Start 06/22/17 at 03:30 Ondansetron HCl (Zofran Inj) 4 mg Q6H PRN IV NAUSEA AND/OR VOMITING Last administered on 06/26/17 18:17; Admin Dose 4 MG; Start 06/22/17 at 03:30 Famotidine (Pepcid) 20 mg BID PO Last administered on 06/26/17 09:24; Admin Dose 20 MG; Start 06/22/17 at 09:00 Tamsulosin HCl (Flomax) 0.4 mg HS PO Last administered on 06/25/17 21:31; Admin Dose 0.4 MG; Start 06/22/17 at 21:00 Loperamide HCl (Imodium Cap) 2 mg Q4H PRN PO DIARRHEA Last administered on 06/26 03:58; Admin Dose 2 MG; Start 06/22/17 at 09:00 Midodrine (Proamatine) 10 mg TID@,,17 PO Last administered on 06/26/17 13: 47; Admin Dose 10 MG; Start 06/22/17 at 09:00 Trimethoprim/ Sulfamethoxazole (Bactrim (Ds)) 1 tab DAILY PO Last administered on 06/26/17 09:24; Admin Dose 1 TAB; Start 06/25/17 at 16:00 Fluconazole (Diflucan) 200 mg DAILY PO Last administered on 06/26/17 09:24; Admin Dose 200 MG; Start 06/25/17 at 16:00 Acyclovir (Zovirax) 400 mg BID PO Last administered on 06/26/17 09:24; Admin Dose 400 MG; Start 06/25/17 at 21:00 Azithromycin (Zithromax) 1,200 mg Q7D PO Last administered on 06/25/17 18:04; Admin Dose 1,200 MG; Start 06/25/17 at 17:00 Emtricitabine/ Tenofovir (Truvada) 1 tab DAILY PO Last administered on 09:24; Admin Dose 1 TAB; Start 06/25/17 at 17:00 Efavirenz (Sustiva) 600 mg HS PO Last administered on 06/25/17 21:31; Admin Dose 600 MG; Start 06/25/17 at 21:00 ANDREINA MOBLEY MD Jun 26, 2017 19:40
[2017-06-26] MEDS: BARIUM SULF 2% 450 ML BTL (BERRY SMOOTHIE) PO ONE ×2 (20:00→20:13)
[2017-06-26] MEDS: TAMSULOSIN (SR) 0.4 MG CAP PO SCH (21:15)
[2017-06-26] MEDS: EFAVIRENZ 600 MG TAB PO SCH (21:15)
[2017-06-26] MEDS: NYSTATIN SUSP 5 ML CUP PO SCH (21:15)
[2017-06-27] VITALS (7 sets, daily range): BP systolic 89–106; BP diastolic 55–71; PULSE 92; RESP 18–20
--- NOTE | 2017-06-27 02:50 | PN ---
DATE: 06/26/2017 SUBJECTIVE DATA: No acute changes. The patient is awake, very weak, looks comfortable, complaining of poor appetite. No fever. OBJECTIVE DATA: VITAL SIGNS: Temperature 98.2, pulse 102, respirations 16, blood pressure 99/69, saturation 99 percent. LABORATORY STUDIES: WBC 12.4, H and H 8.7 and 25.9, platelets 122, neutrophils 93.6. BUN 10, creatinine 0.65. ANTIMICROBIALS: The patient is on acyclovir, Sustiva, Truvada, Zithromax weekly, oral Bactrim daily, fluconazole daily. He is also getting ciprofloxacin and Flagyl. PHYSICAL EXAM: GENERAL: This is a fragile, chronically ill-appearing, wasted, elderly man, who is awake, in no distress. HEENT: Head atraumatic, normocephalic. Sclerae anicteric. Buccal mucosa dry. NECK: Supple. LUNGS: Chest rise symmetrical. Breath sounds clear. Diminished at bases. HEART: S1, S2. ABDOMEN: Soft, bowel sounds present. EXTREMITIES: Without cyanosis. ASSESSMENT: 1. Newly diagnosed human immunodeficiency virus with evidence of acquired immune deficiency syndrome and CD4 count less than 20, started on human immunodeficiency virus medications and prophylactic medications. 2. Resolving ileus. 3. Severe immunocompromised state. 4. Hepatitis C virus. 5. Anemia and thrombocytopenia. 6. History of alcohol abuse. PLAN: The patient remains unchanged. He is on appropriate antimicrobials. Consider to start physical therapy. The patient to follow up with [facility] after discharge for further management. Dictated By: Alexander Zarate NP /nilson/samina /Document#: [id number]
[2017-06-27 05:25] LABS: WHITE BLOOD COUNT 13.9 10^3/ul (4.8-10.8)
[2017-06-27 05:26] LABS: ABNORMAL IP MESSAGE 1; BASOPHILS % 0.1 % (0.0-2.0); HEMATOCRIT 24.4 % (42.0-52.0); HEMOGLOBIN 8.2 g/dl (14.0-18.0); LYMPHOCYTES # 0.4 10^3/ul (0.8-2.9); MEAN CORPUSCULAR HGB CONC 33.6 g/dl (32.0-37.0); MEAN CORPUSCULAR VOLUME 80.3 fl (82.0-101.0); MEAN PLATELET VOLUME 9.6 fl (7.4-10.4); MONOCYTE # 0.3 10^3/ul (0.3-0.9); MONOCYTES % 1.8 % (0.0-11.0); NEUTROPHILS % 94.1 % (39.0-77.0); PLATELET COUNT 110 10^3/UL (140-415); POSITIVE DIFF @See below; RED BLOOD COUNT 3.04 10^6/ul (4.70-6.10); RED CELL DISTRIBUTION WIDTH 17.2 % (11.5-14.5)
[2017-06-27] MEDS: metroNIDAZOLE 500 MG/NS (PMX) 100 ML IVPB SCH ×2 (05:49→13:27)
[2017-06-27 06:54] LABS: ALBUMIN/GLOBULIN RATIO 0.51; CALCIUM 7.1 mg/dl (8.4-10.2); CREATININE 0.63 mg/dl (0.61-1.24); POTASSIUM 3.4 mmol/L (3.5-5.1); TOTAL PROTEIN 5.9 g/dl (6.1-8.1)
[2017-06-27] MEDS: morphine 4 MG/ML VIAL IV PRN (06:58)
[2017-06-27] MEDS: CIPROFLOXACIN 400MG/D5W 200 ML IVPB SCH (08:25)
[2017-06-27] MEDS: NYSTATIN SUSP 5 ML CUP PO SCH ×4 (08:25→21:03)
[2017-06-27] MEDS: ACYCLOVIR 400 MG TAB PO SCH ×2 (08:25→21:03)
[2017-06-27] MEDS: FLUCONAZOLE 200 MG TAB PO SCH (08:25)
[2017-06-27] MEDS: FAMOTIDINE 20 MG TAB PO SCH ×2 (08:26→21:03)
[2017-06-27] MEDS: TRIMETHOPRIM/SULFAMETHOX (DS) TAB PO SCH (08:26)
[2017-06-27] MEDS: MIDODRINE 5 MG TAB PO SCH ×3 (08:26→13:26)
[2017-06-27] MEDS: MULTIVITAMINS THERAPEUTIC TAB PO SCH (08:26)
[2017-06-27] MEDS: EMTRICITABINE/TENOFOVIR TAB PO SCH (08:26)
[2017-06-27] MEDS ORDERED: SOD CHLORIDE 0.9% 100 ML ONE (09:33)
[2017-06-27] MEDS ORDERED: IOHEXOL 300MG/ML 150 ML BTL ONE (09:33)
[2017-06-27 11:05] LABS: LYMPHOCYTE - % CD4 (HELPER) 0 % (30-61); LYMPHOCYTE - %CD8 (SUPPRESSOR) 80 % (12-42); LYMPHOCYTE - ABSOLUTE CD4 <20 cells/uL (490-1740); LYMPHOCYTE - ABSOLUTE CD8 353 cells/uL (180-1170)
--- NOTE | 2017-06-27 12:42 | RADRPT ---
PROCEDURE: CT Abdomen and Pelvis with contrast. CLINICAL INDICATION: Lymphadenopathy. Immunosuppression. Diarrhea. TECHNIQUE: Multiple contiguous axial CT images of the abdomen and pelvis were obtained following t he administration of 100 cc of Omnipaque-300. Coronal and sagittal reconstructions were also perfor med. CTDIvol (mGy): 13.10; Total Exam DLP (mGy-cm): 947.01. One or more of the following dose reduction techniques were utilized: - Automated exposure control. - Adjustment of the mA and/or kV according to patient size. - Use of iterative reconstruction technique. COMPARISON: 05/30/2017. FINDINGS: Limited imaging of the lower thorax is unremarkable. The liver and spleen are homogeneous in enhancement. The spleen is enlarged and measures 17.6 cm in a craniocaudal dimension, which is grossly unchanged. The gallbladder, pancreas and adrenal glands a re unremarkable. The kidneys are symmetric in size and enhancement. There is no hydronephrosis or abnormal perinephr ic inflammation. There are no ureteral stones. The abdominal aorta is normal in caliber. Mild atherosclerotic calcification is present. There is no bulky periaortic / retroperitoneal lymphadenopathy. Shoddy retroperitoneal lymph nodes are present. Mild fluid-filled distension of the stomach is observed. Mild diffuse prominence of the gastric wal l is observed. Multiple loops of nondilated and mildly dilated fluid-filled loops of small intestin es are present. Scattered few areas of bowel wall thickening are observed and may be accentuated by collapse of the lumen. Air-fluid levels are seen throughout the colon. There is mild wall thickeni ng of the descending colon. There is no pericolonic inflammatory edema. Enlarged mesenteric lymph n odes are present and slightly smaller from prior examination, most decreasing by 3-4 mm. Decreased haziness of the mesenteric fat is also observed. The bladder, prostate and seminal vesicles are unremarkable. There is no free pelvic fluid. There i s no pelvic sidewall or inguinal lymphadenopathy. Multilevel degenerative disk disease of the lumbar spine is observed. Body wall soft tissues are un remarkable. IMPRESSION: Mild fluid-filled distension and non distension of the gastrointestinal tract which may be a result of gastritis. Mesenteric lymphadenopathy, slightly decreased. The degree of infiltration of the mesenteric fat has also mildly decreased. Splenomegaly, unchanged. RPTAT: HLST .Collette Betancourt MD, MD Date Time Electronically viewed and signed by .Collette Betancourt MD, MD on 06/27/2017 12:41 .T/
[2017-06-27] MEDS ORDERED: POTASSIUM CHLORIDE (SR) 20 MEQ TAB PO STA (13:33)
--- NOTE | 2017-06-27 15:54 | PN ---
Date/Time of Note Date/Time of Note DATE: 06/27/17 TIME: 15:50 Assessment/Plan VTE Prophylaxis VTE Prophylaxis Intervention: LMWH Lines/Catheters IV C[facility]ter Type (from [facility]): Peripheral IV Urinary Cath still in place: No Assessment/Plan Chief Complaint/Hosp Course 66 yo male with HCV, HIV/AIDS diagonsed this admission, chronic lymphadenopathy of his abdomen of unclear significance who was admitted for nausea/vomiting, poor PO intake, failure to thrive, malnutrition Fever and diarrhea in a patient with newly diagnosed HIV/AIDS - s/p cipro/flagyl course -C. difficile is negative, stool culture negative - Immodium PRN - seems diarrhea is resolving - Repeat CT here without colitis Hyponatremia, hypokalemia: - Likely from tea and toast diet - AM cortisol level is normal - Start salt tab supplementation Severe protein-calorie malnutrition - Enourage PO intake HIV/AIDS - Started on ARVs and ppx Oropharyngeal candidiasis: - Fluconazole - Nystatin s/s History of mesenteric and retroperitoneal lymphadenopathy -During the last hospitalization lymph nodes were deemed too small for biopsy - Repeat CT shows improvement - Monitor as outpatient Chronic hepatitis C - Consider treatment per ID 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 -Monitor platelet and transfuse as needed Anemia, likely secondary to chronic disease -FOBT during recent hospitalization was negative -Monitor H&H and transfuse as needed Prophylaxis: SCDs Problems: Subjective 24 Hr Interval Summary Free Text/Dictation Patient comfortable he says though feels extremely weak, sleepy DIdn't want to talk much today Denies pain currently Exam/Review of Systems Vital Signs Vitals Vital Signs Date Time Temp Pulse Resp B/P Pulse Ox O2 Delivery O2 Flow Rate FiO2 06/27/17 12:29 92 103/66 100 Nasal Cannula 2.0 06/27/17 12:26 97.5 20 Intake and Output 06/26/17 06/26/17 06/27/17 15:00 23:00 07:00 Intake Total 880 ml 440 ml Output Total 200 ml 550 ml Balance -200 ml 330 ml 440 ml Exam DIscheveled, Cachectic Sleepy but easily arousable and conversant Abd with mild tenderenss to palpation, sof, no rebound Results Result Diagram: 06/27/17 0447 06/27/17446 Results 24 hrs Laboratory Tests Test 06/27/17 04:47 White Blood Count 13.9 H Red Blood Count 3.04 L Hemoglobin 8.2 L Hematocrit 24.4 L Mean Corpuscular Volume 80.3 L Mean Corpuscular Hemoglobin 27.0 L Mean Corpuscular Hemoglobin Concent 33.6 Red Cell Distribution Width 17.2 H Platelet Count 110 L Mean Platelet Volume 9.6 Neutrophils % 94.1 H Lymphocytes % 3.0 L Monocytes % 1.8 Eosinophils % 0.0 Basophils % 0.1 Nucleated Red Blood Cells % 0.0 Neutrophils # (Manual) 13 H Lymphocytes # 0.4 L Monocytes # 0.3 Eosinophils # 0.0 Basophils # 0.0 Nucleated Red Blood Cells # 0.0 Sodium Level 124 L Potassium Level 3.4 L Chloride Level 94 L Carbon Dioxide Level 20 L Anion Gap 13 Blood Urea Nitrogen 10 Creatinine 0.63 Glucose Level 86 Calcium Level 7.1 L Total Bilirubin 0.0 L Direct Bilirubin 0.00 Indirect Bilirubin 0.0 Aspartate Amino Transf (AST/SGOT) 50 H Alanine Aminotransferase (ALT/SGPT) 35 Alkaline Phosphatase 190 H Total Protein 5.9 L Albumin 2.0 L Globulin 3.90 H Albumin/Globulin Ratio 0.51 Random Cortisol 20.7 Medications Medications Current Medications Morphine Sulfate (morphine) 3 mg Q4H PRN IV PAIN Last administered on 06:58; Admin Dose 3 MG; Start 06/22/17 at 03:30 Ondansetron HCl (Zofran Inj) 4 mg Q6H PRN IV NAUSEA AND/OR VOMITING Last administered on 06/26/17 18:17; Admin Dose 4 MG; Start 06/22/17 at 03:30 Famotidine (Pepcid) 20 mg BID PO Last administered on 06/27/17 08:26; Admin Dose 20 MG; Start 06/22/17 at 09:00 Loperamide HCl (Imodium Cap) 2 mg Q4H PRN PO DIARRHEA Last administered on 06/26 21:27; Admin Dose 2 MG; Start 06/22/17 at 09:00 Midodrine (Proamatine) 10 mg TID@,,17 PO Last administered on 06/27/17 13: 26; Admin Dose 10 MG; Start 06/22/17 at 09:00 Trimethoprim/ Sulfamethoxazole (Bactrim (Ds)) 1 tab DAILY PO Last administered on 06/27/17 08:26; Admin Dose 1 TAB; Start 06/25/17 at 16:00 Fluconazole (Diflucan) 200 mg DAILY PO Last administered on 06/27/17 08:25; Admin Dose 200 MG; Start 06/25/17 at 16:00 Acyclovir (Zovirax) 400 mg BID PO Last administered on 06/27/17 08:25; Admin Dose 400 MG; Start 06/25/17 at 21:00 Azithromycin (Zithromax) 1,200 mg Q7D PO Last administered on 06/25/17 18:04; Admin Dose 1,200 MG; Start 06/25/17 at 17:00 Emtricitabine/ Tenofovir (Truvada) 1 tab DAILY PO Last administered on 08:26; Admin Dose 1 TAB; Start 06/25/17 at 17:00 Efavirenz (Sustiva) 600 mg HS PO Last administered on 06/26/17 21:15; Admin Dose 600 MG; Start 06/25/17 at 21:00 Nystatin (Nystatin Susp) 5 ml QID PO Last administered on 06/27/17 13:26; Admin Dose 5 ML; Start 06/26/17 at 21:00 Multivitamins Therapeutic (Theragran) 1 tab DAILY PO Last administered on 08:26; Admin Dose 1 TAB; Start 06/27/17 at 09:00 Sodium Chloride (Nacl) 1 gm TID PO ; Start 06/27/17 at 21:00 ANDREINA MOBLEY MD Jun 27, 2017 15:53
--- NOTE | 2017-06-27 16:22 | PN ---
DATE: 06/27/2017 SUBJECTIVE DATA: Patient is very weak, more confused with poor appetite, sleeping in no distress. He is afebrile. LABORATORY AND DIAGNOSTIC DATA: CT of the abdomen and pelvis revealed mild fluid filled distention and nondistention of the gastrointestinal tract, which may be a result of gastritis, mesenteric lymphadenopathy slightly decreased, the degree of infiltration of the mesenteric fat has also mildly decreased, splenomegaly unchanged. ANTIMICROBIALS: 1. Truvada. 2. Sustiva. 3. Zithromax weekly. 4. Acyclovir 400 mg b.i.d. 5. Bactrim DS 1 tablet p.o. daily. 6. Fluconazole. 7. Cipro. 8. Flagyl. PHYSICAL EXAMINATION: VITAL SIGNS: Temperature 97.5, pulse 92, respirations 20, blood pressure 103/62, saturation 100 on nasal cannula. GENERAL: This is a fragile, chronically ill-appearing, wasted, elderly man, who is sleeping and in no distress. HEENT: Head atraumatic, normocephalic. Sclerae anicteric. Buccal mucosa dry. NECK: Supple. Trachea midline. CHEST: Rise symmetrical. Breath sounds diminished. HEART: S1, S2. ABDOMEN: Soft, bowel sounds present. ASSESSMENT: 1. 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 2. AIDS. 3. Resolving ileus. 4. History of hepatitis C virus. 5. History of alcohol abuse. 6. Anemia with thrombocytopenia. PLAN: We are going to discontinue Cipro and Flagyl. Keep him on other antibiotics. We will monitor his mental status and consider radiographic imaging. If patient remains persistently confused, we will order chest x-ray in a.m. to make sure he is not developing pneumonia. Continue present care and overall prognosis is guarded. Dictated By: Alexander Zarate NP /nilson/tierra /Document#: [id number]
--- NOTE | 2017-06-27 17:08 | CONS ---
Date/Time of Note Date/Time of Note DATE: 06/27/17 TIME: 17:04 Assessment/Plan Assessment/Plan Additional Assessment/Plan Assessment: * Persistent diarrhea/likely HIV related * Newly diagnosed HIV AIDS * History of hepatitis C/cirrhosis Plan: * Continue observation and response to current treatment * Will also consider colonoscopy in the next 24-48 hrs. if no improvement Consultation Date/Type/Reason Admit Date/Time Jun 21, 2017 at 22:50 Date of Consultation: Jun 27, 2017 Type of Consultation: GI Reason for Consultation Diarrhea/abdominal pain Hx of Present Illness 66-year-old male with history of hepatitis C and diagnosed HIV/AIDS on this hospitalization. The patient presented with complaints of abdominal pain and persistent diarrhea. Workup of diarrhea with stool testing for culture sensitivity as well as C. difficile has been negative thus far. The patient was initiated empirically on Cipro and Flagyl. He continues to complain of significant abdominal pain and diffuse manner this is according to him been going on for several months. The diarrhea appears to have decreased somewhat but still persists. A CT of the abdomen showed minimal thickening of the descending colon wall with no other colonic abnormalities. There is significant lymphadenopathy and mesenteric edema. The patient is afebrile. Has been started in antiretroviral medication cocktail. We will continue to observe the patient and consider colonoscopy if diarrhea does not improve soon. Constitutional: diaphoresis, poor po Eyes: no complaints ENT: no complaints Cardiovascular: lightheadedness Gastrointestinal: diarrhea, other (Abdominal pain) Genitourinary: no complaints Musculoskeletal: bone/joint pain Skin: no complaints Psychological: anxiety, depression Past Medical History Cirrhosis of liver. Hepatitis C Thrombocytopenia Newly diagnosed HIV/AIDS Past Surgical History Past Surgical Hx: no surgical history Family History Significant Family History: no pertinent family hx Social History Alcohol Use: sober Smoking Status: Current every day smoker Drug Use: none Exam/Review of Systems Vital Signs Vitals Vital Signs Date Time Temp Pulse Resp B/P Pulse Ox O2 Delivery O2 Flow Rate FiO2 06/27/17 12:29 92 103/66 100 Nasal Cannula 2.0 06/27/17 12:26 97.5 20 Intake and Output 06/26/17 06/26/17 06/27/17 15:00 23:00 07:00 Intake Total 880 ml 440 ml Output Total 200 ml 550 ml Balance -200 ml 330 ml 440 ml Exam Constitutional: alert, frail, oriented, well developed Head: atraumatic, normocephalic Eyes: EOMI, PERRL, nl conjunctiva, nl lids, nl sclera ENMT: nl external ears & nose, nl lips & teeth, nl nasal mucosa & septum Neck: non-tender, supple Respiratory: clear to auscultation, normal air movement Cardiovascular: nl pulses, regular rate and rhythm Gastrointestinal: bowel sounds, distended, soft, tender (Moderate diffuse tenderness), No ascites, No mass, No rebound or guarding Musculoskeletal: nl extremities to inspection Extremities: normal pulses Skin: nl turgor, No rash or lesions Lymph: nl lymph nodes Results Result Diagram: 06/27/177 06/27/17 0447 Results 24 hrs Laboratory Tests Test 06/27/17 04:47 White Blood Count 13.9 H Red Blood Count 3.04 L Hemoglobin 8.2 L Hematocrit 24.4 L Mean Corpuscular Volume 80.3 L Mean Corpuscular Hemoglobin 27.0 L Mean Corpuscular Hemoglobin Concent 33.6 Red Cell Distribution Width 17.2 H Platelet Count 110 L Mean Platelet Volume 9.6 Neutrophils % 94.1 H Lymphocytes % 3.0 L Monocytes % 1.8 Eosinophils % 0.0 Basophils % 0.1 Nucleated Red Blood Cells % 0.0 Neutrophils # (Manual) 13 H Lymphocytes # 0.4 L Monocytes # 0.3 Eosinophils # 0.0 Basophils # 0.0 Nucleated Red Blood Cells # 0.0 Sodium Level 124 L Potassium Level 3.4 L Chloride Level 94 L Carbon Dioxide Level 20 L Anion Gap 13 Blood Urea Nitrogen 10 Creatinine 0.63 Glucose Level 86 Calcium Level 7.1 L Total Bilirubin 0.0 L Direct Bilirubin 0.00 Indirect Bilirubin 0.0 Aspartate Amino Transf (AST/SGOT) 50 H Alanine Aminotransferase (ALT/SGPT) 35 Alkaline Phosphatase 190 H Total Protein 5.9 L Albumin 2.0 L Globulin 3.90 H Albumin/Globulin Ratio 0.51 Random Cortisol 20.7 Medications Medications Current Medications Morphine Sulfate (morphine) 3 mg Q4H PRN IV PAIN Last administered on 06:58; Admin Dose 3 MG; Start 06/22/17 at 03:30 Ondansetron HCl (Zofran Inj) 4 mg Q6H PRN IV NAUSEA AND/OR VOMITING Last administered on 06/26/17 18:17; Admin Dose 4 MG; Start 06/22/17 at 03:30 Famotidine (Pepcid) 20 mg BID PO Last administered on 06/27/17 08:26; Admin Dose 20 MG; Start 06/22/17 at 09:00 Loperamide HCl (Imodium Cap) 2 mg Q4H PRN PO DIARRHEA Last administered on 06/26 21:27; Admin Dose 2 MG; Start 06/22/17 at 09:00 Trimethoprim/ Sulfamethoxazole (Bactrim (Ds)) 1 tab DAILY PO Last administered on 06/27/17 08:26; Admin Dose 1 TAB; Start 06/25/17 at 16:00 Fluconazole (Diflucan) 200 mg DAILY PO Last administered on 06/27/17 08:25; Admin Dose 200 MG; Start 06/25/17 at 16:00 Acyclovir (Zovirax) 400 mg BID PO Last administered on 06/27/17 08:25; Admin Dose 400 MG; Start 06/25/17 at 21:00 Azithromycin (Zithromax) 1,200 mg Q7D PO Last administered on 06/25/17 18:04; Admin Dose 1,200 MG; Start 06/25/17 at 17:00 Emtricitabine/ Tenofovir (Truvada) 1 tab DAILY PO Last administered on 08:26; Admin Dose 1 TAB; Start 06/25/17 at 17:00 Efavirenz (Sustiva) 600 mg HS PO Last administered on 06/26/17 21:15; Admin Dose 600 MG; Start 06/25/17 at 21:00 Nystatin (Nystatin Susp) 5 ml QID PO Last administered on 06/27/17 16:21; Admin Dose 5 ML; Start 06/26/17 at 21:00 Multivitamins Therapeutic (Theragran) 1 tab DAILY PO Last administered on 08:26; Admin Dose 1 TAB; Start 06/27/17 at 09:00 Sodium Chloride (Nacl) 1 gm TID PO ; Start 06/27/17 at 21:00 JEN PAUL MD Jun 27, 2017 17:08
--- NOTE | 2017-06-27 19:02 | RADRPT ---
PROCEDURE: XR Chest. CLINICAL INDICATION: Pneumonia. TECHNIQUE: Single AP portable chest. COMPARISON: 05/30/2017 Chest x-ray FINDINGS: The cardiomediastinal silhouette is within normal limits of size. Arterial calcifications of the aor ta. The lungs are clear without pleural effusion or focal consolidation. No pneumothorax. The osseo us structures and soft tissues are unremarkable. IMPRESSION: 1. No evidence for active cardiopulmonary disease. RPTAT:AAJJ La Hernandez Physician Date Time Electronically viewed and signed by Physician Karyn on 06/27/2017 19:02 KATERINA/
[2017-06-27] MEDS: SODIUM CHLORIDE 1 GM TAB PO SCH (21:03)
[2017-06-27] MEDS: EFAVIRENZ 600 MG TAB PO SCH (21:03)
[2017-06-28 02:00] VITALS: BP 115/80; RESP 19
[2017-06-28 05:32] LABS: ABNORMAL IP MESSAGE 1; BASOPHILS % 0.1 % (0.0-2.0); HEMATOCRIT 24.1 % (42.0-52.0); LYMPHOCYTES # 0.4 10^3/ul (0.8-2.9); MEAN CORPUSCULAR HEMOGLOBIN 26.6 pg (29.0-33.0); MEAN CORPUSCULAR HGB CONC 33.2 g/dl (32.0-37.0); MEAN CORPUSCULAR VOLUME 80.1 fl (82.0-101.0); MEAN PLATELET VOLUME 9.6 fl (7.4-10.4); MONOCYTE # 0.2 10^3/ul (0.3-0.9); MONOCYTES % 1.1 % (0.0-11.0); PLATELET COUNT 111 10^3/UL (140-415); POSITIVE DIFF @See below; RED BLOOD COUNT 3.01 10^6/ul (4.70-6.10); RED CELL DISTRIBUTION WIDTH 17.5 % (11.5-14.5); WHITE BLOOD COUNT 16.4 10^3/ul (4.8-10.8)
[2017-06-28] MEDS: morphine 4 MG/ML VIAL IV PRN ×2 (05:35→17:52)
[2017-06-28 05:38] LABS: LYMPHOCYTES % 2.7 % (15.0-51.0); NEUTROPHILS % 94.6 % (39.0-77.0)
[2017-06-28 06:11] LABS: ALBUMIN 2.1 g/dl (3.3-4.9); ALBUMIN/GLOBULIN RATIO 0.53; BILIRUBIN,INDIRECT 0.1 mg/dl (0-1.1); BILIRUBIN,TOTAL 0.1 mg/dl (0.2-1.3); CREATININE 0.66 mg/dl (0.61-1.24); POTASSIUM 3.6 mmol/L (3.5-5.1)
[2017-06-28 08:00] VITALS: BP 123/88; RESP 19
[2017-06-28] MEDS: MULTIVITAMINS THERAPEUTIC TAB PO SCH (08:50)
[2017-06-28] MEDS: FLUCONAZOLE 200 MG TAB PO SCH (08:50)
[2017-06-28] MEDS: FAMOTIDINE 20 MG TAB PO SCH ×2 (08:50→20:44)
[2017-06-28] MEDS: ACYCLOVIR 400 MG TAB PO SCH ×2 (08:50→20:44)
[2017-06-28] MEDS: EMTRICITABINE/TENOFOVIR TAB PO SCH (08:50)
[2017-06-28] MEDS: TRIMETHOPRIM/SULFAMETHOX (DS) TAB PO SCH (08:50)
[2017-06-28] MEDS: SODIUM CHLORIDE 1 GM TAB PO SCH ×3 (08:50→20:44)
[2017-06-28] MEDS: NYSTATIN SUSP 5 ML CUP PO SCH ×4 (08:50→20:44)
[2017-06-28 14:00] VITALS: BP 110/86; RESP 18
--- NOTE | 2017-06-28 17:10 | PN ---
Date/Time of Note Date/Time of Note DATE: 06/28/17 TIME: 17:09 Assessment/Plan VTE Prophylaxis VTE Prophylaxis Intervention: LMWH Lines/Catheters IV [facility] Type (from [facility] Saline Lock Urinary Cath still in place: No Assessment/Plan Chief Complaint/Hosp Course 66 yo male with HCV, HIV/AIDS diagonsed this admission, chronic lymphadenopathy of his abdomen of unclear significance who was admitted for nausea/vomiting, poor PO intake, failure to thrive, malnutrition Fever and diarrhea in a patient with newly diagnosed HIV/AIDS - s/p cipro/flagyl course -C. 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 Says "I am sick". Seems like he wants to go home Exam/Review of Systems Vital Signs Vitals Vital Signs Date Time Temp Pulse Resp B/P Pulse Ox O2 Delivery O2 Flow Rate FiO2 06/28/17 08:00 98.0 99 19 123/88 96 06/28/17 08:00 Nasal Cannula 2.0 Intake and Output 06/27/17 06/27/17 06/28/17 15:00 23:00 07:00 Intake Total 300 ml 600 ml 320 ml Output Total 400 ml 450 ml Balance 300 ml 200 ml -130 ml Results Result Diagram: 06/28/17 0457 06/28/17 0457 Results 24 hrs Laboratory Tests Test 06/28/17 04:57 White Blood Count 16.4 H Red Blood Count 3.01 L Hemoglobin 8.0 L Hematocrit 24.1 L Mean Corpuscular Volume 80.1 L Mean Corpuscular Hemoglobin 26.6 L Mean Corpuscular Hemoglobin Concent 33.2 Red Cell Distribution Width 17.5 H Platelet Count 111 L Mean Platelet Volume 9.6 Neutrophils % 94.6 H Lymphocytes % 2.7 L Monocytes % 1.1 Eosinophils % 0.0 Basophils % 0.1 Nucleated Red Blood Cells % 0.0 Neutrophils # (Manual) 16 H Lymphocytes # 0.4 L Monocytes # 0.2 L Eosinophils # 0.0 Basophils # 0.0 Nucleated Red Blood Cells # 0.0 Sodium Level 125 L Potassium Level 3.6 Chloride Level 96 L Carbon Dioxide Level 19 L Anion Gap 14 Blood Urea Nitrogen 10 Creatinine 0.66 Glucose Level 87 Calcium Level 7.0 L Total Bilirubin 0.1 L Direct Bilirubin 0.00 Indirect Bilirubin 0.1 Aspartate Amino Transf (AST/SGOT) 54 H Alanine Aminotransferase (ALT/SGPT) 35 Alkaline Phosphatase 213 H Total Protein 6.0 L Albumin 2.1 L Globulin 3.90 H Albumin/Globulin Ratio 0.53 Medications Medications Current Medications Morphine Sulfate (morphine) 3 mg Q4H PRN IV PAIN Last administered on 05:35; Admin Dose 3 MG; Start 06/22/17 at 03:30 Ondansetron HCl (Zofran Inj) 4 mg Q6H PRN IV NAUSEA AND/OR VOMITING Last administered on 06/26/17 18:17; Admin Dose 4 MG; Start 06/22/17 at 03:30 Famotidine (Pepcid) 20 mg BID PO Last administered on 06/28/17 08:50; Admin Dose 20 MG; Start 06/22/17 at 09:00 Loperamide HCl (Imodium Cap) 2 mg Q4H PRN PO DIARRHEA Last administered on 06/26 21:27; Admin Dose 2 MG; Start 06/22/17 at 09:00 Trimethoprim/ Sulfamethoxazole (Bactrim (Ds)) 1 tab DAILY PO Last administered on 06/28/17 08:50; Admin Dose 1 TAB; Start 06/25/17 at 16:00 Fluconazole (Diflucan) 200 mg DAILY PO Last administered on 06/28/17 08:50; Admin Dose 200 MG; Start 06/25/17 at 16:00 Acyclovir (Zovirax) 400 mg BID PO Last administered on 06/28/17 08:50; Admin Dose 400 MG; Start 06/25/17 at 21:00 Azithromycin (Zithromax) 1,200 mg Q7D PO Last administered on 06/25/17 18:04; Admin Dose 1,200 MG; Start 06/25/17 at 17:00 Emtricitabine/ Tenofovir (Truvada) 1 tab DAILY PO Last administered on 08:50; Admin Dose 1 TAB; Start 06/25/17 at 17:00 Efavirenz (Sustiva) 600 mg HS PO Last administered on 06/27/17 21:03; Admin Dose 600 MG; Start 06/25/17 at 21:00 Nystatin (Nystatin Susp) 5 ml QID PO Last administered on 06/28/17 16:13; Admin Dose 5 ML; Start 06/26/17 at 21:00 Multivitamins Therapeutic (Theragran) 1 tab DAILY PO Last administered on 08:50; Admin Dose 1 TAB; Start 06/27/17 at 09:00 Sodium Chloride (Nacl) 1 gm TID PO Last administered on 06/28/17 12:23; Admin Dose 1 GM; Start 06/27/17 at 21:00 NADREINA MOBLEY MD Jun 28, 2017 17:10
--- NOTE | 2017-06-28 20:07 | PN ---
Date/Time of Note Date/Time of Note DATE: 06/28/17 TIME: 20:04 Assessment/Plan VTE Prophylaxis VTE Prophylaxis Intervention: SCD's Lines/Catheters IV Catheter Type (from [facility]): Saline Lock Urinary Cath still in place: No Assessment/Plan Assessment/Plan Summary of Assessment and Plan Assessment: Assessment: * Persistent diarrhea/likely HIV related * Newly diagnosed HIV AIDS * History of hepatitis C/cirrhosis Plan: * Continue observation and response to current treatment * Will also consider colonoscopy in the next 24-48 hrs. if no improvement Subjective: Course reviewed with nursing staff Patient interviewed and examined All labs, imaging and other results reviewed The patient is somewhat lethargic He states both abdominal pain and diarrhea have improved Exam: General: well developed, well nourished, alert and oriented x3 , in no acute distress Skin: No lesions, no stigmata chronic liver disease, no evidence of bleeding diathesis Lymphatic: No palpable lymphadenopathy HEENT: No lesions Cardiovascular: Heart: Regular rate and rhhthm, no murmurs, gallops or rubs. Peripheral pulses present within normal limits, no cyanosis, clubbing or edemas. No pulsatile abdominal mass Respiratory: Lungs clear to auscultation and percussion, no wheezing, no rubs Gastrointestinal and Liver: Abdomen: Soft, non tender, non-distended, no hernias , no masses, no organomegaly, no ascites, no guarding, no rebound tenderness, normoactive bowel sounds. Extremities: No cyanosis, clubbing, or edema. Diagnostic Studies: Available data and images were reviewed personally. See reports. Significant results and findings are addressed here or in the assessment and plan. Exam/Review of Systems Vital Signs Vitals Vital Signs Date Time Temp Pulse Resp B/P Pulse Ox O2 Delivery O2 Flow Rate FiO2 06/28/17 14:00 98.6 85 18 110/86 97 06/28/17 08:00 Nasal Cannula 2.0 Intake and Output 06/27/17 06/27/17 06/28/17 15:00 23:00 07:00 Intake Total 300 ml 600 ml 320 ml Output Total 400 ml 450 ml Balance 300 ml 200 ml -130 ml Results Result Diagram: 06/28/17 0457 06/28/17 0457 Results 24 hrs Laboratory Tests Test 06/28/17 04:57 White Blood Count 16.4 H Red Blood Count 3.01 L Hemoglobin 8.0 L Hematocrit 24.1 L Mean Corpuscular Volume 80.1 L Mean Corpuscular Hemoglobin 26.6 L Mean Corpuscular Hemoglobin Concent 33.2 Red Cell Distribution Width 17.5 H Platelet Count 111 L Mean Platelet Volume 9.6 Neutrophils % 94.6 H Lymphocytes % 2.7 L Monocytes % 1.1 Eosinophils % 0.0 Basophils % 0.1 Nucleated Red Blood Cells % 0.0 Neutrophils # (Manual) 16 H Lymphocytes # 0.4 L Monocytes # 0.2 L Eosinophils # 0.0 Basophils # 0.0 Nucleated Red Blood Cells # 0.0 Sodium Level 125 L Potassium Level 3.6 Chloride Level 96 L Carbon Dioxide Level 19 L Anion Gap 14 Blood Urea Nitrogen 10 Creatinine 0.66 Glucose Level 87 Calcium Level 7.0 L Total Bilirubin 0.1 L Direct Bilirubin 0.00 Indirect Bilirubin 0.1 Aspartate Amino Transf (AST/SGOT) 54 H Alanine Aminotransferase (ALT/SGPT) 35 Alkaline Phosphatase 213 H Total Protein 6.0 L Albumin 2.1 L Globulin 3.90 H Albumin/Globulin Ratio 0.53 Medications Medications Current Medications Morphine Sulfate (morphine) 3 mg Q4H PRN IV PAIN Last administered on 17:52; Admin Dose 3 MG; Start 06/22/17 at 03:30 Ondansetron HCl (Zofran Inj) 4 mg Q6H PRN IV NAUSEA AND/OR VOMITING Last administered on 06/26/17 18:17; Admin Dose 4 MG; Start 06/22/17 at 03:30 Famotidine (Pepcid) 20 mg BID PO Last administered on 06/28/17 08:50; Admin Dose 20 MG; Start 06/22/17 at 09:00 Loperamide HCl (Imodium Cap) 2 mg Q4H PRN PO DIARRHEA Last administered on 06/26 21:27; Admin Dose 2 MG; Start 06/22/17 at 09:00 Trimethoprim/ Sulfamethoxazole (Bactrim (Ds)) 1 tab DAILY PO Last administered on 06/28/17 08:50; Admin Dose 1 TAB; Start 06/25/17 at 16:00 Fluconazole (Diflucan) 200 mg DAILY PO Last administered on 06/28/17 08:50; Admin Dose 200 MG; Start 06/25/17 at 16:00 Acyclovir (Zovirax) 400 mg BID PO Last administered on 06/28/17 08:50; Admin Dose 400 MG; Start 06/25/17 at 21:00 Azithromycin (Zithromax) 1,200 mg Q7D PO Last administered on 06/25/17 18:04; Admin Dose 1,200 MG; Start 06/25/17 at 17:00 Emtricitabine/ Tenofovir (Truvada) 1 tab DAILY PO Last administered on 08:50; Admin Dose 1 TAB; Start 06/25/17 at 17:00 Efavirenz (Sustiva) 600 mg HS PO Last administered on 06/27/17 21:03; Admin Dose 600 MG; Start 06/25/17 at 21:00 Nystatin (Nystatin Susp) 5 ml QID PO Last administered on 06/28/17 16:13; Admin Dose 5 ML; Start 06/26/17 at 21:00 Multivitamins Therapeutic (Theragran) 1 tab DAILY PO Last administered on 08:50; Admin Dose 1 TAB; Start 06/27/17 at 09:00 Sodium Chloride (Nacl) 1 gm TID PO Last administered on 06/28/17 12:23; Admin Dose 1 GM; Start 06/27/17 at 21:00 JEN PAUL MD Jun 28, 2017 20:06
[2017-06-28] MEDS: EFAVIRENZ 600 MG TAB PO SCH (20:44)
[2017-06-28 20:50] VITALS: BP 99/66; RESP 22
[2017-06-29 02:04] VITALS: BP 104/72; RESP 19
[2017-06-29 06:03] LABS: ABNORMAL IP MESSAGE 1; BASOPHILS % 0.1 % (0.0-2.0); HEMATOCRIT 24.4 % (42.0-52.0); HEMOGLOBIN 7.9 g/dl (14.0-18.0); LYMPHOCYTES # 0.4 10^3/ul (0.8-2.9); MEAN CORPUSCULAR HEMOGLOBIN 26.3 pg (29.0-33.0); MEAN CORPUSCULAR HGB CONC 32.4 g/dl (32.0-37.0); MEAN CORPUSCULAR VOLUME 81.3 fl (82.0-101.0); MEAN PLATELET VOLUME 10.1 fl (7.4-10.4); MONOCYTE # 0.2 10^3/ul (0.3-0.9); NEUTROPHILS % 95.4 % (39.0-77.0); PLATELET COUNT 123 10^3/UL (140-415); POSITIVE DIFF @See below; RED CELL DISTRIBUTION WIDTH 17.8 % (11.5-14.5); WHITE BLOOD COUNT 17.8 10^3/ul (4.8-10.8)
[2017-06-29 06:50] LABS: ALBUMIN/GLOBULIN RATIO 0.48; CALCIUM 6.9 mg/dl (8.4-10.2); CREATININE 0.66 mg/dl (0.61-1.24); POTASSIUM 3.5 mmol/L (3.5-5.1); TOTAL PROTEIN 6.1 g/dl (6.1-8.1)
[2017-06-29 08:18] VITALS: BP 94/63; RESP 19
[2017-06-29] MEDS: FAMOTIDINE 20 MG TAB PO SCH ×2 (08:58→21:28)
[2017-06-29] MEDS: SODIUM CHLORIDE 1 GM TAB PO SCH ×3 (08:58→21:32)
[2017-06-29] MEDS: TRIMETHOPRIM/SULFAMETHOX (DS) TAB PO SCH (08:58)
[2017-06-29] MEDS: NYSTATIN SUSP 5 ML CUP PO SCH ×4 (08:58→21:28)
[2017-06-29] MEDS: MULTIVITAMINS THERAPEUTIC TAB PO SCH (08:59)
[2017-06-29] MEDS: FLUCONAZOLE 200 MG TAB PO SCH (08:59)
[2017-06-29] MEDS: EMTRICITABINE/TENOFOVIR TAB PO SCH (09:00)
[2017-06-29] MEDS: ACYCLOVIR 400 MG TAB PO SCH ×2 (11:16→21:28)
[2017-06-29] MEDS: ENOXAPARIN 30 MG/0.3 ML SYG SC SCH (11:21)
[2017-06-29 14:00] VITALS: BP 101/61; RESP 18
--- NOTE | 2017-06-29 14:27 | CONS ---
Date/Time of Note Date/Time of Note DATE: 06/29/17 TIME: 14:24 Assessment/Plan Assessment/Plan Chief Complaint/Hosp Course No acute changes per report patient is very weak lying comfortably in bed intermittently confused, family at bedside Temperature 98 pulse 103 respirations 19 blood pressure 94/63 saturation 98 on room air WBC 17.8 H&H 7.9 and 24.4 platelets 123 neutrophils 95.4 BUN 12 creatinine 0.66 Microbiology: Urine culture negative stool for C. difficile negative, blood cultures pending LABORATORY AND DIAGNOSTIC DATA: CT of the abdomen and pelvis revealed mild fluid filled distention and nondistention of the gastrointestinal tract, which may be a result of gastritis, mesenteric lymphadenopathy slightly decreased, the degree of infiltration of the mesenteric fat has also mildly decreased, splenomegaly unchanged. ANTIMICROBIALS: 1. Truvada. 2. Sustiva. 3. Zithromax weekly. 4. Acyclovir 400 mg b.i.d. 5. Bactrim DS 1 tablet p.o. daily. 6. Fluconazole. PHYSICAL EXAMINATION: GENERAL: This is a fragile, chronically ill-appearing, wasted, elderly man, who is sleeping and in no distress. HEENT: Head atraumatic, normocephalic. Sclerae anicteric. Buccal mucosa dry. NECK: Supple. Trachea midline. CHEST: Rise symmetrical. Breath sounds diminished. HEART: S1, S2. ABDOMEN: Soft, bowel sounds present. ASSESSMENT: 1. 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 2. AIDS. 3. Resolving ileus. 4. History of hepatitis C virus. 5. History of alcohol abuse. 6. Anemia with thrombocytopenia. 7. Persistent leukocytosis PLAN: Clinically unchanged, blood cultures pending, urine culture negative, continue present care, continue on current medications, check pro-calcitonin level, follow gastroenterology recommendations Discussed with RN Problems: Consultation Date/Type/Reason Admit Date/Time Jun 21, 2017 at 22:50 Initial Consult Date 06/22/17 Type of Consultation: ID Referring Provider: RAZ BERNAL Exam/Review of Systems Vital Signs Vitals Vital Signs Date Time Temp Pulse Resp B/P Pulse Ox O2 Delivery O2 Flow Rate FiO2 06/29/17 08:18 98.0 103 19 94/63 98 06/28/17 20:20 Nasal Cannula 2.0 Intake and Output 06/28/17 06/28/1706/29/17 15:00 23:00 07:00 Intake Total 480 ml 200 ml Output Total 500 ml Balance -20 ml 200 ml Results Result Diagram: 06/29/17 0458 06/29/17 0458 Results 24 hrs Laboratory Tests Test 06/29/17 04:58 White Blood Count 17.8 H Red Blood Count 3.00 L Hemoglobin 7.9 L Hematocrit 24.4 L Mean Corpuscular Volume 81.3 L Mean Corpuscular Hemoglobin 26.3 L Mean Corpuscular Hemoglobin Concent 32.4 Red Cell Distribution Width 17.8 H Platelet Count 123 L Mean Platelet Volume 10.1 Neutrophils % 95.4 H Lymphocytes % 2.0 L Monocytes % 1.0 Eosinophils % 0.0 Basophils % 0.1 Nucleated Red Blood Cells % 0.0 Neutrophils # (Manual) 17.0 H Lymphocytes # 0.4 L Monocytes # 0.2 L Eosinophils # 0.0 Basophils # 0.0 Nucleated Red Blood Cells # 0.0 Sodium Level 129 L Potassium Level 3.5 Chloride Level 98 Carbon Dioxide Level 19 L Anion Gap 16 Blood Urea Nitrogen 12 Creatinine 0.66 Glucose Level 92 Calcium Level 6.9 L Total Bilirubin 0.0 L Direct Bilirubin 0.00 Indirect Bilirubin 0.0 Aspartate Amino Transf (AST/SGOT) 65 H Alanine Aminotransferase (ALT/SGPT) 38 Alkaline Phosphatase 246 H Total Protein 6.1 Albumin 2.0 L Globulin 4.10 H Albumin/Globulin Ratio 0.48 Medications Medications Current Medications Morphine Sulfate (morphine) 3 mg Q4H PRN IV PAIN Last administered on 17:52; Admin Dose 3 MG; Start 06/22/17 at 03:30 Ondansetron HCl (Zofran Inj) 4 mg Q6H PRN IV NAUSEA AND/OR VOMITING Last administered on 06/26/17 18:17; Admin Dose 4 MG; Start 06/22/17 at 03:30 Famotidine (Pepcid) 20 mg BID PO Last administered on 06/29/17 08:58; Admin Dose 20 MG; Start 06/22/17 at 09:00 Loperamide HCl (Imodium Cap) 2 mg Q4H PRN PO DIARRHEA Last administered on 06/26 21:27; Admin Dose 2 MG; Start 06/22/17 at 09:00 Trimethoprim/ Sulfamethoxazole (Bactrim (Ds)) 1 tab DAILY PO Last administered on 06/29/17 08:58; Admin Dose 1 TAB; Start 06/25/17 at 16:00 Fluconazole (Diflucan) 200 mg DAILY PO Last administered on 06/29/17 08:59; Admin Dose 200 MG; Start 06/25/17 at 16:00 Acyclovir (Zovirax) 400 mg BID PO Last administered on 06/29/17 11:16; Admin Dose 400 MG; Start 06/25/17 at 21:00 Azithromycin (Zithromax) 1,200 mg Q7D PO Last administered on 06/25/17 18:04; Admin Dose 1,200 MG; Start 06/25/17 at 17:00 Emtricitabine/ Tenofovir (Truvada) 1 tab DAILY PO Last administered on 09:00; Admin Dose 1 TAB; Start 06/25/17 at 17:00 Efavirenz (Sustiva) 600 mg HS PO Last administered on 06/28/17 20:44; Admin Dose 600 MG; Start 06/25/17 at 21:00 Nystatin (Nystatin Susp) 5 ml QID PO Last administered on 06/29/17 08:58; Admin Dose 5 ML; Start 06/26/17 at 21:00 Multivitamins Therapeutic (Theragran) 1 tab DAILY PO Last administered on 08:59; Admin Dose 1 TAB; Start 06/27/17 at 09:00 Sodium Chloride (Nacl) 1 gm TID PO Last administered on 06/29/17 08:58; Admin Dose 1 GM; Start 06/27/17 at 21:00 Enoxaparin Sodium (Lovenox) 30 mg DAILY SC Last administered on 06/29/17 11:21 ; Admin Dose 30 MG; Start 06/29/17 at 09:00 ALEJANDRO MCNEIL NP Jun 29, 2017 14:27
--- NOTE | 2017-06-29 17:37 | PN ---
Date/Time of Note Date/Time of Note DATE: 06/29/17 TIME: 17:35 Assessment/Plan VTE Prophylaxis VTE Prophylaxis Intervention: LMWH Lines/Catheters IV C[facility]ter Type (from [facility]): Saline Lock Urinary Cath still in place: No Assessment/Plan Chief Complaint/Hosp Course 66 yo male with HIV/AIDS diagonosed this admission, chronic lymphadenopathy of his abdomen of unclear significance who was admitted for weeks of nausea/ vomiting, poor PO intake, failure to thrive, malnutrition Fever and diarrhea in a patient with newly diagnosed HIV/AIDS - s/p cipro/flagyl course -C. difficile is negative, stool culture negative - Immodium PRN - seems diarrhea is resolving - Repeat CT here without colitis Hyponatremia, hypokalemia: - Likely from tea and toast diet - AM cortisol level is normal, TSH normal - Started on salt tab supplementation Severe protein-calorie malnutrition - Enourage PO intake HIV/AIDS - Started on ARVs and ppx per ID Oropharyngeal candidiasis: - Fluconazole - Nystatin s/s History of mesenteric and retroperitoneal lymphadenopathy -During the last hospitalization lymph nodes were deemed too small for biopsy - Repeat CT shows improvement - Monitor as outpatient 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 -Monitor platelet and transfuse as needed Anemia, likely secondary to chronic disease -FOBT during recent hospitalization was negative -Monitor H&H and transfuse as needed Prophylaxis: SCDs Problems: Subjective 24 Hr Interval Summary Free Text/Dictation Clinically unchanged Working wtih PT Feels very weak No longer having diarreha it seems Exam/Review of Systems Vital Signs Vitals Vital Signs Date Time Temp Pulse Resp B/P Pulse Ox O2 Delivery O2 Flow Rate FiO2 06/29/17 14:00 97.3 101 18 101/61 99 06/28/17 20:20 Nasal Cannula 2.0 Intake and Output 06/28/17 06/28/17 06/29/17 15:00 23:00 07:00 Intake Total 480 ml 200 ml Output Total 500 ml Balance -20 ml 200 ml Exam NAD, AO Cachectic, weak apperanace Clear lungs Nomral heart sounds Results Result Diagram: 06/29/17 0458 06/29/17 0458 Results 24 hrs Laboratory Tests Test 06/29/17 04:58 White Blood Count 17.8 H Red Blood Count 3.00 L Hemoglobin 7.9 L Hematocrit 24.4 L Mean Corpuscular Volume 81.3 L Mean Corpuscular Hemoglobin 26.3 L Mean Corpuscular Hemoglobin Concent 32.4 Red Cell Distribution Width 17.8 H Platelet Count 123 L Mean Platelet Volume 10.1 Neutrophils % 95.4 H Lymphocytes % 2.0 L Monocytes % 1.0 Eosinophils % 0.0 Basophils % 0.1 Nucleated Red Blood Cells % 0.0 Neutrophils # (Manual) 17.0 H Lymphocytes # 0.4 L Monocytes # 0.2 L Eosinophils # 0.0 Basophils # 0.0 Nucleated Red Blood Cells # 0.0 Sodium Level 129 L Potassium Level 3.5 Chloride Level 98 Carbon Dioxide Level 19 L Anion Gap 16 Blood Urea Nitrogen 12 Creatinine 0.66 Glucose Level 92 Calcium Level 6.9 L Total Bilirubin 0.0 L Direct Bilirubin 0.00 Indirect Bilirubin 0.0 Aspartate Amino Transf (AST/SGOT) 65 H Alanine Aminotransferase (ALT/SGPT) 38 Alkaline Phosphatase 246 H Total Protein 6.1 Albumin 2.0 L Globulin 4.10 H Albumin/Globulin Ratio 0.48 Medications Medications Current Medications Morphine Sulfate (morphine) 3 mg Q4H PRN IV PAIN Last administered on 17:52; Admin Dose 3 MG; Start 06/22/17 at 03:30 Ondansetron HCl (Zofran Inj) 4 mg Q6H PRN IV NAUSEA AND/OR VOMITING Last administered on 06/26/17 18:17; Admin Dose 4 MG; Start 06/22/17 at 03:30 Famotidine (Pepcid) 20 mg BID PO Last administered on 06/29/17 08:58; Admin Dose 20 MG; Start 06/22/17 at 09:00 Loperamide HCl (Imodium Cap) 2 mg Q4H PRN PO DIARRHEA Last administered on 06/26 21:27; Admin Dose 2 MG; Start 06/22/17 at 09:00 Trimethoprim/ Sulfamethoxazole (Bactrim (Ds)) 1 tab DAILY PO Last administered on 06/29/17 08:58; Admin Dose 1 TAB; Start 06/25/17 at 16:00 Fluconazole (Diflucan) 200 mg DAILY PO Last administered on 06/29/17 08:59; Admin Dose 200 MG; Start 06/25/17 at 16:00 Acyclovir (Zovirax) 400 mg BID PO Last administered on 06/29/17 11:16; Admin Dose 400 MG; Start 06/25/17 at 21:00 Azithromycin (Zithromax) 1,200 mg Q7D PO Last administered on 06/25/17 18:04; Admin Dose 1,200 MG; Start 06/25/17 at 17:00 Emtricitabine/ Tenofovir (Truvada) 1 tab DAILY PO Last administered on 09:00; Admin Dose 1 TAB; Start 06/25/17 at 17:00 Efavirenz (Sustiva) 600 mg HS PO Last administered on 06/28/17 20:44; Admin Dose 600 MG; Start 06/25/17 at 21:00 Nystatin (Nystatin Susp) 5 ml QID PO Last administered on 06/29/17 17:16; Admin Dose 5 ML; Start 06/26/17 at 21:00 Multivitamins Therapeutic (Theragran) 1 tab DAILY PO Last administered on 08:59; Admin Dose 1 TAB; Start 06/27/17 at 09:00 Sodium Chloride (Nacl) 1 gm TID PO Last administered on 06/29/17 15:09; Admin Dose 1 GM; Start 06/27/17 at 21:00 Enoxaparin Sodium (Lovenox) 30 mg DAILY SC Last administered on 06/29/17 11:21 ; Admin Dose 30 MG; Start 06/29/17 at 09:00 ANDREINA MOBLEY MD Jun 29, 2017 17:36
[2017-06-29 19:48] VITALS: BP 93/56; RESP 22
[2017-06-29] MEDS: EFAVIRENZ 600 MG TAB PO SCH (21:28)
[2017-06-29] MEDS ORDERED: SOD CHLORIDE 0.9% 1,500 ML IV ONE (21:30)
[2017-06-29] MEDS: SOD CHLORIDE 0.9% 1,000 ML IV SCH (21:30)
[2017-06-29 23:00] VITALS: BP 90/60; PULSE 103
[2017-06-30] VITALS (9 sets, daily range): BP systolic 82–103; BP diastolic 56–63; PULSE 90–100; RESP 15–20
[2017-06-30] MEDS: ONDANSETRON 4 MG INJ IV PRN ×2 (00:30→19:04)
[2017-06-30] MEDS: LOPERAMIDE 2 MG CAP PO PRN (01:00)
[2017-06-30] MEDS: SOD CHLORIDE 0.9% 1,000 ML IV SCH (07:50)
[2017-06-30 07:58] LABS: ABNORMAL IP MESSAGE 1; BASOPHILS % 0.1 % (0.0-2.0); HEMATOCRIT 21.9 % (42.0-52.0); HEMOGLOBIN 7.2 g/dl (14.0-18.0); LYMPHOCYTES # 0.3 10^3/ul (0.8-2.9); LYMPHOCYTES % 1.9 % (15.0-51.0); MEAN CORPUSCULAR HEMOGLOBIN 26.8 pg (29.0-33.0); MEAN CORPUSCULAR HGB CONC 32.9 g/dl (32.0-37.0); MEAN CORPUSCULAR VOLUME 81.4 fl (82.0-101.0); MEAN PLATELET VOLUME 9.5 fl (7.4-10.4); MONOCYTE # 0.2 10^3/ul (0.3-0.9); MONOCYTES % 0.9 % (0.0-11.0); NEUTROPHILS % 95.7 % (39.0-77.0); PLATELET COUNT 136 10^3/UL (140-415); POSITIVE DIFF @See below; RED BLOOD COUNT 2.69 10^6/ul (4.70-6.10); RED CELL DISTRIBUTION WIDTH 18.2 % (11.5-14.5); WHITE BLOOD COUNT 18.4 10^3/ul (4.8-10.8)
[2017-06-30 08:46] LABS: ALBUMIN 1.9 g/dl (3.3-4.9); ALBUMIN/GLOBULIN RATIO 0.5; CALCIUM 6.5 mg/dl (8.4-10.2); CREATININE 0.62 mg/dl (0.61-1.24); POTASSIUM 3.2 mmol/L (3.5-5.1); TOTAL PROTEIN 5.7 g/dl (6.1-8.1)
[2017-06-30] MEDS: MULTIVITAMINS THERAPEUTIC TAB PO SCH (09:04)
[2017-06-30] MEDS: ACYCLOVIR 400 MG TAB PO SCH ×2 (09:05→22:17)
[2017-06-30] MEDS: TRIMETHOPRIM/SULFAMETHOX (DS) TAB PO SCH (09:05)
[2017-06-30] MEDS: FLUCONAZOLE 200 MG TAB PO SCH (09:06)
[2017-06-30] MEDS: FAMOTIDINE 20 MG TAB PO SCH ×2 (09:06→22:10)
[2017-06-30] MEDS: NYSTATIN SUSP 5 ML CUP PO SCH ×4 (09:06→22:10)
[2017-06-30] MEDS: ENOXAPARIN 30 MG/0.3 ML SYG SC SCH (09:20)
--- NOTE | 2017-06-30 12:21 | RADRPT ---
PROCEDURE: MR Brain noncontrast. CLINICAL INDICATION: Altered level of consciousness. TECHNIQUE: Multiplanar multisequence noncontrast MRI of the brain was performed. COMPARISON: Noncontrast MRI of the brain from June 05, 2016. FINDINGS: There is mild cerebral volume loss. There is minimal cerebellar volume loss. There are few bilateral subcortical T2 hyperintensities suggesting chronic microvascular ischemic c hanges. There is a stable 4 mm subchondral nodule within the right frontal horn (image 18 series 6). There is no acute infarction. There is no intracranial hemorrhage or extra-axial fluid collection. There is no mass effect. There is no midline shift. The brainstem is within normal limits. The posterior fossa is unremarkable. The normal intracranial, intravascular flow voids are preserved. There is minimal bilateral ethmoid sinus mucosal thickening. There is a small right maxillary sinus mucous retention cyst/polyp. The orbits are grossly unremarkable. There is no destructive osseous lesion. IMPRESSION: No significant change. 1. No acute infarction or intracranial hemorrhage. 2. Mild cerebral and mild cerebellar volume loss. 3. Minimal chronic microvascular ischemic changes. 4. 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 Further findings as detailed above. RPTAT: HVF .Hussain Chao MD, MD Date Time Electronically viewed and signed by .Hussain Chao MD, on 06/30/2017 12:21 .F/
[2017-06-30] MEDS: EMTRICITABINE/TENOFOVIR TAB PO SCH (12:39)
[2017-06-30] MEDS: SODIUM CHLORIDE 1 GM TAB PO SCH ×3 (12:39→22:10)
--- NOTE | 2017-06-30 15:16 | PN ---
Date/Time of Note Date/Time of Note DATE: 06/30/17 TIME: 15:15 Assessment/Plan VTE Prophylaxis VTE Prophylaxis Intervention: LMWH Lines/Catheters IV C[facility]ter Type (from [facility] Saline Lock Urinary Cath still in place: No Assessment/Plan Chief Complaint/Hosp Course 66 yo male with HIV/AIDS diagonosed this admission, chronic lymphadenopathy of his abdomen of unclear significance who was admitted for weeks of nausea/ vomiting, poor PO intake, failure to thrive, malnutrition Fever and diarrhea in a patient with newly diagnosed HIV/AIDS - s/p cipro/flagyl course -C. difficile is negative, stool culture negative - Immodium PRN - seems diarrhea is resolving - Repeat CT here without colitis - Protein losing enteropathy? 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 No change to his status Denies pain Exam/Review of Systems Vital Signs Vitals Vital Signs Date Time Temp Pulse Resp B/P Pulse Ox O2 Delivery O2 Flow Rate FiO2 06/30/17 12:14 98.3 101 18 82/59 100 06/29/17 23:30 Nasal Cannula 2.0 Intake and Output 06/29/17 06/29/17 06/30/17 15:00 23:00 07:00 Intake Total 150 ml Output Total 800 ml Balance -650 ml Results Result Diagram: 06/30/17 0700 06/30/17 0700 Results 24 hrs Laboratory Tests Test 06/29/17 19:35 06/29/17 23:00 06/30/17 07:00 Lactic Acid Level 2.4 *H 1.6 White Blood Count 18.4 H Red Blood Count 2.69 L Hemoglobin 7.2 L Hematocrit 21.9 L Mean Corpuscular Volume 81.4 L Mean Corpuscular Hemoglobin 26.8 L Mean Corpuscular Hemoglobin Concent 32.9 Red Cell Distribution Width 18.2 H Platelet Count 136 L Mean Platelet Volume 9.5 Neutrophils % 95.7 H Lymphocytes % 1.9 L Monocytes % 0.9 Eosinophils % 0.0 Basophils % 0.1 Nucleated Red Blood Cells % 0.0 Neutrophils # (Manual) 17.6 H Lymphocytes # 0.3 L Monocytes # 0.2 L Eosinophils # 0.0 Basophils # 0.0 Nucleated Red Blood Cells # 0.0 Sodium Level 129 L Potassium Level 3.2 L Chloride Level 102 Carbon Dioxide Level 19 L Anion Gap 11 Blood Urea Nitrogen 11 Creatinine 0.62 Glucose Level 83 Calcium Level 6.5 L Total Bilirubin 0.0 L Direct Bilirubin 0.00 Indirect Bilirubin 0.0 Gamma Glutamyl Transpeptidase 245 H Aspartate Amino Transf (AST/SGOT) 95 H Alanine Aminotransferase (ALT/SGPT) 49 Alkaline Phosphatase 288 H Total Protein 5.7 L Albumin 1.9 L Globulin 3.80 H Albumin/Globulin Ratio 0.50 Medications Medications Current Medications Morphine Sulfate (morphine) 3 mg Q4H PRN IV PAIN Last administered on 17:52; Admin Dose 3 MG; Start 06/22/17 at 03:30 Ondansetron HCl (Zofran Inj) 4 mg Q6H PRN IV NAUSEA AND/OR VOMITING Last administered on 06/30/17 00:30; Admin Dose 4 MG; Start 06/22/17 at 03:30 Famotidine (Pepcid) 20 mg BID PO Last administered on 06/30/17 09:06; Admin Dose 20 MG; Start 06/22/17 at 09:00 Loperamide HCl (Imodium Cap) 2 mg Q4H PRN PO DIARRHEA Last administered on 06/30 01:00; Admin Dose 2 MG; Start 06/22/17 at 09:00 Trimethoprim/ Sulfamethoxazole (Bactrim (Ds)) 1 tab DAILY PO Last administered on 06/30/17 09:05; Admin Dose 1 TAB; Start 06/25/17 at 16:00 Fluconazole (Diflucan) 200 mg DAILY PO Last administered on 06/30/17 09:06; Admin Dose 200 MG; Start 06/25/17 at 16:00 Acyclovir (Zovirax) 400 mg BID PO Last administered on 06/30/17 09:05; Admin Dose 400 MG; Start 06/25/17 at 21:00 Azithromycin (Zithromax) 1,200 mg Q7D PO Last administered on 06/25/17 18:04; Admin Dose 1,200 MG; Start 06/25/17 at 17:00 Emtricitabine/ Tenofovir (Truvada) 1 tab DAILY PO Last administered on 12:39; Admin Dose 1 TAB; Start 06/25/17 at 17:00 Efavirenz (Sustiva) 600 mg HS PO Last administered on 06/29/17 21:28; Admin Dose 600 MG; Start 06/25/17 at 21:00 Nystatin (Nystatin Susp) 5 ml QID PO Last administered on 06/30/17 12:40; Admin Dose 5 ML; Start 06/26/17 at 21:00 Multivitamins Therapeutic (Theragran) 1 tab DAILY PO Last administered on 09:04; Admin Dose 1 TAB; Start 06/27/17 at 09:00 Sodium Chloride (Nacl) 1 gm TID PO Last administered on 06/30/17 12:39; Admin Dose 1 GM; Start 06/27/17 at 21:00 Enoxaparin Sodium (Lovenox) 30 mg DAILY SC Last administered on 06/30/17 09:20 ; Admin Dose 30 MG; Start 06/29/17 at 09:00 ANDREINA MOBLEY MD Jun 30, 2017 15:16
--- NOTE | 2017-06-30 17:26 | PN ---
Date/Time of Note Date/Time of Note DATE: 06/30/17 TIME: 17:23 Assessment/Plan VTE Prophylaxis VTE Prophylaxis Intervention: SCD's Lines/Catheters IV [facility] Type (from [facility] Saline Lock Urinary Cath still in place: No Assessment/Plan Assessment/Plan Assessment: * Persistent diarrhea/likely HIV related * Newly diagnosed HIV AIDS * History of hepatitis C/cirrhosis Plan: * Continue observation and response to current treatment * case discussed with DR Galeana * Further orders will depend on clinical course Subjective 24 Hr Interval Summary Free Text/Dictation * Course reviewed with RN * Patient seen and examined * No untoward incident overnight Exam/Review of Systems Vital Signs Vitals Vital Signs Date Time Temp Pulse Resp B/P Pulse Ox O2 Delivery O2 Flow Rate FiO2 06/30/17 16:16 99.2 96 18 103/59 98 06/30/17 14:30 Nasal Cannula 2.0 Intake and Output 06/29/17 06/29/17 06/30/17 15:00 23:00 07:00 Intake Total 150 ml Output Total 800 ml Balance -650 ml Exam Constitutional: frail Respiratory: clear to auscultation, normal air movement Cardiovascular: nl pulses, regular rate and rhythm Gastrointestinal: non-tender, soft Results Result Diagram: 06/30/17 0700 06/30/17 0700 Results 24 hrs Laboratory Tests Test 06/29/17 19:35 06/29/17 23:00 06/30/17 07:00 Lactic Acid Level 2.4 *H 1.6 White Blood Count 18.4 H Red Blood Count 2.69 L Hemoglobin 7.2 L Hematocrit 21.9 L Mean Corpuscular Volume 81.4 L Mean Corpuscular Hemoglobin 26.8 L Mean Corpuscular Hemoglobin Concent 32.9 Red Cell Distribution Width 18.2 H Platelet Count 136 L Mean Platelet Volume 9.5 Neutrophils % 95.7 H Lymphocytes % 1.9 L Monocytes % 0.9 Eosinophils % 0.0 Basophils % 0.1 Nucleated Red Blood Cells % 0.0 Neutrophils # (Manual) 17.6 H Lymphocytes # 0.3 L Monocytes # 0.2 L Eosinophils # 0.0 Basophils # 0.0 Nucleated Red Blood Cells # 0.0 Sodium Level 129 L Potassium Level 3.2 L Chloride Level 102 Carbon Dioxide Level 19 L Anion Gap 11 Blood Urea Nitrogen 11 Creatinine 0.62 Glucose Level 83 Calcium Level 6.5 L Total Bilirubin 0.0 L Direct Bilirubin 0.00 Indirect Bilirubin 0.0 Gamma Glutamyl Transpeptidase 245 H Aspartate Amino Transf (AST/SGOT) 95 H Alanine Aminotransferase (ALT/SGPT) 49 Alkaline Phosphatase 288 H Total Protein 5.7 L Albumin 1.9 L Globulin 3.80 H Albumin/Globulin Ratio 0.50 Medications Medications Current Medications Morphine Sulfate (morphine) 3 mg Q4H PRN IV PAIN Last administered on 17:52; Admin Dose 3 MG; Start 06/22/17 at 03:30 Ondansetron HCl (Zofran Inj) 4 mg Q6H PRN IV NAUSEA AND/OR VOMITING Last administered on 06/30/17 00:30; Admin Dose 4 MG; Start 06/22/17 at 03:30 Famotidine (Pepcid) 20 mg BID PO Last administered on 06/30/17 09:06; Admin Dose 20 MG; Start 06/22/17 at 09:00 Loperamide HCl (Imodium Cap) 2 mg Q4H PRN PO DIARRHEA Last administered on 06/30 01:00; Admin Dose 2 MG; Start 06/22/17 at 09:00 Trimethoprim/ Sulfamethoxazole (Bactrim (Ds)) 1 tab DAILY PO Last administered on 06/30/17 09:05; Admin Dose 1 TAB; Start 06/25/17 at 16:00 Fluconazole (Diflucan) 200 mg DAILY PO Last administered on 06/30/17 09:06; Admin Dose 200 MG; Start 06/25/17 at 16:00 Acyclovir (Zovirax) 400 mg BID PO Last administered on 06/30/17 09:05; Admin Dose 400 MG; Start 06/25/17 at 21:00 Azithromycin (Zithromax) 1,200 mg Q7D PO Last administered on 06/25/17 18:04; Admin Dose 1,200 MG; Start 06/25/17 at 17:00 Emtricitabine/ Tenofovir (Truvada) 1 tab DAILY PO Last administered on 12:39; Admin Dose 1 TAB; Start 06/25/17 at 17:00 Efavirenz (Sustiva) 600 mg HS PO Last administered on 06/29/17 21:28; Admin Dose 600 MG; Start 06/25/17 at 21:00 Nystatin (Nystatin Susp) 5 ml QID PO Last administered on 06/30/17 17:15; Admin Dose 5 ML; Start 06/26/17 at 21:00 Multivitamins Therapeutic (Theragran) 1 tab DAILY PO Last administered on 09:04; Admin Dose 1 TAB; Start 06/27/17 at 09:00 Sodium Chloride (Nacl) 1 gm TID PO Last administered on 06/30/17 12:39; Admin Dose 1 GM; Start 06/27/17 at 21:00 Enoxaparin Sodium (Lovenox) 30 mg DAILY SC Last administered on 06/30/17 09:20 ; Admin Dose 30 MG; Start 06/29/17 at 09:00 RUTH SAGE NP Jun 30, 2017 17:26
--- NOTE | 2017-06-30 17:48 | CONS ---
Date/Time of Note Date/Time of Note DATE: 06/30/17 TIME: 17:33 Assessment/Plan Assessment/Plan Chief Complaint/Hosp Course ID PROGRESS NOTE TOTAL ABX DAY 1. Truvada. 2. Sustiva. 3. Zithromax weekly. 4. Acyclovir 400 mg b.i.d. 5. Bactrim DS 1 tablet p.o. daily. 6. Fluconazole. 24H INTERVAL SUMMARY * Awake, alert, weak appearing M, VSS, NAD, TMax 99.2 -- Patient speaking Niuean on the phone with room filled with family members who tell me he is stable and doing well. * Microbiology: Urine culture negative stool for C. difficile negative, blood cultures pending * LABORATORY AND DIAGNOSTIC DATA: * CT of the abdomen and pelvis revealed mild fluid filled distention and nondistention of the gastrointestinal tract, which may be a result of gastritis , mesenteric lymphadenopathy slightly decreased, the degree of infiltration of the mesenteric fat has also mildly decreased, splenomegaly unchanged. * 06/30: MRI BRAIN: IMPRESSION:No significant change.1. No acute infarction or intracranial hemorrhage.2. Mild cerebral and mild cerebellar volume loss.3. Minimal chronic microvascular ischemic changes.4. 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 PHYSICAL EXAMINATION: GENERAL: 66 yo M appears weak w/chronic debility HEENT: Unremarkable NECK: Supple. Trachea midline. CHEST: Rise symmetrical. Breath sounds diminished. HEART: S1, S2. ABDOMEN: Soft, bowel sounds present. EXT: Moves all extremities ID ASSESSMENT 66 yo male with HIV/AIDS w/chronic lymphadenopathy of his abdomen of unclear significance who was admitted for weeks of nausea/vomiting, poor PO intake, failure to thrive, malnutrition 1. Fever and diarrhea in a patient with newly diagnosed HIV/AIDS => RESOLVING * - s/p cipro/flagyl course * -C. difficile is negative, stool culture negative * - Immodium PRN seems diarrhea is resolving * - Repeat CT here without colitis 2. 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 Oropharyngeal candidiasis: 4. Severe protein-calorie malnutrition 5. Urinary retention ?BPH vs other ?= hx of recurrent UTIs 6. 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 Questionable hx of liver cirrhosis 2/2 (+)ETOH + (+)Hepatitis C -> not confirmed on CT, (+)Splenomegaly * Possible underlying lymphoproliferative disorder, though recent pathology studies were not conclusive. * Elevated ALT and Alk Phos 8. GERD 9. Hemorrhoids 10. Depression -- hx of noncompliance with ARV Meds 11. Hx of Migraine headaches + Severe occipital headaches * 06/05/16 MRI Brain non-contrast: Small 4 mm subependymal nodule within the right lateral ventricle anteriorly, that may represent a benign hamartoma. Other possibilities include a meningioma. An MRI of the brain with contrast is recommended for further evaluation. 12. Carotid artery disease: Less than 50% stenosis bilaterally in the internal carotid arteries [address] 2016 Mild lower cervical spondylosis is evident without significant central canal stenosis or neural foraminal narrowing. 14. Hx of prior admissions x 2 for multiple recurrent skin abscesses-> folliculitis, infected axillary glands 15. Hx of MARCIO septicemia 2/2 UTI + Infected abscesses prior admission. 16. Bilateral fat inguinal hernias (-) MRSA Nares (-) C.Diff screen CURRENT ABX: 1. Truvada. 2. Sustiva. 3. Zithromax weekly. 4. Acyclovir 400 mg b.i.d. 5. Bactrim DS 1 tablet p.o. daily. 6. Fluconazole. ID RECOMMENDATIONS Continue current antimicrobials, overall patient w/improvement, anticipate DC on current meds to OP HIV Clinic f/u . Problems: Consultation Date/Type/Reason Admit Date/Time Jun 21, 2017 at 22:50 Initial Consult Date 06/27/17 Type of Consultation: ID Referring Provider: RAZ BERNAL Exam/Review of Systems Vital Signs Vitals Vital Signs Date Time Temp Pulse Resp B/P Pulse Ox O2 Delivery O2 Flow Rate FiO2 06/30/17 16:16 99.2 96 18 103/59 98 06/30/17 14:30 Nasal Cannula 2.0 Intake and Output 06/29/17 06/29/17 06/30/17 15:00 23:00 07:00 Intake Total 150 ml Output Total 800 ml Balance -650 ml Results Result Diagram: 06/30/17 0700 06/30/17 0700 Results 24 hrs Laboratory Tests Test 06/29/17 19:35 06/29/17 23:00 06/30/17 07:00 Lactic Acid Level 2.4 *H 1.6 White Blood Count 18.4 H Red Blood Count 2.69 L Hemoglobin 7.2 L Hematocrit 21.9 L Mean Corpuscular Volume 81.4 L Mean Corpuscular Hemoglobin 26.8 L Mean Corpuscular Hemoglobin Concent 32.9 Red Cell Distribution Width 18.2 H Platelet Count 136 L Mean Platelet Volume 9.5 Neutrophils % 95.7 H Lymphocytes % 1.9 L Monocytes % 0.9 Eosinophils % 0.0 Basophils % 0.1 Nucleated Red Blood Cells % 0.0 Neutrophils # (Manual) 17.6 H Lymphocytes # 0.3 L Monocytes # 0.2 L Eosinophils # 0.0 Basophils # 0.0 Nucleated Red Blood Cells # 0.0 Sodium Level 129 L Potassium Level 3.2 L Chloride Level 102 Carbon Dioxide Level 19 L Anion Gap 11 Blood Urea Nitrogen 11 Creatinine 0.62 Glucose Level 83 Calcium Level 6.5 L Total Bilirubin 0.0 L Direct Bilirubin 0.00 Indirect Bilirubin 0.0 Gamma Glutamyl Transpeptidase 245 H Aspartate Amino Transf (AST/SGOT) 95 H Alanine Aminotransferase (ALT/SGPT) 49 Alkaline Phosphatase 288 H Total Protein 5.7 L Albumin 1.9 L Globulin 3.80 H Albumin/Globulin Ratio 0.50 Medications Medications Current Medications Morphine Sulfate (morphine) 3 mg Q4H PRN IV PAIN Last administered on 17:52; Admin Dose 3 MG; Start 06/22/17 at 03:30 Ondansetron HCl (Zofran Inj) 4 mg Q6H PRN IV NAUSEA AND/OR VOMITING Last administered on 06/30/17 00:30; Admin Dose 4 MG; Start 06/22/17 at 03:30 Famotidine (Pepcid) 20 mg BID PO Last administered on 06/30/17 09:06; Admin Dose 20 MG; Start 06/22/17 at 09:00 Loperamide HCl (Imodium Cap) 2 mg Q4H PRN PO DIARRHEA Last administered on 06/30 01:00; Admin Dose 2 MG; Start 06/22/17 at 09:00 Trimethoprim/ Sulfamethoxazole (Bactrim (Ds)) 1 tab DAILY PO Last administered on 06/30/17 09:05; Admin Dose 1 TAB; Start 06/25/17 at 16:00 Fluconazole (Diflucan) 200 mg DAILY PO Last administered on 06/30/17 09:06; Admin Dose 200 MG; Start 06/25/17 at 16:00 Acyclovir (Zovirax) 400 mg BID PO Last administered on 06/30/17 09:05; Admin Dose 400 MG; Start 06/25/17 at 21:00 Azithromycin (Zithromax) 1,200 mg Q7D PO Last administered on 06/25/17 18:04; Admin Dose 1,200 MG; Start 06/25/17 at 17:00 Emtricitabine/ Tenofovir (Truvada) 1 tab DAILY PO Last administered on 12:39; Admin Dose 1 TAB; Start 06/25/17 at 17:00 Efavirenz (Sustiva) 600 mg HS PO Last administered on 06/29/17 21:28; Admin Dose 600 MG; Start 06/25/17 at 21:00 Nystatin (Nystatin Susp) 5 ml QID PO Last administered on 06/30/17 17:15; Admin Dose 5 ML; Start 06/26/17 at 21:00 Multivitamins Therapeutic (Theragran) 1 tab DAILY PO Last administered on 09:04; Admin Dose 1 TAB; Start 06/27/17 at 09:00 Sodium Chloride (Nacl) 1 gm TID PO Last administered on 06/30/17 12:39; Admin Dose 1 GM; Start 06/27/17 at 21:00 Enoxaparin Sodium (Lovenox) 30 mg DAILY SC Last administered on 06/30/17 09:20 ; Admin Dose 30 MG; Start 06/29/17 at 09:00 ANUP NGUYEN NP Jun 30, 2017 17:48
[2017-06-30] MEDS: EFAVIRENZ 600 MG TAB PO SCH (22:10)
[2017-07-01] VITALS (13 sets, daily range): BP systolic 79–93; BP diastolic 50–62; PULSE 87–100; RESP 15–18
[2017-07-01] MEDS: NYSTATIN SUSP 5 ML CUP PO SCH ×4 (09:42→22:12)
[2017-07-01] MEDS: EMTRICITABINE/TENOFOVIR TAB PO SCH (09:43)
[2017-07-01] MEDS: ACYCLOVIR 400 MG TAB PO SCH ×2 (09:43→22:12)
[2017-07-01] MEDS: FAMOTIDINE 20 MG TAB PO SCH ×2 (09:43→22:12)
[2017-07-01] MEDS: SODIUM CHLORIDE 1 GM TAB PO SCH ×3 (09:43→22:12)
[2017-07-01] MEDS: FLUCONAZOLE 200 MG TAB PO SCH (09:43)
[2017-07-01] MEDS: MULTIVITAMINS THERAPEUTIC TAB PO SCH (09:43)
[2017-07-01] MEDS: TRIMETHOPRIM/SULFAMETHOX (DS) TAB PO SCH (09:43)
[2017-07-01] MEDS: ENOXAPARIN 30 MG/0.3 ML SYG SC SCH (09:50)
[2017-07-01] MEDS: morphine 4 MG/ML VIAL IV PRN (09:50)
[2017-07-01] MEDS: ONDANSETRON 4 MG INJ IV PRN (09:51)
--- NOTE | 2017-07-01 10:08 | PN ---
Date/Time of Note Date/Time of Note DATE: 07/01/17 TIME: 10:05 Assessment/Plan VTE Prophylaxis VTE Prophylaxis Intervention: SCD's Lines/Catheters IV C[facility] Type (from [facility] Saline Lock Urinary Cath still in place: No Assessment/Plan Assessment/Plan Assessment: * Persistent diarrhea/likely HIV related improving * Newly diagnosed HIV AIDS * History of hepatitis C/cirrhosis Plan: * Continue observation and response to current treatment * adequate hydration * case discussed with DR Galeana * Further orders will depend on clinical course Subjective 24 Hr Interval Summary Free Text/Dictation * Course reviewed * Patient seen and examined * Diarrhea improving x2 minimal in amount * Vomiting x2 last night Exam/Review of Systems Vital Signs Vitals Vital Signs Date Time Temp Pulse Resp B/P Pulse Ox O2 Delivery O2 Flow Rate FiO2 07/01/17 08:01 98.1 93 18 91/62 100 07/01/17 07:30 Nasal Cannula 2.0 Intake and Output 06/30/17 06/30/17 07/01/17 15:00 23:00 07:00 Intake Total 1300 ml 400 ml Output Total 800 ml 400 ml Balance 500 ml 0 ml Exam Constitutional: alert, oriented Respiratory: clear to auscultation, normal air movement Cardiovascular: nl pulses, regular rate and rhythm Gastrointestinal: non-tender, soft Musculoskeletal: nl extremities to inspection, nl gait and stance Neurological: nl speech, nl strength Results Result Diagram: 06/30/17 0700 06/30/17 0700 Medications Medications Current Medications Morphine Sulfate (morphine) 3 mg Q4H PRN IV PAIN Last administered on 09:50; Admin Dose 3 MG; Start 06/22/17 at 03:30 Ondansetron HCl (Zofran Inj) 4 mg Q6H PRN IV NAUSEA AND/OR VOMITING Last administered on 07/01/17 09:51; Admin Dose 4 MG; Start 06/22/17 at 03:30 Famotidine (Pepcid) 20 mg BID PO Last administered on 07/01/17 09:43; Admin Dose 20 MG; Start 06/22/17 at 09:00 Loperamide HCl (Imodium Cap) 2 mg Q4H PRN PO DIARRHEA Last administered on 06/30 01:00; Admin Dose 2 MG; Start 06/22/17 at 09:00 Trimethoprim/ Sulfamethoxazole (Bactrim (Ds)) 1 tab DAILY PO Last administered on 07/01/17 09:43; Admin Dose 1 TAB; Start 06/25/17 at 16:00 Fluconazole (Diflucan) 200 mg DAILY PO Last administered on 07/01/17 09:43; Admin Dose 200 MG; Start 06/25/17 at 16:00 Acyclovir (Zovirax) 400 mg BID PO Last administered on 07/01/17 09:43; Admin Dose 400 MG; Start 06/25/17 at 21:00 Azithromycin (Zithromax) 1,200 mg Q7D PO Last administered on 06/25/17 18:04; Admin Dose 1,200 MG; Start 06/25/17 at 17:00 Emtricitabine/ Tenofovir (Truvada) 1 tab DAILY PO Last administered on 09:43; Admin Dose 1 TAB; Start 06/25/17 at 17:00 Efavirenz (Sustiva) 600 mg HS PO Last administered on 06/30/17 22:10; Admin Dose 600 MG; Start 06/25/17 at 21:00 Nystatin (Nystatin Susp) 5 ml QID PO Last administered on 07/01/17 09:42; Admin Dose 5 ML; Start 06/26/17 at 21:00 Multivitamins Therapeutic (Theragran) 1 tab DAILY PO Last administered on 09:43; Admin Dose 1 TAB; Start 06/27/17 at 09:00 Sodium Chloride (Nacl) 1 gm TID PO Last administered on 07/01/17 09:43; Admin Dose 1 GM; Start 06/27/17 at 21:00 Enoxaparin Sodium (Lovenox) 30 mg DAILY SC Last administered on 07/01/17 09:50 ; Admin Dose 30 MG; Start 06/29/17 at 09:00 RUTH SAGE NP Jul 01, 2017 10:08
[2017-07-01 13:17] LABS: ABNORMAL IP MESSAGE 1; BASOPHILS % 0.1 % (0.0-2.0); HEMATOCRIT 23.5 % (42.0-52.0); HEMOGLOBIN 7.8 g/dl (14.0-18.0); LYMPHOCYTES # 0.3 10^3/ul (0.8-2.9); LYMPHOCYTES % 1.6 % (15.0-51.0); MEAN CORPUSCULAR HEMOGLOBIN 27.7 pg (29.0-33.0); MEAN CORPUSCULAR HGB CONC 33.2 g/dl (32.0-37.0); MEAN CORPUSCULAR VOLUME 83.3 fl (82.0-101.0); MEAN PLATELET VOLUME 9.5 fl (7.4-10.4); MONOCYTE # 0.1 10^3/ul (0.3-0.9); MONOCYTES % 0.7 % (0.0-11.0); NEUTROPHILS % 95.4 % (39.0-77.0); PLATELET COUNT 146 10^3/UL (140-415); POSITIVE DIFF @See below; RED BLOOD COUNT 2.82 10^6/ul (4.70-6.10); RED CELL DISTRIBUTION WIDTH 18.5 % (11.5-14.5); WHITE BLOOD COUNT 18.6 10^3/ul (4.8-10.8)
[2017-07-01 13:45] LABS: ALBUMIN/GLOBULIN RATIO 0.54; CALCIUM 6.8 mg/dl (8.4-10.2); CREATININE 0.65 mg/dl (0.61-1.24); POTASSIUM 3.3 mmol/L (3.5-5.1); TOTAL PROTEIN 5.7 g/dl (6.1-8.1)
--- NOTE | 2017-07-01 15:03 | CONS ---
Date/Time of Note Date/Time of Note DATE: 07/01/17 TIME: 15:00 Assessment/Plan Assessment/Plan Chief Complaint/Hosp Course ID PROGRESS NOTE CURRENT ABX: Start Zyvox today for (+)VRE UTI 24H INTERVAL SUMMARY * Stable -- still weak yet awake, alert, * URINE CULTURE Final Organism 1 VANCO RESISTANT ENTEROCOCCUS . MULTI DRUG RESISTANT ORGANISM VRE M.I.C. RX --------- --- AMPICILLIN >=32 R CIPROFLOXACIN >=8 R FOSFOMYCIN R GENTAMICIN 120 S LEVOFLOXACIN >=8 R LINEZOLID 2 S NITROFURANTOIN 64 I PENICILLIN-G >=64 R QUINUPRISTIN/DALFOPRISTIN 0.5 S STREPTOMYCIN 300 S VANCOMYCIN >=32 R PHYSICAL EXAMINATION: GENERAL: 66 yo M appears weak w/chronic debility HEENT: Unremarkable NECK: Supple. Trachea midline. CHEST: Rise symmetrical. Breath sounds diminished. HEART: S1, S2. ABDOMEN: Soft, bowel sounds present. EXT: Moves all extremities ID ASSESSMENT 66 yo male with HIV/AIDS w/chronic lymphadenopathy of his abdomen of unclear significance who was admitted for weeks of nausea/vomiting, poor PO intake, failure to thrive, malnutrition 1. Fever and diarrhea in a patient with newly diagnosed HIV/AIDS => RESOLVING * - s/p cipro/flagyl course * -C. difficile is negative, stool culture negative * - Immodium PRN seems diarrhea is resolving * - Repeat CT here without colitis 2. VRE UTI 3. 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 Severe protein-calorie malnutrition 5. Urinary retention ?BPH vs other ?= hx of recurrent UTIs 6. 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 Questionable hx of liver cirrhosis 2/2 (+)ETOH + (+)Hepatitis C -> not confirmed on CT, (+)Splenomegaly * Possible underlying lymphoproliferative disorder, though recent pathology studies were not conclusive. * Elevated ALT and Alk Phos 8. GERD 9. Hemorrhoids 10. Depression -- hx of noncompliance with ARV Meds 11. Hx of Migraine headaches + Severe occipital headaches * 06/05/16 MRI Brain non-contrast: Small 4 mm subependymal nodule within the right lateral ventricle anteriorly, that may represent a benign hamartoma. Other possibilities include a meningioma. An MRI of the brain with contrast is recommended for further evaluation. 12. Carotid artery disease: Less than 50% stenosis bilaterally in the internal carotid arteries [address] 2016 Mild lower cervical spondylosis is evident without significant central canal stenosis or neural foraminal narrowing. 14. Hx of prior admissions x 2 for multiple recurrent skin abscesses-> folliculitis, infected axillary glands 15. Hx of MARCIO septicemia 2/2 UTI + Infected abscesses prior admission. 16. Bilateral fat inguinal hernias 17. Oropharyngeal candidiasis: (-) MRSA Nares (-) C.Diff screen CURRENT ABX: Start Zyvox today for (+)VRE UTI 1. Truvada. 2. Sustiva. 3. Zithromax weekly. 4. Acyclovir 400 mg b.i.d. 5. Bactrim DS 1 tablet p.o. daily. 6. Fluconazole. ID RECOMMENDATIONS Start Zyvox today for (+)VRE UTI . . Problems: Consultation Date/Type/Reason Admit Date/Time Jun 21, 2017 at 22:50 Initial Consult Date 06/27/17 Type of Consultation: ID Referring Provider: RAZ BERNAL Exam/Review of Systems Vital Signs Vitals Vital Signs Date Time Temp Pulse Resp B/P Pulse Ox O2 Delivery O2 Flow Rate FiO2 07/01/17 12:02 98.4 17 18 90/58 100 07/01/17 07:30 Nasal Cannula 2.0 Intake and Output 06/30/17 06/30/17 07/01/17 14:59 22:59 06:59 Intake Total 1300 ml 400 ml Output Total 800 ml 400 ml Balance 500 ml 0 ml Results Result Diagram: 07/01/17 1310 07/01/17 1310 Results 24 hrs Laboratory Tests Test 07/01/17 13:10 White Blood Count 18.6 H Red Blood Count 2.82 L Hemoglobin 7.8 L Hematocrit 23.5 L Mean Corpuscular Volume 83.3 Mean Corpuscular Hemoglobin 27.7 L Mean Corpuscular Hemoglobin Concent 33.2 Red Cell Distribution Width 18.5 H Platelet Count 146 Mean Platelet Volume 9.5 Neutrophils % 95.4 H Lymphocytes % 1.6 L Monocytes % 0.7 Eosinophils % 0.0 Basophils % 0.1 Nucleated Red Blood Cells % 0.0 Neutrophils # (Manual) 17.7 H Lymphocytes # 0.3 L Monocytes # 0.1 L Eosinophils # 0.0 Basophils # 0.0 Nucleated Red Blood Cells # 0.0 Sodium Level 131 L Potassium Level 3.3 L Chloride Level 102 Carbon Dioxide Level 18 L Anion Gap 14 Blood Urea Nitrogen 12 Creatinine 0.65 Glucose Level 94 Calcium Level 6.8 L Total Bilirubin 0.0 L Direct Bilirubin 0.00 Indirect Bilirubin 0.0 Aspartate Amino Transf (AST/SGOT) 123 H Alanine Aminotransferase (ALT/SGPT) 64 Alkaline Phosphatase 266 H Total Protein 5.7 L Albumin 2.0 L Globulin 3.70 H Albumin/Globulin Ratio 0.54 Medications Medications Current Medications Morphine Sulfate (morphine) 3 mg Q4H PRN IV PAIN Last administered on 09:50; Admin Dose 3 MG; Start 06/22/17 at 03:30 Ondansetron HCl (Zofran Inj) 4 mg Q6H PRN IV NAUSEA AND/OR VOMITING Last administered on 07/01/17 09:51; Admin Dose 4 MG; Start 06/22/17 at 03:30 Famotidine (Pepcid) 20 mg BID PO Last administered on 07/01/17 09:43; Admin Dose 20 MG; Start 06/22/17 at 09:00 Loperamide HCl (Imodium Cap) 2 mg Q4H PRN PO DIARRHEA Last administered on 06/30 01:00; Admin Dose 2 MG; Start 06/22/17 at 09:00 Trimethoprim/ Sulfamethoxazole (Bactrim (Ds)) 1 tab DAILY PO Last administered on 07/01/17 09:43; Admin Dose 1 TAB; Start 06/25/17 at 16:00 Fluconazole (Diflucan) 200 mg DAILY PO Last administered on 07/01/17 09:43; Admin Dose 200 MG; Start 06/25/17 at 16:00 Acyclovir (Zovirax) 400 mg BID PO Last administered on 07/01/17 09:43; Admin Dose 400 MG; Start 06/25/17 at 21:00 Azithromycin (Zithromax) 1,200 mg Q7D PO Last administered on 06/25/17 18:04; Admin Dose 1,200 MG; Start 06/25/17 at 17:00 Emtricitabine/ Tenofovir (Truvada) 1 tab DAILY PO Last administered on 09:43; Admin Dose 1 TAB; Start 06/25/17 at 17:00 Efavirenz (Sustiva) 600 mg HS PO Last administered on 06/30/17 22:10; Admin Dose 600 MG; Start 06/25/17 at 21:00 Nystatin (Nystatin Susp) 5 ml QID PO Last administered on 07/01/17 13:47; Admin Dose 5 ML; Start 06/26/17 at 21:00 Multivitamins Therapeutic (Theragran) 1 tab DAILY PO Last administered on 09:43; Admin Dose 1 TAB; Start 06/27/17 at 09:00 Sodium Chloride (Nacl) 1 gm TID PO Last administered on 07/01/17 13:47; Admin Dose 1 GM; Start 06/27/17 at 21:00 Enoxaparin Sodium (Lovenox) 30 mg DAILY SC Last administered on 07/01/17 09:50 ; Admin Dose 30 MG; Start 06/29/17 at 09:00 ANUP NGUYEN NP Jul 01, 2017 15:03
[2017-07-01] MEDS: LINEZOLID 600 MG/D5W (PMX) 300 ML IVPB SCH ×2 (16:00→22:13)
[2017-07-01] MEDS: EFAVIRENZ 600 MG TAB PO SCH (22:12)
[2017-07-02] VITALS (12 sets, daily range): BP systolic 77–92; BP diastolic 50–59; PULSE 87–99; RESP 16–18
[2017-07-02] MEDS: TRIMETHOPRIM/SULFAMETHOX (DS) TAB PO SCH (09:22)
[2017-07-02] MEDS: SODIUM CHLORIDE 1 GM TAB PO SCH ×3 (09:22→21:01)
[2017-07-02] MEDS: ACYCLOVIR 400 MG TAB PO SCH ×2 (09:22→21:00)
[2017-07-02] MEDS: FLUCONAZOLE 200 MG TAB PO SCH (09:22)
[2017-07-02] MEDS: MULTIVITAMINS THERAPEUTIC TAB PO SCH (09:22)
[2017-07-02] MEDS: FAMOTIDINE 20 MG TAB PO SCH ×2 (09:22→21:01)
[2017-07-02] MEDS: EMTRICITABINE/TENOFOVIR TAB PO SCH (09:22)
[2017-07-02] MEDS: LINEZOLID 600 MG/D5W (PMX) 300 ML IVPB SCH ×2 (09:22→21:00)
[2017-07-02] MEDS: NYSTATIN SUSP 5 ML CUP PO SCH ×4 (09:22→21:00)
[2017-07-02] MEDS: ENOXAPARIN 30 MG/0.3 ML SYG SC SCH (09:24)
--- NOTE | 2017-07-02 10:07 | PN ---
Date/Time of Note Date/Time of Note DATE: 07/02/17 TIME: 10:07 Assessment/Plan VTE Prophylaxis VTE Prophylaxis Intervention: SCD's Lines/Catheters [facility]from [facility] Urinary Cath still in place: No Assessment/Plan Chief Complaint/Hosp Course 1. Sepsis, multifactorial secondary to opportunistic infection with HIV and VRE urinary tract infection. -On appropriate antibiotic regimen. ID eval appreciated. 2. VRE urinary tract infection. On Zyvox. 3.Diarrhea, likely opportunistic infection with newly diagnosed HIV/ AIDS.Improving. C. difficile negative - Immodium PRN 4. HIV/AIDS - Started on ARVs and ppx per ID 5. Oropharyngeal candidiasis: - Fluconazole - Nystatin s/s 6. Retroperitoneal lymphadenopathy most likely secondary to HIV -Oncology evaluation appreciated and recommendation is continuation of HIV treatment with rescan in 2-3 months. Consider biopsy if lymphadenopathy worsens at that time and reevaluate for underlying malignancy 7.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.Resolved -Monitor platelet and transfuse as needed 8. Anemia of chronic disease -Monitor H&H and transfuse as needed 9.Sodium/potassium electrolyte imbalance likely secondary to diarrhea. -Replete as indicated. 10.Severe protein-calorie malnutrition - Enourage PO intake -Diet eval. 11. HIV induced debility. -Supportive care. PT eval Plan: Continue current medical management. Follow-up with ID recommendations. Case discussed with Problems: Subjective 24 Hr Interval Summary Free Text/Dictation Patient with ongoing diarrhea. Afebrile. Exam/Review of Systems Vital Signs Vitals Vital Signs Date Time Temp Pulse Resp B/P Pulse Ox O2 Delivery O2 Flow Rate FiO2 07/02/17 08:38 89 07/02/17 08:03 98.6 16 88/58 100 07/01/17 20:00 Nasal Cannula 2.0 Intake and Output 07/01/17 07/01/17 07/02/17 15:00 23:00 07:00 Intake Total 600 ml 500 ml Output Total 500 ml 300 ml Balance 100 ml 200 ml Exam General:Chronically ill looking male not in acute distress HEENT: Normocephalic, Atraumatic, No laceration or hematoma; Eyes: PEERL, Conjunctiva clear, Anicteric sclera Neck: Supple without any lymphadenopathy, nontender, no JVD, no carotid bruits, trachea midline, no thyromegaly Cardiac: S1, S2 auscultated, regular rhythm and rate, no mumurs or gallop Pulmonary: Normal respiratory effort. Chest clear to auscultation bilaterally, no adventitious breath sounds GI: Abdomen normal to inspection. Soft, non tender, non- distended, no masses, no rebound tenderness or guarding. Bowel sounds active on all four quadrants Genitourinary: Deferred Extremities: No cyanosis, clubbing, or edema. Pulses [2+] bilaterally. Full ROM on all four extremities. No focal weakness appreciated. Neurologic: Mildly confused. Otherwise, awake and oriented 3 Skin: Clean,dry, and intact. No ecchymosis, no rashes, or lesions Results Result Diagram: 07/01/17 1310 07/01/17 1310 Results 24 hrs Laboratory Tests Test 07/01/17 13:10 White Blood Count 18.6 H Red Blood Count 2.82 L Hemoglobin 7.8 L Hematocrit 23.5 L Mean Corpuscular Volume 83.3 Mean Corpuscular Hemoglobin 27.7 L Mean Corpuscular Hemoglobin Concent 33.2 Red Cell Distribution Width 18.5 H Platelet Count 146 Mean Platelet Volume 9.5 Neutrophils % 95.4 H Lymphocytes % 1.6 L Monocytes % 0.7 Eosinophils % 0.0 Basophils % 0.1 Nucleated Red Blood Cells % 0.0 Neutrophils # (Manual) 17.7 H Lymphocytes # 0.3 L Monocytes # 0.1 L Eosinophils # 0.0 Basophils # 0.0 Nucleated Red Blood Cells # 0.0 Sodium Level 131 L Potassium Level 3.3 L Chloride Level 102 Carbon Dioxide Level 18 L Anion Gap 14 Blood Urea Nitrogen 12 Creatinine 0.65 Glucose Level 94 Calcium Level 6.8 L Total Bilirubin 0.0 L Direct Bilirubin 0.00 Indirect Bilirubin 0.0 Aspartate Amino Transf (AST/SGOT) 123 H Alanine Aminotransferase (ALT/SGPT) 64 Alkaline Phosphatase 266 H Total Protein 5.7 L Albumin 2.0 L Globulin 3.70 H Albumin/Globulin Ratio 0.54 Medications Medications Current Medications Morphine Sulfate (morphine) 3 mg Q4H PRN IV PAIN Last administered on t 09:50; Admin Dose 3 MG; Start 06/22/17 at 03:30 Ondansetron HCl (Zofran Inj) 4 mg Q6H PRN IV NAUSEA AND/OR VOMITING Last administered on 07/01/17 09:51; Admin Dose 4 MG; Start 06/22/17 at 03:30 Famotidine (Pepcid) 20 mg BID PO Last administered on 07/02/17 09:22; Admin Dose 20 MG; Start 06/22/17 at 09:00 Loperamide HCl (Imodium Cap) 2 mg Q4H PRN PO DIARRHEA Last administered on 06/30 01:00; Admin Dose 2 MG; Start 06/22/17 at 09:00 Trimethoprim/ Sulfamethoxazole (Bactrim (Ds)) 1 tab DAILY PO Last administered on 07/02/17 09:22; Admin Dose 1 TAB; Start 06/25/17 at 16:00 Fluconazole (Diflucan) 200 mg DAILY PO Last administered on 07/02/17 09:22; Admin Dose 200 MG; Start 06/25/17 at 16:00 Acyclovir (Zovirax) 400 mg BID PO Last administered on 07/02/17 09:22; Admin Dose 400 MG; Start 06/25/17 at 21:00 Azithromycin (Zithromax) 1,200 mg Q7D PO Last administered on 06/25/17 18:04; Admin Dose 1,200 MG; Start 06/25/17 at 17:00 Emtricitabine/ Tenofovir (Truvada) 1 tab DAILY PO Last administered on 09:22; Admin Dose 1 TAB; Start 06/25/17 at 17:00 Efavirenz (Sustiva) 600 mg HS PO Last administered on 07/01/17 22:12; Admin Dose 600 MG; Start 06/25/17 at 21:00 Nystatin (Nystatin Susp) 5 ml QID PO Last administered on 07/02/17 09:22; Admin Dose 5 ML; Start 06/26/17 at 21:00 Multivitamins Therapeutic (Theragran) 1 tab DAILY PO Last administered on 09:22; Admin Dose 1 TAB; Start 06/27/17 at 09:00 Sodium Chloride (Nacl) 1 gm TID PO Last administered on 07/02/17 09:22; Admin Dose 1 GM; Start 06/27/17 at 21:00 Enoxaparin Sodium 30 mg 30 mg DAILY SC Last administered on 07/02/17 09:24; Admin Dose 30 MG; Start 06/29/17 at 09:00 Linezolid (Zyvox 600mg/D5W (Pmx)) 300 ml @ 300 mls/hr Q12 IVPB Last administered on 07/02/17 09:22; Admin Dose 300 MLS/HR; Start 07/01/17 at 16:00 DESTINEE JANG NP Jul 02, 2017 10:07
[2017-07-02 12:22] LABS: ABNORMAL IP MESSAGE 1; BASOPHILS % 0.1 % (0.0-2.0); HEMATOCRIT 25.3 % (42.0-52.0); HEMOGLOBIN 8.2 g/dl (14.0-18.0); LYMPHOCYTES # 0.3 10^3/ul (0.8-2.9); LYMPHOCYTES % 1.3 % (15.0-51.0); MEAN CORPUSCULAR HEMOGLOBIN 26.9 pg (29.0-33.0); MEAN CORPUSCULAR HGB CONC 32.4 g/dl (32.0-37.0); MEAN PLATELET VOLUME 9.2 fl (7.4-10.4); MONOCYTE # 0.2 10^3/ul (0.3-0.9); MONOCYTES % 0.8 % (0.0-11.0); NEUTROPHILS % 96.1 % (39.0-77.0); PLATELET COUNT 159 10^3/UL (140-415); POSITIVE DIFF @See below; RED BLOOD COUNT 3.05 10^6/ul (4.70-6.10); RED CELL DISTRIBUTION WIDTH 18.7 % (11.5-14.5); WHITE BLOOD COUNT 19.4 10^3/ul (4.8-10.8)
[2017-07-02 13:10] LABS: ALBUMIN/GLOBULIN RATIO 0.52; CALCIUM 6.7 mg/dl (8.4-10.2); CREATININE 0.61 mg/dl (0.61-1.24); TOTAL PROTEIN 5.8 g/dl (6.1-8.1)
[2017-07-02 13:23] LABS: POTASSIUM 2.9 mmol/L (3.5-5.1)
[2017-07-02] MEDS ORDERED: POTASSIUM CHLORIDE 250 ML IVPB ONE (14:00)
[2017-07-02] MEDS: AZITHROMYCIN 600 MG TAB PO SCH (17:40)
--- NOTE | 2017-07-02 18:31 | PN ---
Date/Time of Note Date/Time of Note DATE: 07/02/17 TIME: 18:30 Assessment/Plan VTE Prophylaxis VTE Prophylaxis Intervention: SCD's Lines/Catheters IV C[facility]ter Type (from [facility] Saline Lock Urinary Cath still in place: No Assessment/Plan Assessment/Plan Assessment: * Persistent diarrhea/likely HIV related/much improved * Newly diagnosed HIV AIDS * History of hepatitis C/cirrhosis Plan: * continue present regimen * We will sign off and follow upon request Subjective: Course reviewed with nursing staff Patient interviewed and examined All labs, imaging and other results reviewed The patient is somewhat lethargic Nursing staff reports diarrhea has resolved Exam: General: well developed, well nourished, alert and oriented x3 , in no acute distress Skin: No lesions, no stigmata chronic liver disease, no evidence of bleeding diathesis Lymphatic: No palpable lymphadenopathy HEENT: No lesions Cardiovascular: Heart: Regular rate and rhythm, no murmurs, gallops or rubs. Peripheral pulses present within normal limits, no cyanosis, clubbing or edemas. No pulsatile abdominal mass Respiratory: Lungs clear to auscultation and percussion, no wheezing, no rubs Gastrointestinal and Liver: Abdomen: Soft, non tender, non-distended, no hernias , no masses, no organomegaly, no ascites, no guarding, no rebound tenderness, normoactive bowel sounds. Extremities: No cyanosis, clubbing, or edema. Diagnostic Studies: Available data and images were reviewed personally. See reports. Significant results and findings are addressed here or in the assessment and plan. Exam/Review of Systems Vital Signs Vitals Vital Signs Date Time Temp Pulse Resp B/P Pulse Ox O2 Delivery O2 Flow Rate FiO2 07/02/17 17:01 94 07/02/17 15:55 80/50 07/02/17 13:11 Nasal Cannula 2.0 07/02/17 11:51 98.6 18 100 Intake and Output 07/01/17 07/01/17 07/02/17 15:00 23:00 07:00 Intake Total 600 ml 500 ml Output Total 500 ml 300 ml Balance 100 ml 200 ml Results Result Diagram: 07/02/17 1205 07/02/17 1205 Results 24 hrs Laboratory Tests Test 07/02/17 12:05 White Blood Count 19.4 H Red Blood Count 3.05 L Hemoglobin 8.2 L Hematocrit 25.3 L Mean Corpuscular Volume 83.0 Mean Corpuscular Hemoglobin 26.9 L Mean Corpuscular Hemoglobin Concent 32.4 Red Cell Distribution Width 18.7 H Platelet Count 159 Mean Platelet Volume 9.2 Neutrophils % 96.1 H Lymphocytes % 1.3 L Monocytes % 0.8 Eosinophils % 0.0 Basophils % 0.1 Nucleated Red Blood Cells % 0.0 Neutrophils # (Manual) 18.6 H Lymphocytes # 0.3 L Monocytes # 0.2 L Eosinophils # 0.0 Basophils # 0.0 Nucleated Red Blood Cells # 0.0 Sodium Level 129 L Potassium Level 2.9 *L Chloride Level 100 Carbon Dioxide Level 18 L Anion Gap 14 Blood Urea Nitrogen 11 Creatinine 0.61 Glucose Level 96 Calcium Level 6.7 L Magnesium Level 2.1 Total Bilirubin 0.0 L Direct Bilirubin 0.00 Indirect Bilirubin 0.0 Aspartate Amino Transf (AST/SGOT) 165 H Alanine Aminotransferase (ALT/SGPT) 76 H Alkaline Phosphatase 332 H Total Protein 5.8 L Albumin 2.0 L Globulin 3.80 H Albumin/Globulin Ratio 0.52 Medications Medications Current Medications Morphine Sulfate (morphine) 3 mg Q4H PRN IV PAIN Last administered on 09:50; Admin Dose 3 MG; Start 06/22/17 at 03:30 Ondansetron HCl (Zofran Inj) 4 mg Q6H PRN IV NAUSEA AND/OR VOMITING Last administered on 07/01/17 09:51; Admin Dose 4 MG; Start 06/22/17 at 03:30 Famotidine (Pepcid) 20 mg BID PO Last administered on 07/02/17 09:22; Admin Dose 20 MG; Start 06/22/17 at 09:00 Loperamide HCl (Imodium Cap) 2 mg Q4H PRN PO DIARRHEA Last administered on 06/30 01:00; Admin Dose 2 MG; Start 06/22/17 at 09:00 Trimethoprim/ Sulfamethoxazole (Bactrim (Ds)) 1 tab DAILY PO Last administered on 07/02/17 09:22; Admin Dose 1 TAB; Start 06/25/17 at 16:00 Fluconazole (Diflucan) 200 mg DAILY PO Last administered on 07/02/17 09:22; Admin Dose 200 MG; Start 06/25/17 at 16:00 Acyclovir (Zovirax) 400 mg BID PO Last administered on 07/02/17 09:22; Admin Dose 400 MG; Start 06/25/17 at 21:00 Azithromycin (Zithromax) 1,200 mg Q7D PO Last administered on 07/02/17 17:40; Admin Dose 1,200 MG; Start 06/25/17 at 17:00 Emtricitabine/ Tenofovir (Truvada) 1 tab DAILY PO Last administered on 09:22; Admin Dose 1 TAB; Start 06/25/17 at 17:00 Efavirenz (Sustiva) 600 mg HS PO Last administered on 07/01/17 22:12; Admin Dose 600 MG; Start 06/25/17 at 21:00 Nystatin (Nystatin Susp) 5 ml QID PO Last administered on 07/02/17 17:39; Admin Dose 5 ML; Start 06/26/17 at 21:00 Multivitamins Therapeutic (Theragran) 1 tab DAILY PO Last administered on 09:22; Admin Dose 1 TAB; Start 06/27/17 at 09:00 Sodium Chloride (Nacl) 1 gm TID PO Last administered on 07/02/17 13:54; Admin Dose 1 GM; Start 06/27/17 at 21:00 Enoxaparin Sodium 30 mg 30 mg DAILY SC Last administered on 07/02/17 09:24; Admin Dose 30 MG; Start 06/29/17 at 09:00 Linezolid (Zyvox 600mg/D5W (Pmx)) 300 ml @ 300 mls/hr Q12 IVPB Last administered on 07/02/17 09:22; Admin Dose 300 MLS/HR; Start 07/01/17 at 16:00 JEN PAUL MD Jul 02, 2017 18:31
[2017-07-02] MEDS: EFAVIRENZ 600 MG TAB PO SCH (21:00)
[2017-07-03] VITALS (11 sets, daily range): BP systolic 80–97; BP diastolic 52–66; PULSE 92–118; RESP 17–18
--- NOTE | 2017-07-03 04:05 | PN ---
DATE: 07/02/2017 SUBJECTIVE DATA: No acute events overnight. No fevers. Per report, patient has poor appetite and not eating well. He is also confused but looks comfortable. VITAL SIGNS: Temperature 98.6, pulse 87, respirations 18, blood pressure 88/54, saturation 100 on 2 L. LABORATORY AND DIAGNOSTIC DATA: WBC 19.4. H and H 8.2 and 25.3, platelets 159, neutrophils 96.1. BUN 11 and creatinine 0.61. Microbiology: Blood culture since June 28 negative. Urine culture growing VRE. ANTIMICROBIALS: Patient is on: 1. Zyvox. 2. Acyclovir. 3. Diflucan. 4. Zithromax weekly. 5. Sustiva. 6. Truvada. 7. Bactrim DS daily. 8. Fluconazole. PHYSICAL EXAMINATION: GENERAL: This is a fragile, elderly man, who is awake, confused, very weak and in no distress. HEENT: Head atraumatic, normocephalic. Sclerae anicteric. Buccal mucosa dry. NECK: Supple. CHEST: Rise symmetrical. Breath sounds diminished at bases. HEART: S1, S2. ABDOMEN: Soft, bowel sounds present. EXTREMITIES: Without cyanosis. ASSESSMENT: 1. Persistent leukocytosis, unclear etiology. 2. Urinary tract infection. 3. Acquired immune deficiency syndrome. 4. History of hepatitis C virus. 5. Cachexia. 6. History of alcohol abuse. 7. Dementia, likely human immunodeficiency virus-related. 8. Oral candidiasis, on oral nystatin. PLAN: We are going to restart Flagyl, given worsening of his leukocytosis. Continue other antibiotics, antiretrovirals. Repeat chest x-ray in a.m. Follow recommendations of consultants. Optimize nutrition. Dictated By: Alexander Zarate NP /nilson/yanira /Document#: [id number]
[2017-07-03 08:33] LABS: ABNORMAL IP MESSAGE 1; BASOPHILS % 0.1 % (0.0-2.0); HEMATOCRIT 22.9 % (42.0-52.0); HEMOGLOBIN 7.8 g/dl (14.0-18.0); LYMPHOCYTES # 0.3 10^3/ul (0.8-2.9); MEAN CORPUSCULAR HEMOGLOBIN 28.4 pg (29.0-33.0); MEAN CORPUSCULAR HGB CONC 34.1 g/dl (32.0-37.0); MEAN CORPUSCULAR VOLUME 83.3 fl (82.0-101.0); MEAN PLATELET VOLUME 9.4 fl (7.4-10.4); MONOCYTE # 0.1 10^3/ul (0.3-0.9); MONOCYTES % 0.6 % (0.0-11.0); NEUTROPHILS % 95.8 % (39.0-77.0); PLATELET COUNT 157 10^3/UL (140-415); POSITIVE DIFF @See below; RED BLOOD COUNT 2.75 10^6/ul (4.70-6.10); RED CELL DISTRIBUTION WIDTH 18.7 % (11.5-14.5); WHITE BLOOD COUNT 17.2 10^3/ul (4.8-10.8)
[2017-07-03 08:42] LABS: ALBUMIN 1.9 g/dl (3.3-4.9); ALBUMIN/GLOBULIN RATIO 0.52; CALCIUM 6.6 mg/dl (8.4-10.2); CREATININE 0.57 mg/dl (0.61-1.24); POTASSIUM 3.1 mmol/L (3.5-5.1); TOTAL PROTEIN 5.5 g/dl (6.1-8.1)
[2017-07-03] MEDS: NYSTATIN SUSP 5 ML CUP PO SCH ×4 (09:13→20:41)
[2017-07-03] MEDS: EMTRICITABINE/TENOFOVIR TAB PO SCH (09:13)
[2017-07-03] MEDS: FLUCONAZOLE 200 MG TAB PO SCH (09:14)
[2017-07-03] MEDS: FAMOTIDINE 20 MG TAB PO SCH ×2 (09:14→20:41)
[2017-07-03] MEDS: MULTIVITAMINS THERAPEUTIC TAB PO SCH (09:14)
[2017-07-03] MEDS: ACYCLOVIR 400 MG TAB PO SCH ×2 (09:14→20:41)
[2017-07-03] MEDS: SODIUM CHLORIDE 1 GM TAB PO SCH ×3 (09:14→20:42)
[2017-07-03] MEDS: TRIMETHOPRIM/SULFAMETHOX (DS) TAB PO SCH (09:14)
[2017-07-03] MEDS: ENOXAPARIN 30 MG/0.3 ML SYG SC SCH (09:16)
[2017-07-03] MEDS: LINEZOLID 600 MG/D5W (PMX) 300 ML IVPB SCH ×2 (09:25→20:42)
--- NOTE | 2017-07-03 11:18 | PN ---
Date/Time of Note Date/Time of Note DATE: 07/03/17 TIME: 11:18 Assessment/Plan VTE Prophylaxis VTE Prophylaxis Intervention: SCD's Lines/Catheters IV Catheter Type (from [facility]): Saline Lock Urinary Cath still in place: No Assessment/Plan Chief Complaint/Hosp Course 1. Sepsis, multifactorial secondary to opportunistic infection with HIV and VRE urinary tract infection. Gradually improving. -On appropriate antibiotic regimen. ID eval appreciated. 2. VRE urinary tract infection. On Zyvox. 3.Diarrhea, likely opportunistic infection with newly diagnosed HIV/ AIDS.Improving. C. difficile negative - Imodium PRN 4. HIV/AIDS - Started on ARVs and ppx per ID 5. Oropharyngeal candidiasis: - Fluconazole - Nystatin s/s 6. Retroperitoneal lymphadenopathy most likely secondary to HIV -Oncology evaluation appreciated and recommendation is continuation of HIV treatment with rescan in 2-3 months. Consider biopsy if lymphadenopathy worsens at that time and reevaluate for underlying malignancy 7.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.Resolved -Monitor platelet and transfuse as needed 8. Anemia of chronic disease -Monitor H&H and transfuse as needed 9.Sodium/potassium electrolyte imbalance likely secondary to diarrhea. -Replete as indicated. 10.Severe protein-calorie malnutrition - Encourage PO intake -Diet eval has been requested. 11. HIV induced debility. -Supportive care. PT eval Plan: Continue current medical management. Follow-up with ID recommendations. Case discussed with Problems: Subjective 24 Hr Interval Summary Free Text/Dictation Patient with improving diarrhea. Exam/Review of Systems Vital Signs Vitals Vital Signs Date Time Temp Pulse Resp B/P Pulse Ox O2 Delivery O2 Flow Rate FiO2 07/03/17 10:07 Nasal Cannula 2.0 07/03/17 08:20 105 07/03/17 07:52 97.9 17 80/55 100 Intake and Output 07/02/17 07/02/17 07/03/17 15:00 23:00 07:00 Intake Total 850 ml 300 ml Output Total 300 ml Balance 850 ml 0 ml Exam General:Cachectic, Chronically ill looking male not in acute distress HEENT: Normocephalic, Atraumatic, No laceration or hematoma; Eyes: PEERL, Conjunctiva clear, Anicteric sclera Neck: Supple without any lymphadenopathy, nontender, no JVD, no carotid bruits, trachea midline, no thyromegaly Cardiac: S1, S2 auscultated, regular rhythm and rate, no mumurs or gallop Pulmonary: Normal respiratory effort. Chest clear to auscultation bilaterally, no adventitious breath sounds GI: Abdomen normal to inspection. Soft, non tender, non- distended, no masses, no rebound tenderness or guarding. Bowel sounds active on all four quadrants Genitourinary: Deferred Extremities: No cyanosis, clubbing, or edema. Pulses [2+] bilaterally. Full ROM on all four extremities. No focal weakness appreciated. Neurologic: Mildly confused. Otherwise, awake and oriented 3 Skin: Clean,dry, and intact. No ecchymosis, no rashes, or lesions Results Result Diagram: 07/03/17 0731 07/03/17 0731 Results 24 hrs Laboratory Tests Test 07/02/17 12:05 07/03/17 07:31 White Blood Count 19.4 H 17.2 H Red Blood Count 3.05 L 2.75 L Hemoglobin 8.2 L 7.8 L Hematocrit 25.3 L 22.9 L Mean Corpuscular Volume 83.0 83.3 Mean Corpuscular Hemoglobin 26.9 L 28.4 L Mean Corpuscular Hemoglobin Concent 32.4 34.1 Red Cell Distribution Width 18.7 H 18.7 H Platelet Count 159 157 Mean Platelet Volume 9.2 9.4 Neutrophils % 96.1 H 95.8 H Lymphocytes % 1.3 L 2.0 L Monocytes % 0.8 0.6 Eosinophils % 0.0 0.0 Basophils % 0.1 0.1 Nucleated Red Blood Cells % 0.0 0.0 Neutrophils # (Manual) 18.6 H 16.5 H Lymphocytes # 0.3 L 0.3 L Monocytes # 0.2 L 0.1 L Eosinophils # 0.0 0.0 Basophils # 0.0 0.0 Nucleated Red Blood Cells # 0.0 0.0 Sodium Level 129 L 131 L Potassium Level 2.9 *L 3.1 L Chloride Level 100 102 Carbon Dioxide Level 18 L 19 L Anion Gap 14 13 Blood Urea Nitrogen 11 11 Creatinine 0.61 0.57 L Glucose Level 96 86 Calcium Level 6.7 L 6.6 L Magnesium Level 2.1 Total Bilirubin 0.0 L 0.0 L Direct Bilirubin 0.00 0.00 Indirect Bilirubin 0.0 0.0 Aspartate Amino Transf (AST/SGOT) 165 H 149 H Alanine Aminotransferase (ALT/SGPT) 76 H 86 H Alkaline Phosphatase 332 H 353 H Total Protein 5.8 L 5.5 L Albumin 2.0 L 1.9 L Globulin 3.80 H 3.60 H Albumin/Globulin Ratio 0.52 0.52 Medications Medications Current Medications Morphine Sulfate (morphine) 3 mg Q4H PRN IV PAIN Last administered on 09:50; Admin Dose 3 MG; Start 06/22/17 at 03:30 Ondansetron HCl (Zofran Inj) 4 mg Q6H PRN IV NAUSEA AND/OR VOMITING Last administered on 07/01/17 09:51; Admin Dose 4 MG; Start 06/22/17 at 03:30 Famotidine (Pepcid) 20 mg BID PO Last administered on 07/03/17 09:14; Admin Dose 20 MG; Start 06/22/17 at 09:00 Loperamide HCl (Imodium Cap) 2 mg Q4H PRN PO DIARRHEA Last administered on 06/30 01:00; Admin Dose 2 MG; Start 06/22/17 at 09:00 Trimethoprim/ Sulfamethoxazole (Bactrim (Ds)) 1 tab DAILY PO Last administered on 07/03/17 09:14; Admin Dose 1 TAB; Start 06/25/17 at 16:00 Fluconazole (Diflucan) 200 mg DAILY PO Last administered on 07/03/17 09:14; Admin Dose 200 MG; Start 06/25/17 at 16:00 Acyclovir (Zovirax) 400 mg BID PO Last administered on 07/03/17 09:14; Admin Dose 400 MG; Start 06/25/17 at 21:00 Azithromycin (Zithromax) 1,200 mg Q7D PO Last administered on 07/02/17 17:40; Admin Dose 1,200 MG; Start 06/25/17 at 17:00 Emtricitabine/ Tenofovir (Truvada) 1 tab DAILY PO Last administered on 09:13; Admin Dose 1 TAB; Start 06/25/17 at 17:00 Efavirenz (Sustiva) 600 mg HS PO Last administered on 07/02/17 21:00; Admin Dose 600 MG; Start 06/25/17 at 21:00 Nystatin (Nystatin Susp) 5 ml QID PO Last administered on 07/03/17 09:13; Admin Dose 5 ML; Start 06/26/17 at 21:00 Multivitamins Therapeutic (Theragran) 1 tab DAILY PO Last administered on 09:14; Admin Dose 1 TAB; Start 06/27/17 at 09:00 Sodium Chloride (Nacl) 1 gm TID PO Last administered on 07/03/17 09:14; Admin Dose 1 GM; Start 06/27/17 at 21:00 Enoxaparin Sodium 30 mg 30 mg DAILY SC Last administered on 07/03/17 09:16; Admin Dose 30 MG; Start 06/29/17 at 09:00 Linezolid 300 ml @ 300 mls/hr Q12 IVPB Last administered on 07/03/17 09:25; Admin Dose 300 MLS/HR; Start 07/01/17 at 16:00 Potassium Chloride 250 ml @ 62.5 mls/hr ONCE ONCE IVPB Last administered on 11:06; Admin Dose 62.5 MLS/HR; Start 07/03/17 at 12:00; Stop 07/03/17 at 15:59 Metronidazole (Flagyl 500 Mg (Pmx)) 100 ml @ 100 mls/hr Q8 IVPB ; Start at 14:00 DESTINEE JANG NP Jul 03, 2017 11:18
[2017-07-03] MEDS ORDERED: POTASSIUM CHLORIDE 250 ML IVPB ONE (12:00)
--- NOTE | 2017-07-03 13:20 | CONS ---
Date/Time of Note Date/Time of Note DATE: 07/03/17 TIME: 13:17 Assessment/Plan Assessment/Plan Chief Complaint/Hosp Course SUBJECTIVE DATA: No events overnight. Patient is lethargic and very weak, not eating per report, he is in no distress T-max current 100 pulse 97 respirations 17 blood pressure 97/60 saturation 99 on nasal cannula WBC 17.2 H&H 7.8 and 22.9 platelets 157 neutrophils 95.8 Sodium 131 BUN 11 creatinine 0.57 Microbiology: Blood culture since June 28 negative. Urine culture growing VRE. ANTIMICROBIALS: Patient is on: 1. Zyvox. 2. Acyclovir. 3. Diflucan. 4. Zithromax weekly. 5. Sustiva. 6. Truvada. 7. Bactrim DS daily. 8. Fluconazole. 9. Flagyl PHYSICAL EXAMINATION: GENERAL: This is a fragile, wasted, elderly man, who is in no distress HEENT: Head atraumatic, normocephalic. Sclerae anicteric. Buccal mucosa dry. NECK: Supple. CHEST: Rise symmetrical. Breath sounds diminished at bases. HEART: S1, S2. ABDOMEN: Soft, bowel sounds present. EXTREMITIES: Without cyanosis. ASSESSMENT: 1. Persistent leukocytosis, unclear etiology. 2. VRE Urinary tract infection==> on Zyvox. 3. Acquired immune deficiency syndrome. 4. History of hepatitis C virus. 5. Cachexia. 6. History of alcohol abuse. 7. Dementia, likely human immunodeficiency virus-related. 8. Oral candidiasis, on oral nystatin. PLAN: Clinically unchanged, continue present care, antibiotics, optimize nutrition, consider to start tube feeding via NG tube staff Problems: Consultation Date/Type/Reason Admit Date/Time Jun 21, 2017 at 22:50 Initial Consult Date 06/22/17 Type of Consultation: ID Referring Provider: RAZ BERNAL Exam/Review of Systems Vital Signs Vitals Vital Signs Date Time Temp Pulse Resp B/P Pulse Ox O2 Delivery O2 Flow Rate FiO2 07/03/17 12:06 92 07/03/17 11:59 100.0 17 97/60 99 07/03/17 10:07 Nasal Cannula 2.0 Intake and Output 07/02/17 07/02/17 07/03/17 15:00 23:00 07:00 Intake Total 850 ml 300 ml Output Total 300 ml Balance 850 ml 0 ml Results Result Diagram: 07/03/17 0731 07/03/17 0731 Results 24 hrs Laboratory Tests Test 07/03/17 07:31 White Blood Count 17.2 H Red Blood Count 2.75 L Hemoglobin 7.8 L Hematocrit 22.9 L Mean Corpuscular Volume 83.3 Mean Corpuscular Hemoglobin 28.4 L Mean Corpuscular Hemoglobin Concent 34.1 Red Cell Distribution Width 18.7 H Platelet Count 157 Mean Platelet Volume 9.4 Neutrophils % 95.8 H Lymphocytes % 2.0 L Monocytes % 0.6 Eosinophils % 0.0 Basophils % 0.1 Nucleated Red Blood Cells % 0.0 Neutrophils # (Manual) 16.5 H Lymphocytes # 0.3 L Monocytes # 0.1 L Eosinophils # 0.0 Basophils # 0.0 Nucleated Red Blood Cells # 0.0 Sodium Level 131 L Potassium Level 3.1 L Chloride Level 102 Carbon Dioxide Level 19 L Anion Gap 13 Blood Urea Nitrogen 11 Creatinine 0.57 L Glucose Level 86 Calcium Level 6.6 L Total Bilirubin 0.0 L Direct Bilirubin 0.00 Indirect Bilirubin 0.0 Aspartate Amino Transf (AST/SGOT) 149 H Alanine Aminotransferase (ALT/SGPT) 86 H Alkaline Phosphatase 353 H Total Protein 5.5 L Albumin 1.9 L Globulin 3.60 H Albumin/Globulin Ratio 0.52 Medications Medications Current Medications Morphine Sulfate (morphine) 3 mg Q4H PRN IV PAIN Last administered on 09:50; Admin Dose 3 MG; Start 06/22/17 at 03:30 Ondansetron HCl (Zofran Inj) 4 mg Q6H PRN IV NAUSEA AND/OR VOMITING Last administered on 07/01/17 09:51; Admin Dose 4 MG; Start 06/22/17 at 03:30 Famotidine (Pepcid) 20 mg BID PO Last administered on 07/03/17 09:14; Admin Dose 20 MG; Start 06/22/17 at 09:00 Loperamide HCl (Imodium Cap) 2 mg Q4H PRN PO DIARRHEA Last administered on 06/30 01:00; Admin Dose 2 MG; Start 06/22/17 at 09:00 Trimethoprim/ Sulfamethoxazole (Bactrim (Ds)) 1 tab DAILY PO Last administered on 07/03/17 09:14; Admin Dose 1 TAB; Start 06/25/17 at 16:00 Fluconazole (Diflucan) 200 mg DAILY PO Last administered on 07/03/17 09:14; Admin Dose 200 MG; Start 06/25/17 at 16:00 Acyclovir (Zovirax) 400 mg BID PO Last administered on 07/03/17 09:14; Admin Dose 400 MG; Start 06/25/17 at 21:00 Azithromycin (Zithromax) 1,200 mg Q7D PO Last administered on 07/02/17 17:40; Admin Dose 1,200 MG; Start 06/25/17 at 17:00 Emtricitabine/ Tenofovir (Truvada) 1 tab DAILY PO Last administered on 09:13; Admin Dose 1 TAB; Start 06/25/17 at 17:00 Efavirenz (Sustiva) 600 mg HS PO Last administered on 07/02/17 21:00; Admin Dose 600 MG; Start 06/25/17 at 21:00 Nystatin (Nystatin Susp) 5 ml QID PO Last administered on 07/03/17 12:43; Admin Dose 5 ML; Start 06/26/17 at 21:00 Multivitamins Therapeutic (Theragran) 1 tab DAILY PO Last administered on 09:14; Admin Dose 1 TAB; Start 06/27/17 at 09:00 Sodium Chloride (Nacl) 1 gm TID PO Last administered on 07/03/17 12:43; Admin Dose 1 GM; Start 06/27/17 at 21:00 Enoxaparin Sodium 30 mg 30 mg DAILY SC Last administered on 07/03/17 09:16; Admin Dose 30 MG; Start 06/29/17 at 09:00 Linezolid 300 ml @ 300 mls/hr Q12 IVPB Last administered on 07/03/17 09:25; Admin Dose 300 MLS/HR; Start 07/01/17 at 16:00 Potassium Chloride 250 ml @ 62.5 mls/hr ONCE ONCE IVPB Last administered on 11:06; Admin Dose 62.5 MLS/HR; Start 07/03/17 at 12:00; Stop 07/03/17 at 15:59 Metronidazole (Flagyl 500 Mg (Pmx)) 100 ml @ 100 mls/hr Q8 IVPB ; Start at 14:00 ALEJANDRO MCNEIL NP Jul 03, 2017 13:20
[2017-07-03] MEDS: metroNIDAZOLE 500 MG/NS (PMX) 100 ML IVPB SCH ×2 (15:19→22:00)
[2017-07-03] MEDS: EFAVIRENZ 600 MG TAB PO SCH (20:41)
[2017-07-04] VITALS (13 sets, daily range): BP systolic 82–104; BP diastolic 53–65; PULSE 97–112; RESP 16–20
[2017-07-04] MEDS: metroNIDAZOLE 500 MG/NS (PMX) 100 ML IVPB SCH ×3 (05:36→22:02)
[2017-07-04 08:09] LABS: ABNORMAL IP MESSAGE 1; BASOPHILS % 0.1 % (0.0-2.0); HEMATOCRIT 24.1 % (42.0-52.0); LYMPHOCYTES # 0.3 10^3/ul (0.8-2.9); LYMPHOCYTES % 1.7 % (15.0-51.0); MEAN CORPUSCULAR HEMOGLOBIN 27.2 pg (29.0-33.0); MEAN CORPUSCULAR HGB CONC 33.2 g/dl (32.0-37.0); MEAN PLATELET VOLUME 9.2 fl (7.4-10.4); MONOCYTE # 0.2 10^3/ul (0.3-0.9); MONOCYTES % 0.9 % (0.0-11.0); NEUTROPHILS % 95.4 % (39.0-77.0); PLATELET COUNT 161 10^3/UL (140-415); POSITIVE DIFF @See below; RED BLOOD COUNT 2.94 10^6/ul (4.70-6.10); RED CELL DISTRIBUTION WIDTH 18.7 % (11.5-14.5); WHITE BLOOD COUNT 16.4 10^3/ul (4.8-10.8)
[2017-07-04 08:53] LABS: ALBUMIN 1.9 g/dl (3.3-4.9); ALBUMIN/GLOBULIN RATIO 0.54; CALCIUM 6.5 mg/dl (8.4-10.2); CREATININE 0.57 mg/dl (0.61-1.24); TOTAL PROTEIN 5.4 g/dl (6.1-8.1)
[2017-07-04] MEDS: EMTRICITABINE/TENOFOVIR TAB PO SCH (09:21)
[2017-07-04] MEDS: FAMOTIDINE 20 MG TAB PO SCH ×2 (09:21→22:02)
[2017-07-04] MEDS: MULTIVITAMINS THERAPEUTIC TAB PO SCH (09:21)
[2017-07-04] MEDS: LINEZOLID 600 MG/D5W (PMX) 300 ML IVPB SCH ×2 (09:21→22:01)
[2017-07-04] MEDS: FLUCONAZOLE 200 MG TAB PO SCH (09:21)
[2017-07-04] MEDS: ACYCLOVIR 400 MG TAB PO SCH ×2 (09:22→22:01)
[2017-07-04] MEDS: SODIUM CHLORIDE 1 GM TAB PO SCH ×3 (09:22→22:02)
[2017-07-04] MEDS: NYSTATIN SUSP 5 ML CUP PO SCH ×4 (09:22→22:02)
[2017-07-04] MEDS: ENOXAPARIN 30 MG/0.3 ML SYG SC SCH (09:26)
[2017-07-04] MEDS: TRIMETHOPRIM/SULFAMETHOX (DS) TAB PO SCH (10:12)
[2017-07-04] MEDS ORDERED: POTASSIUM CHLORIDE 250 ML IVPB ONE (12:30)
--- NOTE | 2017-07-04 13:07 | PN ---
Date/Time of Note Date/Time of Note DATE: 07/04/17 TIME: 13:07 Assessment/Plan VTE Prophylaxis VTE Prophylaxis Intervention: SCD's Lines/Catheters IV C[facility]ter Type (from [facility] Saline Lock Urinary Cath still in place: No Assessment/Plan Chief Complaint/Hosp Course 1. Sepsis, multifactorial secondary to opportunistic infection with HIV and VRE urinary tract infection. Gradually improving. -On appropriate antibiotic regimen. ID eval appreciated. 2. VRE urinary tract infection. On Zyvox. 3.Diarrhea, likely opportunistic infection with newly diagnosed HIV/ AIDS.Improving. C. difficile negative - Imodium PRN 4. HIV/AIDS - Started on ARVs and ppx per ID 5. Oropharyngeal candidiasis: - Fluconazole - Nystatin s/s 6. Retroperitoneal lymphadenopathy most likely secondary to HIV -Oncology evaluation appreciated and recommendation is continuation of HIV treatment with rescan in 2-3 months. Consider biopsy if lymphadenopathy worsens at that time and reevaluate for underlying malignancy 7.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.Resolved -Monitor platelet and transfuse as needed 8. Anemia of chronic disease -Monitor H&H and transfuse as needed 9.Sodium/potassium electrolyte imbalance likely secondary to diarrhea. -Replete as indicated. 10.Severe protein-calorie malnutrition - Encourage PO intake -Diet eval has been requested and is pending. -We will also request a speech therapy evaluation. 11. HIV induced debility. -Supportive care. PT eval Plan: Continue current medical management. Follow-up with ID recommendations. Family conference scheduled for 07/05/2017 at 11 AM regarding further goals of care. Case discussed with Problems: Subjective 24 Hr Interval Summary Free Text/Dictation Patient remains afebrile. Diarrhea improved. Has been having poor oral intake. Exam/Review of Systems Vital Signs Vitals Vital Signs Date Time Temp Pulse Resp B/P Pulse Ox O2 Delivery O2 Flow Rate FiO2 07/04/17 11:54 97.5 104 17 82/55 92 07/03/17 20:05 Nasal Cannula 2.0 Intake and Output 07/03/17 07/03/17 07/04/17 15:00 23:00 07:00 Intake Total 400 ml 350 ml Output Total 300 ml Balance 400 ml 50 ml Exam General:Cachectic, Chronically ill looking male not in acute distress HEENT: Normocephalic, Atraumatic, No laceration or hematoma; Eyes: PEERL, Conjunctiva clear, Anicteric sclera Neck: Supple without any lymphadenopathy, nontender, no JVD, no carotid bruits, trachea midline, no thyromegaly Cardiac: S1, S2 auscultated, regular rhythm and rate, no mumurs or gallop Pulmonary: Normal respiratory effort. Chest clear to auscultation bilaterally, no adventitious breath sounds GI: Abdomen normal to inspection. Soft, non tender, non- distended, no masses, no rebound tenderness or guarding. Bowel sounds active on all four quadrants Genitourinary: Deferred Extremities: No cyanosis, clubbing, or edema. Pulses [2+] bilaterally. Full ROM on all four extremities. No focal weakness appreciated. Neurologic: Mildly confused. Otherwise, awake and oriented 3 Skin: Clean,dry, and intact. No ecchymosis, no rashes, or lesions Results Result Diagram: 07/04/17 0737 07/04/17 0737 Results 24 hrs Laboratory Tests Test 07/04/17 07:37 White Blood Count 16.4 H Red Blood Count 2.94 L Hemoglobin 8.0 L Hematocrit 24.1 L Mean Corpuscular Volume 82.0 Mean Corpuscular Hemoglobin 27.2 L Mean Corpuscular Hemoglobin Concent 33.2 Red Cell Distribution Width 18.7 H Platelet Count 161 Mean Platelet Volume 9.2 Neutrophils % 95.4 H Lymphocytes % 1.7 L Monocytes % 0.9 Eosinophils % 0.0 Basophils % 0.1 Nucleated Red Blood Cells % 0.0 Neutrophils # (Manual) 15.6 H Lymphocytes # 0.3 L Monocytes # 0.2 L Eosinophils # 0.0 Basophils # 0.0 Nucleated Red Blood Cells # 0.0 Sodium Level 132 L Potassium Level 3.0 L Chloride Level 103 Carbon Dioxide Level 19 L Anion Gap 13 Blood Urea Nitrogen 10 Creatinine 0.57 L Glucose Level 87 Calcium Level 6.5 L Total Bilirubin 0.0 L Direct Bilirubin 0.00 Indirect Bilirubin 0.0 Aspartate Amino Transf (AST/SGOT) 126 H Alanine Aminotransferase (ALT/SGPT) 81 H Alkaline Phosphatase 369 H Total Protein 5.4 L Albumin 1.9 L Globulin 3.50 H Albumin/Globulin Ratio 0.54 Medications Medications Current Medications Morphine Sulfate (morphine) 3 mg Q4H PRN IV PAIN Last administered on 09:50; Admin Dose 3 MG; Start 06/22/17 at 03:30 Ondansetron HCl (Zofran Inj) 4 mg Q6H PRN IV NAUSEA AND/OR VOMITING Last administered on 07/01/17 09:51; Admin Dose 4 MG; Start 06/22/17 at 03:30 Famotidine (Pepcid) 20 mg BID PO Last administered on 07/04/17 09:21; Admin Dose 20 MG; Start 06/22/17 at 09:00 Loperamide HCl (Imodium Cap) 2 mg Q4H PRN PO DIARRHEA Last administered on 06/30 01:00; Admin Dose 2 MG; Start 06/22/17 at 09:00 Trimethoprim/ Sulfamethoxazole (Bactrim (Ds)) 1 tab DAILY PO Last administered on 07/04/17 10:12; Admin Dose 1 TAB; Start 06/25/17 at 16:00 Fluconazole (Diflucan) 200 mg DAILY PO Last administered on 07/04/17 09:21; Admin Dose 200 MG; Start 06/25/17 at 16:00 Acyclovir (Zovirax) 400 mg BID PO Last administered on 07/04/17 09:22; Admin Dose 400 MG; Start 06/25/17 at 21:00 Azithromycin (Zithromax) 1,200 mg Q7D PO Last administered on 07/02/17 17:40; Admin Dose 1,200 MG; Start 06/25/17 at 17:00 Emtricitabine/ Tenofovir (Truvada) 1 tab DAILY PO Last administered on 09:21; Admin Dose 1 TAB; Start 06/25/17 at 17:00 Efavirenz (Sustiva) 600 mg HS PO Last administered on 07/03/17 20:41; Admin Dose 600 MG; Start 06/25/17 at 21:00 Nystatin (Nystatin Susp) 5 ml QID PO Last administered on 07/04/17 09:22; Admin Dose 5 ML; Start 06/26/17 at 21:00 Multivitamins Therapeutic (Theragran) 1 tab DAILY PO Last administered on 09:21; Admin Dose 1 TAB; Start 06/27/17 at 09:00 Sodium Chloride (Nacl) 1 gm TID PO Last administered on 07/04/17 09:22; Admin Dose 1 GM; Start 06/27/17 at 21:00 Enoxaparin Sodium 30 mg 30 mg DAILY SC Last administered on 07/04/17 09:26; Admin Dose 30 MG; Start 06/29/17 at 09:00 Linezolid 300 ml @ 300 mls/hr Q12 IVPB Last administered on 07/04/17 09:21; Admin Dose 300 MLS/HR; Start 07/01/17 at 16:00 Metronidazole 100 ml @ 100 mls/hr Q8 IVPB Last administered on 07/04/17 05:36 ; Admin Dose 100 MLS/HR; Start 07/03/17 at 14:00 Potassium Chloride (KCl 40 MEQ/250 ML NS) 250 ml @ 62.5 mls/hr ONCE ONCE IVPB ; Start 07/04/17 at 12:30; Stop 07/04/17 at 16:29 DESTINEE JANG NP Jul 04, 2017 13:07
[2017-07-04] MEDS: EFAVIRENZ 600 MG TAB PO SCH (22:02)
[2017-07-05] VITALS (9 sets, daily range): BP systolic 82–91; BP diastolic 50–58; PULSE 97–112; RESP 16–20
--- NOTE | 2017-07-05 03:24 | PN ---
DATE: 07/04/2017 SUBJECTIVE DATA: No events overnight per report. Patient is sleeping. Again with very poor p.o. intake and very depressed. OBJECTIVE DATA: VITAL SIGNS: Temperature 97.5, pulse 99, respirations 17, blood pressure 82/55, saturation 92 on room air. LABORATORY AND DIAGNOSTIC DATA: WBC 16.4, H and H 8 and 24.1, platelets 161, neutrophils 95.4. BUN 10, creatinine 0.57. ANTIMICROBIALS: Patient is on IV Flagyl, Zyvox. He is getting acyclovir, Sustiva, Zithromax weekly, Truvada, Bactrim DS 1 daily, fluconazole. PHYSICAL EXAMINATION: GENERAL: This is a fragile, wasted well-developed elderly man who is very weak and confused. The patient is sleeping. He is in no distress. HEENT: Head atraumatic, normocephalic. Sclerae anicteric. Buccal mucosa pale, dry. NECK: Supple. RESPIRATORY: Chest rise symmetrical. Breath sounds diminished at the bases. HEART: S1, S2. ABDOMEN: Soft, bowel sounds present. EXTREMITIES: No cyanosis. Trace edema. ASSESSMENT: 1. Acquired immune deficiency syndrome, newly diagnosed. 2. Systemic inflammatory response syndrome with on and off diarrhea, on empiric Flagyl. 3. Vancomycin-resistant enterococcus urinary tract infection. 4. Progressive dementia, likely secondary to #1. 5. A severe malnutrition with cachexia. 6. History of alcohol abuse. 7. Oral candidiasis. 8. History of hepatitis C virus. PLAN: The patient is clinically stable; however, severely malnourished and not getting enough nutrition because he is not eating well. He is also very depressed. He is on appropriate antimicrobials. Pending family conference tomorrow. Pending nutritional evaluation. The patient may benefit from antidepressant agents. Dictated By: Alexander Zarate NP /nilson/samina /Document#: [id number]
[2017-07-05] MEDS: metroNIDAZOLE 500 MG/NS (PMX) 100 ML IVPB SCH ×3 (06:04→22:02)
[2017-07-05 08:12] LABS: ABNORMAL IP MESSAGE 1; HEMATOCRIT 22.6 % (42.0-52.0); HEMOGLOBIN 7.6 g/dl (14.0-18.0); LYMPHOCYTES # 0.2 10^3/ul (0.8-2.9); LYMPHOCYTES % 1.9 % (15.0-51.0); MEAN CORPUSCULAR HEMOGLOBIN 27.6 pg (29.0-33.0); MEAN CORPUSCULAR HGB CONC 33.6 g/dl (32.0-37.0); MEAN CORPUSCULAR VOLUME 82.2 fl (82.0-101.0); MEAN PLATELET VOLUME 9.1 fl (7.4-10.4); MONOCYTE # 0.1 10^3/ul (0.3-0.9); MONOCYTES % 0.8 % (0.0-11.0); NEUTROPHILS % 95.9 % (39.0-77.0); PLATELET COUNT 155 10^3/UL (140-415); POSITIVE DIFF @See below; RED BLOOD COUNT 2.75 10^6/ul (4.70-6.10); RED CELL DISTRIBUTION WIDTH 18.8 % (11.5-14.5)
[2017-07-05 08:43] LABS: ALBUMIN 1.7 g/dl (3.3-4.9); ALBUMIN/GLOBULIN RATIO 0.45; CALCIUM 6.5 mg/dl (8.4-10.2); CREATININE 0.5 mg/dl (0.61-1.24); POTASSIUM 3.1 mmol/L (3.5-5.1); TOTAL PROTEIN 5.4 g/dl (6.1-8.1)
[2017-07-05] MEDS ORDERED: POTASSIUM CHLORIDE (SR) 20 MEQ TAB PO STA (09:42)
--- NOTE | 2017-07-05 09:45 | PN ---
Date/Time of Note Date/Time of Note DATE: 07/05/17 TIME: 09:43 Assessment/Plan VTE Prophylaxis VTE Prophylaxis Intervention: SCD's Lines/Catheters IV C[facility]ter Type ([facility] Saline Lock Urinary Cath still in place: No Assessment/Plan Chief Complaint/Hosp Course 1. Sepsis, multifactorial secondary to opportunistic infection with HIV and VRE urinary tract infection. Throat -On appropriate antibiotic regimen. ID eval appreciated. 2. VRE urinary tract infection. On Zyvox. 3.Diarrhea, likely opportunistic infection with newly diagnosed HIV/ AIDS.Improving. C. difficile negative - Imodium PRN 4. HIV/AIDS - Started on ARVs and ppx per ID 5. Oropharyngeal candidiasis: - Fluconazole - Nystatin s/s 6. Retroperitoneal lymphadenopathy most likely secondary to HIV -Oncology evaluation appreciated and recommendation is continuation of HIV treatment with rescan in 2-3 months. Consider biopsy if lymphadenopathy worsens at that time and reevaluate for underlying malignancy 7.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.Resolved -Monitor platelet and transfuse as needed 8. Anemia of chronic disease -Monitor H&H and transfuse as needed 9.Sodium/potassium electrolyte imbalance likely secondary to diarrhea. -Replete as indicated. 10.Severe protein-calorie malnutrition - Encourage PO intake 11. HIV induced debility. -Supportive care. PT eval 12. 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 -Supportive care Plan: Today we had family conference with Dr. Trejo and social group worker with patient's son and other family members. Family members intend to take patient home with hospice care in 2 days. Patient will be also placed on DNR status. Continue current medical management. Prognosis: poor Case discussed with Problems: Subjective 24 Hr Interval Summary Free Text/Dictation Patient remains confused. With very poor oral intake. Having diarrhea still- improved from before. Exam/Review of Systems Vital Signs Vitals Vital Signs Date Time Temp Pulse Resp B/P Pulse Ox O2 Delivery O2 Flow Rate FiO2 07/05/17 08:30 109 07/05/17 07:51 98.2 16 82/50 96 07/04/17 20:28 Nasal Cannula 2.0 Intake and Output 07/04/17 07/04/17 07/05/17 15:00 23:00 07:00 Intake Total 600 ml 400 ml Output Total 400 ml Balance 600 ml 0 ml Exam General:Cachectic, Chronically ill looking male not in acute distress HEENT: Normocephalic, Atraumatic, No laceration or hematoma; Eyes: PEERL, Conjunctiva clear, Anicteric sclera Neck: Supple without any lymphadenopathy, nontender, no JVD, no carotid bruits, trachea midline, no thyromegaly Cardiac: S1, S2 auscultated, regular rhythm and rate, no mumurs or gallop Pulmonary: Normal respiratory effort. Chest clear to auscultation bilaterally, no adventitious breath sounds GI: Abdomen normal to inspection. Soft, non tender, non- distended, no masses, no rebound tenderness or guarding. Bowel sounds active on all four quadrants Genitourinary: Deferred Extremities: No cyanosis, clubbing, or edema. Pulses [2+] bilaterally. Full ROM on all four extremities. No focal weakness appreciated. Neurologic: Confused Skin: Muscle wasting. Clean,dry, and intact. No ecchymosis, no rashes, or lesions Results Result Diagram: 07/05/17 0729 07/05/17 0729 Results 24 hrs Laboratory Tests Test 07/05/17 07:29 White Blood Count 13.0 #H Red Blood Count 2.75 L Hemoglobin 7.6 L Hematocrit 22.6 L Mean Corpuscular Volume 82.2 Mean Corpuscular Hemoglobin 27.6 L Mean Corpuscular Hemoglobin Concent 33.6 Red Cell Distribution Width 18.8 H Platelet Count 155 Mean Platelet Volume 9.1 Neutrophils % 95.9 H Lymphocytes % 1.9 L Monocytes % 0.8 Eosinophils % 0.0 Basophils % 0.0 Nucleated Red Blood Cells % 0.0 Neutrophils # (Manual) 12.4 H Lymphocytes # 0.2 L Monocytes # 0.1 L Eosinophils # 0.0 Basophils # 0.0 Nucleated Red Blood Cells # 0.0 Sodium Level 130 L Potassium Level 3.1 L Chloride Level 102 Carbon Dioxide Level 19 L Anion Gap 12 Blood Urea Nitrogen 10 Creatinine 0.50 L Glucose Level 80 Calcium Level 6.5 L Total Bilirubin 0.0 L Direct Bilirubin 0.00 Indirect Bilirubin 0.0 Aspartate Amino Transf (AST/SGOT) 100 H Alanine Aminotransferase (ALT/SGPT) 69 Alkaline Phosphatase 319 H Total Protein 5.4 L Albumin 1.7 L Globulin 3.70 H Albumin/Globulin Ratio 0.45 Medications Medications Current Medications Morphine Sulfate (morphine) 3 mg Q4H PRN IV PAIN Last administered on 09:50; Admin Dose 3 MG; Start 06/22/17 at 03:30 Ondansetron HCl (Zofran Inj) 4 mg Q6H PRN IV NAUSEA AND/OR VOMITING Last administered on 07/01/17 09:51; Admin Dose 4 MG; Start 06/22/17 at 03:30 Famotidine (Pepcid) 20 mg BID PO Last administered on 07/04/17 22:02; Admin Dose 20 MG; Start 06/22/17 at 09:00 Loperamide HCl (Imodium Cap) 2 mg Q4H PRN PO DIARRHEA Last administered on 06/30 01:00; Admin Dose 2 MG; Start 06/22/17 at 09:00 Trimethoprim/ Sulfamethoxazole (Bactrim (Ds)) 1 tab DAILY PO Last administered on 07/04/17 10:12; Admin Dose 1 TAB; Start 06/25/17 at 16:00 Fluconazole (Diflucan) 200 mg DAILY PO Last administered on 07/04/17 09:21; Admin Dose 200 MG; Start 06/25/17 at 16:00 Acyclovir (Zovirax) 400 mg BID PO Last administered on 07/04/17 22:01; Admin Dose 400 MG; Start 06/25/17 at 21:00 Azithromycin (Zithromax) 1,200 mg Q7D PO Last administered on 07/02/17 17:40; Admin Dose 1,200 MG; Start 06/25/17 at 17:00 Emtricitabine/ Tenofovir (Truvada) 1 tab DAILY PO Last administered on 09:21; Admin Dose 1 TAB; Start 06/25/17 at 17:00 Efavirenz (Sustiva) 600 mg HS PO Last administered on 07/04/17 22:02; Admin Dose 600 MG; Start 06/25/17 at 21:00 Nystatin (Nystatin Susp) 5 ml QID PO Last administered on 07/04/17 22:02; Admin Dose 5 ML; Start 06/26/17 at 21:00 Multivitamins Therapeutic (Theragran) 1 tab DAILY PO Last administered on 09:21; Admin Dose 1 TAB; Start 06/27/17 at 09:00 Sodium Chloride (Nacl) 1 gm TID PO Last administered on 07/04/17 22:02; Admin Dose 1 GM; Start 06/27/17 at 21:00 Enoxaparin Sodium 30 mg 30 mg DAILY SC Last administered on 07/04/17 09:26; Admin Dose 30 MG; Start 06/29/17 at 09:00 Linezolid 300 ml @ 300 mls/hr Q12 IVPB Last administered on 07/04/17 22:01; Admin Dose 300 MLS/HR; Start 07/01/17 at 16:00 Metronidazole (Flagyl 500 Mg (Pmx)) 100 ml @ 100 mls/hr Q8 IVPB Last administered on 07/05/17 06:04; Admin Dose 100 MLS/HR; Start 07/03/17 at 14:00 DESTINEE JANG NP Jul 05, 2017 09:45
--- NOTE | 2017-07-05 10:32 | PN ---
DATE: SUBJECTIVE DATA: No events overnight. The patient is awake, lying comfortably in bed. Seems to be depressed. Denies pain or discomfort. Per report, he is on and off confused. No diarrhea, but still some loose stools. OBJECTIVE DATA: VITAL SIGNS: Temperature 98.6, pulse 99, respirations 115/80, and saturation 98 on 2 L. LABORATORY AND DIAGNOSTIC DATA: WBC 16.4, H and H 8 and 24, platelets 111, neutrophils 94.6, no bands. BUN 10, creatinine 0.66. ANTIMICROBIALS: The patient is on Travada, Sustiva, and Zithromax weekly. Acyclovir 400 b.i.d., fluconazole daily, Bactrim DS daily, status post Cipro and Flagyl, stool for C difficile came back negative. PHYSICAL EXAMINATION: GENERAL: Well developed, wasted, elderly man, who is awake, in no distress. HEENT: Head atraumatic, normocephalic. Sclerae anicteric. Buccal mucosa dry. NECK: Supple. Trachea midline. CHEST: Rise symmetrical. Breath sounds clear. HEART: S1, S2. ABDOMEN: Soft, bowel sounds present. EXTREMITIES: Without cyanosis. ASSESSMENT: 1. Systemic inflammatory response syndrome with persistent leukocytosis of unclear etiology. 2. Acquired immune deficiency syndrome (AIDS) CD 4 count less than 20. 3. Resolving diarrhea, stool for Clostridium difficile came back negative. Isospora and Cryptosporidium was ordered, still pending. 4. On and off confusion possibly secondary to human immunodeficiency virus (HIV) dementia. 5. History of hepatitis C virus. 6. History of alcohol abuse. 7. Anemia with thrombocytopenia. 8. Lymphadenopathy. PLAN: 1. Patient is clinically and hemodynamically stable. 2. White blood cell count today increased. 3. We are going to order blood and urine culture. 4. Continue all antimicrobials and antiretroviral medications. 5. The patient is being seen by Gastroenterology for possible colonoscopy if no improvement. Dictated By: Alexander Zarate NP /nilson/faith /Document#: [id number]
[2017-07-05] MEDS: EFAVIRENZ 600 MG TAB PO SCH ×2 (11:15→21:59)
[2017-07-05] MEDS: FLUCONAZOLE 200 MG TAB PO SCH (11:15)
[2017-07-05] MEDS: ACYCLOVIR 400 MG TAB PO SCH ×2 (11:16→21:59)
[2017-07-05] MEDS: TRIMETHOPRIM/SULFAMETHOX (DS) TAB PO SCH (11:16)
[2017-07-05] MEDS: MULTIVITAMINS THERAPEUTIC TAB PO SCH (11:17)
[2017-07-05] MEDS: SODIUM CHLORIDE 1 GM TAB PO SCH ×3 (11:17→21:59)
[2017-07-05] MEDS: FAMOTIDINE 20 MG TAB PO SCH ×2 (11:18→21:59)
[2017-07-05] MEDS: NYSTATIN SUSP 5 ML CUP PO SCH ×4 (11:18→21:59)
[2017-07-05] MEDS: LINEZOLID 600 MG/D5W (PMX) 300 ML IVPB SCH ×2 (11:19→21:00)
[2017-07-05] MEDS: ENOXAPARIN 30 MG/0.3 ML SYG SC SCH (11:27)
--- NOTE | 2017-07-05 12:32 | CONS ---
Date/Time of Note Date/Time of Note DATE: 07/05/17 TIME: 12:28 Assessment/Plan Assessment/Plan Additional Assessment/Plan Monique Enteropathy Dementia Uti f/e abnormalities Dehydration Malnutrition Wasting AIDS Family conference scheduled 07/04 Consultation Date/Type/Reason Admit Date/Time Jun 21, 2017 at 22:50 Constitutional: diaphoresis, poor po Eyes: no complaints ENT: no complaints Cardiovascular: lightheadedness Gastrointestinal: diarrhea, other (Abdominal pain) Genitourinary: no complaints Musculoskeletal: bone/joint pain Skin: no complaints Psychological: anxiety, depression Past Surgical History Past Surgical Hx: no surgical history Social History Alcohol Use: sober Smoking Status: Current every day smoker Drug Use: none Exam/Review of Systems Vital Signs Vitals Vital Signs Date Time Temp Pulse Resp B/P Pulse Ox O2 Delivery O2 Flow Rate FiO2 07/05/17 12:13 112 07/05/17 07:51 98.2 16 82/50 96 07/04/17 20:28 Nasal Cannula 2.0 Intake and Output 07/04/17 07/04/17 07/05/17 14:59 22:59 06:59 Intake Total 600 ml 400 ml Output Total 400 ml Balance 600 ml 0 ml Exam Constitutional: frail Eyes: EOMI, PERRL, nl conjunctiva, nl lids, nl sclera Neck: non-tender, supple Respiratory: clear to auscultation, normal air movement Cardiovascular: nl pulses, regular rate and rhythm Gastrointestinal: nl liver, spleen, non-tender, soft Neurological: lethargic Results Result Diagram: 07/05/17 0729 07/05/17 0729 Results 24 hrs Laboratory Tests Test 07/05/17 07:29 White Blood Count 13.0 #H Red Blood Count 2.75 L Hemoglobin 7.6 L Hematocrit 22.6 L Mean Corpuscular Volume 82.2 Mean Corpuscular Hemoglobin 27.6 L Mean Corpuscular Hemoglobin Concent 33.6 Red Cell Distribution Width 18.8 H Platelet Count 155 Mean Platelet Volume 9.1 Neutrophils % 95.9 H Lymphocytes % 1.9 L Monocytes % 0.8 Eosinophils % 0.0 Basophils % 0.0 Nucleated Red Blood Cells % 0.0 Neutrophils # (Manual) 12.4 H Lymphocytes # 0.2 L Monocytes # 0.1 L Eosinophils # 0.0 Basophils # 0.0 Nucleated Red Blood Cells # 0.0 Sodium Level 130 L Potassium Level 3.1 L Chloride Level 102 Carbon Dioxide Level 19 L Anion Gap 12 Blood Urea Nitrogen 10 Creatinine 0.50 L Glucose Level 80 Calcium Level 6.5 L Total Bilirubin 0.0 L Direct Bilirubin 0.00 Indirect Bilirubin 0.0 Aspartate Amino Transf (AST/SGOT) 100 H Alanine Aminotransferase (ALT/SGPT) 69 Alkaline Phosphatase 319 H Total Protein 5.4 L Albumin 1.7 L Globulin 3.70 H Albumin/Globulin Ratio 0.45 Medications Medications Current Medications Morphine Sulfate (morphine) 3 mg Q4H PRN IV PAIN Last administered on 09:50; Admin Dose 3 MG; Start 06/22/17 at 03:30 Ondansetron HCl (Zofran Inj) 4 mg Q6H PRN IV NAUSEA AND/OR VOMITING Last administered on 07/01/17 09:51; Admin Dose 4 MG; Start 06/22/17 at 03:30 Famotidine (Pepcid) 20 mg BID PO Last administered on 07/05/17 11:18; Admin Dose 20 MG; Start 06/22/17 at 09:00 Loperamide HCl (Imodium Cap) 2 mg Q4H PRN PO DIARRHEA Last administered on 06/30 01:00; Admin Dose 2 MG; Start 06/22/17 at 09:00 Trimethoprim/ Sulfamethoxazole (Bactrim (Ds)) 1 tab DAILY PO Last administered on 07/05/17 11:16; Admin Dose 1 TAB; Start 06/25/17 at 16:00 Fluconazole (Diflucan) 200 mg DAILY PO Last administered on 07/05/17 11:15; Admin Dose 200 MG; Start 06/25/17 at 16:00 Acyclovir (Zovirax) 400 mg BID PO Last administered on 07/05/17 11:16; Admin Dose 400 MG; Start 06/25/17 at 21:00 Azithromycin (Zithromax) 1,200 mg Q7D PO Last administered on 07/02/17 17:40; Admin Dose 1,200 MG; Start 06/25/17 at 17:00 Emtricitabine/ Tenofovir (Truvada) 1 tab DAILY PO Last administered on 09:21; Admin Dose 1 TAB; Start 06/25/17 at 17:00 Efavirenz (Sustiva) 600 mg HS PO Last administered on 07/05/17 11:15; Admin Dose 600 MG; Start 06/25/17 at 21:00 Nystatin (Nystatin Susp) 5 ml QID PO Last administered on 07/05/17 11:18; Admin Dose 5 ML; Start 06/26/17 at 21:00 Multivitamins Therapeutic (Theragran) 1 tab DAILY PO Last administered on 11:17; Admin Dose 1 TAB; Start 06/27/17 at 09:00 Sodium Chloride (Nacl) 1 gm TID PO Last administered on 07/05/17 11:17; Admin Dose 1 GM; Start 06/27/17 at 21:00 Enoxaparin Sodium 30 mg 30 mg DAILY SC Last administered on 07/05/17 11:27; Admin Dose 30 MG; Start 06/29/17 at 09:00 Linezolid 300 ml @ 300 mls/hr Q12 IVPB Last administered on 07/05/17 11:19; Admin Dose 300 MLS/HR; Start 07/01/17 at 16:00 Metronidazole (Flagyl 500 Mg (Pmx)) 100 ml @ 100 mls/hr Q8 IVPB Last administered on 07/05/17 06:04; Admin Dose 100 MLS/HR; Start 07/03/17 at 14:00 BONNIE MORTON Jul 05, 2017 12:32
[2017-07-05] MEDS: EMTRICITABINE/TENOFOVIR TAB PO SCH (12:33)
--- NOTE | 2017-07-05 12:35 | CONS ---
Date/Time of Note Date/Time of Note DATE: 07/05/17 TIME: 12:33 Assessment/Plan Assessment/Plan Additional Assessment/Plan Family conference done with son girlfriend , brothers.. Reviewed diagnosis treatment opion and en of life options.. Family are leaning towards taking him home in two days with Hospice Care... Consultation Date/Type/Reason Admit Date/Time Jun 21, 2017 at 22:50 Initial Consult Date 06/27/17 Type of Consultation: palliative Referring Provider: RAZ BERNAL Exam/Review of Systems Vital Signs Vitals Vital Signs Date Time Temp Pulse Resp B/P Pulse Ox O2 Delivery O2 Flow Rate FiO2 07/05/17 12:13 112 07/05/17 07:51 98.2 16 82/50 96 07/04/17 20:28 Nasal Cannula 2.0 Intake and Output 07/04/17 07/04/17 07/05/17 14:59 22:59 06:59 Intake Total 600 ml 400 ml Output Total 400 ml Balance 600 ml 0 ml Results Result Diagram: 07/05/17 0729 07/05/17 0729 Results 24 hrs Laboratory Tests Test 07/05/17 07:29 White Blood Count 13.0 #H Red Blood Count 2.75 L Hemoglobin 7.6 L Hematocrit 22.6 L Mean Corpuscular Volume 82.2 Mean Corpuscular Hemoglobin 27.6 L Mean Corpuscular Hemoglobin Concent 33.6 Red Cell Distribution Width 18.8 H Platelet Count 155 Mean Platelet Volume 9.1 Neutrophils % 95.9 H Lymphocytes % 1.9 L Monocytes % 0.8 Eosinophils % 0.0 Basophils % 0.0 Nucleated Red Blood Cells % 0.0 Neutrophils # (Manual) 12.4 H Lymphocytes # 0.2 L Monocytes # 0.1 L Eosinophils # 0.0 Basophils # 0.0 Nucleated Red Blood Cells # 0.0 Sodium Level 130 L Potassium Level 3.1 L Chloride Level 102 Carbon Dioxide Level 19 L Anion Gap 12 Blood Urea Nitrogen 10 Creatinine 0.50 L Glucose Level 80 Calcium Level 6.5 L Total Bilirubin 0.0 L Direct Bilirubin 0.00 Indirect Bilirubin 0.0 Aspartate Amino Transf (AST/SGOT) 100 H Alanine Aminotransferase (ALT/SGPT) 69 Alkaline Phosphatase 319 H Total Protein 5.4 L Albumin 1.7 L Globulin 3.70 H Albumin/Globulin Ratio 0.45 Medications Medications Current Medications Morphine Sulfate (morphine) 3 mg Q4H PRN IV PAIN Last administered on 09:50; Admin Dose 3 MG; Start 06/22/17 at 03:30 Ondansetron HCl (Zofran Inj) 4 mg Q6H PRN IV NAUSEA AND/OR VOMITING Last administered on 07/01/17 09:51; Admin Dose 4 MG; Start 06/22/17 at 03:30 Famotidine (Pepcid) 20 mg BID PO Last administered on 07/05/17 11:18; Admin Dose 20 MG; Start 06/22/17 at 09:00 Loperamide HCl (Imodium Cap) 2 mg Q4H PRN PO DIARRHEA Last administered on 06/30 01:00; Admin Dose 2 MG; Start 06/22/17 at 09:00 Trimethoprim/ Sulfamethoxazole (Bactrim (Ds)) 1 tab DAILY PO Last administered on 07/05/17 11:16; Admin Dose 1 TAB; Start 06/25/17 at 16:00 Fluconazole (Diflucan) 200 mg DAILY PO Last administered on 07/05/17 11:15; Admin Dose 200 MG; Start 06/25/17 at 16:00 Acyclovir (Zovirax) 400 mg BID PO Last administered on 07/05/17 11:16; Admin Dose 400 MG; Start 06/25/17 at 21:00 Azithromycin (Zithromax) 1,200 mg Q7D PO Last administered on 07/02/17 17:40; Admin Dose 1,200 MG; Start 06/25/17 at 17:00 Emtricitabine/ Tenofovir (Truvada) 1 tab DAILY PO Last administered on 09:21; Admin Dose 1 TAB; Start 06/25/17 at 17:00 Efavirenz (Sustiva) 600 mg HS PO Last administered on 07/05/17 11:15; Admin Dose 600 MG; Start 06/25/17 at 21:00 Nystatin (Nystatin Susp) 5 ml QID PO Last administered on 07/05/17 11:18; Admin Dose 5 ML; Start 06/26/17 at 21:00 Multivitamins Therapeutic (Theragran) 1 tab DAILY PO Last administered on 11:17; Admin Dose 1 TAB; Start 06/27/17 at 09:00 Sodium Chloride (Nacl) 1 gm TID PO Last administered on 07/05/17 11:17; Admin Dose 1 GM; Start 06/27/17 at 21:00 Enoxaparin Sodium 30 mg 30 mg DAILY SC Last administered on 07/05/17 11:27; Admin Dose 30 MG; Start 06/29/17 at 09:00 Linezolid 300 ml @ 300 mls/hr Q12 IVPB Last administered on 07/05/17 11:19; Admin Dose 300 MLS/HR; Start 07/01/17 at 16:00 Metronidazole (Flagyl 500 Mg (Pmx)) 100 ml @ 100 mls/hr Q8 IVPB Last administered on 07/05/17 06:04; Admin Dose 100 MLS/HR; Start 07/03/17 at 14:00 BONNIE MORTON Jul 05, 2017 12:35
--- NOTE | 2017-07-05 15:54 | PN ---
DATE: 07/05/2017 SUBJECTIVE DATA: No acute changes. The patient is awake, very weak, not eating well. Family at bedside. He is afebrile. LABORATORY AND DIAGNOSTIC DATA: WBC 13. H and H 7.6 and 22.6, platelets 155,000, neutrophils 95.9. BUN 10, creatinine 0.50. ANTIMICROBIALS: Zyvox, Flagyl, acyclovir, Sustiva, Truvada, Zithromax weekly, fluconazole, Bactrim DS daily. PHYSICAL EXAMINATION: GENERAL: Fragile, wasted, well-developed elderly man, who is awake, in no distress. HEENT: Head atraumatic, normocephalic. Sclerae anicteric. Buccal mucosa dry. NECK: Supple. Trachea midline. CHEST: Rise symmetrical, breath sounds diminished at the bases. HEART: S1, S2. ABDOMEN: Soft, bowel sounds present. EXTREMITIES: Without cyanosis. ASSESSMENT: 1. Systemic inflammatory response syndrome. 2. Acquired immune deficiency syndrome. 3. Resolving diarrhea. 4. Human immunodeficiency virus. 5. Dementia. 6. History of hepatitis C virus. 7. History of alcohol abuse. 8. Vancomycin-resistant enterococci urinary tract infection. PLAN: The patient remains unchanged. Palliative care on case. He is on appropriate coverage. We will continue him on current regimen. Complete Zyvox and Flagyl. Plan to send home with hospice care, as per palliative care note. Dictated By: Alexander Zarate NP /nilson/rena /Document#: [id number]
[2017-07-06] VITALS (10 sets, daily range): BP systolic 88–93; BP diastolic 54–57; PULSE 100–112; RESP 16–20
[2017-07-06] MEDS: metroNIDAZOLE 500 MG/NS (PMX) 100 ML IVPB SCH ×3 (05:58→21:34)
[2017-07-06 08:30] LABS: ABNORMAL IP MESSAGE 1; BASOPHILS % 0.1 % (0.0-2.0); HEMATOCRIT 22.3 % (42.0-52.0); HEMOGLOBIN 7.3 g/dl (14.0-18.0); LYMPHOCYTES # 0.2 10^3/ul (0.8-2.9); LYMPHOCYTES % 1.7 % (15.0-51.0); MEAN CORPUSCULAR HEMOGLOBIN 27.2 pg (29.0-33.0); MEAN CORPUSCULAR HGB CONC 32.7 g/dl (32.0-37.0); MEAN CORPUSCULAR VOLUME 83.2 fl (82.0-101.0); MEAN PLATELET VOLUME 9.2 fl (7.4-10.4); MONOCYTE # 0.1 10^3/ul (0.3-0.9); MONOCYTES % 0.9 % (0.0-11.0); NEUTROPHILS % 95.7 % (39.0-77.0); PLATELET COUNT 141 10^3/UL (140-415); POSITIVE DIFF @See below; RED BLOOD COUNT 2.68 10^6/ul (4.70-6.10); RED CELL DISTRIBUTION WIDTH 19.5 % (11.5-14.5); WHITE BLOOD COUNT 14.2 10^3/ul (4.8-10.8)
[2017-07-06] MEDS: EMTRICITABINE/TENOFOVIR TAB PO SCH (08:36)
[2017-07-06] MEDS: MULTIVITAMINS THERAPEUTIC TAB PO SCH (08:36)
[2017-07-06] MEDS: FAMOTIDINE 20 MG TAB PO SCH ×2 (08:36→21:35)
[2017-07-06] MEDS: FLUCONAZOLE 200 MG TAB PO SCH (08:36)
[2017-07-06] MEDS: NYSTATIN SUSP 5 ML CUP PO SCH ×4 (08:36→21:35)
[2017-07-06] MEDS: LINEZOLID 600 MG/D5W (PMX) 300 ML IVPB SCH ×2 (08:36→21:49)
[2017-07-06] MEDS: SODIUM CHLORIDE 1 GM TAB PO SCH ×3 (08:36→21:34)
[2017-07-06] MEDS: TRIMETHOPRIM/SULFAMETHOX (DS) TAB PO SCH (08:36)
[2017-07-06] MEDS: ACYCLOVIR 400 MG TAB PO SCH ×2 (08:37→21:35)
[2017-07-06] MEDS: ENOXAPARIN 30 MG/0.3 ML SYG SC SCH (08:38)
[2017-07-06 08:55] LABS: ALBUMIN 1.7 g/dl (3.3-4.9); ALBUMIN/GLOBULIN RATIO 0.51; CALCIUM 6.7 mg/dl (8.4-10.2); CREATININE 0.54 mg/dl (0.61-1.24)
[2017-07-06 09:11] LABS: POTASSIUM 2.8 mmol/L (3.5-5.1)
[2017-07-06] MEDS ORDERED: POTASSIUM CHLORIDE 20 MEQ POWDER FOR ORAL SOLN PO ONE (12:00)
--- NOTE | 2017-07-06 12:49 | CONS ---
Date/Time of Note Date/Time of Note DATE: 07/06/17 TIME: 12:47 Assessment/Plan Assessment/Plan Chief Complaint/Hosp Course SUBJECTIVE DATA: No acute changes. Sleeping, looks comfortable, son at bedside ANTIMICROBIALS: Zyvox, Flagyl, acyclovir, Sustiva, Truvada, Zithromax weekly, fluconazole, Bactrim DS daily. PHYSICAL EXAMINATION: GENERAL: Fragile, wasted, well-developed elderly man, who is in no distress. HEENT: Head atraumatic, normocephalic. Sclerae anicteric. Buccal mucosa dry. NECK: Supple. Trachea midline. CHEST: Rise symmetrical, breath sounds diminished at the bases. HEART: S1, S2. ABDOMEN: Soft, bowel sounds present. EXTREMITIES: Without cyanosis. ASSESSMENT: 1. Systemic inflammatory response syndrome. 2. Acquired immune deficiency syndrome. 3. Resolving diarrhea. 4. Cachexia. 5. HIV Dementia. 6. History of hepatitis C virus. 7. History of alcohol abuse. 8. Vancomycin-resistant enterococci urinary tract infection. PLAN: The patient remains unchanged. Continue present care, plan to dc home with hospice [facility] staff Problems: Consultation Date/Type/Reason Admit Date/Time Jun 21, 2017 at 22:50 Initial Consult Date 06/22/17 Type of Consultation: ID Referring Provider: RAZ BERNAL Exam/Review of Systems Vital Signs Vitals Vital Signs Date Time Temp Pulse Resp B/P Pulse Ox O2 Delivery O2 Flow Rate FiO2 07/06/17 12:14 108 07/06/17 12:03 98.6 16 88/54 94 07/05/17 19:30 Nasal Cannula 2.0 Intake and Output 07/05/17 07/05/17 07/06/17 15:00 23:00 07:00 Intake Total 350 ml 350 ml 400 ml Output Total 700 ml Balance 350 ml 350 ml -300 ml Results Result Diagram: 07/06/17 0749 07/06/17 0749 Results 24 hrs Laboratory Tests Test 07/06/17 07:49 White Blood Count 14.2 H Red Blood Count 2.68 L Hemoglobin 7.3 L Hematocrit 22.3 L Mean Corpuscular Volume 83.2 Mean Corpuscular Hemoglobin 27.2 L Mean Corpuscular Hemoglobin Concent 32.7 Red Cell Distribution Width 19.5 H Platelet Count 141 Mean Platelet Volume 9.2 Neutrophils % 95.7 H Lymphocytes % 1.7 L Monocytes % 0.9 Eosinophils % 0.0 Basophils % 0.1 Nucleated Red Blood Cells % 0.0 Neutrophils # (Manual) 13.6 H Lymphocytes # 0.2 L Monocytes # 0.1 L Eosinophils # 0.0 Basophils # 0.0 Nucleated Red Blood Cells # 0.0 Sodium Level 127 L Potassium Level 2.8 *L Chloride Level 103 Carbon Dioxide Level 19 L Anion Gap 8 Blood Urea Nitrogen 11 Creatinine 0.54 L Glucose Level 78 Calcium Level 6.7 L Total Bilirubin 0.0 L Direct Bilirubin 0.00 Indirect Bilirubin 0.0 Aspartate Amino Transf (AST/SGOT) 75 H Alanine Aminotransferase (ALT/SGPT) 57 Alkaline Phosphatase 295 H Total Protein 5.0 L Albumin 1.7 L Globulin 3.30 H Albumin/Globulin Ratio 0.51 Medications Medications Current Medications Morphine Sulfate (morphine) 3 mg Q4H PRN IV PAIN Last administered on 09:50; Admin Dose 3 MG; Start 06/22/17 at 03:30 Ondansetron HCl (Zofran Inj) 4 mg Q6H PRN IV NAUSEA AND/OR VOMITING Last administered on 07/01/17 09:51; Admin Dose 4 MG; Start 06/22/17 at 03:30 Famotidine (Pepcid) 20 mg BID PO Last administered on 07/06/17 08:36; Admin Dose 20 MG; Start 06/22/17 at 09:00 Loperamide HCl (Imodium Cap) 2 mg Q4H PRN PO DIARRHEA Last administered on 06/30 01:00; Admin Dose 2 MG; Start 06/22/17 at 09:00 Trimethoprim/ Sulfamethoxazole (Bactrim (Ds)) 1 tab DAILY PO Last administered on 07/06/17 08:36; Admin Dose 1 TAB; Start 06/25/17 at 16:00 Fluconazole (Diflucan) 200 mg DAILY PO Last administered on 07/06/17 08:36; Admin Dose 200 MG; Start 06/25/17 at 16:00 Acyclovir (Zovirax) 400 mg BID PO Last administered on 07/06/17 08:37; Admin Dose 400 MG; Start 06/25/17 at 21:00 Azithromycin (Zithromax) 1,200 mg Q7D PO Last administered on 07/02/17 17:40; Admin Dose 1,200 MG; Start 06/25/17 at 17:00 Emtricitabine/ Tenofovir (Truvada) 1 tab DAILY PO Last administered on 08:36; Admin Dose 1 TAB; Start 06/25/17 at 17:00 Efavirenz (Sustiva) 600 mg HS PO Last administered on 07/05/17 21:59; Admin Dose 600 MG; Start 06/25/17 at 21:00 Nystatin (Nystatin Susp) 5 ml QID PO Last administered on 07/06/17 12:00; Admin Dose 5 ML; Start 06/26/17 at 21:00 Multivitamins Therapeutic (Theragran) 1 tab DAILY PO Last administered on 08:36; Admin Dose 1 TAB; Start 06/27/17 at 09:00 Sodium Chloride (Nacl) 1 gm TID PO Last administered on 07/06/17 12:00; Admin Dose 1 GM; Start 06/27/17 at 21:00 Enoxaparin Sodium 30 mg 30 mg DAILY SC Last administered on 07/06/17 08:38; Admin Dose 30 MG; Start 06/29/17 at 09:00 Linezolid 300 ml @ 300 mls/hr Q12 IVPB Last administered on 07/06/17 08:36; Admin Dose 300 MLS/HR; Start 07/01/17 at 16:00 Metronidazole (Flagyl 500 Mg (Pmx)) 100 ml @ 100 mls/hr Q8 IVPB Last administered on 07/06/17 05:58; Admin Dose 100 MLS/HR; Start 07/03/17 at 14:00 ALEJANDRO MCNEIL NP Jul 06, 2017 12:49
--- NOTE | 2017-07-06 13:11 | PN ---
Date/Time of Note Date/Time of Note DATE: 07/06/17 TIME: 13:07 Assessment/Plan VTE Prophylaxis VTE Prophylaxis Intervention: SCD's Lines/Catheters IV C[facility]ter Type [facility]from [facility] Saline Lock Urinary Cath still in place: No Assessment/Plan Chief Complaint/Hosp Course 1. Sepsis, multifactorial secondary to opportunistic infection with HIV and VRE urinary tract infection. Throat -On appropriate antibiotic regimen. ID eval appreciated. 2. VRE urinary tract infection. On Zyvox. 3.Diarrhea, likely opportunistic infection with newly diagnosed HIV/ AIDS.Improving. C. difficile negative - Imodium PRN 4. HIV/AIDS - Started on ARVs and ppx per ID 5. Oropharyngeal candidiasis: - Fluconazole - Nystatin s/s 6. Retroperitoneal lymphadenopathy most likely secondary to HIV -Oncology evaluation appreciated and recommendation is continuation of HIV treatment with rescan in 2-3 months. Consider biopsy if lymphadenopathy worsens at that time and reevaluate for underlying malignancy 7.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.Resolved -Monitor platelet and transfuse as needed 8. Anemia of chronic disease -Monitor H&H and transfuse as needed 9.Sodium/potassium electrolyte imbalance likely secondary to diarrhea. -Replete as indicated. 10.Severe protein-calorie malnutrition - Encourage PO intake 11. HIV induced debility. -Supportive care. PT eval 12. 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 -Supportive care Plan: Continue current medical management. Continue DNR. Possibly Hospice eval- pending family decision. Discharge planning home with hospice tomorrow once family agree. Prognosis: poor Case discussed with Problems: Subjective 24 Hr Interval Summary Free Text/Dictation Overall ,no change in status. Remains awake but confused. Exam/Review of Systems Vital Signs Vitals Vital Signs Date Time Temp Pulse Resp B/P Pulse Ox O2 Delivery O2 Flow Rate FiO2 07/06/17 12:14 108 07/06/17 12:03 98.6 16 88/54 94 07/05/17 19:30 Nasal Cannula 2.0 Intake and Output 07/05/17 07/05/17 07/06/17 15:00 23:00 07:00 Intake Total 350 ml 350 ml 400 ml Output Total 700 ml Balance 350 ml 350 ml -300 ml Exam General:Cachectic, Chronically ill looking male not in acute distress HEENT: Normocephalic, Atraumatic, No laceration or hematoma; Eyes: PEERL, Conjunctiva clear, Anicteric sclera Neck: Supple without any lymphadenopathy, nontender, no JVD, no carotid bruits, trachea midline, no thyromegaly Cardiac: S1, S2 auscultated, regular rhythm and rate, no mumurs or gallop Pulmonary: Normal respiratory effort. Chest clear to auscultation bilaterally, no adventitious breath sounds GI: Abdomen normal to inspection. Soft, non tender, non- distended, no masses, no rebound tenderness or guarding. Bowel sounds active on all four quadrants Genitourinary: Deferred Extremities: No cyanosis, clubbing, or edema. Pulses [2+] bilaterally. Full ROM on all four extremities. No focal weakness appreciated. Neurologic: Confused- Lack of attention/interest in conversation. withdrawn affect. Skin: Muscle wasting. Clean,dry, and intact. No ecchymosis, no rashes, or lesions Results Result Diagram: 07/06/17 0749 07/06/17 0749 Results 24 hrs Laboratory Tests Test 07/06/17 07:49 White Blood Count 14.2 H Red Blood Count 2.68 L Hemoglobin 7.3 L Hematocrit 22.3 L Mean Corpuscular Volume 83.2 Mean Corpuscular Hemoglobin 27.2 L Mean Corpuscular Hemoglobin Concent 32.7 Red Cell Distribution Width 19.5 H Platelet Count 141 Mean Platelet Volume 9.2 Neutrophils % 95.7 H Lymphocytes % 1.7 L Monocytes % 0.9 Eosinophils % 0.0 Basophils % 0.1 Nucleated Red Blood Cells % 0.0 Neutrophils # (Manual) 13.6 H Lymphocytes # 0.2 L Monocytes # 0.1 L Eosinophils # 0.0 Basophils # 0.0 Nucleated Red Blood Cells # 0.0 Sodium Level 127 L Potassium Level 2.8 *L Chloride Level 103 Carbon Dioxide Level 19 L Anion Gap 8 Blood Urea Nitrogen 11 Creatinine 0.54 L Glucose Level 78 Calcium Level 6.7 L Total Bilirubin 0.0 L Direct Bilirubin 0.00 Indirect Bilirubin 0.0 Aspartate Amino Transf (AST/SGOT) 75 H Alanine Aminotransferase (ALT/SGPT) 57 Alkaline Phosphatase 295 H Total Protein 5.0 L Albumin 1.7 L Globulin 3.30 H Albumin/Globulin Ratio 0.51 Medications Medications Current Medications Morphine Sulfate (morphine) 3 mg Q4H PRN IV PAIN Last administered on 09:50; Admin Dose 3 MG; Start 06/22/17 at 03:30 Ondansetron HCl (Zofran Inj) 4 mg Q6H PRN IV NAUSEA AND/OR VOMITING Last administered on 07/01/17 09:51; Admin Dose 4 MG; Start 06/22/17 at 03:30 Famotidine (Pepcid) 20 mg BID PO Last administered on 07/06/17 08:36; Admin Dose 20 MG; Start 06/22/17 at 09:00 Loperamide HCl (Imodium Cap) 2 mg Q4H PRN PO DIARRHEA Last administered on 06/30 01:00; Admin Dose 2 MG; Start 06/22/17 at 09:00 Trimethoprim/ Sulfamethoxazole (Bactrim (Ds)) 1 tab DAILY PO Last administered on 07/06/17 08:36; Admin Dose 1 TAB; Start 06/25/17 at 16:00 Fluconazole (Diflucan) 200 mg DAILY PO Last administered on 07/06/17 08:36; Admin Dose 200 MG; Start 06/25/17 at 16:00 Acyclovir (Zovirax) 400 mg BID PO Last administered on 07/06/17 08:37; Admin Dose 400 MG; Start 06/25/17 at 21:00 Azithromycin (Zithromax) 1,200 mg Q7D PO Last administered on 07/02/17 17:40; Admin Dose 1,200 MG; Start 06/25/17 at 17:00 Emtricitabine/ Tenofovir (Truvada) 1 tab DAILY PO Last administered on 08:36; Admin Dose 1 TAB; Start 06/25/17 at 17:00 Efavirenz (Sustiva) 600 mg HS PO Last administered on 07/05/17 21:59; Admin Dose 600 MG; Start 06/25/17 at 21:00 Nystatin (Nystatin Susp) 5 ml QID PO Last administered on 07/06/17 12:00; Admin Dose 5 ML; Start 06/26/17 at 21:00 Multivitamins Therapeutic (Theragran) 1 tab DAILY PO Last administered on 08:36; Admin Dose 1 TAB; Start 06/27/17 at 09:00 Sodium Chloride (Nacl) 1 gm TID PO Last administered on 07/06/17 12:00; Admin Dose 1 GM; Start 06/27/17 at 21:00 Enoxaparin Sodium 30 mg 30 mg DAILY SC Last administered on 07/06/17 08:38; Admin Dose 30 MG; Start 06/29/17 at 09:00 Linezolid 300 ml @ 300 mls/hr Q12 IVPB Last administered on 07/06/17 08:36; Admin Dose 300 MLS/HR; Start 07/01/17 at 16:00 Metronidazole (Flagyl 500 Mg (Pmx)) 100 ml @ 100 mls/hr Q8 IVPB Last administered on 07/06/17 05:58; Admin Dose 100 MLS/HR; Start 07/03/17 at 14:00 DESTINEE JANG NP Jul 06, 2017 13:11
[2017-07-06] MEDS: POTASSIUM CHLORIDE (SR) 20 MEQ TAB PO SCH (13:30)
[2017-07-06 18:25] LABS: MAGNESIUM 2.1 mg/dl (1.7-2.5); POTASSIUM 3.2 mmol/L (3.5-5.1)
[2017-07-06] MEDS: EFAVIRENZ 600 MG TAB PO SCH (21:35)
[2017-07-07] VITALS (10 sets, daily range): BP systolic 65–106; BP diastolic 39–55; PULSE 97–107; RESP 17–22
[2017-07-07] MEDS: metroNIDAZOLE 500 MG/NS (PMX) 100 ML IVPB SCH ×2 (05:45→14:05)
[2017-07-07 07:41] LABS: ABNORMAL IP MESSAGE 1; BASOPHILS % 0.1 % (0.0-2.0); HEMATOCRIT 21.3 % (42.0-52.0); HEMOGLOBIN 7.1 g/dl (14.0-18.0); LYMPHOCYTES # 0.2 10^3/ul (0.8-2.9); LYMPHOCYTES % 1.4 % (15.0-51.0); MEAN CORPUSCULAR HEMOGLOBIN 27.5 pg (29.0-33.0); MEAN CORPUSCULAR HGB CONC 33.3 g/dl (32.0-37.0); MEAN CORPUSCULAR VOLUME 82.6 fl (82.0-101.0); MEAN PLATELET VOLUME 9.4 fl (7.4-10.4); MONOCYTE # 0.1 10^3/ul (0.3-0.9); MONOCYTES % 0.8 % (0.0-11.0); NEUTROPHILS % 96.3 % (39.0-77.0); PLATELET COUNT 133 10^3/UL (140-415); POSITIVE DIFF @See below; RED BLOOD COUNT 2.58 10^6/ul (4.70-6.10); RED CELL DISTRIBUTION WIDTH 19.5 % (11.5-14.5)
[2017-07-07 08:16] LABS: ALBUMIN 1.6 g/dl (3.3-4.9); ALBUMIN/GLOBULIN RATIO 0.47; CALCIUM 6.6 mg/dl (8.4-10.2); CREATININE 0.55 mg/dl (0.61-1.24)
[2017-07-07 08:27] LABS: POTASSIUM 2.8 mmol/L (3.5-5.1)
[2017-07-07] MEDS: NYSTATIN SUSP 5 ML CUP PO SCH ×3 (09:47→17:06)
[2017-07-07] MEDS: LINEZOLID 600 MG/D5W (PMX) 300 ML IVPB SCH (09:49)
[2017-07-07] MEDS: ACYCLOVIR 400 MG TAB PO SCH (09:50)
[2017-07-07] MEDS: EMTRICITABINE/TENOFOVIR TAB PO SCH (09:50)
[2017-07-07] MEDS: MULTIVITAMINS THERAPEUTIC TAB PO SCH (09:50)
[2017-07-07] MEDS: SODIUM CHLORIDE 1 GM TAB PO SCH ×2 (09:50→14:06)
[2017-07-07] MEDS: FAMOTIDINE 20 MG TAB PO SCH (09:50)
[2017-07-07] MEDS: FLUCONAZOLE 200 MG TAB PO SCH (09:50)
[2017-07-07] MEDS: POTASSIUM CHLORIDE (SR) 20 MEQ TAB PO SCH (09:50)
[2017-07-07] MEDS: EFAVIRENZ 600 MG TAB PO SCH (09:51)
[2017-07-07] MEDS: TRIMETHOPRIM/SULFAMETHOX (DS) TAB PO SCH (09:51)
[2017-07-07] MEDS: ENOXAPARIN 30 MG/0.3 ML SYG SC SCH (09:57)
--- NOTE | 2017-07-07 11:28 | CONS ---
Date/Time of Note Date/Time of Note DATE: 07/07/17 TIME: 11:21 Assessment/Plan Assessment/Plan Chief Complaint/Hosp Course ID PROGRESS NOTE CURRENT ABX: ABX Day # Zyvox today for (+)VRE UTI 24H INTERVAL SUMMARY * Stable -- still weak yet awake, alert, (+)dyspnea w/sternal retractions on supplemental O2 * Family present, encouraging patient to take PO bottled water, he takes few sips only PHYSICAL EXAMINATION: GENERAL: 66 yo M appears weak w/chronic debility HEENT: Unremarkable NECK: Supple. Trachea midline. CHEST: Rise symmetrical. Breath sounds diminished. HEART: S1, S2. ABDOMEN: Soft, bowel sounds present. EXT: Moves all extremities ID ASSESSMENT 66 yo male with HIV/AIDS (CD4# <20) w/chronic ABD lymphadenopathy admit w/nausea /vomiting, poor PO intake, failure to thrive, malnutrition and: 1. Fever and diarrhea in a patient with newly diagnosed HIV/AIDS => RESOLVING * s/p cipro/flagyl course * C. difficile is negative, stool culture negative * Immodium PRN seems diarrhea is resolving * Repeat CT here without colitis 2. VRE UTI 3. 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 Severe protein-calorie malnutrition 5. Urinary retention ?BPH vs other ?= hx of recurrent UTIs 6. Pancytopenia ?etiology probably due to HIV/AIDS (+)ITP * Thrombocytopenia- secondary to ITP vs other lymphoproliferative DO contributing to splenomegaly 7. Questionable hx of liver cirrhosis 2/2 (+)ETOH + (+)Hepatitis C -> not confirmed on CT, (+)Splenomegaly * Possible underlying lymphoproliferative disorder, though recent pathology studies were not conclusive. * Elevated ALT and Alk Phos 8. GERD 9. Hemorrhoids 10. Depression -- hx of noncompliance with ARV Meds 11. Hx of Migraine headaches + Severe occipital headaches * 06/05/16 MRI Brain non-contrast: Small 4 mm subependymal nodule within the right lateral ventricle anteriorly, that may represent a benign hamartoma. Other possibilities include a meningioma. An MRI of the brain with contrast is recommended for further evaluation. 12. Carotid artery disease: Less than 50% stenosis bilaterally in the internal carotid arteries [address] 2016 Mild lower cervical spondylosis is evident without significant central canal stenosis or neural foraminal narrowing. 14. Hx of prior admissions x 2 for multiple recurrent skin abscesses-> folliculitis, infected axillary glands 15. Hx of MARCIO septicemia 2/2 UTI + Infected abscesses prior admission. 16. Bilateral fat inguinal hernias 17. Oropharyngeal candidiasis: (-) MRSA Nares (-) C.Diff screen CURRENT ABX: Zyvox for (+)VRE UTI 1. Truvada. 2. Sustiva. 3. Zithromax weekly. 4. Acyclovir 400 mg b.i.d. 5. Bactrim DS 1 tablet p.o. daily. 6. Fluconazole. ID RECOMMENDATIONS Continue current anti-microbials, anti-virals Possibly home with family on Hospice . . Problems: Consultation Date/Type/Reason Admit Date/Time Jun 21, 2017 at 22:50 Initial Consult Date 06/27/17 Type of Consultation: ID Referring Provider: RAZ BERNAL Exam/Review of Systems Vital Signs Vitals Vital Signs Date Time Temp Pulse Resp B/P Pulse Ox O2 Delivery O2 Flow Rate FiO2 07/07/17 08:22 99 07/07/17 07:57 97.9 17 76/52 99 07/06/17 21:00 Nasal Cannula 2.0 Intake and Output 07/06/17 07/06/17 07/07/17 15:00 23:00 07:00 Intake Total 400 ml 800 ml Balance 400 ml 800 ml Results Result Diagram: 07/07/17 0708 07/07/17 0708 Results 24 hrs Laboratory Tests Test 07/06/17 17:38 07/07/17 07:08 Potassium Level 3.2 L 2.8 *L Magnesium Level 2.1 White Blood Count 14.0 H Red Blood Count 2.58 L Hemoglobin 7.1 L Hematocrit 21.3 L Mean Corpuscular Volume 82.6 Mean Corpuscular Hemoglobin 27.5 L Mean Corpuscular Hemoglobin Concent 33.3 Red Cell Distribution Width 19.5 H Platelet Count 133 L Mean Platelet Volume 9.4 Neutrophils % 96.3 H Lymphocytes % 1.4 L Monocytes % 0.8 Eosinophils % 0.0 Basophils % 0.1 Nucleated Red Blood Cells % 0.0 Neutrophils # (Manual) 13.5 H Lymphocytes # 0.2 L Monocytes # 0.1 L Eosinophils # 0.0 Basophils # 0.0 Nucleated Red Blood Cells # 0.0 Sodium Level 126 L Chloride Level 103 Carbon Dioxide Level 19 L Anion Gap 7 L Blood Urea Nitrogen 12 Creatinine 0.55 L Glucose Level 76 Calcium Level 6.6 L Total Bilirubin 0.0 L Direct Bilirubin 0.00 Indirect Bilirubin 0.0 Aspartate Amino Transf (AST/SGOT) 65 H Alanine Aminotransferase (ALT/SGPT) 51 Alkaline Phosphatase 248 H Total Protein 5.0 L Albumin 1.6 L Globulin 3.40 H Albumin/Globulin Ratio 0.47 Medications Medications Current Medications Morphine Sulfate (morphine) 3 mg Q4H PRN IV PAIN Last administered on 09:50; Admin Dose 3 MG; Start 06/22/17 at 03:30 Ondansetron HCl (Zofran Inj) 4 mg Q6H PRN IV NAUSEA AND/OR VOMITING Last administered on 07/01/17 09:51; Admin Dose 4 MG; Start 06/22/17 at 03:30 Famotidine (Pepcid) 20 mg BID PO Last administered on 07/07/17 09:50; Admin Dose 20 MG; Start 06/22/17 at 09:00 Loperamide HCl (Imodium Cap) 2 mg Q4H PRN PO DIARRHEA Last administered on 06/30 01:00; Admin Dose 2 MG; Start 06/22/17 at 09:00 Trimethoprim/ Sulfamethoxazole (Bactrim (Ds)) 1 tab DAILY PO Last administered on 07/07/17 09:51; Admin Dose 1 TAB; Start 06/25/17 at 16:00 Fluconazole (Diflucan) 200 mg DAILY PO Last administered on 07/07/17 09:50; Admin Dose 200 MG; Start 06/25/17 at 16:00 Acyclovir (Zovirax) 400 mg BID PO Last administered on 07/07/17 09:50; Admin Dose 400 MG; Start 06/25/17 at 21:00 Azithromycin (Zithromax) 1,200 mg Q7D PO Last administered on 07/02/17 17:40; Admin Dose 1,200 MG; Start 06/25/17 at 17:00 Emtricitabine/ Tenofovir (Truvada) 1 tab DAILY PO Last administered on 09:50; Admin Dose 1 TAB; Start 06/25/17 at 17:00 Efavirenz (Sustiva) 600 mg HS PO Last administered on 07/07/17 09:51; Admin Dose 600 MG; Start 06/25/17 at 21:00 Nystatin (Nystatin Susp) 5 ml QID PO Last administered on 07/07/17 09:47; Admin Dose 5 ML; Start 06/26/17 at 21:00 Multivitamins Therapeutic (Theragran) 1 tab DAILY PO Last administered on 09:50; Admin Dose 1 TAB; Start 06/27/17 at 09:00 Sodium Chloride (Nacl) 1 gm TID PO Last administered on 07/07/17 09:50; Admin Dose 1 GM; Start 06/27/17 at 21:00 Enoxaparin Sodium 30 mg 30 mg DAILY SC Last administered on 07/07/17 09:57; Admin Dose 30 MG; Start 06/29/17 at 09:00 Linezolid 300 ml @ 300 mls/hr Q12 IVPB Last administered on 07/07/17 09:49; Admin Dose 300 MLS/HR; Start 07/01/17 at 16:00 Metronidazole (Flagyl 500 Mg (Pmx)) 100 ml @ 100 mls/hr Q8 IVPB Last administered on 07/07/17 05:45; Admin Dose 100 MLS/HR; Start 07/03/17 at 14:00 Potassium Chloride (Klor-Con 20) 20 meq DAILY PO Last administered on 07/07/17 09:50; Admin Dose 20 MEQ; Start 07/06/17 at 13:30 ANUP NGUEYN NP Jul 07, 2017 11:28
[2017-07-07] MEDS ORDERED: POTASSIUM CHLORIDE (SR) 20 MEQ TAB PO STA (12:00)
--- NOTE | 2017-07-07 13:31 | PDOCDIS ---
Discharge Instructions DIAGNOSIS Discharge Diagnosis Sepsis; VRE; HIV disease; hepatitis C; cachexia CONDITION Patient Condition: Serious HOME CARE INSTRUCTIONS: Special Diet: REG ACTIVITY: Activity Restrictions: Do not operate Machinery Do not operate Power Tool FOLLOW UP/APPOINTMENTS Follow-up Plan Hospice care services SCHOOL/WORK RELEASE May return to School/Work with: With Restrictions ELDON HINES MD Jul 07, 2017 13:31
[2017-07-07] MEDS ORDERED: FAMO20TA18 PO (13:35)
[2017-07-07] MEDS ORDERED: IMO2 PO (13:35)
[2017-07-07] MEDS ORDERED: TRUV PO (13:35)
[2017-07-07] MEDS ORDERED: MULTI PO (13:35)
[2017-07-07] MEDS ORDERED: ONDA4VIA2 IV (13:35)
[2017-07-07] MEDS ORDERED: ENOX30DI8 SC (13:35)
[2017-07-07] MEDS ORDERED: POTA20TA15 PO (13:35)
[2017-07-07] MEDS ORDERED: EFV600C PO (13:35)
[2017-07-07] MEDS ORDERED: AZIT600T PO (13:35)
[2017-07-07] MEDS ORDERED: NYST1000 PO (13:35)
[2017-07-07] MEDS ORDERED: FLUC200T36 PO (13:35)
[2017-07-07] MEDS ORDERED: ACYC400T2 PO (13:35)
[2017-07-07] MEDS ORDERED: Trimethoprim/Sulfamethox (Ds) PO (13:35)
--- NOTE | 2017-07-07 13:38 | DS ---
Date/Time of Note Date/Time of Note DATE: 07/07/17 TIME: 13:36 Discharge Summary Admission/Discharge Info Admit Date/Time Jun 21, 2017 at 22:50 Discharge Date/Time July 07, 2017 Discharge Diagnosis Sepsis; VRE; HIV disease; hepatitis C; cachexia Consults Infectious disease; palliative care; GI; general surgery; hematology oncology; Procedures CT scan abdomen and pelvis Hx of Present Illness This is a 66-year-old male with a history of hep C, alcohol abuse, gastritis, anemia, thrombocytopenia (? ITP), probable cirrhosis who initially presented to [facility] complaining of diarrhea and abdominal pain. Patient was transferred to [facility] for insurance reason. Patient, at times is confused so history is not entirely reliable even though he provided adequate enough information. He said he has been having watery diarrhea on a daily basis for at least 5 weeks. Abdominal pain is diffuse but minimal. Denied fever/chills, chest pain. CT abdomen/pelvis at [facility] showed enterocolitis. . Hospital Course ID PROGRESS NOTE CURRENT ABX: ABX Day # Zyvox today for (+)VRE UTI 24H INTERVAL SUMMARY * Stable -- still weak yet awake, alert, (+)dyspnea w/sternal retractions on supplemental O2 * Family present, encouraging patient to take PO bottled water, he takes few sips only PHYSICAL EXAMINATION: GENERAL: 66 yo M appears weak w/chronic debility HEENT: Unremarkable NECK: Supple. Trachea midline. CHEST: Rise symmetrical. Breath sounds diminished. HEART: S1, S2. ABDOMEN: Soft, bowel sounds present. EXT: Moves all extremities ID ASSESSMENT 66 yo male with HIV/AIDS (CD4# <20) w/chronic ABD lymphadenopathy admit w/nausea /vomiting, poor PO intake, failure to thrive, malnutrition and: 1. Fever and diarrhea in a patient with newly diagnosed HIV/AIDS => RESOLVING * s/p cipro/flagyl course * C. difficile is negative, stool culture negative * Immodium PRN seems diarrhea is resolving * Repeat CT here without colitis 2. VRE UTI 3. 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 Severe protein-calorie malnutrition 5. Urinary retention ?BPH vs other ?= hx of recurrent UTIs 6. Pancytopenia ?etiology probably due to HIV/AIDS (+)ITP * Thrombocytopenia- secondary to ITP vs other lymphoproliferative DO contributing to splenomegaly 7. Questionable hx of liver cirrhosis 2/2 (+)ETOH + (+)Hepatitis C -> not confirmed on CT, (+)Splenomegaly * Possible underlying lymphoproliferative disorder, though recent pathology studies were not conclusive. * Elevated ALT and Alk Phos 8. GERD 9. Hemorrhoids 10. Depression -- hx of noncompliance with ARV Meds 11. Hx of Migraine headaches + Severe occipital headaches * 06/05/16 MRI Brain non-contrast: Small 4 mm subependymal nodule within the right lateral ventricle anteriorly, that may represent a benign hamartoma. Other possibilities include a meningioma. An MRI of the brain with contrast is recommended for further evaluation. 12. Carotid artery disease: Less than 50% stenosis bilaterally in the internal carotid arteries [address] 2016 Mild lower cervical spondylosis is evident without significant central canal stenosis or neural foraminal narrowing. 14. Hx of prior admissions x 2 for multiple recurrent skin abscesses-> folliculitis, infected axillary glands 15. Hx of MARCIO septicemia 2/2 UTI + Infected abscesses prior admission. 16. Bilateral fat inguinal hernias 17. Oropharyngeal candidiasis: (-) MRSA Nares (-) C.Diff screen CURRENT ABX: Zyvox for (+)VRE UTI 1. Truvada. 2. Sustiva. 3. Zithromax weekly. 4. Acyclovir 400 mg b.i.d. 5. Bactrim DS 1 tablet p.o. daily. 6. Fluconazole. ID RECOMMENDATIONS Continue current anti-microbials, anti-virals Possibly home with family on Hospice . . 66-year-old gentleman with a history of advanced HIV disease and hepatitis C came in with cachexia and malnutrition multiple medical problems. He was treated aggressively with antibiotic therapy and support. He was also placed on anti-retroviral therapy. Is tolerated this however due to the extremis of the situation is been opted that he be placed on hospice therapy due to his advanced medical illnesses expected life span of less than 6 months. Now being discharged home under hospice care. Home Meds Active Scripts Amoxicillin/Potassium Clav (Amox-Clav 875-125 mg Tablet) 875-125 mg Tab, 875 MG PO BID for 3 Days, #6 TAB Prov:BAILEE HADDAD J 06/06/17 Multivitamins* (Theragran*) 1 Tab Tab, 1 TAB PO DAILY for 30 Days, TAB 2 Refills Prov:DOIMNIQUE DAVIDRuby 04/17/17 Reported Medications Nystatin (Nystatin) 100,000 Unit/1 Ml Oral.susp, 5 ML PO QID, #60 ML spit or swallow 06/22/17 Lactulose* (Lactulose*) 20 Gm/30 Ml Solution, 20 GM PO TID, ML 06/22/17 Sucralfate (Carafate) 1 Gm Tablet, 1 GM PO QID, TAB 06/22/17 Pantoprazole (Protonix) 40 Mg Tabec, 40 MG PO DAILY, TAB 06/22/17 Ferrous Sulfate* (Ferrous Sulfate*) 325 Mg Tabec, 325 MG PO TID, TAB 06/22/17 Cholecalciferol (Vitamin D3) 400 Unit Tab.chew, 400 UNIT PO DAILY, TAB.CHEW 04/06/17 Cyanocobalamin* (Vitamin B12*) 500 Mcg Tab, 1000 MCG PO DAILY, TAB 04/06/17 Primary Care Provider Mahesh Carpenter Time spent on discharge: > 30 minutes Pending Labs Laboratory Tests Test 07/06/17 17:38 07/07/17 07:08 Potassium Level 3.2mmol/L (3.5-5.1) 2.8mmol/L (3.5-5.1) Magnesium Level 2.1mg/dl (1.7-2.5) White Blood Count 14.010^3/ul (4.8-10.8) Red Blood Count 2.5810^6/ul (4.70-6.10) Hemoglobin 7.1g/dl (14.0-18.0) Hematocrit 21.3% (42.0-52.0) Mean Corpuscular Volume 82.6fl (82.0-101.0) Mean Corpuscular Hemoglobin 27.5pg (29.0-33.0) Mean Corpuscular Hemoglobin Concent 33.3g/dl (32.0-37.0) Red Cell Distribution Width 19.5% (11.5-14.5) Platelet Count 75824^3/UL (140-415) Mean Platelet Volume 9.4fl (7.4-10.4) Neutrophils % 96.3% (39.0-77.0) Lymphocytes % 1.4% (15.0-51.0) Monocytes % 0.8% (0.0-11.0) Eosinophils % 0.0% (0.0-7.0) Basophils % 0.1% (0.0-2.0) Nucleated Red Blood Cells % 0.0/100WBC (0.0-0.0) Neutrophils # (Manual) 13.510^3/ul (1.7-7.5) Lymphocytes # 0.210^3/ul (0.8-2.9) Monocytes # 0.110^3/ul (0.3-0.9) Eosinophils # 0.010^3/ul (0.0-0.5) Basophils # 0.010^3/ul (0.0-0.1) Nucleated Red Blood Cells # 0.010^3/ul (0.0-0.0) Sodium Level 126mmol/L (135-144) Chloride Level 103mmol/L (97-110) Carbon Dioxide Level 19mmol/L (21-31) Anion Gap 7 (8-16) Blood Urea Nitrogen 12mg/dl (7-20) Creatinine 0.55mg/dl (0.61-1.24) Glucose Level 76mg/dl (70-220) Calcium Level 6.6mg/dl (8.4-10.2) Total Bilirubin 0.0mg/dl (0.2-1.3) Direct Bilirubin 0.00mg/dl (0.00-0.20) Indirect Bilirubin 0.0mg/dl (0-1.1) Aspartate Amino Transf (AST/SGOT) 65IU/L (15-46) Alanine Aminotransferase (ALT/SGPT) 51IU/L (13-69) Alkaline Phosphatase 248IU/L (42-121) Total Protein 5.0g/dl (6.1-8.1) Albumin 1.6g/dl (3.3-4.9) Globulin 3.40g/dl (1.3-3.2) Albumin/Globulin Ratio 0.47 ELDON HINES MD Jul 07, 2017 13:38
== END 2017-07-07 18:44 | disposition hospice, home (50) | DRG 974 ==
LOC: TEL 22:50 → MS1 06-26 19:36 → MS4 06-29 22:00
PROVIDERS: ADMIT Internal Medicine; ATTEND Internal Medicine
DX: B20 Human immunodeficiency virus [HIV] disease (principal); A41.9 Sepsis, unspecified organism; E43 Unspecified severe protein-calorie malnutrition; G93.40 Encephalopathy, unspecified; K56.7 Ileus, unspecified; B37.0 Candidal stomatitis; E87.1 Hypo-osmolality and hyponatremia; N39.0 Urinary tract infection, site not specified; R64 Cachexia; K74.60 Unspecified cirrhosis of liver; K52.9 Noninfective gastroenteritis and colitis, unspecified; B18.2 Chronic viral hepatitis C; Z72.0 Tobacco use; R59.1 Generalized enlarged lymph nodes; Z68.26 Body mass index [BMI] 26.0-26.9, adult; E87.6 Hypokalemia; G32.89 Other specified degenerative disorders of nervous system in diseases classified elsewhere; B95.2 Enterococcus as the cause of diseases classified elsewhere; Z16.21 Resistance to vancomycin; Z51.5 Encounter for palliative care; R33.9 Retention of urine, unspecified; R16.1 Splenomegaly, not elsewhere classified; K21.9 Gastro-esophageal reflux disease without esophagitis; F32.9 Major depressive disorder, single episode, unspecified
CPT/HCPCS: 70551; 71010; 74000; 74177; 80048; 80053; 82533; 82977; 83540; 83605; 83735; 83935; 84100; 84132; 84145; 84300; 84443; 85025; 86360; 86701; 86703; 87040; 87045; 87075; 87086; 87536; 92610; 97110; 97116; 97161; 97530; J0744; J1650; J2270; J2405; J3480; J7030; Q9967